=== PATIENT | male | born 1965 | race African-American/Black ===

== ENCOUNTER 2017-02-25 11:15 | Inpatient (IN) | payer MEDICAID ==
[~2017-02-25] VITALS: Ht 175.3 cm; Wt 84.0 kg
[~2017-02-25 11:15] MED LIST: HYDR10TA16 PO; TAB-TAB PO
[2017-02-25] MEDS ORDERED: IOHEXOL 350 MG/ML 10 ML VIAL (for RAD DIAG) IVCONTRAST ONE (11:16)
[2017-02-25 11:17] VITALS: BP 140/70; PULSE 75; RESP 18; TEMP 98.7; O2SAT 100
[2017-02-25] MEDS ORDERED: SODIUM CHLOR 0.9% 1000 ML INJ 1,000 ML IV SCH (11:48)
[2017-02-25] MEDS ORDERED: SODIUM CHLORIDE 0.9% FLUSH 10 ML FLUSH IV FLUSH PRN (12:00)
[2017-02-25] MEDS ORDERED: ONDANSETRON HCL 4 MG/2 ML VIAL IVP ONE (12:00)
[2017-02-25 12:03] VITALS: BP 128/68; PULSE 84; RESP 18; TEMP 98.2; O2SAT 100
[2017-02-25] MEDS ORDERED: HYDR-3583 PO (12:05)
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
[2017-02-25 12:35] LABS: AUTOMATED NEUTROPHIL # 3.3 TH/MM3 (1.8-7.7); BASOPHIL # 0.1 TH/MM3 (0-0.2); BASOPHIL % 1.3 % (0.0-2.0); EOSINOPHIL # 0.2 TH/MM3 (0-0.4); EOSINOPHIL % 3.3 % (0.0-4.0); HEMATOCRIT 35.8 % (39.0-51.0); HEMO FLAGS DIFF FINAL; LYMPHOCYTE # 1.7 TH/MM3 (1.0-4.8); MEAN CELL VOLUME 78.9 FL (80.0-100.0); MEAN CORPUSCULAR HEMOGLOBIN 24.4 PG (27.0-34.0); MONO % 13.1 % (0.0-8.0); NEUT % 54.3 % (16.0-70.0); PLATELET COUNT 466 TH/MM3 (150-450); RED BLOOD COUNT 4.54 MIL/MM3 (4.50-5.90); RED CELL DISTRIBUTION WIDTH 19.7 % (11.6-17.2); WHITE BLOOD COUNT 6.1 TH/MM3 (4.0-11.0)
[2017-02-25 12:44] LABS: APTT (PATIENT) 34.8 SEC (24.3-30.1); INTERNATIONAL NORMALIZED RATIO 1.4 RATIO; PROTHROMBIN TIME - PATIENT 16.2 SEC (9.8-11.6)
[2017-02-25 12:53] LABS: ALT (GPT) 668 U/L (12-78); ANION GAP 11 MEQ/L (5-15); AST (GOT) 608 U/L (15-37); BICARBONATE 19.5 MEQ/L (21.0-32.0); BLOOD UREA NITROGEN 10 MG/DL (7-18); CHLORIDE 103 MEQ/L (98-107); GLOMERULAR FILTRATION RATE 163 ML/MIN (>89); POTASSIUM 4.1 MEQ/L (3.5-5.1); SODIUM (NA) 133 MEQ/L (136-145)
[2017-02-25 12:56] LABS: ALKALINE PHOSPHATASE 272 U/L (45-117); TOTAL BILIRUBIN ADULT 0.4 MG/DL (0.2-1.0)
[2017-02-25 12:59] LABS: BACTERIA, URINE FEW /hpf; BLOOD, URINE MOD (NEG); COMMENT (UR) CULTURE INDICATED; CULTURE IF INDICATED CULTURE INDICATED; GLUCOSE,URINE NEG (NEG); GRANULAR CAST, URINE 4 /lpf; HYALINE CAST, URINE 21 /lpf (RARE); KETONE, URINE 10 mg/dL (NEG); MUCUS URINE MANY /lpf (OCC); NITRITE,URINE NEG (NEG); PH, URINE 5.5 (5.0-8.5); URIC ACID CRYSTALS, URINE RARE /hpf; URINE COLOR YELLOW (YELLW/STRAW)
[2017-02-25] MEDS ORDERED: cefTRIAXone INJ 1,000 MG in SODIUM CHLORIDE 0.9% INJ 100 ML IV ONE (13:30)
[2017-02-25] MEDS ORDERED: ONDANSETRON HCL 4 MG/2 ML VIAL IV PUSH ONE (14:00)
[2017-02-25] MEDS ORDERED: MORPHINE SULFATE 4 MG/ML INJ IV PUSH ONE (14:00)
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
[2017-02-25] MEDS ORDERED: NALOXONE HCL 0.4 MG/ML AMP IV PUSH PRN (15:45)
[2017-02-25] MEDS ORDERED: BISACODYL 10 MG SUPP RECTAL PRN (15:45)
[2017-02-25] MEDS ORDERED: LACTULOSE SYRUP 20 GM/30 ML CUP PO PRN (15:45)
[2017-02-25] MEDS ORDERED: METOCLOPRAMIDE HCL 10 MG/2 ML VIAL IV PUSH PRN (15:45)
[2017-02-25] MEDS ORDERED: SENNOSIDES 8.6 MG TAB PO PRN (15:45)
[2017-02-25] MEDS ORDERED: MAGNESIUM HYDROXIDE SUSP 30 ML CUP PO PRN (15:45)
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
[2017-02-25] MEDS: SODIUM CHLOR 0.9% 1000 ML INJ 1,000 ML IV SCH (17:01)
[2017-02-25] MEDS: ONDANSETRON HCL 4 MG/2 ML VIAL IVP PRN (17:13)
[2017-02-25] MEDS: oxyCODONE/ACETAMINOPHEN 7.5 MG/325 MG TAB PO PRN ×2 (17:48→23:25)
[2017-02-25 18:00] VITALS: BP 133/62; PULSE 88; RESP 18; TEMP 97.1; O2SAT 100
[2017-02-25 20:00] VITALS: BP 117/56; PULSE 103; RESP 22; TEMP 97.9; O2SAT 99
[2017-02-25] MEDS: SODIUM CHLORIDE 0.9% FLUSH 10 ML FLUSH IV FLUSH SCH (20:08)
[2017-02-25] MEDS: HYDROmorphone HCL PF 0.5 MG/0.5 ML SYRINGE IV PUSH PRN (21:29)
[2017-02-25 23:13] LABS: C. DIFF EPI 027 PRESUMPTIVE NEGATIVE (NEGATIVE)
[2017-02-26] VITALS: BP 105/58; PULSE 90; RESP 20; TEMP 97.6; O2SAT 98
[2017-02-26] MEDS: HYDROmorphone HCL PF 0.5 MG/0.5 ML SYRINGE IV PUSH PRN ×4 (02:07→21:13)
[2017-02-26] MEDS: SODIUM CHLOR 0.9% 1000 ML INJ 1,000 ML IV SCH ×3 (02:07→21:12)
[2017-02-26 02:37] LABS: HEMATOCRIT 28.4 % (39.0-51.0); MEAN CELL VOLUME 79.2 FL (80.0-100.0); MEAN CORPUSCULAR HEMOGLOBIN 24.6 PG (27.0-34.0); PLATELET COUNT 386 TH/MM3 (150-450); RED BLOOD COUNT 3.58 MIL/MM3 (4.50-5.90); RED CELL DISTRIBUTION WIDTH 19.4 % (11.6-17.2); WHITE BLOOD COUNT 4.6 TH/MM3 (4.0-11.0)
[2017-02-26 02:49] LABS: HEMO FLAGS AUTO DIFF
[2017-02-26 02:54] LABS: BICARBONATE 22.1 MEQ/L (21.0-32.0); POTASSIUM 3.5 MEQ/L (3.5-5.1)
[2017-02-26 04:13] LABS: BANDS 1 % (0-6); BASOPHILS 1 % (0-2); EOSINOPHILS 10 % (0-4); NEUTROPHIL # MANUAL DIFF 2.4 TH/MM3 (1.8-7.7); POLYS (SEG NEUTROPHILS) 51 % (16-70); WBC DIFF SAMPLE 100
[2017-02-26 04:16] LABS: PLATELET ESTIMATE SMEAR NORMAL (NORMAL); PLATELET MORPHOLOGY NORMAL (NORMAL); SCAN/DIFF FINAL DIFF MANUAL
[2017-02-26 08:00] VITALS: BP 134/66; PULSE 84; RESP 18; TEMP 98.3; O2SAT 98
[2017-02-26] MEDS: SODIUM CHLORIDE 0.9% FLUSH 10 ML FLUSH IV FLUSH SCH ×2 (09:00→21:12)
[2017-02-26] MEDS: oxyCODONE/ACETAMINOPHEN 7.5 MG/325 MG TAB PO PRN ×2 (09:32→17:07)
[2017-02-26] MEDS: ONDANSETRON HCL 4 MG/2 ML VIAL IVP PRN (09:39)
[2017-02-26 10:13] LABS: INDIRECT BILIRUBIN 0.1 MG/DL (0.0-0.8); TOTAL BILIRUBIN ADULT 0.2 MG/DL (0.2-1.0)
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
[2017-02-26 12:00] VITALS: BP 127/67; PULSE 80; RESP 18; TEMP 97.8; O2SAT 98
--- NOTE | 2017-02-26 12:31 | PD.WCN.NOT ---
Wound Consult Description: Consult placed for "Wound Management of stage IV decub" per Dr Greenberg on 02/25/17 Communicated with: Dr Jefferson Fuentes,RN Recommendation: Cleanse left lateral malleolus and left lateral knee with Normal Saline DAILY and apply Santyl as ordered with a dry cover. Cleanse left lateral calf every 3 days and PRN and apply Optifoam basic secured with rolled gauze. Cleanse in between 3rd, 4th, and 5th toes daily and separate with dry gauze or Optifoam basic. Change wound VAC to distal buttocks Sunday with settings @ 125mmHg low continuous suction. Additional Information: Patient seen on for wound management. Left lower lateral knee is noted with a wound measuring 2.7cm x 2.8cm x 0.6cm with 0.5cm of undermining from 6 o' clock to 10 o'clock. Wound bed is unstageable with ~30% pink tissue surrounding an island of ~70% yellow/brown necrotic tissue without active drainage and without odor. Periwound is unremarkable. Wound was cleansed with wound cleanser and a dressing of single layer Xeroform was applied to wound bed and covered with a dry cover until orders for Santyl can be obtained. Left lateral calf wound measures 26cm x 4cm x 0.7cm of vascular ~50% pink tissue and ~50% red non granulating tissue indicating partial thickness skinloss with a yellow friable exudate noted covering less than half of the wound bed that was cleansed with wound cleanser and gauze. Wound margins are open and epithelializing with new scar tissue noted to the periwound that was macerated from the previous dressing of Xeroform. Left lateral malleolus wound measures 3cm x 2.5cm x 1.2cm of loosely ~90% adherent slough and ~10% pink tissue indicating an unstageable wound. There is no odor and no active drainage noted. Wound was covered with single layer Xeroform and dry cover until Santyl can be obtained. Patient was assisted to his right side for assessment of the sacral/buttocks area. Wet to dry dressing was removed to reveal a wound inferior to the buttocks and superior to the scrotum measuring 4cm x 13cm x 4.5cm of moist vascular pink/red non granulating tissue without active drainage and without odor. Wound bed is partial thickness with scar tissue and epithelial tissue noted to wound margins. Periwound is noted with scar tissue and previous muscle flap. Wound was cleansed with wound cleanser and gauze. A moist to dry dressing was applied until orders for wound VAC could be obtained. Mila Limon [facility] Feb 26, 2017 12:31
[2017-02-26] MEDS: VANCOMYCIN 500 MG VIAL (FOR ORAL USE ONLY) PO SCH ×3 (13:24→21:11)
[2017-02-26] MEDS: metroNIDAZOLE 500 MG INJ 100 ML IV SCH ×2 (13:24→20:00)
--- NOTE | 2017-02-26 15:36 | PD.WCN.NOT ---
Wound Consult Description: Consult placed for "Wound Management of stage IV decub" per Dr Greenberg on 02/25/17 Recommendation: Cleanse left lateral malleolus and left lateral knee with Normal Saline DAILY and apply Santyl as ordered with a dry cover. Cleanse left lateral calf every 3 days and PRN and apply Optifoam basic secured with rolled gauze. Cleanse in between 3rd, 4th, and 5th toes daily and separate with dry gauze or Optifoam basic. Change wound VAC to distal buttocks Sunday with settings @ 125mmHg low continuous suction. Neg Pressure Wound Therapy Wound Location Wound Location: Posterior scrotum Wound Description Length: 4cm Width: 13cm Depth: 4.5cm Wound bed appearance: ~40% red non granulating tissue ~40% pink tissue ~20% white epithelial tissue Periwound appearance: Other (Scar tissue) Settings Suction: Continuous Intensity: Low Other Information: Bridged Foam type: Black Number of pieces: 2 Mila Limon [facility] Feb 26, 2017 15:35
[2017-02-26 16:00] VITALS: BP 138/69; PULSE 83; RESP 18; TEMP 98.1; O2SAT 99
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
--- NOTE | 2017-02-26 16:58 | RADRPT ---
EXAM DATE/TIME: 02/26/2017 15:39 [place] COMPARISON: CT ABDOMEN & PELVIS W CONTRAST, February 25, 2017, 13:58. INDICATIONS : Obstruction. MEDICAL HISTORY : Paraplegia. SURGICAL HISTORY : CABG Coronary artery stent. Bowel resection. ENCOUNTER: Initial ACUITY: 2 day PAIN SCORE: 3/10 LOCATION: abdomen TECHNIQUE: Multiplanar, multisequence magnetic resonance imaging of the abdomen was performed. High-resolution 3D dataset was utilized to reconstruct maximum-intensity projection (MIP) images. FINDINGS: There are no focal defects in the liver. There is no intrahepatic biliary duct dilatation. Common d uct is normal in size spleen, pancreas and adrenal glands are unremarkable. CONCLUSION: There is no acute common duct stone. Gallstone seen by CT scan is not visualized by MRCP. Erasmo Ambrocio MD FACR on February 26, 2017 at 16:53 Board Certified Radiologist. This report was verified electronically.
[2017-02-26 20:00] VITALS: BP 124/68; PULSE 115; RESP 17; TEMP 96.7; O2SAT 99
[2017-02-26 20:54] LABS: FERRITIN 635 NG/ML (26-388); TRANSFERRIN IRON PROFILE 120 MG/DL (200-360)
[2017-02-27] VITALS: BP 122/67; PULSE 109; RESP 17; TEMP 97.8; O2SAT 100
[2017-02-27] MEDS: oxyCODONE/ACETAMINOPHEN 7.5 MG/325 MG TAB PO PRN ×4 (00:32→23:53)
[2017-02-27] MEDS: metroNIDAZOLE 500 MG INJ 100 ML IV SCH ×3 (02:24→20:36)
[2017-02-27] MEDS: HYDROmorphone HCL PF 0.5 MG/0.5 ML SYRINGE IV PUSH PRN ×5 (02:25→20:47)
[2017-02-27] MEDS: SODIUM CHLOR 0.9% 1000 ML INJ 1,000 ML IV SCH ×2 (07:38→17:13)
[2017-02-27 08:31] VITALS: BP 117/62; PULSE 89; RESP 18; TEMP 97.7; O2SAT 100
[2017-02-27] MEDS: SODIUM CHLORIDE 0.9% FLUSH 10 ML FLUSH IV FLUSH SCH ×3 (09:00→20:37)
[2017-02-27] MEDS ORDERED: SODIUM CHLORIDE 0.9% FLUSH 10 ML FLUSH IV FLUSH PRN (09:00)
[2017-02-27] MEDS: MEGESTROL ACETATE SUSP 400 MG/10 ML CUP PO SCH (09:22)
[2017-02-27] MEDS: VANCOMYCIN 500 MG VIAL (FOR ORAL USE ONLY) PO SCH ×4 (09:22→20:36)
[2017-02-27] MEDS: COLLAGENASE OINT 30 GM TUBE TOPICAL SCH (09:22)
[2017-02-27] MEDS: LACTOBACILLUS ACIDOPHILUS TAB PO SCH ×2 (10:05→20:36)
[2017-02-27] MEDS ORDERED: ALTEPLASE RECOMBINANT 2 MG VIAL INTRACATH ONE (12:00)
[2017-02-27 12:07] VITALS: BP 140/68; PULSE 84; RESP 18; TEMP 98.9; O2SAT 99
--- NOTE | 2017-02-27 13:27 | HHI.GIFU ---
Subjective Remarks resting in bed, awake , responsive afebrile, RUQ pain with lt. palpation Colostomy draining red pink tinged fluid (Maile Barnes) Objective Vitals I&O Vital Signs Date Time Temp Pulse Resp B/P (MAP) Pulse Ox O2 Delivery O2 Flow Rate FiO2 02/27/17 12:07 98.9 84 18 140/68 (92) 99 02/27/17 08:31 97.7 89 18 117/62 (80) 100 02/27/17 04:46 16 02/27/17 02:24 16 02/27/17 00:00 97.8 109 17 122/67 (85) 100 02/26/17 20:00 96.7 115 17 124/68 (86) 99 02/26/17 16:00 98.1 83 18 138/69 (92) 99 I/O 02/26/17 02/26/17 02/26/17 02/27/17 02/27/17 02/27/17 07:00 15:00 23:00 07:00 15:00 23:00 Intake Total 1693 ml 960 ml 240 ml Output Total 600 ml 1100 ml 750 ml Balance 1093 ml -140 ml -510 ml Intake Oral 360 ml 960 ml 240 ml IV Total 1333 ml Output Urine Total 600 ml 750 ml 750 ml Stool Total 350 ml # Voids 1 # Bowel Movements 0 Laboratory Laboratory Tests Test 02/26/17 19:46 Iron Level 23 Total Iron Binding Capacity 168 Percent Iron Saturation 13.7 Ferritin 635 Tumor Marker Alpha Fetoprotein 2.0 Date/Time Source Procedure Growth Status 02/25/17 21:19 Stool Stool Cryptosporidium Exam - Final NEGATIVE - NO CRYPTOSPORIDIUM ANTIGEN... Complete 02/25/17 21:19 Stool Stool Stool Pus (LOIS) - Final RARE WBC Complete 02/25/17 12:27 Urine Clean Catch Urine Culture - Preliminary Acinetobacter Baumannii/Haemol Resulted Imaging Last Impressions Cholangiopancreatography MRI 02/26/17 0000 Signed Impressions: Service Date/Time: Sunday, February 26, 2017 15:39 - CONCLUSION: There is no acute common duct stone. Gallstone seen by CT scan is not visualized by MRCP. Erasmo Ambrocio MD FACR Abdomen/Pelvis CT 02/25/17 1318 Signed Impressions: Service Date/Time: Saturday, February 25, 2017 13:58 - CONCLUSION: 1. Multiple gallstones. 2. Umbilical ostomy. No dilated loops of small or large bowel. 3. Suprapubic catheter tip in the urinary bladder. 4. Bilateral Girdlestone procedures in the hips. Jairo Kurtz MD Physical Exam NELL SCOTT normocephalic; atraumatic; no jaundice. MM pink NECK: Neck is supple, no JVD, no lymphadenopathy. CHEST: Chest is clear to auscultation anterior and posterior, no rhonchi or wheezing noted CARDIAC: Regular rate and rhythm with no murmur gallop or rubs. ABDOMEN: Soft, describes mild burning burning generalized abdominal pain, bowel sounds are present in all four quadrants. Colostomy bag beginning to drain orange colored jelly consistent stool EXTREMITIES: rt. AKA, lt. leg bandage wound care CDI SKIN: Normal; no rash; no jaundice. [employer]ACHT: No focal deficits; alert and oriented times three., Anxious (Maile Barnes) Assessment and Plan Plan ASSESSMENT: - Hematemesis. Pt had n/v x 1 week with clear mucous and then had one episode of small amount of bright red blood mixed within clear mucous initially. Yesterday patient had clear pink tinged fluid via colostomy bag, today patient has generally consistent stool orange in color - N/V, Decreased appetite, abdominal pain. Pt reports 1 week hx of n/v, pain, decreased appetite, diarrhea. CT scan abdomen and pelvis with IV contrast (02/25/17) multiple gallstones, umbilical ostomy, no dilated loops of small or large bowel, suprapubic catheter tip in the urinary bladder , bilateral Girdlestone procedures in the hips. Tolerating Clear liquid diet and is starting to drink broth today with Jell- O in juice LFTs elevated, but not in an obstructive pattern and no hx of liver disease. - Acute on chronic anemia. HH stable at 9.3, due to hematocrit emesis will continue to monitor for any acute drops in hemoglobin - CDiff colitis, 2nd episode. Pt had recent episode while hospitalized at [facility] 1 month ago, treated with flagyl, oral vanco,. This is the first day the patient has began to show generally consistent stools, small amount via colostomy bag Now treated again with Oral Vanco, Flagyl. CDiff Positive. - Elevated LFTs. No hx of liver disease. Has cholelithiasis, but no biliary dilatation on CT. LFTs improving. Vital signs stable. MRCP done on 02-26. No acute common duct stone. Gallstones not visualized. - Chronic sacral decubitus ulcer, RLE skin wound per attending. Has diverting colostomy. Wound Vac on sacrum and being followed by wound care team PLAN: - Continue Clear liquids and encourage patient to drink broth on dietary tray along with his Jell-O, Gatorade, - Monitor HH, stable at 9.3. - Transfuse as necessary - Flagyl IVPB, C Diff tx - Oral Vanco, C Diff tx - Cont. Protonix - Consider EGD / Colonoscopy when more stable , C. difficile treatment continues - Supportive care - Further recommendations to follow based on results of above - Pt seen and examined by Dr. Yee and myself and this note is written on her behalf (Maile Barnes) Maile Barnes Feb 27, 2017 13:27 Avril Yee MD Feb 27, 2017 20:26
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
[2017-02-27 15:39] LABS: AUTOMATED NEUTROPHIL # 2.2 TH/MM3 (1.8-7.7); BASOPHIL % 0.4 % (0.0-2.0); EOSINOPHIL # 0.2 TH/MM3 (0-0.4); EOSINOPHIL % 4.6 % (0.0-4.0); HEMATOCRIT 29.9 % (39.0-51.0); HEMO FLAGS DIFF FINAL; LYMPH % 28.8 % (9.0-44.0); LYMPHOCYTE # 1.2 TH/MM3 (1.0-4.8); MEAN CELL VOLUME 79.4 FL (80.0-100.0); MEAN CORPUSCULAR HEMOGLOBIN 24.2 PG (27.0-34.0); MEAN CORPUSCULAR HGB CONC 30.5 % (32.0-36.0); NEUT % 54.2 % (16.0-70.0); PLATELET COUNT 431 TH/MM3 (150-450); RED BLOOD COUNT 3.77 MIL/MM3 (4.50-5.90); RED CELL DISTRIBUTION WIDTH 19.3 % (11.6-17.2); WHITE BLOOD COUNT 4.1 TH/MM3 (4.0-11.0)
[2017-02-27 16:07] LABS: ANION GAP 7 MEQ/L (5-15); AST (GOT) 64 U/L (15-37); BICARBONATE 22.9 MEQ/L (21.0-32.0); BLOOD UREA NITROGEN 3 MG/DL (7-18); CHLORIDE 108 MEQ/L (98-107); GLOMERULAR FILTRATION RATE 209 ML/MIN (>89); POTASSIUM 3.5 MEQ/L (3.5-5.1); SODIUM (NA) 138 MEQ/L (136-145)
[2017-02-27 16:08] LABS: ALT (GPT) 236 U/L (12-78)
[2017-02-27 16:10] LABS: ALKALINE PHOSPHATASE 218 U/L (45-117); TOTAL BILIRUBIN ADULT 0.2 MG/DL (0.2-1.0)
[2017-02-27 16:29] VITALS: BP 125/65; PULSE 97; RESP 18; TEMP 98.7; O2SAT 98
[2017-02-27 20:00] VITALS: BP 131/66; PULSE 86; RESP 17; TEMP 99; O2SAT 99
[2017-02-28] VITALS: BP 120/62; PULSE 62; RESP 17; TEMP 98.7; O2SAT 99
[2017-02-28] MEDS: HYDROmorphone HCL PF 0.5 MG/0.5 ML SYRINGE IV PUSH PRN ×5 (01:07→19:56)
[2017-02-28] MEDS: SODIUM CHLOR 0.9% 1000 ML INJ 1,000 ML IV SCH ×2 (01:13→13:25)
[2017-02-28] MEDS: metroNIDAZOLE 500 MG INJ 100 ML IV SCH ×3 (05:14→19:56)
[2017-02-28 06:28] LABS: AUTOMATED NEUTROPHIL # 2.3 TH/MM3 (1.8-7.7); BASOPHIL % 0.5 % (0.0-2.0); EOSINOPHIL # 0.3 TH/MM3 (0-0.4); EOSINOPHIL % 6.1 % (0.0-4.0); HEMATOCRIT 29.4 % (39.0-51.0); HEMO FLAGS DIFF FINAL; LYMPH % 33.9 % (9.0-44.0); LYMPHOCYTE # 1.6 TH/MM3 (1.0-4.8); MEAN CELL VOLUME 79.3 FL (80.0-100.0); MEAN CORPUSCULAR HEMOGLOBIN 24.9 PG (27.0-34.0); MEAN CORPUSCULAR HGB CONC 31.4 % (32.0-36.0); MONO % 10.2 % (0.0-8.0); NEUT % 49.3 % (16.0-70.0); PLATELET COUNT 439 TH/MM3 (150-450); RED BLOOD COUNT 3.71 MIL/MM3 (4.50-5.90); RED CELL DISTRIBUTION WIDTH 19.1 % (11.6-17.2); WHITE BLOOD COUNT 4.6 TH/MM3 (4.0-11.0)
[2017-02-28 06:49] LABS: ANION GAP 7 MEQ/L (5-15); AST (GOT) 52 U/L (15-37); BICARBONATE 25.9 MEQ/L (21.0-32.0); BLOOD UREA NITROGEN 4 MG/DL (7-18); CHLORIDE 109 MEQ/L (98-107); GLOMERULAR FILTRATION RATE 322 ML/MIN (>89); POTASSIUM 3.8 MEQ/L (3.5-5.1); SODIUM (NA) 142 MEQ/L (136-145)
[2017-02-28 06:52] LABS: ALKALINE PHOSPHATASE 215 U/L (45-117); ALT (GPT) 193 U/L (12-78); TOTAL BILIRUBIN ADULT 0.1 MG/DL (0.2-1.0)
[2017-02-28 08:00] VITALS: BP 147/73; PULSE 74; RESP 17; TEMP 97.8; O2SAT 99
[2017-02-28] MEDS: SODIUM CHLORIDE 0.9% FLUSH 10 ML FLUSH IV FLUSH SCH ×3 (09:00→19:56)
[2017-02-28] MEDS: MEGESTROL ACETATE SUSP 400 MG/10 ML CUP PO SCH (09:07)
[2017-02-28] MEDS: VANCOMYCIN 500 MG VIAL (FOR ORAL USE ONLY) PO SCH ×4 (09:07→19:56)
[2017-02-28] MEDS: LACTOBACILLUS ACIDOPHILUS TAB PO SCH ×2 (09:07→19:56)
[2017-02-28] MEDS: COLLAGENASE OINT 30 GM TUBE TOPICAL SCH (09:09)
[2017-02-28] MEDS: oxyCODONE/ACETAMINOPHEN 7.5 MG/325 MG TAB PO PRN ×3 (09:27→22:20)
[2017-02-28 12:00] VITALS: BP 129/66; PULSE 94; RESP 17; TEMP 96.6; O2SAT 98
--- NOTE | 2017-02-28 12:31 | HHI.GIFU ---
Subjective Remarks Resting in the bed, TV on Answers questions appropriately, anxious over current condition Afebrile Beginning to show soft jelly like stool in his colostomy bag (Maile Barnes) Objective Vitals I&O Vital Signs Date Time Temp Pulse Resp B/P (MAP) Pulse Ox O2 Delivery O2 Flow Rate FiO2 02/28/17 08:00 97.8 74 17 147/73 (97) 99 02/28/17 00:00 98.7 62 17 120/62 (81) 99 02/27/17 20:00 99.0 86 17 131/66 (87) 99 02/27/17 16:29 98.7 97 18 125/65 (85) 98 I/O 02/27/17 02/27/17 02/27/17 02/28/17 02/28/17 02/28/17 07:00 15:00 23:00 07:00 15:00 23:00 Intake Total 240 ml 1900 ml 1100 ml Output Total 750 ml 1650 ml 850 ml Balance -510 ml 250 ml 250 ml Intake Oral 240 ml 1200 ml 240 ml IV Total 700 ml 860 ml Output Urine Total 750 ml 1650 ml 850 ml Drainage Total 0 ml 0 ml # Voids 1 Laboratory Laboratory Tests Test 02/27/17 15:00 02/28/17 06:00 White Blood Count 4.1 4.6 Red Blood Count 3.77 3.71 Hemoglobin 9.1 9.3 Hematocrit 29.9 29.4 Mean Corpuscular Volume 79.4 79.3 Mean Corpuscular Hemoglobin 24.2 24.9 Mean Corpuscular Hemoglobin Concent 30.5 31.4 Red Cell Distribution Width 19.3 19.1 Platelet Count 431 439 Mean Platelet Volume 6.4 6.3 Neutrophils (%) (Auto) 54.2 49.3 Lymphocytes (%) (Auto) 28.8 33.9 Monocytes (%) (Auto) 12.0 10.2 Eosinophils (%) (Auto) 4.6 6.1 Basophils (%) (Auto) 0.4 0.5 Neutrophils # (Auto) 2.2 2.3 Lymphocytes # (Auto) 1.2 1.6 Monocytes # (Auto) 0.5 0.5 Eosinophils # (Auto) 0.2 0.3 Basophils # (Auto) 0.0 0.0 CBC Comment DIFF FINAL DIFF FINAL Differential Comment Blood Urea Nitrogen 3 4 Creatinine 0.51 0.35 Random Glucose 137 78 Total Protein 6.1 5.8 Albumin 1.8 1.7 Calcium Level 7.8 7.6 Alkaline Phosphatase 218 215 Aspartate Amino Transf (AST/SGOT) 64 52 Alanine Aminotransferase (ALT/SGPT) 236 193 Total Bilirubin 0.2 0.1 Sodium Level 138 142 Potassium Level 3.5 3.8 Chloride Level 108 109 Carbon Dioxide Level 22.9 25.9 Anion Gap 7 7 Estimat Glomerular Filtration Rate 209 322 Date/Time Source Procedure Growth Status 02/25/17 21:19 Stool Stool Cryptosporidium Exam - Final NEGATIVE - NO CRYPTOSPORIDIUM ANTIGEN... Complete 02/25/17 21:19 Stool Stool Stool Pus (LOIS) - Final RARE WBC Complete 02/25/17 12:27 Urine Clean Catch Urine Culture - Final Acinetobacter Baumannii/Haemol Complete Imaging Last Impressions Cholangiopancreatography MRI 02/26/17 0000 Signed Impressions: Service Date/Time: Sunday, February 26, 2017 15:39 - CONCLUSION: There is no acute common duct stone. Gallstone seen by CT scan is not visualized by MRCP. Erasmo Ambrocio MD FACR Abdomen/Pelvis CT 02/25/17 1318 Signed Impressions: Service Date/Time: Saturday, February 25, 2017 13:58 - CONCLUSION: 1. Multiple gallstones. 2. Umbilical ostomy. No dilated loops of small or large bowel. 3. Suprapubic catheter tip in the urinary bladder. 4. Bilateral Girdlestone procedures in the hips. Jairo Kurtz MD Physical Exam HEENT, PEARLLA normocephalic; atraumatic; no jaundice. MM pink NECK: Neck is supple, no JVD, no lymphadenopathy. CHEST: Chest is clear to auscultation anterior and posterior, no rhonchi or wheezing noted CARDIAC: Regular rate and rhythm with no murmur gallop or rubs. ABDOMEN: Soft, describes mild burning burning generalized abdominal pain, bowel sounds are present in all four quadrants. Colostomy bag beginning to drain orange colored jelly consistent stool EXTREMITIES: rt. AKA, lt. leg bandage wound care CDI SKIN: Normal; no rash; no jaundice. MANAGER STARS: No focal deficits; alert and oriented times three., Anxious (Maile Barnes) Assessment and Plan Plan ASSESSMENT: - Hematemesis. Pt had n/v x 1 week with clear mucous and then had one episode of small amount of bright red blood mixed within clear mucous initially. Yesterday patient had clear pink tinged fluid via colostomy bag, today patient has generally consistent stool orange in color - N/V, Decreased appetite, abdominal pain. Pt reports 1 week hx of n/v, pain, decreased appetite, diarrhea. CT scan abdomen and pelvis with IV contrast (02/25/17) multiple gallstones, umbilical ostomy, no dilated loops of small or large bowel, suprapubic catheter tip in the urinary bladder , bilateral Girdlestone procedures in the hips. Tolerating Clear liquid diet and is starting to drink broth today with Jell- O in juice LFTs elevated, but not in an obstructive pattern and no hx of liver disease. - Acute on chronic anemia. HH stable at 9.3, due to hematocrit emesis will continue to monitor for any acute drops in hemoglobin - CDiff colitis, 2nd episode. Pt had recent episode while hospitalized at [facility] 1 month ago, treated with flagyl, oral vanco,. This is the first day the patient has began to show generally consistent stools, small amount via colostomy bag Now treated again with Oral Vanco, Flagyl. CDiff Positive. - Elevated LFTs. No hx of liver disease. Has cholelithiasis, but no biliary dilatation on CT. LFTs improving. Vital signs stable. MRCP done on 02-26. No acute common duct stone. Gallstones not visualized. - Chronic sacral decubitus ulcer, RLE skin wound per attending. Has diverting colostomy. Wound Vac on sacrum and being followed by wound care team PLAN: - Continue Clear liquids and encourage patient to drink broth on dietary tray along with his Jell-O, Gatorade, - Monitor HH, stable at 9.3. - Monitor labs with special attention to LFTs - Transfuse as necessary - Flagyl IVPB, C Diff tx - Oral Vanco, C Diff tx - Cont. Protonix - Consider EGD / Colonoscopy when more stable , C. difficile treatment continues - Supportive care - Further recommendations to follow based on results of above - Pt seen and examined by Dr. Yee and myself and this note is written on her behalf (Maile Barnes) Physician Comments seen, examined agree with above tenderness over ruq-we will order hida scan hep c ab positive-we wll order viral load anemia-egd/colonoscopy via colostomy Sunday or early next week (Avril Yee MD) Maile Barnes Feb 28, 2017 12:31 Avril Yee MD Feb 28, 2017 18:53
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
[2017-02-28] MEDS ORDERED: AMPICILLIN-SULBACTAM INJ 3 GM in SODIUM CHLORIDE 0.9% INJ 100 ML IV SCH (13:30)
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
--- NOTE | 2017-02-28 14:51 | PD.WCN.NOT ---
Neg Pressure Wound Therapy Wound Location Wound Location: Posterior scrotum Wound Description Wound bed appearance: ~40% red non granulating tissue ~40% pink tissue ~20% white epithelial tissue Periwound appearance: Other (Maceration from 11 to 1 o'clock) Settings Suction: Continuous Intensity: Low Other Information: Bridged Foam type: Black Number of pieces: 1 Additonal Information Patient seen on 7 north around 1315 for VAC dressing change. Removed Wound VAC dressing in place to reveal wound. Wound description is noted above. Cleansed wound with wound pillowcase cleaner and pat dry. Doctor Nanette in room during dressing change and assessed wound. Skin prep was applied to Periwound and to Bridged area up to L hip. Single piece of black granufoam was applied to wound bed in a cinnamon roll fashion to reach all areas of wound bed. Stoma paste was applied to wound margins and creases between 4 and 8 o'clock to seal wound Vac. Applied VAC drape over exposed granufoam. Cut hole in VAC drape to expose small amount of granufoam. Bridged granufoam over VAC drape up to L hip area. Applied Sensi trac pad over bridged granufoam to L hip area with mushroom cap of black granufoam attached. Covered all exposed granufoam with VAC drape. Wound VAC is suctioning at 125 mm/hg without leaks. Next wound VAC dressing change is due Sunday03/02/2017. Sonam Flannery [facility] Feb 28, 2017 14:51
[2017-02-28 16:00] VITALS: BP 159/74; PULSE 75; RESP 17; TEMP 97.9; O2SAT 98
[2017-02-28] MEDS: ONDANSETRON HCL 4 MG/2 ML VIAL IVP PRN (20:06)
[2017-02-28 23:42] VITALS: BP 140/76; PULSE 86; RESP 22; TEMP 98.1; O2SAT 99
[2017-03-01] MEDS: SODIUM CHLOR 0.9% 1000 ML INJ 1,000 ML IV SCH ×3 (00:22→21:06)
[2017-03-01] MEDS: HYDROmorphone HCL PF 0.5 MG/0.5 ML SYRINGE IV PUSH PRN ×5 (00:22→21:09)
[2017-03-01] MEDS: metroNIDAZOLE 500 MG INJ 100 ML IV SCH ×3 (04:42→21:08)
[2017-03-01] MEDS: oxyCODONE/ACETAMINOPHEN 7.5 MG/325 MG TAB PO PRN ×3 (04:53→18:14)
[2017-03-01 06:14] LABS: AUTOMATED NEUTROPHIL # 1.8 TH/MM3 (1.8-7.7); BASOPHIL % 0.2 % (0.0-2.0); EOSINOPHIL # 0.3 TH/MM3 (0-0.4); EOSINOPHIL % 7.5 % (0.0-4.0); HEMATOCRIT 31.4 % (39.0-51.0); HEMO FLAGS DIFF FINAL; LYMPH % 38.7 % (9.0-44.0); LYMPHOCYTE # 1.6 TH/MM3 (1.0-4.8); MEAN CORPUSCULAR HEMOGLOBIN 24.4 PG (27.0-34.0); MEAN CORPUSCULAR HGB CONC 30.9 % (32.0-36.0); MONO % 11.6 % (0.0-8.0); PLATELET COUNT 424 TH/MM3 (150-450); RED BLOOD COUNT 3.98 MIL/MM3 (4.50-5.90); RED CELL DISTRIBUTION WIDTH 19.7 % (11.6-17.2); WHITE BLOOD COUNT 4.2 TH/MM3 (4.0-11.0)
[2017-03-01 06:38] LABS: ALT (GPT) 147 U/L (12-78); ANION GAP 7 MEQ/L (5-15); AST (GOT) 45 U/L (15-37); BICARBONATE 27.3 MEQ/L (21.0-32.0); BLOOD UREA NITROGEN 4 MG/DL (7-18); CHLORIDE 107 MEQ/L (98-107); GLOMERULAR FILTRATION RATE 333 ML/MIN (>89); POTASSIUM 3.7 MEQ/L (3.5-5.1); SODIUM (NA) 141 MEQ/L (136-145)
[2017-03-01 06:40] LABS: ALKALINE PHOSPHATASE 213 U/L (45-117); BACTERIA, URINE RARE /hpf; BLOOD, URINE NEG (NEG); COMMENT (UR) CULTURE INDICATED; CULTURE IF INDICATED CULTURE INDICATED; GLUCOSE,URINE NEG (NEG); KETONE, URINE NEG (NEG); MUCUS URINE FEW /lpf (OCC); NITRITE,URINE NEG (NEG); PH, URINE 6.5 (5.0-8.5); TOTAL BILIRUBIN ADULT 0.2 MG/DL (0.2-1.0); URINE COLOR YELLOW (YELLW/STRAW)
[2017-03-01 08:00] VITALS: BP 140/74; PULSE 72; RESP 17; TEMP 98.3; O2SAT 99
[2017-03-01] MEDS: VANCOMYCIN 500 MG VIAL (FOR ORAL USE ONLY) PO SCH ×4 (08:52→21:11)
[2017-03-01] MEDS: LACTOBACILLUS ACIDOPHILUS TAB PO SCH ×2 (08:53→21:09)
[2017-03-01] MEDS: MEGESTROL ACETATE SUSP 400 MG/10 ML CUP PO SCH (08:53)
[2017-03-01] MEDS: SODIUM CHLORIDE 0.9% FLUSH 10 ML FLUSH IV FLUSH SCH ×3 (08:53→21:08)
[2017-03-01] MEDS: COLLAGENASE OINT 30 GM TUBE TOPICAL SCH (08:54)
--- NOTE | 2017-03-01 10:37 | HHI.GIFU ---
Subjective Remarks Resting in bed. No n/v. Tolerating clear liquids. Continues to have abdominal pain, more tender in RUQ. Going for HIDA scan today. Colostomy bag with liquid yellowish stool (MahanSirisha Rachceline GARLAND) Objective Vitals I&O Vital Signs Date Time Temp Pulse Resp B/P (MAP) Pulse Ox O2 Delivery O2 Flow Rate FiO2 03/01/17 08:00 98.3 72 17 140/74 (96) 99 02/28/17 23:42 98.1 86 22 140/76 (97) 99 02/28/17 16:00 97.9 75 17 159/74 (102) 98 02/28/17 12:00 96.6 94 17 129/66 (87) 98 I/O 02/28/17 02/28/17 02/28/17 03/01/17 03/01/17 03/01/17 07:00 15:00 23:00 07:00 15:00 23:00 Intake Total 1100 ml 100 ml 3080 ml 867 ml Output Total 850 ml 850 ml 1360 ml Balance 250 ml 100 ml 2230 ml -493 ml Intake Oral 240 ml 2160 ml IV Total 860 ml 100 ml 920 ml 867 ml Output Urine Total 850 ml 850 ml 1360 ml Drainage Total 0 ml # Bowel Movements 2 Laboratory Laboratory Tests Test 03/01/17 06:00 White Blood Count 4.2 Red Blood Count 3.98 Hemoglobin 9.7 Hematocrit 31.4 Mean Corpuscular Volume 79.0 Mean Corpuscular Hemoglobin 24.4 Mean Corpuscular Hemoglobin Concent 30.9 Red Cell Distribution Width 19.7 Platelet Count 424 Mean Platelet Volume 6.5 Neutrophils (%) (Auto) 42.0 Lymphocytes (%) (Auto) 38.7 Monocytes (%) (Auto) 11.6 Eosinophils (%) (Auto) 7.5 Basophils (%) (Auto) 0.2 Neutrophils # (Auto) 1.8 Lymphocytes # (Auto) 1.6 Monocytes # (Auto) 0.5 Eosinophils # (Auto) 0.3 Basophils # (Auto) 0.0 CBC Comment DIFF FINAL Differential Comment Urine Color YELLOW Urine Turbidity CLEAR Urine pH 6.5 Urine Specific [place] 1.010 Urine Protein NEG Urine Glucose (UA) NEG Urine Ketones NEG Urine Occult Blood NEG Urine Nitrite NEG Urine Bilirubin NEG Urine Urobilinogen LESS THAN 2.0 Urine Leukocyte Esterase LARGE Urine RBC 2 Urine WBC 35 Urine Bacteria RARE Urine Mucus FEW Urine Yeast (Budding) OCC Microscopic Urinalysis Comment CULTURE INDICATED Blood Urea Nitrogen 4 Creatinine 0.34 Random Glucose 73 Total Protein 6.1 Albumin 1.8 Calcium Level 7.7 Alkaline Phosphatase 213 Aspartate Amino Transf (AST/SGOT) 45 Alanine Aminotransferase (ALT/SGPT) 147 Total Bilirubin 0.2 Sodium Level 141 Potassium Level 3.7 Chloride Level 107 Carbon Dioxide Level 27.3 Anion Gap 7 Estimat Glomerular Filtration Rate 333 Date/Time Source Procedure Growth Status 02/25/17 21:19 Stool Stool Cryptosporidium Exam - Final NEGATIVE - NO CRYPTOSPORIDIUM ANTIGEN... Complete 02/25/17 21:19 Stool Stool Stool Pus (LOIS) - Final RARE WBC Complete 03/01/17 06:00 Urine Suprapubic Urine Urine Culture Pending Received Imaging Last Impressions Cholangiopancreatography MRI 02/26/17 0000 Signed Impressions: Service Date/Time: Sunday, February 26, 2017 15:39 - CONCLUSION: There is no acute common duct stone. Gallstone seen by CT scan is not visualized by MRCP. Erasmo Ambrocio MD FACR Abdomen/Pelvis CT 02/25/17 1318 Signed Impressions: Service Date/Time: Saturday, February 25, 2017 13:58 - CONCLUSION: 1. Multiple gallstones. 2. Umbilical ostomy. No dilated loops of small or large bowel. 3. Suprapubic catheter tip in the urinary bladder. 4. Bilateral Girdlestone procedures in the hips. Jairo Kurtz MD Physical Exam HEENT, Normocephalic; atraumatic CHEST: CTA CARDIAC: RRR ABDOMEN: Soft, diffuse tenderness, more in RUQ, Colostomy bag with liquid brown stool EXTREMITIES: Right AKA, lt. leg bandage wound care CDI SKIN: Normal; no rash; no jaundice. 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 Pt had n/v x 1 week with clear mucous and then had one episode of small amount of bright red blood mixed within clear mucous. No further episodes. Possible lashay vale tear. 9.7/31.4. - N/V, Decreased appetite, abdominal pain. Pt reports 1 week hx of n/v, pain, decreased appetite, diarrhea. CT scan abdomen and pelvis with IV contrast (02/25/17) multiple gallstones, umbilical ostomy, no dilated loops of small or large bowel, suprapubic catheter tip in the urinary bladder , bilateral Girdlestone procedures in the hips. MRCP (02/26/17)---> There is no acute common duct stone. Gallstone seen by CT scan is not visualized by MRCP. Continues to have abdominal pain, more in RUQ. Going for HIDA scan today. - Acute on chronic anemia. HH stable at 9.7/31.4. - CDiff colitis, 2nd episode. Pt had recent episode while hospitalized at [facility] 1 month ago, treated with flagyl, oral vanco,. Still having liquid stool from colostomy, about the same. Flagyl, Oral Vanco. - Elevated LFTs. No hx of liver disease. Has cholelithiasis, but no biliary dilatation on CT. No obstruction on MRCP. Continues to have abdominal pain, more in RUQ. Going for HIDA scan today. HCV Ab (+), viral load pending. - HCV Ab (+). Viral load pending. - Chronic sacral decubitus ulcer, RLE skin wound per attending. Has diverting colostomy. Wound Vac on sacrum and being followed by wound care team PLAN: - Clear liquids - HIDA scan - Await HCV viral load - PPI - Oral Vanco, Flagyl - Monitor labs - Supportive care - Further recommendations to follow based on results of above - Pt seen and examined by Dr. Yee and myself and this note is written on her behalf (Sirisha Mahan) Physician Comments seen, examined agree with above we will schedule egd/colon in am HIDA to be done tomorrow too (Avril Yee MD) Sirisha Mahan Mar 01, 2017 10:37 Avril Yee MD Mar 01, 2017 17:27
--- NOTE | 2017-03-01 10:55 | HHI.FF ---
Face to Face Verification Diagnosis: (1) Decubitus ulcer Home Health Nursing Order: Wound care and dressing changes Instructions: WOUND VAC DSG Cleansed wound with wound latrine cleaner and pat dry. Skin prep was applied to Periwound and to Bridged area up to L hip. Single piece of black granufoam was applied to wound bed in a cinnamon roll fashion to reach all areas of wound bed. Stoma paste was applied to wound margins and creases between 4 and 8 o' clock to seal wound Vac. Applied VAC drape over exposed granufoam. Cut hole in VAC drape to expose small amount of granufoam. Bridged granufoam over VAC drape up to L hip area. Applied Sensi trac pad over bridged granufoam to L hip area with mushroom cap of black granufoam attached. Covered all exposed granufoam with VAC drape. Wound VAC is suctioning at 125 mm/hg. Wound Vac dressing change every other day. M-W-. I have seen patient Axel Nolan Jr on 03/01/17. My clinical findings support the need for the requested home health care services because: Ltd mobility - disease progression Limited ability to care for self High risk of falls Infection w/ risk of complications I certify that my clinical findings support that this patient is homebound because: [id number] bed/chair Unable to use public transportation Johnathan Chino Mar 01, 2017 10:55
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
[2017-03-01 12:00] VITALS: BP 144/70; PULSE 81; RESP 17; TEMP 98; O2SAT 99
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
[2017-03-01 16:00] VITALS: BP 131/68; PULSE 72; RESP 17; TEMP 98.5; O2SAT 99
[2017-03-01] MEDS ORDERED: MAGNESIUM CITRATE SOLN 300 ML BTL PO ONE ×2 (17:30→22:00)
[2017-03-01 20:00] VITALS: BP 161/77; PULSE 72; RESP 20; TEMP 98.9; O2SAT 99
[2017-03-02] VITALS: BP 139/69; PULSE 77; RESP 20; TEMP 97.4; O2SAT 96
[2017-03-02] MEDS: oxyCODONE/ACETAMINOPHEN 7.5 MG/325 MG TAB PO PRN ×3 (00:04→11:51)
[2017-03-02] MEDS: HYDROmorphone HCL PF 0.5 MG/0.5 ML SYRINGE IV PUSH PRN ×4 (01:14→21:07)
[2017-03-02] MEDS: metroNIDAZOLE 500 MG INJ 100 ML IV SCH ×3 (05:21→21:03)
[2017-03-02] MEDS: SODIUM CHLOR 0.9% 1000 ML INJ 1,000 ML IV SCH ×2 (05:38→11:58)
[2017-03-02 06:14] LABS: AUTOMATED NEUTROPHIL # 1.9 TH/MM3 (1.8-7.7); BASOPHIL # 0.1 TH/MM3 (0-0.2); BASOPHIL % 1.4 % (0.0-2.0); EOSINOPHIL # 0.3 TH/MM3 (0-0.4); EOSINOPHIL % 7.9 % (0.0-4.0); HEMATOCRIT 30.5 % (39.0-51.0); HEMO FLAGS DIFF FINAL; LYMPH % 37.3 % (9.0-44.0); LYMPHOCYTE # 1.6 TH/MM3 (1.0-4.8); MEAN CELL VOLUME 78.8 FL (80.0-100.0); MEAN CORPUSCULAR HEMOGLOBIN 24.6 PG (27.0-34.0); MEAN CORPUSCULAR HGB CONC 31.3 % (32.0-36.0); MONO % 10.6 % (0.0-8.0); NEUT % 42.8 % (16.0-70.0); PLATELET COUNT 410 TH/MM3 (150-450); RED BLOOD COUNT 3.88 MIL/MM3 (4.50-5.90); RED CELL DISTRIBUTION WIDTH 19.7 % (11.6-17.2); WHITE BLOOD COUNT 4.4 TH/MM3 (4.0-11.0)
[2017-03-02 06:20] LABS: ANION GAP 7 MEQ/L (5-15); BICARBONATE 25.4 MEQ/L (21.0-32.0); BLOOD UREA NITROGEN 3 MG/DL (7-18); CHLORIDE 108 MEQ/L (98-107); GLOMERULAR FILTRATION RATE 268 ML/MIN (>89); POTASSIUM 3.9 MEQ/L (3.5-5.1); SODIUM (NA) 140 MEQ/L (136-145)
[2017-03-02 06:22] LABS: AST (GOT) 54 U/L (15-37)
[2017-03-02 06:25] LABS: ALKALINE PHOSPHATASE 204 U/L (45-117); ALT (GPT) 114 U/L (12-78); TOTAL BILIRUBIN ADULT 0.2 MG/DL (0.2-1.0)
[2017-03-02] MEDS ORDERED: LACTATED RINGER'S 1000 ML IV PRN (06:30)
[2017-03-02 08:00] VITALS: BP 130/72; PULSE 75; RESP 17; TEMP 98.4; O2SAT 98
[2017-03-02] MEDS: VANCOMYCIN 500 MG VIAL (FOR ORAL USE ONLY) PO SCH ×4 (08:47→21:02)
[2017-03-02] MEDS: MEGESTROL ACETATE SUSP 400 MG/10 ML CUP PO SCH (09:00)
[2017-03-02] MEDS: LACTOBACILLUS ACIDOPHILUS TAB PO SCH ×2 (09:00→21:02)
[2017-03-02] MEDS: SODIUM CHLORIDE 0.9% FLUSH 10 ML FLUSH IV FLUSH SCH ×3 (09:00→21:03)
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
--- NOTE | 2017-03-02 11:43 | RADRPT ---
EXAM DATE/TIME: 03/02/2017 08:55 [facility] COMPARISON: No previous studies available for comparison. INDICATIONS : Abdomen pain DOSE: 4 mCi Tc99m Mebrofenin IV MEDICAL HISTORY : Hepatitis C. C-diff. Paraplegic. SURGICAL HISTORY : Colostomy. Rt. BKA. ENCOUNTER: Initial ACUITY: 1 day PAIN SCALE: 0/10 LOCATION: Bilateral upper quadrant TECHNIQUE: Following the intravenous administration of radiotracer, dynamic sequential images were performed wit h continuous acquisition. FINDINGS: HEPATIC KINETICS: There is prompt uptake of radiotracer in the liver. No focal defects are seen. There is normal rate of washout from the hepatic parenchyma. BILIARY CLEARANCE: Activity is first seen in the extrahepatic biliary system at 5 minutes. There is normal excretion in to the small bowel. GALLBLADDER: Activity is first seen in the gallbladder at 7 minutes. Common bile duct kinetics are normal and the re is no evidence of biliary obstruction. BILIARY ENTRIC REFLUX: None observed. CONCLUSION: Normal study Yonathan Morel MD on March 02, 2017 at 11:39 Board Certified Radiologist. This report was verified electronically.
[2017-03-02] MEDS: COLLAGENASE OINT 30 GM TUBE TOPICAL SCH (11:52)
[2017-03-02 12:00] VITALS: BP 162/77; PULSE 71; RESP 17; TEMP 98.7; O2SAT 100
[2017-03-02] MEDS ORDERED: oxyCODONE/ACETAMINOPHEN 5 MG/325 MG TAB PO PRN (12:00)
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
[2017-03-02 16:00] VITALS: BP 126/68; PULSE 91; RESP 17; TEMP 98.4; O2SAT 99
[2017-03-02] MEDS: oxyCODONE/ACETAMINOPHEN 10 MG/325 MG TAB PO PRN (17:50)
--- NOTE | 2017-03-02 19:23 | PD.WCN.NOT ---
Neg Pressure Wound Therapy Wound Location Wound Location: Posterior scrotum Wound Description Length: 2.5cm Width: 14cm Depth: 3.5cm Undermining: Undermining is noted from 9 to 11 o'clock measuring 3.6 cm Wound bed appearance: ~40% red non granulating tissue ~40% pink tissue ~20% white epithelial tissue Periwound appearance: Other (Maceration from 11 to 1 o'clock) Settings Suction: 125 mmHg, Continuous Intensity: Low Other Information: Bridged Foam type: Black Number of pieces: 1 Additonal Information Patient seen on [address] [place] [address] around 1315 for VAC dressing change. Removed Wound VAC dressing in place to reveal wound. Wound description is noted above. Cleansed wound with wound machine fur cleaner and pat dry. Skin prep was applied to Periwound and to Bridged area up to L hip. Single piece of black granufoam was applied to wound bed in a cinnamon roll fashion to reach all areas of wound bed. Stoma paste was applied to wound margins and creases between 4 and 8 o'clock to seal wound Vac. Applied VAC drape over exposed granufoam. Cut hole in VAC drape to expose small amount of granufoam. Bridged granufoam over VAC drape up to L hip area. Applied Sensi trac pad over bridged granufoam to L hip area with mushroom cap of black granufoam attached. Covered all exposed granufoam with VAC drape. Wound VAC is suctioning at 125 mm/hg without leaks. Next wound VAC dressing change is due Sunday03/05/2017 [facility] Mar 02, 2017 19:23
[2017-03-02 20:00] VITALS: BP 142/68; PULSE 70; RESP 20; TEMP 97.8; O2SAT 100
[2017-03-03] VITALS: BP 172/79; PULSE 75; RESP 20; TEMP 97.7; O2SAT 100
[2017-03-03] MEDS: HYDROmorphone HCL PF 0.5 MG/0.5 ML SYRINGE IV PUSH PRN ×5 (00:34→20:36)
[2017-03-03] MEDS: SODIUM CHLOR 0.9% 1000 ML INJ 1,000 ML IV SCH ×3 (00:40→20:39)
[2017-03-03 04:00] VITALS: BP 151/75; PULSE 77; RESP 20; TEMP 99.2; O2SAT 99
[2017-03-03] MEDS: metroNIDAZOLE 500 MG INJ 100 ML IV SCH (04:36)
[2017-03-03] MEDS: oxyCODONE/ACETAMINOPHEN 10 MG/325 MG TAB PO PRN ×3 (06:54→19:00)
[2017-03-03 06:56] LABS: AUTOMATED NEUTROPHIL # 2.3 TH/MM3 (1.8-7.7); BASOPHIL # 0.1 TH/MM3 (0-0.2); BASOPHIL % 1.2 % (0.0-2.0); EOSINOPHIL # 0.3 TH/MM3 (0-0.4); EOSINOPHIL % 6.3 % (0.0-4.0); HEMATOCRIT 30.8 % (39.0-51.0); HEMO FLAGS DIFF FINAL; LYMPH % 34.2 % (9.0-44.0); LYMPHOCYTE # 1.6 TH/MM3 (1.0-4.8); MEAN CELL VOLUME 78.2 FL (80.0-100.0); MEAN CORPUSCULAR HEMOGLOBIN 24.5 PG (27.0-34.0); MEAN CORPUSCULAR HGB CONC 31.3 % (32.0-36.0); MONO % 10.6 % (0.0-8.0); NEUT % 47.7 % (16.0-70.0); PLATELET COUNT 399 TH/MM3 (150-450); RED BLOOD COUNT 3.94 MIL/MM3 (4.50-5.90); RED CELL DISTRIBUTION WIDTH 19.5 % (11.6-17.2); WHITE BLOOD COUNT 4.8 TH/MM3 (4.0-11.0)
[2017-03-03 07:14] LABS: ANION GAP 7 MEQ/L (5-15); AST (GOT) 50 U/L (15-37); BICARBONATE 25.8 MEQ/L (21.0-32.0); BLOOD UREA NITROGEN 2 MG/DL (7-18); CHLORIDE 107 MEQ/L (98-107); GLOMERULAR FILTRATION RATE 312 ML/MIN (>89); POTASSIUM 3.9 MEQ/L (3.5-5.1); SODIUM (NA) 140 MEQ/L (136-145)
[2017-03-03 07:18] LABS: ALKALINE PHOSPHATASE 190 U/L (45-117); ALT (GPT) 97 U/L (12-78); TOTAL BILIRUBIN ADULT 0.2 MG/DL (0.2-1.0)
[2017-03-03 08:00] VITALS: BP 128/65; PULSE 72; RESP 19; TEMP 98.8; O2SAT 99
[2017-03-03] MEDS: SODIUM CHLORIDE 0.9% FLUSH 10 ML FLUSH IV FLUSH SCH ×3 (08:41→20:36)
[2017-03-03] MEDS: MEGESTROL ACETATE SUSP 400 MG/10 ML CUP PO SCH (08:43)
[2017-03-03] MEDS: LACTOBACILLUS ACIDOPHILUS TAB PO SCH ×2 (08:43→20:35)
[2017-03-03] MEDS: VANCOMYCIN 500 MG VIAL (FOR ORAL USE ONLY) PO SCH ×4 (08:43→20:35)
[2017-03-03] MEDS: COLLAGENASE OINT 30 GM TUBE TOPICAL SCH (08:45)
[2017-03-03 11:55] VITALS: BP 140/65; PULSE 84; RESP 19; TEMP 98.4; O2SAT 100
[2017-03-03] MEDS ORDERED: FLUCONAZOLE 200 MG TAB PO ONE (12:00)
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
[2017-03-03 13:51] LABS: HCV RNA PCR LOGIU/ML 3.5 (0-1.18)
[2017-03-03] MEDS: SODIUM CHLORIDE 0.9% FLUSH 10 ML FLUSH IV FLUSH PRN (15:39)
[2017-03-03 16:00] VITALS: BP 140/65; PULSE 84; RESP 19; TEMP 98.7; O2SAT 100
--- NOTE | 2017-03-03 16:24 | HHI.GIFU ---
Subjective Remarks Active bowel sounds continues with right upper quadrant pain Hemoglobin stable at 9.6 Afebrile Resting in the bed (Maile Barnes) Objective Vitals I&O Vital Signs Date Time Temp Pulse Resp B/P (MAP) Pulse Ox O2 Delivery O2 Flow Rate FiO2 03/03/17 11:55 98.4 84 19 140/65 (90) 100 03/03/17 08:00 98.8 72 19 128/65 (86) 99 03/03/17 04:00 99.2 77 20 151/75 (100) 99 03/03/17 00:00 97.7 75 20 172/79 (110) 100 03/02/17 20:00 97.8 70 20 142/68 (92) 100 I/O 03/02/17 03/02/17 03/02/17 03/03/17 03/03/17 03/03/17 07:00 15:00 23:00 07:00 15:00 23:00 Intake Total 200 ml 625 ml 1900 ml 320 ml Output Total 2125 ml 1290 ml 2000 ml Balance -1925 ml 625 ml 610 ml -1680 ml Intake Oral 0 ml 1900 ml 320 ml IV Total 200 ml 625 ml Output Urine Total 1650 ml 1250 ml 2000 ml Stool Total 475 ml Drainage Total 40 ml # Bowel Movements 1 2 Laboratory Laboratory Tests Test 03/03/17 04:40 White Blood Count 4.8 Red Blood Count 3.94 Hemoglobin 9.6 Hematocrit 30.8 Mean Corpuscular Volume 78.2 Mean Corpuscular Hemoglobin 24.5 Mean Corpuscular Hemoglobin Concent 31.3 Red Cell Distribution Width 19.5 Platelet Count 399 Mean Platelet Volume 6.6 Neutrophils (%) (Auto) 47.7 Lymphocytes (%) (Auto) 34.2 Monocytes (%) (Auto) 10.6 Eosinophils (%) (Auto) 6.3 Basophils (%) (Auto) 1.2 Neutrophils # (Auto) 2.3 Lymphocytes # (Auto) 1.6 Monocytes # (Auto) 0.5 Eosinophils # (Auto) 0.3 Basophils # (Auto) 0.1 CBC Comment DIFF FINAL Differential Comment Blood Urea Nitrogen 2 Creatinine 0.36 Random Glucose 79 Total Protein 6.0 Albumin 1.8 Calcium Level 8.1 Alkaline Phosphatase 190 Aspartate Amino Transf (AST/SGOT) 50 Alanine Aminotransferase (ALT/SGPT) 97 Total Bilirubin 0.2 Sodium Level 140 Potassium Level 3.9 Chloride Level 107 Carbon Dioxide Level 25.8 Anion Gap 7 Estimat Glomerular Filtration Rate 312 Date/Time Source Procedure Growth Status 02/25/17 21:19 Stool Stool Cryptosporidium Exam - Final NEGATIVE - NO CRYPTOSPORIDIUM ANTIGEN... Complete 02/25/17 21:19 Stool Stool Stool Pus (LOIS) - Final RARE WBC Complete 03/01/17 06:00 Urine Suprapubic Urine Urine Culture - Final Merari Albicans Complete Imaging Last Impressions Hepatobiliary Scan Nuclear Medicine 03/02/17 0000 Signed Impressions: Service Date/Time: Thursday, March 02, 2017 08:55 - CONCLUSION: Normal study Yonathan Morel MD Cholangiopancreatography MRI 02/26/17 0000 Signed Impressions: Service Date/Time: Sunday, February 26, 2017 15:39 - CONCLUSION: There is no acute common duct stone. Gallstone seen by CT scan is not visualized by MRCP. Erasmo Ambrocio MD FACR Abdomen/Pelvis CT 02/25/17 1318 Signed Impressions: Service Date/Time: Saturday, February 25, 2017 13:58 - CONCLUSION: 1. Multiple gallstones. 2. Umbilical ostomy. No dilated loops of small or large bowel. 3. Suprapubic catheter tip in the urinary bladder. 4. Bilateral Girdlestone procedures in the hips. Jairo Kurtz MD Physical Exam HEENT, Normocephalic; atraumatic CHEST: CTA CARDIAC: RRR ABDOMEN: Soft, diffuse tenderness, more in RUQ, Colostomy bag with liquid brown stool EXTREMITIES: Right AKA, lt. leg bandage wound care CDI SKIN: Normal; no rash; no jaundice. FILM EDITOR: No focal deficits; alert and oriented times three, Anxious (Maile Barnes) Assessment and Plan Plan ASSESSMENT: - Hematemesis. Pt had n/v x 1 week with clear mucous and then had one episode of small amount of bright red blood mixed within clear mucous. No further episodes. Possible lashay vale tear. 9.7/31.4. - N/V, Decreased appetite, abdominal pain. Pt reports 1 week hx of n/v, pain, decreased appetite, diarrhea. CT scan abdomen and pelvis with IV contrast (02/25/17) multiple gallstones, umbilical ostomy, no dilated loops of small or large bowel, suprapubic catheter tip in the urinary bladder , bilateral Girdlestone procedures in the hips. MRCP (02/26/17)---> There is no acute common duct stone. Gallstone seen by CT scan is not visualized by MRCP. Continues to have abdominal pain, more in RUQ. HIDA scan normal., EGD colonoscopy planned for Sunday - Acute on chronic anemia. HH stable at 9.6, no active bleeding - CDiff colitis, 2nd episode. Pt had recent episode while hospitalized at [facility] 1 month ago, treated with flagyl, oral vanco,. Still having liquid stool from colostomy, about the same. Flagyl, Oral Vanco. - Elevated LFTs. No hx of liver disease. Has cholelithiasis, but no biliary dilatation on CT. No obstruction on MRCP. Continues to have abdominal pain, more in RUQ. EGD colonoscopy planned for Sunday - HCV Ab (+). Viral load pending. - Chronic sacral decubitus ulcer, RLE skin wound per attending. Has diverting colostomy. Wound Vac on sacrum and being followed by wound care team PLAN: - Diet regular diet seems to be tolerating without nausea or vomiting - Await HCV viral load - PPI - Diflucan 200 mg by mouth daily - Megace 400 mg daily - Probiotics - Oral Vancomycin - Bowel regimen stool softeners and laxatives as needed - Monitor labs - Supportive care -Plan for EGD/colonoscopy Sunday - Further recommendations to follow based on results of above - Pt seen and examined by Dr. Yee and myself and this note is written on her behalf (Maile Barnes) Physician Comments seen, examined agree with above (Avril Yee MD) Maile Barnes Mar 03, 2017 16:24 Avril Yee MD Mar 03, 2017 17:28
[2017-03-03 20:00] VITALS: BP 149/71; PULSE 73; RESP 18; TEMP 98.6; O2SAT 99
[2017-03-04] VITALS: BP 158/77; PULSE 62; RESP 18; TEMP 98.4; O2SAT 100
[2017-03-04] MEDS: oxyCODONE/ACETAMINOPHEN 10 MG/325 MG TAB PO PRN ×6 (01:11→23:48)
[2017-03-04] MEDS: HYDROmorphone HCL PF 0.5 MG/0.5 ML SYRINGE IV PUSH PRN (02:08)
[2017-03-04 03:50] LABS: MITOCHONDRIAL ABS LESS THAN 20.0 U (<=20.0)
[2017-03-04] MEDS: SODIUM CHLOR 0.9% 1000 ML INJ 1,000 ML IV SCH ×3 (05:26→23:48)
[2017-03-04] MEDS: HYDROmorphone HCL PF 1 MG/ML VIAL IV PUSH PRN ×5 (07:41→21:38)
[2017-03-04] MEDS: SODIUM CHLORIDE 0.9% FLUSH 10 ML FLUSH IV FLUSH SCH ×3 (07:41→21:00)
[2017-03-04 08:00] VITALS: BP 166/79; PULSE 68; RESP 19; TEMP 97.4; O2SAT 99
[2017-03-04] MEDS: VANCOMYCIN 500 MG VIAL (FOR ORAL USE ONLY) PO SCH ×4 (08:59→21:37)
[2017-03-04] MEDS: LACTOBACILLUS ACIDOPHILUS TAB PO SCH ×2 (08:59→21:37)
[2017-03-04] MEDS: FLUCONAZOLE 200 MG TAB PO SCH (08:59)
[2017-03-04] MEDS: MEGESTROL ACETATE SUSP 400 MG/10 ML CUP PO SCH (08:59)
[2017-03-04] MEDS: COLLAGENASE OINT 30 GM TUBE TOPICAL SCH (09:03)
[2017-03-04] MEDS: SODIUM CHLORIDE 0.9% FLUSH 10 ML FLUSH IV FLUSH PRN (11:01)
[2017-03-04 12:00] VITALS: BP 139/67; PULSE 87; RESP 18; TEMP 98.5; O2SAT 97
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
[2017-03-04 16:00] VITALS: BP 144/68; PULSE 86; RESP 18; TEMP 98.8; O2SAT 99
[2017-03-04] MEDS ORDERED: PEG (High)/E-LYTE SOLN 4000 ML BTL PO ONE (16:00)
[2017-03-04 20:00] VITALS: BP 139/69; PULSE 74; RESP 16; TEMP 98.3; O2SAT 98
[2017-03-05 00:41] VITALS: BP 148/71; PULSE 63; RESP 16; TEMP 98.9; O2SAT 99
[2017-03-05] MEDS: HYDROmorphone HCL PF 1 MG/ML VIAL IV PUSH PRN ×4 (01:45→21:19)
[2017-03-05 08:00] VITALS: BP 152/73; PULSE 67; RESP 17; TEMP 99.1; O2SAT 98
[2017-03-05] MEDS: MEGESTROL ACETATE SUSP 400 MG/10 ML CUP PO SCH (09:00)
[2017-03-05] MEDS: SODIUM CHLORIDE 0.9% FLUSH 10 ML FLUSH IV FLUSH SCH ×3 (09:00→21:19)
[2017-03-05] MEDS: FLUCONAZOLE 200 MG TAB PO SCH (09:27)
[2017-03-05] MEDS: VANCOMYCIN 500 MG VIAL (FOR ORAL USE ONLY) PO SCH ×4 (09:27→21:15)
[2017-03-05] MEDS: LACTOBACILLUS ACIDOPHILUS TAB PO SCH ×2 (09:27→21:15)
[2017-03-05] MEDS: oxyCODONE/ACETAMINOPHEN 10 MG/325 MG TAB PO PRN ×4 (09:27→22:41)
[2017-03-05 12:00] VITALS: BP 141/68; PULSE 70; RESP 17; TEMP 98.6; O2SAT 98
[2017-03-05] MEDS ORDERED: PROPOFOL 200 MG/20 ML AMP IV ONE (12:00)
[2017-03-05] MEDS ORDERED: LIDOCAINE HCL 1% PF 5 ML SYRINGE OTHER ONE (12:00)
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
--- NOTE | 2017-03-05 16:17 | PD.WCN.NOT ---
Neg Pressure Wound Therapy Wound Location Wound Location: Posterior Scrotum Wound Description Length: 2.5cm Width: 14cm Depth: 3.5cm Undermining: Undermining is noted from 9 to 11 o'clock measuring 3.6 cm Wound bed appearance: ~50 % red granulating tissue ~10% pink tissue ~40% white epithelial tissue Periwound appearance: Unremarkable Settings Suction: 125 mmHg, Continuous Intensity: Low Other Information: Bridged Foam type: Black Number of pieces: 1 Additonal Information Patient seen on north around 1545 for VAC dressing change.Dressing change completed with the assistance of Haylee LIAO and principal technical writer. Removed Wound VAC dressing in place to reveal wound. Wound description is noted above. Cleansed wound with wound cleanser and pat dry. Skin prep was applied to periwound and to Bridged area up to L hip. Single piece of black granufoam was applied to wound bed in a cinnamon roll fashion to reach all areas of wound bed. Stoma paste was applied to wound margins and creases between 4 and 8 o'clock to seal wound VAC. Applied VAC drape over exposed granufoam. Cut hole in VAC drape to expose small amount of granufoam. Bridged granufoam over VAC drape up to L hip area. Applied Sensi trac pad over bridged granufoam to L hip area with mushroom cap of black granufoam attached. Covered all exposed granufoam with VAC drape. Wound VAC is suctioning at 125 mm/hg without leaks. Next wound VAC dressing change is due [id number]/6/2017. Sonam Flannery YODITN Mar 05, 2017 16:17
--- NOTE | 2017-03-05 16:41 | GIPROC ---
[facility] [address] [facility]. [facility], [address] EGD PROCEDURE REPORT EXAM DATE: 03/05/2017 PATIENT NAME: Axel Nolan MR #: [id number] BIRTHDATE: 1965 ATTENDING: Cary Hardin MD ORDER #: [id number] RIVER TRANSPORTATION WORKER: Amairani Izaguirre and Montserrat Panchal STATUS: inpatient INDICATIONS: The patient is a 51 yr old male here for an EGD due to iron deficiency anemia PROCEDURE PERFORMED: EGD w/ biopsy MEDICATIONS: None and Per Anesthesia. TOPICAL ANESTHETIC: CONSENT: The patient understands the risks and benefits of the procedure and understands that these risks include, but are not limited to: sedation, allergic reaction, infection, perforation and/or bleeding. Alternative means of evaluation and treatment include, among others: physical exam, x-rays, and/or surgical intervention. The patient elects to proceed with this endoscopic procedure. medical equipment was checked for proper function. Hand hygiene and appropriate measures for infection prevention was taken. After the risks, benefits and alternatives of the procedure were thoroughly explained, Informed consent was verified, confirmed and timeout was successfully executed by the treatment team. The patient was anesthetized with topical anesthesia and the EC-3490Li (Pedi C) endoscope was introduced through the mouth and advanced to the second portion of the duodenum. Retroflexed views revealed no abnormalities The gastroscope was then slowly withdrawn and removed. ESOPHAGUS: The mucosa of the esophagus appeared normal. STOMACH: There was erythematous moderate gastritis in the gastric antrum. A biopsy was performed using cold forceps. Sample sent for histology. DUODENUM: The duodenal mucosa appeared normal. ADVERSE EVENTS: There were no complications. IMPRESSIONS: 1. The esophagus appeared normal 2. There was erythematous gastritis in the gastric antrum; biopsy was performed 3. Normal duodenal mucosa 4. Retroflexed views revealed no abnormalities RECOMMENDATIONS: 1. Await biopsy results. Biopsy results will not be ready for 7-10 days. If you don't hear from us in two weeks, call our office for biopsy results. 2. Anti-reflux regimen PATIENT CONDITION: stable DISPOSITION: Inpatient REPEAT EXAM: Return 1 year EGD pending biopsy results Cary Hardin MD eSigned: Cary Hardin MD 03/05/2017 4:41 PM cc: PATIENT NAME: Axel Nolan MR#: [id number]
--- NOTE | 2017-03-05 16:43 | GIPROC ---
[facility] [address] [facility]. [facility], [address] COLONOSCOPY PROCEDURE REPORT EXAM DATE: 03/05/2017 PATIENT NAME: Axel Nolan MR #: [id number] BIRTHDATE: 1965 ENDOSCOPIST: Cary Hardin MD ORDER #: [id number] CUSTOMER COMPLAINT CLERK: Amairani Izaguirre and Montserrat Panchal STATUS: inpatient INDICATIONS: The patient is a 51 yr old male here for a colonoscopy due to iron deficiency anemia PROCEDURE PERFORMED: Diagnostic colonoscopy via stoma MEDICATIONS: None and Per Anesthesia. PREP QUALITY: poor PREP TYPE:GoLytely ESTIMATED BLOOD LOSS: None CONSENT: The patient understands the risks and benefits of the procedure and understands that these risks include, but are not limited to: sedation, allergic reaction, infection, perforation and/or bleeding. Alternative means of evaluation and treatment include, among others: physical exam, x-rays, and/or surgical intervention. The patient elects to proceed with this endoscopic procedure. medical equipment was checked for proper function. Hand hygiene and appropriate measures for infection prevention was taken. After the risks, benefits and alternatives of the procedure were thoroughly explained, Informed consent was verified, confirmed and timeout was successfully executed by the treatment team. A digital exam The Pentax EC-[id number] endoscope was introduced through the descending colostomy and advanced to the cecum, which was identified by both the appendix and ileocecal valve. The instrument was then slowly withdrawn as the colon was fully examined. COLON FINDINGS: The colonic mucosa appeared normal. The scope was then completely withdrawn from the patient and the procedure terminated. ADVERSE EVENTS: There were no complications. IMPRESSIONS: The colonic mucosa appeared normal RECOMMENDATIONS: 1. Yearly hemoccult 2. Continue surveillance RECALL: Return 1 year Colonoscopy Cary Hardin MD eSigned: Cary Hardin MD 03/05/2017 4:43 PM cc:
[2017-03-05] MEDS: SODIUM CHLOR 0.9% 1000 ML INJ 1,000 ML IV SCH ×2 (18:10→21:26)
--- NOTE | 2017-03-05 18:33 | EKG ---
Date Performed: 03/05/2017 Time Performed: 07:19:17 PTAGE: 51 years EKG: Sinus rhythm NORMAL ECG Compared to PREVIOUS TRACING , heart rate has slowed significantly. PREVIOUS TRACIN02/16/2010 18.2 3 DOCTOR: Saran Richards Interpretating Date/Time 03/05/2017 18:33:10
[2017-03-05 20:00] VITALS: BP 158/77; PULSE 95; RESP 20; TEMP 98.9; O2SAT 98
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
[2017-03-06] VITALS: BP 150/77; PULSE 87; RESP 20; TEMP 98.6; O2SAT 98
[2017-03-06] MEDS: HYDROmorphone HCL PF 1 MG/ML VIAL IV PUSH PRN ×6 (01:50→22:46)
[2017-03-06] MEDS: oxyCODONE/ACETAMINOPHEN 10 MG/325 MG TAB PO PRN ×4 (06:44→21:13)
[2017-03-06 08:00] VITALS: BP 143/74; PULSE 90; RESP 17; TEMP 96.6; O2SAT 98
[2017-03-06] MEDS: SODIUM CHLORIDE 0.9% FLUSH 10 ML FLUSH IV FLUSH SCH ×3 (09:00→21:19)
[2017-03-06] MEDS ORDERED: BACITRACIN TOP OINT 15 GM TUBE TOPICAL SCH (09:00)
[2017-03-06] MEDS: LACTOBACILLUS ACIDOPHILUS TAB PO SCH ×2 (09:41→21:12)
[2017-03-06] MEDS: MEGESTROL ACETATE SUSP 400 MG/10 ML CUP PO SCH (09:41)
[2017-03-06] MEDS: FLUCONAZOLE 200 MG TAB PO SCH (09:41)
[2017-03-06] MEDS: VANCOMYCIN 500 MG VIAL (FOR ORAL USE ONLY) PO SCH ×4 (09:41→21:13)
[2017-03-06] MEDS ORDERED: VANC125C3 PO ×7 (09:42→13:58)
[2017-03-06] MEDS ORDERED: VANC250C2 PO (09:42)
[2017-03-06] MEDS ORDERED: DIFL200T PO (09:52)
[2017-03-06] MEDS ORDERED: LACT PO (09:52)
[2017-03-06] MEDS ORDERED: Megestrol Liq PO (09:54)
[2017-03-06] MEDS ORDERED: QC B500O TOPICAL (09:54)
[2017-03-06] MEDS ORDERED: COLL30T TOPICAL ×2 (09:54→10:48)
[2017-03-06 12:00] VITALS: BP 143/69; PULSE 81; RESP 16; TEMP 99; O2SAT 98
[2017-03-06] MEDS: COLLAGENASE OINT 30 GM TUBE TOPICAL SCH ×2 (12:14→14:23)
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
--- NOTE | 2017-03-06 14:00 | HHI.GIFU ---
Subjective Remarks Pt resting in bed. Wants greasy food, feels it would help his loose stool. Ate salad and a sandwich. Still with liquid light brown stool in ostomy. (Daily Morris) Objective Vitals I&O Vital Signs Date Time Temp Pulse Resp B/P (MAP) Pulse Ox O2 Delivery O2 Flow Rate FiO2 03/06/17 12:00 99.0 81 16 143/69 (93) 98 03/06/17 08:00 96.6 90 17 143/74 (97) 98 03/06/17 00:00 98.6 87 20 150/77 (101) 98 03/05/17 20:00 98.9 95 20 158/77 (104) 98 03/05/17 16:53 76 16 138/72 (94) 100 I/O 03/05/17 03/05/17 03/05/17 03/06/17 03/06/17 03/06/17 07:00 15:00 23:00 07:00 15:00 23:00 Intake Total 600 ml 440 ml 780 ml Output Total 3450 ml 1625 ml 3300 ml Balance -2850 ml -1185 ml -2520 ml Intake Oral 240 ml 780 ml IV Total 600 ml Other 200 ml Output Urine Total 2700 ml 1375 ml 3000 ml Stool Total 750 ml 250 ml 300 ml Drainage Total 0 ml Laboratory Date/Time Source Procedure Growth Status 02/25/17 21:19 Stool Stool Cryptosporidium Exam - Final NEGATIVE - NO CRYPTOSPORIDIUM ANTIGEN... Complete 02/25/17 21:19 Stool Stool Stool Pus (LOIS) - Final RARE WBC Complete 03/01/17 06:00 Urine Suprapubic Urine Urine Culture - Final Merari Albicans Complete Physical Exam HEENT, Normocephalic; atraumatic CHEST: CTA CARDIAC: RRR ABDOMEN: Soft, mild right quadrant TTP, more in RUQ, Colostomy bag with liquid brown stool EXTREMITIES: Right AKA, lt. leg bandage wound care CDI SKIN: Normal; no rash; no jaundice. ACCESS SERVICE REPRESENTATIVE: No focal deficits; alert and oriented times three, Anxious (Daily Morris) Assessment and Plan Plan ASSESSMENT: - Hematemesis. Pt had n/v x 1 week with clear mucous and then had one episode of small amount of bright red blood mixed within clear mucous. No further episodes. Possible lashay vale tear. s/p EGD found erythematous gastritis, bx pending - N/V, Decreased appetite, abdominal pain. Pt reports 1 week hx of n/v, pain, decreased appetite, diarrhea. CT scan abdomen and pelvis with IV contrast (02/25/17) multiple gallstones, umbilical ostomy, no dilated loops of small or large bowel, suprapubic catheter tip in the urinary bladder , bilateral Girdlestone procedures in the hips. MRCP (02/26/17)---> There is no acute common duct stone. Gallstone seen by CT scan is not visualized by MRCP. Continues to have abdominal pain, more in RUQ. HIDA scan normal. Cscope poor prep, normal otherwise - Acute on chronic anemia. HH stable, EGD - CDiff colitis, 2nd episode. Pt had recent episode while hospitalized at [facility] 1 month ago, treated with flagyl, oral vanco,. Still having liquid stool from colostomy, about the same. other stool studies neg. Flagyl, Oral Vanco. - Elevated LFTs. No hx of liver disease. Has cholelithiasis, but no biliary dilatation on CT. No obstruction on MRCP. Continues to have abdominal pain, more in RUQ. reactive HCV ab, viral load 3130 genotype pending - HCV Ab (+). hcv ab reactive, quant 3130 - Chronic sacral decubitus ulcer, RLE skin wound per attending. Has diverting colostomy. Wound Vac on sacrum and being followed by wound care team PLAN: - heart healthy diet - await EGD path - f/u as outpatient for HCV tx - HCV genotype - PPI - Diflucan 200 mg by mouth daily - Megace 400 mg daily - Probiotics - Oral Vancomycin - Monitor labs - Supportive care This pt seen by myself and Dr Hardin and this note is written on his behalf (Daily Morris) Physician Comments Seen and examined with [employer]CREW[employer] OPERATOR, s/p egd/colonoscopy yesterday. Advance diet as tolerated. Hep C treatment as outpt (Cary Hardin MD) Daily Morris Mar 06, 2017 14:00 Cary Hardin MD Mar 06, 2017 14:51
--- NOTE | 2017-03-06 14:42 | EKG ---
Date Performed: 03/05/2017 Time Performed: 18:15:35 PTAGE: 51 years EKG: Sinus rhythm NONSPECIFIC ST & T-WAVE ABNORMALITY BORDERLINE ECG Compared to prior tracing no significant change PREVIOUS TRACING : 03/05/2017 07.19 DOCTOR: Marianela Hill Interpretating Date/Time 03/06/2017 14:38:36
[2017-03-06 16:00] VITALS: BP 106/62; PULSE 81; RESP 16; TEMP 99; O2SAT 94
[2017-03-06 17:53] VITALS: O2SAT 94
[2017-03-06 20:17] VITALS: BP 142/72; PULSE 82; RESP 20; TEMP 98.6; O2SAT 98
[2017-03-06] MEDS: BACITRACIN TOP OINT 15 GM TUBE TOPICAL SCH (21:15)
[2017-03-07 00:04] VITALS: BP 141/72; PULSE 79; RESP 20; TEMP 98.1; O2SAT 98
[2017-03-07] MEDS: oxyCODONE/ACETAMINOPHEN 10 MG/325 MG TAB PO PRN ×4 (01:41→22:33)
[2017-03-07] MEDS: HYDROmorphone HCL PF 1 MG/ML VIAL IV PUSH PRN ×2 (04:49→10:40)
[2017-03-07 05:46] LABS: BICARBONATE 29.2 MEQ/L (21.0-32.0); MAGNESIUM 1.3 MG/DL (1.5-2.5); POTASSIUM 4.4 MEQ/L (3.5-5.1)
[2017-03-07 08:00] VITALS: BP 166/81; PULSE 69; RESP 18; TEMP 98.3; O2SAT 99
[2017-03-07 08:30] VITALS: O2SAT 99
[2017-03-07] MEDS: BACITRACIN TOP OINT 15 GM TUBE TOPICAL SCH ×2 (09:00→22:35)
[2017-03-07] MEDS: MEGESTROL ACETATE SUSP 400 MG/10 ML CUP PO SCH (10:41)
[2017-03-07] MEDS: FLUCONAZOLE 200 MG TAB PO SCH (10:41)
[2017-03-07] MEDS: LACTOBACILLUS ACIDOPHILUS TAB PO SCH ×2 (10:41→17:52)
[2017-03-07] MEDS: VANCOMYCIN 500 MG VIAL (FOR ORAL USE ONLY) PO SCH ×4 (10:41→22:32)
[2017-03-07] MEDS: SODIUM CHLORIDE 0.9% FLUSH 10 ML FLUSH IV FLUSH SCH ×3 (10:48→22:36)
[2017-03-07] MEDS: COLLAGENASE OINT 30 GM TUBE TOPICAL SCH (10:51)
[2017-03-07 12:00] VITALS: BP 114/63; PULSE 83; RESP 16; TEMP 98.3; O2SAT 96
[2017-03-07] MEDS: MAGNESIUM SULFATE 1 GM PREMIX 100 ML IV SCH ×2 (12:34→14:34)
--- NOTE | 2017-03-07 14:12 | PD.WCN.NOT ---
Wound Consult Description: Posterior Scrotum Communicated with: Eli GIRON [address] [place] [address] Additional Information: Patient seen today @ approx 1015 for wound Vac dressing change.Gear Design Engineer present with Haylee GIRONWCC whom will be performing wound Vac change.Wound Vac dressing removed with sponge intact.Wound cleansed with normal saline pat dry.protective barrier applied to edges of wound black sponge lightly packed in wound covering whole base.sponge bridged to left anterior thigh. Wound vac applied at 125 MMHG continuous light suction no leaks noted.Patient tolerated dressing change well. next wound vac scheduled for 03/09. Neg Pressure Wound Therapy Wound Location Wound Location: Posterior Scrotum Wound Description Length: 2.5cm Width: 14cm Depth: 3.5cm Undermining: Undermining is noted from 9 to 11 o'clock measuring 3.6 cm Wound bed appearance: ~50 % red granulating tissue ~10% pink tissue ~40% white epithelial tissue Settings Suction: 125 mmHg, Continuous Intensity: Low Other Information: Bridged Foam type: Black Number of pieces: 1 [facility] Mar 07, 2017 14:12
[2017-03-07] MEDS ORDERED: PILL SPLITTER OTHER PRN (14:30)
--- NOTE | 2017-03-07 15:04 | HHI.DCPOC ---
Discharge Care Plan Diagnosis: (1) C. difficile diarrhea (2) Decubitus ulcer Your Health Problems Are: Difficulty with ADL Incision/Drains Skin Breakdown Inflammation Irregular Bowel Function Loss of Movements Goals to Promote Your Health * To prevent worsening of your condition and complications * To maintain your health at the optimal level Directions to Meet Your Goals Take your medications as prescribed Follow your dietary instruction Follow activity as directed Keep your appointments as scheduled Take your immunizations and boosters as scheduled If your symptoms worsen call your PCP, if no PCP go to Urgent Care Center or Emergency Room Smoking is Dangerous to Your Health. Avoid second hand smoke Call the 24-hour hour crisis hotline for domestic abuse at Johnathan Chino Mar 07, 2017 15:04
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
[2017-03-07 16:00] VITALS: BP 139/73; PULSE 86; RESP 17; TEMP 97.1; O2SAT 98
[2017-03-07 20:00] VITALS: BP 135/74; PULSE 77; RESP 18; TEMP 98.1; O2SAT 98
[2017-03-08] VITALS: BP 131/67; PULSE 69; RESP 17; TEMP 98; O2SAT 99
[2017-03-08] MEDS: oxyCODONE/ACETAMINOPHEN 10 MG/325 MG TAB PO PRN ×3 (06:01→14:47)
[2017-03-08 06:26] LABS: MAGNESIUM 1.6 MG/DL (1.5-2.5); POTASSIUM 4.7 MEQ/L (3.5-5.1)
[2017-03-08 08:00] VITALS: BP 124/58; PULSE 73; RESP 17; TEMP 98.6; O2SAT 98
[2017-03-08 08:35] VITALS: O2SAT 95
[2017-03-08] MEDS: COLLAGENASE OINT 30 GM TUBE TOPICAL SCH (09:00)
[2017-03-08] MEDS: SODIUM CHLORIDE 0.9% FLUSH 10 ML FLUSH IV FLUSH SCH ×2 (09:00→09:03)
[2017-03-08] MEDS: BACITRACIN TOP OINT 15 GM TUBE TOPICAL SCH (09:00)
[2017-03-08] MEDS: LACTOBACILLUS ACIDOPHILUS TAB PO SCH ×2 (09:02→11:58)
[2017-03-08] MEDS: MEGESTROL ACETATE SUSP 400 MG/10 ML CUP PO SCH (09:02)
[2017-03-08] MEDS: FLUCONAZOLE 200 MG TAB PO SCH (09:02)
[2017-03-08] MEDS: VANCOMYCIN 500 MG VIAL (FOR ORAL USE ONLY) PO SCH ×2 (09:03→11:58)
[2017-03-08 12:00] VITALS: BP 115/56; PULSE 86; RESP 17; TEMP 97.7; O2SAT 99
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
[2017-03-08] MEDS ORDERED: VANC125C3 PO (12:54)
== END 2017-03-08 16:01 | disposition home health service (06) | DRG 371 ==
LOC: NEPC 11:15 → NEDA 15:40 → N07A 16:39
PROVIDERS: ADMIT Internal Medicine; ATTEND Internal Medicine
PROC: 0DJD8ZZ Inspection of Lower Intestinal Tract, Via Natural or Artificial Opening Endoscopic (ICD-10-PCS; principal; 2017-03-05 16:24)
PROC: 0DB78ZX Excision of Stomach, Pylorus, Via Natural or Artificial Opening Endoscopic, Diagnostic (ICD-10-PCS; 2017-03-05 16:24)
DX: A04.71 Enterocolitis due to Clostridium difficile, recurrent (principal); L89.154 Pressure ulcer of sacral region, stage 4; K72.00 Acute and subacute hepatic failure without coma; K92.0 Hematemesis; G82.20 Paraplegia, unspecified; D62 Acute posthemorrhagic anemia; I95.9 Hypotension, unspecified; B37.49 Other urogenital candidiasis; K80.20 Calculus of gallbladder without cholecystitis without obstruction; G89.29 Other chronic pain; R63.0 Anorexia; B19.20 Unspecified viral hepatitis C without hepatic coma; I25.2 Old myocardial infarction; L89.899 Pressure ulcer of other site, unspecified stage; K29.70 Gastritis, unspecified, without bleeding; Z86.14 Personal history of Methicillin resistant Staphylococcus aureus infection; Z88.2 Allergy status to sulfonamides; Z88.5 Allergy status to narcotic agent; Z89.611 Acquired absence of right leg above knee; Z93.3 Colostomy status
CPT/HCPCS: 74177; 74181; 76377; 78226; 80048; 80053; 80074; 80076; 81001; 82103; 82105; 82390; 82728; 83520; 83540; 83550; 83605; 83690; 83735; 85007; 85025; 85027; 85610; 85730; 86038; 86255; 87015; 87077; 87086; 87106; 87116; 87186; 87205; 87206; 87328; 87493; 87506; 87522; 87902; 88305; 88312; 93005; 96365; 96375; J1170; A9537; J0696; J1642; J2270; J2405; J2997; J3475; J7030; Q9967

== ENCOUNTER 2017-03-09 12:22 | Observation (INO) | payer MEDICAID ==
[~2017-03-09] VITALS: Ht 175.3 cm; Wt 73.6 kg
[~2017-03-09 12:22] MED LIST changes: +COLL30T TOPICAL; +DIFL200T PO; +HYDR-3583 PO; -HYDR10TA16 PO; +LACT PO; +Megestrol Liq PO; +QC B500O TOPICAL; -TAB-TAB PO; +VANC125C3 PO
[2017-03-09 12:28] VITALS: BP 150/60; PULSE 88; RESP 18; TEMP 98.9; O2SAT 98
[2017-03-09] MEDS ORDERED: oxyCODONE/ACETAMINOPHEN 5 MG/325 MG TAB PO ONE (14:00)
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
[2017-03-09 14:55] LABS: AUTOMATED NEUTROPHIL # 11.1 TH/MM3 (1.8-7.7); BASOPHIL # 0.1 TH/MM3 (0-0.2); BASOPHIL % 0.6 % (0.0-2.0); EOSINOPHIL # 0.3 TH/MM3 (0-0.4); HEMATOCRIT 37.8 % (39.0-51.0); LYMPH % 21.5 % (9.0-44.0); LYMPHOCYTE # 3.6 TH/MM3 (1.0-4.8); MEAN CORPUSCULAR HEMOGLOBIN 25.2 PG (27.0-34.0); MEAN CORPUSCULAR HGB CONC 31.9 % (32.0-36.0); MONO % 9.4 % (0.0-8.0); NEUT % 66.5 % (16.0-70.0); PLATELET COUNT 441 TH/MM3 (150-450); RED BLOOD COUNT 4.78 MIL/MM3 (4.50-5.90); RED CELL DISTRIBUTION WIDTH 20.4 % (11.6-17.2); WHITE BLOOD COUNT 16.7 TH/MM3 (4.0-11.0)
[2017-03-09 15:03] LABS: HEMO FLAGS AUTO DIFF
[2017-03-09 15:06] LABS: ALKALINE PHOSPHATASE 204 U/L (45-117); ALT (GPT) 49 U/L (12-78); TOTAL BILIRUBIN ADULT 0.3 MG/DL (0.2-1.0)
[2017-03-09 15:08] LABS: ANION GAP 9 MEQ/L (5-15); AST (GOT) 50 U/L (15-37); BICARBONATE 22.2 MEQ/L (21.0-32.0); BLOOD UREA NITROGEN 6 MG/DL (7-18); CHLORIDE 105 MEQ/L (98-107); GLOMERULAR FILTRATION RATE 254 ML/MIN (>89); SODIUM (NA) 136 MEQ/L (136-145)
[2017-03-09 15:09] LABS: POTASSIUM 4.8 MEQ/L (3.5-5.1)
[2017-03-09 15:31] LABS: BANDS 1 % (0-6); EOSINOPHILS 2 % (0-4); NEUTROPHIL # MANUAL DIFF 12.4 TH/MM3 (1.8-7.7); PLATELET ESTIMATE SMEAR HIGH (NORMAL); PLATELET MORPHOLOGY CLUMPED (NORMAL); POLYS (SEG NEUTROPHILS) 73 % (16-70); SCAN/DIFF FINAL DIFF MANUAL; WBC DIFF SAMPLE 100
[2017-03-09] MEDS ORDERED: SODIUM CHLORIDE 0.9% FLUSH 10 ML FLUSH IV FLUSH PRN (18:00)
[2017-03-09] MEDS ORDERED: NALOXONE HCL 0.4 MG/ML AMP IV PUSH PRN (18:00)
[2017-03-09] MEDS ORDERED: LACTULOSE SYRUP 20 GM/30 ML CUP PO PRN (18:00)
[2017-03-09] MEDS ORDERED: SENNOSIDES 8.6 MG TAB PO PRN (18:00)
[2017-03-09] MEDS ORDERED: MAGNESIUM HYDROXIDE SUSP 30 ML CUP PO PRN (18:00)
[2017-03-09] MEDS ORDERED: BISACODYL 10 MG SUPP RECTAL PRN (18:00)
[2017-03-09 18:41] VITALS: BP 149/72; PULSE 83; RESP 16; O2SAT 98
[2017-03-09] MEDS ORDERED: VANCOMYCIN 500 MG VIAL (FOR ORAL USE ONLY) PO SCH (19:00)
[2017-03-09 20:00] VITALS: BP 116/64; PULSE 118; RESP 18; TEMP 97.4; O2SAT 99
[2017-03-09] MEDS: SODIUM CHLOR 0.9% 1000 ML INJ 1,000 ML IV SCH (21:00)
[2017-03-09] MEDS: SODIUM CHLORIDE 0.9% FLUSH 10 ML FLUSH IV FLUSH SCH (21:00)
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
[2017-03-09] MEDS: oxyCODONE/ACETAMINOPHEN 10 MG/325 MG TAB PO PRN (23:27)
[2017-03-10 00:21] VITALS: BP 145/69; PULSE 106; RESP 18; TEMP 98.6; O2SAT 98
[2017-03-10] MEDS: oxyCODONE/ACETAMINOPHEN 10 MG/325 MG TAB PO PRN ×5 (03:42→20:26)
[2017-03-10] MEDS: SODIUM CHLOR 0.9% 1000 ML INJ 1,000 ML IV SCH ×2 (03:59→08:28)
[2017-03-10 06:27] LABS: AUTOMATED NEUTROPHIL # 3.2 TH/MM3 (1.8-7.7); BASOPHIL # 0.1 TH/MM3 (0-0.2); EOSINOPHIL # 0.3 TH/MM3 (0-0.4); HEMO FLAGS DIFF FINAL; LYMPH % 35.1 % (9.0-44.0); LYMPHOCYTE # 2.3 TH/MM3 (1.0-4.8); MEAN CELL VOLUME 79.4 FL (80.0-100.0); MEAN CORPUSCULAR HEMOGLOBIN 25.3 PG (27.0-34.0); MEAN CORPUSCULAR HGB CONC 31.9 % (32.0-36.0); MONO % 11.3 % (0.0-8.0); NEUT % 48.6 % (16.0-70.0); PLATELET COUNT 337 TH/MM3 (150-450); RED BLOOD COUNT 4.03 MIL/MM3 (4.50-5.90); RED CELL DISTRIBUTION WIDTH 19.7 % (11.6-17.2); WHITE BLOOD COUNT 6.6 TH/MM3 (4.0-11.0)
[2017-03-10 07:05] LABS: BICARBONATE 23.7 MEQ/L (21.0-32.0); POTASSIUM 3.9 MEQ/L (3.5-5.1)
[2017-03-10 08:00] VITALS: BP 132/62; PULSE 77; RESP 17; TEMP 97.9; O2SAT 100
[2017-03-10] MEDS: VANCOMYCIN 500 MG VIAL (FOR ORAL USE ONLY) PO SCH ×3 (08:25→17:16)
[2017-03-10] MEDS: HEPARIN SODIUM - SQ 10,000 UNITS/ML VIAL SQ SCH ×2 (08:26→20:27)
[2017-03-10] MEDS: FLUCONAZOLE 200 MG TAB PO SCH (08:26)
[2017-03-10] MEDS: SODIUM CHLORIDE 0.9% FLUSH 10 ML FLUSH IV FLUSH SCH ×2 (08:27→20:30)
[2017-03-10] MEDS ORDERED: ONDANSETRON HCL 4 MG/2 ML VIAL IV PUSH PRN (09:15)
[2017-03-10] MEDS ORDERED: CALCIUM CARBONATE 500 MG CHEWABLE TAB CHEW PRN (09:15)
[2017-03-10] MEDS: LACTOBACILLUS ACIDOPHILUS TAB PO SCH ×2 (10:45→20:26)
[2017-03-10] MEDS: COLLAGENASE OINT 30 GM TUBE TOPICAL SCH (10:45)
[2017-03-10] MEDS: MEGESTROL ACETATE SUSP 400 MG/10 ML CUP PO SCH (10:45)
[2017-03-10] MEDS: BACITRACIN TOP OINT 15 GM TUBE TOPICAL SCH (10:45)
[2017-03-10 12:00] VITALS: BP 112/56; PULSE 92; RESP 17; TEMP 97.8; O2SAT 99
--- NOTE | 2017-03-10 14:09 | HHI.PR ---
Subjective Remarks Follow-up leukocytosis. Patient states he does not feel well feels weak and dehydrated. Denies diarrhea. States he had trouble getting his prescriptions. Case management called his pharmacy states there was no issue patient failed to pickle solution maker prescription for vancomycin. Since there is family situation may not return home patient willing to be discharged to rehabilitation. Objective Vitals Vital Signs Date Time Temp Pulse Resp B/P (MAP) Pulse Ox O2 Delivery O2 Flow Rate FiO2 03/10/17 12:00 97.8 92 17 112/56 (74) 99 03/10/17 08:00 97.9 77 17 132/62 (85) 100 03/10/17 00:21 98.6 106 18 145/69 (94) 98 03/09/17 20:00 97.4 118 18 116/64 (81) 99 03/09/17 18:53 03/09/17 18:41 83 16 149/72 (97) 98 Room Air I/O 03/09/17 03/09/17 03/09/17 03/10/17 03/10/17 03/10/17 07:00 15:00 23:00 07:00 15:00 23:00 Intake Total 1000 ml Output Total 400 ml 800 ml Balance -400 ml -800 ml 1000 ml Intake IV Total 1000 ml Output Urine Total 400 ml 800 ml # Voids 0 Result Diagram: 03/10/17 0458 03/10/17 0458 Objective Remarks GENERAL: [place] male lying in bed SKIN: No rashes, ecchymoses or lesions. Cool and dry. Stage IV sacral ulcer without signs of active infection. Ulcerative lesions on the left lower extremity. CARDIOVASCULAR: Regular rate and rhythm without murmurs, gallops, or rubs. RESPIRATORY: Clear to auscultation. Breath sounds equal bilaterally. No wheezes , rales, or rhonchi. GASTROINTESTINAL: Abdomen soft, non-tender, nondistended. No guarding. Ostomy in place, stoma pink. MUSCULOSKELETAL: Extremities without clubbing, cyanosis, or edema. No joint tenderness, effusion, or edema noted. NEUROLOGICAL: Awake and alert. Cranial nerves II through XII intact. Chronic paraplegia. Normal speech. Procedures None A/P Problem List: (1) Leukocytosis ICD Code: D72.829 - Elevated white blood cell count, unspecified Status: Acute (2) Generalized weakness ICD Code: R53.1 - Weakness Status: Acute Assessment and Plan 1. Stage IV sacral decubitus ulcer No active signs of infection Continue wound care 2. C. difficile. Resolving no diarrhea Continue by mouth vancomycin 3. UTI Merari in the UA at last hospitalization Continue Diflucan last dose today 4. Left leg ulcers. No signs of infection Wound care 5. FEN Regular diet Electrolytes: Monitor and replete when necessary Heparin 6. Leukocytosis. Resolved 7. Dehydration. Improving continue IV hydration Case management consult to assist with discharge planning. Patient will need his prescriptions filled prior to discharge. Per employment case manager, patient failed to pickle solution maker his prescription will request family Discharge Planning Discharge when arrangements made Mahesh Garrett MD Mar 10, 2017 14:08
--- NOTE | 2017-03-10 14:17 | HHI.DCPOC ---
Discharge Care Plan Diagnosis: (1) Leukocytosis (2) Generalized weakness Your Health Problems Are: Difficulty with ADL Exercise Tolerance Goals to Promote Your Health * To prevent worsening of your condition and complications * To maintain your health at the optimal level Directions to Meet Your Goals Take your medications as prescribed Follow your dietary instruction Follow activity as directed Keep your appointments as scheduled Take your immunizations and boosters as scheduled If your symptoms worsen call your PCP, if no PCP go to Urgent Care Center or Emergency Room Smoking is Dangerous to Your Health. Avoid second hand smoke Call the 24-hour hour crisis hotline for domestic abuse at Mahesh Garrett MD Mar 10, 2017 14:17
--- NOTE | 2017-03-10 14:18 | HHI.FF ---
Face to Face Verification Diagnosis: (1) Decubitus ulcer Home Health Nursing Order: Medical education Signs/symptoms of disease process Medication education-adverse effect Wound care and dressing changes Nursing assessment with vital signs I have seen patient Axel Jr Ovidio on 03/10/17. My clinical findings support the need for the requested home health care services because: Ltd mobility - disease progression I certify that my clinical findings support that this patient is homebound because: Unsteady gait/balance Unsafe to leave home unassisted Mahesh Garrett MD Mar 10, 2017 14:18
[2017-03-10 16:00] VITALS: BP 125/64; PULSE 78; RESP 18; TEMP 98; O2SAT 100
[2017-03-10 20:00] VITALS: BP 127/69; PULSE 76; RESP 22; TEMP 98.3; O2SAT 99
[2017-03-11] VITALS: BP 122/60; PULSE 62; RESP 20; TEMP 98.1; O2SAT 99
[2017-03-11] MEDS: oxyCODONE/ACETAMINOPHEN 10 MG/325 MG TAB PO PRN ×4 (00:26→12:39)
[2017-03-11] MEDS: SODIUM CHLOR 0.9% 1000 ML INJ 1,000 ML IV SCH (06:29)
[2017-03-11 08:00] VITALS: BP 161/74; PULSE 64; RESP 18; TEMP 97.3; O2SAT 98
[2017-03-11] MEDS: VANCOMYCIN 500 MG VIAL (FOR ORAL USE ONLY) PO SCH ×2 (08:59→12:38)
[2017-03-11] MEDS: FLUCONAZOLE 200 MG TAB PO SCH (09:00)
[2017-03-11] MEDS: SODIUM CHLORIDE 0.9% FLUSH 10 ML FLUSH IV FLUSH SCH (09:00)
[2017-03-11] MEDS: MEGESTROL ACETATE SUSP 400 MG/10 ML CUP PO SCH (09:00)
[2017-03-11] MEDS: LACTOBACILLUS ACIDOPHILUS TAB PO SCH (09:00)
[2017-03-11] MEDS: HEPARIN SODIUM - SQ 10,000 UNITS/ML VIAL SQ SCH (09:01)
[2017-03-11] MEDS: BACITRACIN TOP OINT 15 GM TUBE TOPICAL SCH (09:01)
[2017-03-11] MEDS: COLLAGENASE OINT 30 GM TUBE TOPICAL SCH (09:01)
--- NOTE | 2017-03-11 11:39 | HHI.PR ---
Subjective Remarks Follow-up leukocytosis. Patient concerned about going home when he continues to have sweating and weakness. No diarrhea, fever or chills. Discussed with RN , repeat labs today if stable he can be discharged home. Also clarified with patient's pharmacy ([facility]), vancomycin is ready. He will also get Percocet prescribed by another physician from [facility]. Discussed with case management Objective Vitals Vital Signs Date Time Temp Pulse Resp B/P (MAP) Pulse Ox O2 Delivery O2 Flow Rate FiO2 03/11/17 10:15 18 03/11/17 08:00 97.3 64 18 161/74 (103) 98 03/11/17 00:00 98.1 62 20 122/60 (80) 99 03/10/17 20:00 98.3 76 22 127/69 (88) 99 03/10/17 16:00 98.0 78 18 125/64 (84) 100 03/10/17 12:00 97.8 92 17 112/56 (74) 99 I/O 03/10/17 03/10/17 03/10/17 03/11/17 03/11/17 03/11/17 07:00 15:00 23:00 07:00 15:00 23:00 Intake Total 1000 ml 1960 ml 480 ml Output Total 800 ml 1050 ml 1250 ml Balance -800 ml 1000 ml 910 ml -770 ml Intake Oral 960 ml 480 ml IV Total 1000 ml 1000 ml Output Urine Total 800 ml 1050 ml 1250 ml Stool Total 0 ml # Bowel Movements 2 Result Diagram: 03/10/17 0458 03/10/17 0458 Objective Remarks GENERAL: [place] male lying in bed SKIN: No rashes, ecchymoses or lesions. Cool and dry. Stage IV sacral ulcer without signs of active infection. Ulcerative lesions on the left lower extremity. CARDIOVASCULAR: Regular rate and rhythm without murmurs, gallops, or rubs. RESPIRATORY: Clear to auscultation. Breath sounds equal bilaterally. No wheezes , rales, or rhonchi. GASTROINTESTINAL: Abdomen soft, non-tender, nondistended. No guarding. Ostomy in place, stoma pink. MUSCULOSKELETAL: Extremities without clubbing, cyanosis, or edema. No joint tenderness, effusion, or edema noted. NEUROLOGICAL: Awake and alert. Cranial nerves II through XII intact. Chronic paraplegia. Normal speech. Procedures None A/P Problem List: (1) Leukocytosis ICD Code: D72.829 - Elevated white blood cell count, unspecified Status: Acute (2) Generalized weakness ICD Code: R53.1 - Weakness Status: Acute Assessment and Plan 1. Stage IV sacral decubitus ulcer No active signs of infection Continue wound care 2. C. difficile. Resolving no diarrhea Continue by mouth vancomycin 3. UTI Merari in the UA at last hospitalization Status post Diflucan 4. Left leg ulcers. No signs of infection Wound care 5. FEN Regular diet Electrolytes: Monitor and replete when necessary Heparin 6. Leukocytosis. Resolved 7. Dehydration. Improved status post IV hydration Repeat labs CBC and BMP stable. He is cleared for discharge to home. Case management consult to assist with discharge planning. Patient will need his prescriptions filled prior to discharge. Per disease case manager rn, patient failed to cloth picker his prescription from [facility] Discharge Planning Discharge patient to home Condition on discharge: Improved Regular Diet as tolerated Ad Clara activity Rx written: None Follow-up with primary care physician Mahesh Garrett MD Mar 11, 2017 11:39
[2017-03-11 12:00] VITALS: BP 135/64; PULSE 76; RESP 17; TEMP 98.1; O2SAT 99
[2017-03-11 12:58] LABS: BASOPHIL # 0.1 TH/MM3 (0-0.2); EOSINOPHIL # 0.3 TH/MM3 (0-0.4); EOSINOPHIL % 4.4 % (0.0-4.0); HEMATOCRIT 32.8 % (39.0-51.0); LYMPH % 33.7 % (9.0-44.0); LYMPHOCYTE # 1.9 TH/MM3 (1.0-4.8); MEAN CELL VOLUME 79.5 FL (80.0-100.0); MEAN CORPUSCULAR HGB CONC 32.7 % (32.0-36.0); MONO % 8.4 % (0.0-8.0); NEUT % 52.5 % (16.0-70.0); PLATELET COUNT 326 TH/MM3 (150-450); RED BLOOD COUNT 4.13 MIL/MM3 (4.50-5.90); RED CELL DISTRIBUTION WIDTH 19.4 % (11.6-17.2); WHITE BLOOD COUNT 5.7 TH/MM3 (4.0-11.0)
[2017-03-11 13:00] LABS: HEMO FLAGS AUTO DIFF
[2017-03-11 13:19] LABS: BICARBONATE 25.3 MEQ/L (21.0-32.0); MAGNESIUM 1.5 MG/DL (1.5-2.5); POTASSIUM 4.5 MEQ/L (3.5-5.1)
[2017-03-11 13:28] LABS: HELMET CELLS OCC (NORMAL); PLATELET ESTIMATE SMEAR NORMAL (NORMAL); PLATELET MORPHOLOGY NORMAL (NORMAL); SCAN/DIFF AUTO DIFF CONFIRMED
[2017-03-11 13:57] VITALS: RESP 18
== END 2017-03-11 14:29 | disposition home health service (06) ==
LOC: NEPE 12:22 → INTOOBSV 18:02 → NEDA 18:02 → N07B 18:49
PROVIDERS: ADMIT Internal Medicine; ATTEND Internal Medicine
DX: L89.154 Pressure ulcer of sacral region, stage 4 (principal); B37.49 Other urogenital candidiasis; A04.72 Enterocolitis due to Clostridium difficile, not specified as recurrent; L97.929 Non-pressure chronic ulcer of unspecified part of left lower leg with unspecified severity; E86.0 Dehydration; G82.20 Paraplegia, unspecified; Z79.899 Other long term (current) drug therapy; Z89.511 Acquired absence of right leg below knee
CPT/HCPCS: 80048; 80053; 83735; 85007; 85025; 85027; 96360; 96361; 96372; 99285; G0378; J1644; J7030

== ENCOUNTER 2017-04-09 10:23 | Inpatient (IN) | payer MEDICAID ==
[2017-04-09] MEDS ORDERED: SODIUM CHLORIDE 0.9% FLUSH 10 ML FLUSH IVF (11:30)
[2017-04-09] MEDS: DICYCLOMINE HCL 20 MG/2 ML VIAL IM (11:30)
[2017-04-09 12:10] LABS: ALBUMIN 2.7 GM/DL (3.4-5.0); ANION GAP 9 MEQ/L (5-15); AST (GOT) 85 U/L (15-37); BICARBONATE 25.3 MEQ/L (21.0-32.0); BLOOD UREA NITROGEN 6 MG/DL (7-18); CALCIUM 9.2 MG/DL (8.5-10.1); CHLORIDE 100 MEQ/L (98-107); CREATININE 0.55 MG/DL (0.60-1.30); GLOMERULAR FILTRATION RATE 191 ML/MIN (>89); GLUCOSE,RANDOM 80 MG/DL (74-106); LIPASE 74 U/L (73-393); POTASSIUM 3.4 MEQ/L (3.5-5.1); SODIUM (NA) 134 MEQ/L (136-145)
[2017-04-09 12:11] LABS: ALT (GPT) 72 U/L (12-78)
[2017-04-09 12:13] LABS: LACTIC ACID SEPSIS PROTOCOL 1.6 mmol/L (0.4-2.0)
[2017-04-09 12:13] LABS: ALKALINE PHOSPHATASE 236 U/L (45-117); TOTAL BILIRUBIN ADULT 0.2 MG/DL (0.2-1.0); TOTAL PROTEIN 8.1 GM/DL (6.4-8.2)
[2017-04-09 12:14] LABS: AUTOMATED NEUTROPHIL # 3.7 TH/MM3 (1.8-7.7); BASOPHIL % 0.6 % (0.0-2.0); HEMATOCRIT 35.1 % (39.0-51.0); HEMO FLAGS DIFF FINAL; HEMOGLOBIN 11.6 GM/DL (13.0-17.0); LYMPH % 14.2 % (9.0-44.0); LYMPHOCYTE # 0.7 TH/MM3 (1.0-4.8); MEAN CELL VOLUME 79.8 FL (80.0-100.0); MEAN CORPUSCULAR HEMOGLOBIN 26.4 PG (27.0-34.0); MEAN CORPUSCULAR HGB CONC 33.1 % (32.0-36.0); MONO % 9.6 % (0.0-8.0); MONOCYTE # 0.5 TH/MM3 (0-0.9); NEUT % 74.6 % (16.0-70.0); PLATELET COUNT 309 TH/MM3 (150-450); RED CELL DISTRIBUTION WIDTH 17.3 % (11.6-17.2)
[2017-04-09 12:23] LABS: APTT (PATIENT) 35.5 SEC (24.3-30.1); INTERNATIONAL NORMALIZED RATIO 1.1 RATIO
[2017-04-09] MEDS: ONDANSETRON HCL 4 MG/2 ML VIAL IVP (12:40)
[2017-04-09] MEDS: SODIUM CHLOR 0.9% 1000 ML INJ 1,000 ML IV ×3 (12:40→21:45)
[2017-04-09] MEDS: IOHEXOL 350 MG/ML 10 ML VIAL (for RAD DIAG) IVCONTRAST (12:48)
[2017-04-09] MEDS: oxyCODONE/ACETAMINOPHEN 7.5 MG/325 MG TAB PO (12:49)
[2017-04-09] MEDS: PIPERACIL-TAZO 4.5 GM PREMIX 100 ML IV (15:12)
[2017-04-09] MEDS ORDERED: SODIUM CHLORIDE 0.9% FLUSH 10 ML FLUSH IV FLUSH (16:00)
[2017-04-09] MEDS ORDERED: TEMAZEPAM 15 MG CAP PO (16:00)
[2017-04-09] MEDS ORDERED: LACTULOSE SYRUP 20 GM/30 ML CUP PO (16:00)
[2017-04-09] MEDS ORDERED: BISACODYL 10 MG SUPP RECTAL (16:00)
[2017-04-09] MEDS ORDERED: MAGNESIUM HYDROXIDE SUSP 30 ML CUP PO (16:00)
[2017-04-09] MEDS ORDERED: SENNOSIDES 8.6 MG TAB PO (16:00)
[2017-04-09] MEDS ORDERED: NALOXONE HCL 0.4 MG/ML AMP IV PUSH (16:00)
[2017-04-09] MEDS: VANCOMYCIN INJ 1,750 MG in SODIUM CHLORID 0.9% 500 ML INJ 500 ML IV (16:38)
[2017-04-09] MEDS ORDERED: ONDANSETRON HCL 4 MG/2 ML VIAL IV PUSH (17:30)
[2017-04-09] MEDS: oxyCODONE/ACETAMINOPHEN 10 MG/325 MG TAB PO (17:33)
[2017-04-09] MEDS: SODIUM CHLORIDE 0.9% FLUSH 10 ML FLUSH IV FLUSH (21:43)
[2017-04-09] MEDS: ACETAMINOPHEN 325 MG TAB PO (21:44)
[2017-04-10] MEDS: PIPERACIL-TAZO 4.5 GM PREMIX 100 ML IV ×3 (00:09→20:33)
[2017-04-10] MEDS: oxyCODONE/ACETAMINOPHEN 10 MG/325 MG TAB PO ×4 (00:18→18:05)
[2017-04-10] MEDS: SODIUM CHLOR 0.9% 1000 ML INJ 1,000 ML IV ×2 (02:00→20:33)
[2017-04-10] MEDS: VANCOMYCIN INJ 1,900 MG in SODIUM CHLORID 0.9% 500 ML INJ 500 ML IV (04:01)
[2017-04-10] MEDS: ACETAMINOPHEN 325 MG TAB PO (04:02)
[2017-04-10] MEDS ORDERED: VANCOMYCIN INJ 1,800 MG in SODIUM CHLORID 0.9% 500 ML INJ 500 ML IV (05:00)
[2017-04-10] MEDS: SODIUM CHLORIDE 0.9% FLUSH 10 ML FLUSH IV FLUSH ×2 (12:15→20:33)
[2017-04-10] MEDS ORDERED: Vancomycin Consult Pharmacy 1 EA OTHER ×2 (12:45)
[2017-04-10] MEDS ORDERED: VANCOMYCIN INJ 1,500 MG in SODIUM CHLORID 0.9% 500 ML INJ 500 ML IV (16:00)
[2017-04-10] MEDS: VANCOMYCIN 500 MG VIAL (FOR ORAL USE ONLY) PO ×2 (17:11→20:33)
[2017-04-10 18:00] LABS: BACTERIA, URINE OCC /hpf; BILIRUBIN, URINE NEG (NEG); BLOOD, URINE TRACE (NEG); COMMENT (UR) CULT NOT INDICATED; CULTURE IF INDICATED CULT NOT INDICATED; GLUCOSE,URINE NEG (NEG); KETONE, URINE NEG (NEG); MUCUS URINE FEW /lpf (OCC); NITRITE,URINE NEG (NEG); SQUAMOUS EPITHELIAL CELL URINE 1 /hpf (0-5); URINE COLOR YELLOW (YELLW/STRAW); URINE LEUKOCYTE ESTERASE SMALL (NEG)
[2017-04-10] MEDS: VANCOMYCIN INJ 1,500 MG in SODIUM CHLORID 0.9% 500 ML INJ 500 ML IV (18:03)
[2017-04-10 20:31] LABS: AUTOMATED NEUTROPHIL # 2.1 TH/MM3 (1.8-7.7); BASOPHIL % 0.3 % (0.0-2.0); EOSINOPHIL % 0.5 % (0.0-4.0); HEMATOCRIT 28.9 % (39.0-51.0); HEMO FLAGS DIFF FINAL; HEMOGLOBIN 9.4 GM/DL (13.0-17.0); LYMPH % 24.8 % (9.0-44.0); LYMPHOCYTE # 0.7 TH/MM3 (1.0-4.8); MEAN CELL VOLUME 79.4 FL (80.0-100.0); MEAN CORPUSCULAR HEMOGLOBIN 25.7 PG (27.0-34.0); MEAN CORPUSCULAR HGB CONC 32.4 % (32.0-36.0); MEAN PLATELET VOLUME 6.9 FL (7.0-11.0); MONO % 5.4 % (0.0-8.0); MONOCYTE # 0.2 TH/MM3 (0-0.9); PLATELET COUNT 229 TH/MM3 (150-450); RED BLOOD COUNT 3.64 MIL/MM3 (4.50-5.90); RED CELL DISTRIBUTION WIDTH 16.7 % (11.6-17.2)
[2017-04-10 20:51] LABS: ANION GAP 10 MEQ/L (5-15); BICARBONATE 23.4 MEQ/L (21.0-32.0); BLOOD UREA NITROGEN 5 MG/DL (7-18); CALCIUM 7.5 MG/DL (8.5-10.1); CHLORIDE 102 MEQ/L (98-107); CREATININE 0.71 MG/DL (0.60-1.30); GLOMERULAR FILTRATION RATE 142 ML/MIN (>89); GLUCOSE,RANDOM 145 MG/DL (74-106); POTASSIUM 3.4 MEQ/L (3.5-5.1); SODIUM (NA) 135 MEQ/L (136-145)
[2017-04-11] MEDS: oxyCODONE/ACETAMINOPHEN 10 MG/325 MG TAB PO ×4 (00:41→20:45)
[2017-04-11] MEDS: PIPERACIL-TAZO 4.5 GM PREMIX 100 ML IV ×4 (00:41→20:45)
[2017-04-11] MEDS: VANCOMYCIN 500 MG VIAL (FOR ORAL USE ONLY) PO ×4 (00:41→20:45)
[2017-04-11] MEDS: PHARMACY ORDERED LAB (03:45)
[2017-04-11 03:56] LABS: VANCOMYCIN TROUGH 12.9 MCG/ML (5.0-10.0)
[2017-04-11] MEDS: VANCOMYCIN INJ 1,500 MG in SODIUM CHLORID 0.9% 500 ML INJ 500 ML IV ×2 (04:00→16:10)
[2017-04-11] MEDS: SODIUM CHLORIDE 0.9% FLUSH 10 ML FLUSH IV FLUSH ×2 (08:30→20:34)
[2017-04-11] MEDS: SODIUM CHLOR 0.9% 1000 ML INJ 1,000 ML IV ×2 (08:31→20:45)
[2017-04-12] MEDS: PIPERACIL-TAZO 4.5 GM PREMIX 100 ML IV ×4 (01:00→19:55)
[2017-04-12] MEDS: VANCOMYCIN 500 MG VIAL (FOR ORAL USE ONLY) PO ×3 (01:54→14:00)
[2017-04-12] MEDS: oxyCODONE/ACETAMINOPHEN 10 MG/325 MG TAB PO ×4 (02:49→20:46)
[2017-04-12] MEDS: SODIUM CHLOR 0.9% 1000 ML INJ 1,000 ML IV ×3 (04:00→19:56)
[2017-04-12] MEDS: VANCOMYCIN INJ 1,500 MG in SODIUM CHLORID 0.9% 500 ML INJ 500 ML IV (04:59)
[2017-04-12] MEDS: SODIUM CHLORIDE 0.9% FLUSH 10 ML FLUSH IV FLUSH ×2 (08:44→19:56)
[2017-04-12 13:00] LABS: C. DIFF EPI 027 PRESUMPTIVE NEGATIVE (NEGATIVE); C. DIFF TOXIN PCR NEGATIVE (NEGATIVE)
[2017-04-13] MEDS: PIPERACIL-TAZO 4.5 GM PREMIX 100 ML IV ×4 (00:44→20:24)
[2017-04-13] MEDS: oxyCODONE/ACETAMINOPHEN 10 MG/325 MG TAB PO ×4 (03:02→21:34)
[2017-04-13] MEDS: SODIUM CHLOR 0.9% 1000 ML INJ 1,000 ML IV ×2 (06:38→20:24)
[2017-04-13] MEDS: SODIUM CHLORIDE 0.9% FLUSH 10 ML FLUSH IV FLUSH ×2 (07:48→21:35)
[2017-04-13 08:40] LABS: AUTOMATED NEUTROPHIL # 1.4 TH/MM3 (1.8-7.7); BASOPHIL % 0.3 % (0.0-2.0); EOSINOPHIL # 0.1 TH/MM3 (0-0.4); EOSINOPHIL % 3.5 % (0.0-4.0); HEMATOCRIT 33.5 % (39.0-51.0); HEMO FLAGS DIFF FINAL; HEMOGLOBIN 10.5 GM/DL (13.0-17.0); LYMPH % 46.9 % (9.0-44.0); LYMPHOCYTE # 1.6 TH/MM3 (1.0-4.8); MEAN CELL VOLUME 80.3 FL (80.0-100.0); MEAN CORPUSCULAR HEMOGLOBIN 25.1 PG (27.0-34.0); MEAN CORPUSCULAR HGB CONC 31.3 % (32.0-36.0); MEAN PLATELET VOLUME 6.2 FL (7.0-11.0); MONO % 6.4 % (0.0-8.0); MONOCYTE # 0.2 TH/MM3 (0-0.9); NEUT % 42.9 % (16.0-70.0); PLATELET COUNT 229 TH/MM3 (150-450); RED BLOOD COUNT 4.17 MIL/MM3 (4.50-5.90); RED CELL DISTRIBUTION WIDTH 16.9 % (11.6-17.2); WHITE BLOOD COUNT 3.4 TH/MM3 (4.0-11.0)
[2017-04-13 09:03] LABS: ANION GAP 7 MEQ/L (5-15); BICARBONATE 24.6 MEQ/L (21.0-32.0); BLOOD UREA NITROGEN 3 MG/DL (7-18); CALCIUM 7.6 MG/DL (8.5-10.1); CHLORIDE 107 MEQ/L (98-107); CREATININE 0.49 MG/DL (0.60-1.30); GLOMERULAR FILTRATION RATE 218 ML/MIN (>89); GLUCOSE,RANDOM 76 MG/DL (74-106); POTASSIUM 3.6 MEQ/L (3.5-5.1); SODIUM (NA) 139 MEQ/L (136-145)
[2017-04-13] MEDS: HEPARIN SODIUM - SQ 10,000 UNITS/ML VIAL SQ (12:33)
[2017-04-13] MEDS ORDERED: RESP: ALBUTEROL 0.63 MG/3 ML NEB (PRN) NEB (13:30)
[2017-04-13] MEDS: AZITHROMYCIN INJ 500 MG in SODIUM CHLOR 0.9% 250 ML INJ 250 ML IV (17:13)
[2017-04-14] MEDS: HEPARIN SODIUM - SQ 10,000 UNITS/ML VIAL SQ ×2 (00:42→13:33)
[2017-04-14] MEDS: PIPERACIL-TAZO 4.5 GM PREMIX 100 ML IV ×4 (00:43→18:28)
[2017-04-14] MEDS: oxyCODONE/ACETAMINOPHEN 10 MG/325 MG TAB PO ×4 (03:41→21:41)
[2017-04-14] MEDS ORDERED: PHARMACY ORDERED LAB (03:45)
[2017-04-14] MEDS: SODIUM CHLOR 0.9% 1000 ML INJ 1,000 ML IV ×2 (06:17→18:00)
[2017-04-14] MEDS: SODIUM CHLORIDE 0.9% FLUSH 10 ML FLUSH IV FLUSH ×2 (08:14→21:00)
[2017-04-14 08:37] LABS: CREATININE 0.39 MG/DL (0.60-1.30); GLOMERULAR FILTRATION RATE 284 ML/MIN (>89)
[2017-04-14] MEDS: LACTOBACILLUS ACIDOPHILUS TAB PO ×2 (13:32→18:28)
[2017-04-14] MEDS: AZITHROMYCIN INJ 500 MG in SODIUM CHLOR 0.9% 250 ML INJ 250 ML IV (16:05)
[2017-04-14] MEDS: COLLAGENASE OINT 30 GM TUBE TOPICAL ×2 (17:00→22:00)
[2017-04-15] MEDS: PIPERACIL-TAZO 4.5 GM PREMIX 100 ML IV ×4 (00:30→19:28)
[2017-04-15] MEDS: HEPARIN SODIUM - SQ 10,000 UNITS/ML VIAL SQ ×2 (00:30→13:34)
[2017-04-15] MEDS: oxyCODONE/ACETAMINOPHEN 10 MG/325 MG TAB PO ×5 (04:00→22:30)
[2017-04-15] MEDS: SODIUM CHLOR 0.9% 1000 ML INJ 1,000 ML IV ×2 (04:02→13:34)
[2017-04-15] MEDS: COLLAGENASE OINT 30 GM TUBE TOPICAL ×2 (09:00→21:00)
[2017-04-15 09:10] LABS: AUTOMATED NEUTROPHIL # 1.7 TH/MM3 (1.8-7.7); BASOPHIL % 0.2 % (0.0-2.0); EOSINOPHIL # 0.1 TH/MM3 (0-0.4); EOSINOPHIL % 2.8 % (0.0-4.0); HEMATOCRIT 31.1 % (39.0-51.0); HEMO FLAGS DIFF FINAL; LYMPH % 40.2 % (9.0-44.0); LYMPHOCYTE # 1.5 TH/MM3 (1.0-4.8); MEAN CELL VOLUME 78.9 FL (80.0-100.0); MEAN CORPUSCULAR HEMOGLOBIN 25.4 PG (27.0-34.0); MEAN CORPUSCULAR HGB CONC 32.2 % (32.0-36.0); MEAN PLATELET VOLUME 6.9 FL (7.0-11.0); MONO % 9.6 % (0.0-8.0); MONOCYTE # 0.4 TH/MM3 (0-0.9); NEUT % 47.2 % (16.0-70.0); PLATELET COUNT 254 TH/MM3 (150-450); RED BLOOD COUNT 3.94 MIL/MM3 (4.50-5.90); RED CELL DISTRIBUTION WIDTH 16.3 % (11.6-17.2); WHITE BLOOD COUNT 3.7 TH/MM3 (4.0-11.0)
[2017-04-15 09:21] LABS: ANION GAP 6 MEQ/L (5-15); BICARBONATE 27.1 MEQ/L (21.0-32.0); BLOOD UREA NITROGEN 2 MG/DL (7-18); CHLORIDE 107 MEQ/L (98-107); CREATININE 0.45 MG/DL (0.60-1.30); GLOMERULAR FILTRATION RATE 241 ML/MIN (>89); GLUCOSE,RANDOM 76 MG/DL (74-106); MAGNESIUM 1.5 MG/DL (1.5-2.5); POTASSIUM 3.5 MEQ/L (3.5-5.1); SODIUM (NA) 140 MEQ/L (136-145)
[2017-04-15] MEDS: LACTOBACILLUS ACIDOPHILUS TAB PO ×3 (09:58→18:00)
[2017-04-15] MEDS: SODIUM CHLORIDE 0.9% FLUSH 10 ML FLUSH IV FLUSH ×2 (09:59→21:00)
[2017-04-15] MEDS ORDERED: ACETAMINOPHEN 325 MG TAB PO (11:30)
[2017-04-15] MEDS: AZITHROMYCIN INJ 500 MG in SODIUM CHLOR 0.9% 250 ML INJ 250 ML IV (16:08)
[2017-04-16] MEDS: PIPERACIL-TAZO 4.5 GM PREMIX 100 ML IV ×3 (00:48→13:29)
[2017-04-16] MEDS: HEPARIN SODIUM - SQ 10,000 UNITS/ML VIAL SQ ×2 (00:50→13:28)
[2017-04-16] MEDS: oxyCODONE/ACETAMINOPHEN 10 MG/325 MG TAB PO ×4 (05:30→22:08)
[2017-04-16] MEDS: SODIUM CHLOR 0.9% 1000 ML INJ 1,000 ML IV ×3 (05:44→15:55)
[2017-04-16 08:31] LABS: CREATININE 0.43 MG/DL (0.60-1.30); GLOMERULAR FILTRATION RATE 254 ML/MIN (>89)
[2017-04-16] MEDS: COLLAGENASE OINT 30 GM TUBE TOPICAL ×2 (09:00→21:00)
[2017-04-16] MEDS: LACTOBACILLUS ACIDOPHILUS TAB PO ×3 (09:56→18:20)
[2017-04-16] MEDS: SODIUM CHLORIDE 0.9% FLUSH 10 ML FLUSH IV FLUSH ×2 (09:57→21:00)
[2017-04-16] MEDS: AZITHROMYCIN 250 MG TAB PO (15:58)
[2017-04-17] MEDS: HEPARIN SODIUM - SQ 10,000 UNITS/ML VIAL SQ ×2 (01:40→12:53)
[2017-04-17] MEDS: SODIUM CHLOR 0.9% 1000 ML INJ 1,000 ML IV ×2 (02:25→12:56)
[2017-04-17] MEDS: oxyCODONE/ACETAMINOPHEN 10 MG/325 MG TAB PO ×4 (04:22→22:27)
[2017-04-17] MEDS: COLLAGENASE OINT 30 GM TUBE TOPICAL ×2 (04:45→21:00)
[2017-04-17] MEDS: AZITHROMYCIN 250 MG TAB PO (07:58)
[2017-04-17] MEDS: LACTOBACILLUS ACIDOPHILUS TAB PO ×3 (07:58→16:19)
[2017-04-17] MEDS: SODIUM CHLORIDE 0.9% FLUSH 10 ML FLUSH IV FLUSH ×2 (07:58→21:00)
[2017-04-17 17:10] LABS: AUTOMATED NEUTROPHIL # 2.5 TH/MM3 (1.8-7.7); BASOPHIL % 0.5 % (0.0-2.0); EOSINOPHIL # 0.1 TH/MM3 (0-0.4); EOSINOPHIL % 3.2 % (0.0-4.0); HEMATOCRIT 31.4 % (39.0-51.0); HEMO FLAGS DIFF FINAL; HEMOGLOBIN 10.7 GM/DL (13.0-17.0); LYMPH % 32.6 % (9.0-44.0); LYMPHOCYTE # 1.5 TH/MM3 (1.0-4.8); MEAN CELL VOLUME 78.1 FL (80.0-100.0); MEAN CORPUSCULAR HEMOGLOBIN 26.7 PG (27.0-34.0); MEAN CORPUSCULAR HGB CONC 34.2 % (32.0-36.0); MEAN PLATELET VOLUME 7.4 FL (7.0-11.0); MONOCYTE # 0.4 TH/MM3 (0-0.9); NEUT % 54.7 % (16.0-70.0); PLATELET COUNT 319 TH/MM3 (150-450); RED BLOOD COUNT 4.02 MIL/MM3 (4.50-5.90); RED CELL DISTRIBUTION WIDTH 16.6 % (11.6-17.2); WHITE BLOOD COUNT 4.6 TH/MM3 (4.0-11.0)
[2017-04-18] MEDS: oxyCODONE/ACETAMINOPHEN 10 MG/325 MG TAB PO ×2 (04:35→10:31)
[2017-04-18] MEDS: HEPARIN SODIUM - SQ 10,000 UNITS/ML VIAL SQ ×2 (04:40→12:09)
[2017-04-18] MEDS: SODIUM CHLORIDE 0.9% FLUSH 10 ML FLUSH IV FLUSH (07:40)
[2017-04-18] MEDS: LACTOBACILLUS ACIDOPHILUS TAB PO ×2 (07:40→12:09)
[2017-04-18] MEDS: COLLAGENASE OINT 30 GM TUBE TOPICAL (07:41)
[2017-04-18] MEDS: MAGNESIUM SULFATE 1 GM PREMIX 100 ML IV (09:21)
== END 2017-04-18 15:25 | disposition home health service (06) | DRG 871 ==
LOC: N05A 04-12 18:17 → NEPC 10:23 → NEDA 15:35 → NEPGCP 19:06
DX: A41.9 Sepsis, unspecified organism (principal); L89.154 Pressure ulcer of sacral region, stage 4; J18.9 Pneumonia, unspecified organism; G82.20 Paraplegia, unspecified; L89.890 Pressure ulcer of other site, unstageable; R19.7 Diarrhea, unspecified; B19.20 Unspecified viral hepatitis C without hepatic coma; R10.84 Generalized abdominal pain; D50.9 Iron deficiency anemia, unspecified; G89.29 Other chronic pain; Y95 Nosocomial condition; Z93.3 Colostomy status; Z86.19 Personal history of other infectious and parasitic diseases; Z88.1 Allergy status to other antibiotic agents; Z88.5 Allergy status to narcotic agent; Z88.2 Allergy status to sulfonamides
CPT/HCPCS: 71045; 71250; 74177; 76937; 80048; 80053; 80202; 81001; 82565; 83605; 83690; 83735; 85025; 85610; 85730; 86403; 86850; 86900; 86901; 87040; 87070; 87077; 87186; 87205; 87493; 87804; 87804-59; 94150; 94667; 94668; 96361; 96365; 96375; 97110-GO; 97163-GP; 97166-GO; 97542-GO; 99285-25

== ENCOUNTER 2017-06-11 09:58 | Inpatient (IN) | payer MEDICAID ==
[~2017-06-11] VITALS: Ht 175.3 cm; Wt 90.0 kg
[~2017-06-11 09:58] MED LIST changes: +ALBU0.63 NEB; -DIFL200T PO; -HYDR-3583 PO; +Heparin Inj SQ; +MULT-65 PO; -Megestrol Liq PO; +ONDA4TAB7 SL; +PERC10TA27 PO; -QC B500O TOPICAL; -VANC125C3 PO; +WHEEMIS3
[2017-06-11 10:02] VITALS: BP 129/57; PULSE 99; RESP 18; TEMP 98.8; O2SAT 97
[2017-06-11 11:04] LABS: AUTOMATED NEUTROPHIL # 3.8 TH/MM3 (1.8-7.7); BASOPHIL % 0.7 % (0.0-2.0); EOSINOPHIL # 0.3 TH/MM3 (0-0.4); EOSINOPHIL % 5.5 % (0.0-4.0); HEMATOCRIT 32.1 % (39.0-51.0); HEMOGLOBIN 10.4 GM/DL (13.0-17.0); LYMPHOCYTE # 1.3 TH/MM3 (1.0-4.8); MEAN CELL VOLUME 77.3 FL (80.0-100.0); MEAN CORPUSCULAR HGB CONC 32.3 % (32.0-36.0); MONO % 9.6 % (0.0-8.0); MONOCYTE # 0.6 TH/MM3 (0-0.9); NEUT % 62.2 % (16.0-70.0); PLATELET COUNT 495 TH/MM3 (150-450); RED BLOOD COUNT 4.16 MIL/MM3 (4.50-5.90); RED CELL DISTRIBUTION WIDTH 16.1 % (11.6-17.2); WHITE BLOOD COUNT 6.1 TH/MM3 (4.0-11.0)
[2017-06-11 11:32] LABS: ALBUMIN 2.5 GM/DL (3.4-5.0); AST (GOT) 80 U/L (15-37); BICARBONATE 23.8 MEQ/L (21.0-32.0); BLOOD UREA NITROGEN 8 MG/DL (7-18); CALCIUM 9.3 MG/DL (8.5-10.1); CHLORIDE 103 MEQ/L (98-107); GLOMERULAR FILTRATION RATE 212 ML/MIN (>89); GLUCOSE,RANDOM 109 MG/DL (74-106); SODIUM (NA) 137 MEQ/L (136-145)
[2017-06-11 11:36] LABS: ALKALINE PHOSPHATASE 184 U/L (45-117); ALT (GPT) 81 U/L (12-78); TOTAL BILIRUBIN ADULT 0.2 MG/DL (0.2-1.0)
[2017-06-11 12:53] VITALS: BP 130/74; PULSE 85; RESP 18; TEMP 98.3; O2SAT 100
[2017-06-11] MEDS ORDERED: SODIUM CHLOR 0.9% 1000 ML INJ 1,000 ML IV ONE (13:00)
--- NOTE | 2017-06-11 13:31 | PD ---
Data Data Last Documented VS Vital Signs Date Time Temp Pulse Resp B/P (MAP) Pulse Ox O2 Delivery O2 Flow Rate FiO2 06/11/17 12:53 100 Room Air 06/11/17 12:53 98.3 85 18 130/74 (92) Orders Orders Sepsis Workup Initiated (06/11/17 ) Complete Blood Count With Diff (06/11/17 10:04) Comprehensive Metabolic Panel (06/11/17 10:04) Urinalysis - C+S If Indicated (06/11/17 10:04) Lactic Acid Sepsis Protocol (06/11/17 10:04) Blood Culture (06/11/17 10:04) Iv Access Insert/Monitor (06/11/17 10:04) Oxygen Administration (06/11/17 10:04) Oximetry (06/11/17 10:04) Blood Glucose (06/11/17 10:04) Wound Culture And Gram Stain (06/11/17 12:51) Sodium Chlor 0.9% 1000 Ml Inj (Ns 1000 M (06/11/17 13:00) Tibia/Fibula (Ap/Lat) (06/11/17 13:34) Urine Culture (06/11/17 13:20) Vancomycin Inj (Vancomycin Inj) (06/11/17 14:45) Piperacil-Tazo 4.5 Gm Premix (Zosyn 4.5 (06/11/17 14:45) Hydromorphone Pf Inj (Dilaudid Pf Inj) (06/11/17 15:00) Ct Abd/Pel W Iv Contrast(Rout) (06/11/17 15:17) Admit Order (Ed Use Only) (06/11/17 15:18) Labs Laboratory Tests Test 06/11/17 10:30 06/11/17 13:20 White Blood Count 6.1 TH/MM3 Red Blood Count 4.16 MIL/MM3 Hemoglobin 10.4 GM/DL Hematocrit 32.1 % Mean Corpuscular Volume 77.3 FL Mean Corpuscular Hemoglobin 25.0 PG Mean Corpuscular Hemoglobin Concent 32.3 % Red Cell Distribution Width 16.1 % Platelet Count 495 TH/MM3 Mean Platelet Volume 6.0 FL Neutrophils (%) (Auto) 62.2 % Lymphocytes (%) (Auto) 22.0 % Monocytes (%) (Auto) 9.6 % Eosinophils (%) (Auto) 5.5 % Basophils (%) (Auto) 0.7 % Neutrophils # (Auto) 3.8 TH/MM3 Lymphocytes # (Auto) 1.3 TH/MM3 Monocytes # (Auto) 0.6 TH/MM3 Eosinophils # (Auto) 0.3 TH/MM3 Basophils # (Auto) 0.0 TH/MM3 CBC Comment DIFF FINAL Differential Comment Blood Urea Nitrogen 8 MG/DL Creatinine 0.50 MG/DL Random Glucose 109 MG/DL Total Protein 8.0 GM/DL Albumin 2.5 GM/DL Calcium Level 9.3 MG/DL Alkaline Phosphatase 184 U/L Aspartate Amino Transf (AST/SGOT) 80 U/L Alanine Aminotransferase (ALT/SGPT) 81 U/L Total Bilirubin 0.2 MG/DL Sodium Level 137 MEQ/L Potassium Level 3.8 MEQ/L Chloride Level 103 MEQ/L Carbon Dioxide Level 23.8 MEQ/L Anion Gap 10 MEQ/L Estimat Glomerular Filtration Rate 212 ML/MIN Lactic Acid Level 0.9 mmol/L Urine Color YELLOW Urine Turbidity CLOUDY Urine pH 8.5 Urine Specific [place] 1.018 Urine Protein 30 mg/dL Urine Glucose (UA) NEG mg/dL Urine Ketones NEG mg/dL Urine Occult Blood NEG Urine Nitrite POS Urine Bilirubin NEG Urine Urobilinogen LESS THAN 2.0 MG/DL Urine Leukocyte Esterase LARGE Urine RBC 5 /hpf Urine WBC 3 /hpf Urine Triple Phosphate Crystals MANY /hpf Urine Amorphous Sediment RARE Urine Bacteria RARE /hpf Microscopic Urinalysis Comment CULTURE INDICATED MDM Supervised Visit with JUDAH: Yes Narrative Course This report is in ERROR Please disregard this report and all prior copies ! This report is in ERROR Please disregard this report and all prior copies ! This report is in ERROR Please disregard this report and all prior copies ! Scripts Wheelchair Cushion (Wheelchair Cushion) 1 Mis Mis EA .XX DIRECTED, #1 Prov: Johnathan Chino 06/12/17 Wheelchair (Wheelchair) 1 Mis Mis EA .XX DIRECTED, #1 0 Refills Prov: Johnathan Chino 06/12/17 Cheikh Orozco MD Jun 11, 2017 13:31
--- NOTE | 2017-06-11 13:40 | PD ---
HPI Chief Complaint: Skin Problem Time Seen by Provider: 12:40 Travel History International Travel<30 days: No Contact w/Intl Traveler<30days: No Traveled to known affect area: No History of Present Illness HPI 52-year-old male with PMH of paraplegia, right AKA presents to the ED for evaluation of worsening odor of chronic wound of the left lower extremity. Patient endorses chills, nausea. He denies fevers, chest pain, shortness of breath, abdominal pain. He also complains of cloudy urine times "a while." He endorses regular brown stools. He complains of chronic back pain, worsening on the right over the last few days. He states that he has home health care daily for dressing changes. He states that it's been "months" since he was on antibiotics. He states that he followed by Dr. Melendrez but has not seen her" a long time." PFSH Past Medical History Blood Disorders: No Cancer: No Cardiovascular Problems: No Chest Pain: No Diabetes: No Diminished Hearing: No Endocrine: No Gastrointestinal Disorders: Yes GERD: Yes Glaucoma: No Genitourinary: No Headaches: Yes Hepatitis: No Hiatal Hernia: No Hypertension: No Immune Disorder: No Implanted Vascular Access Dvce: Yes Musculoskeletal: Yes Neurologic: Yes (PARAPLEGIA) Psychiatric: No Reproductive: No Respiratory: No Integumentary: Yes (PRESSURE ULCER TO BUTTOCK MIDLINE) Immunizations Current: Yes Myocardial Infarction: Yes Thyroid Disease: No Tetanus Vaccination: < 5 Years Past Surgical History Abdominal Surgery: No AICD: No Body Medical Devices: LAITH CATH. RIGHT LEG Cardiac Surgery: No Ear Surgery: No Endocrine Surgery: No Gynecologic Surgery: No Insulin Pump: No Joint Replacement: No Oral Surgery: No Pacemaker: No Thoracic Surgery: No Other Surgery: Yes (L BKA ) Social History Alcohol Use: No Tobacco Use: No Substance Use: No Allergies-Medications (Allergen,Severity, Reaction): Coded Allergies: clindamycin (Unverified Allergy, Severe, HIVES, 06/11/17) morphine (Unverified Allergy, Severe, Tachycardia, 06/11/17) sulfamethoxazole (Unverified Allergy, Severe, RASH, 06/11/17) trimethoprim (Unverified Allergy, Severe, RASH, 06/11/17) Reported Meds & Prescriptions Reported Meds & Active Scripts Active Percocet (Oxycodone-Acetaminophen) 10-325 mg Tab 1 Tab PO Q6H PRN Wheelchair (Device) 1 Mis Mis Ea .ROUTE DIRECTED Ondansetron Odt 4 Mg Tab 4 Mg SL Q6HR PRN 7 Days [Heparin Inj] 73508 UNITS/ML Inj 5,000 Units SQ Q12H Santyl (Collagenase) 250 Unit/Gram Oin 0 Applic TOPICAL BID Acidophilus/l-Sporogenes (Lactobacillus Acidophilus) 35 Million Cell-25 Million Cell Tab 1 Tab PO TID Albuterol Neb (Albuterol Sulfate) 0.63 Mg/3 Ml Neb 0.63 Mg NEB Q4HR NEB PRN Reported Multi-Vitamin Daily (Multiple Vitamin) 1 Tab Tab 1 Tab PO DAILY Review of Systems Except as stated in HPI: all other systems reviewed are Neg Physical Exam Narrative GENERAL: Well-nourished, well-developed -[place] male in no acute distress. SKIN: Focused skin assessment warm/dry. Sacral decubitus: 5 cm x 2 cm, well granulated, light pink, no signs of infection. HEAD: Normocephalic. EYES: No scleral icterus. No injection or drainage. NECK: Supple, trachea midline. No JVD or lymphadenopathy. CARDIOVASCULAR: Regular rate and rhythm without murmurs, gallops, or rubs. RESPIRATORY: Breath sounds clear and equal bilaterally. No accessory muscle use. GASTROINTESTINAL: Abdomen soft, non-tender, nondistended. Colostomy present with a 8-10 centimeter segment of herniated bowel and brown stool in the bag. MUSCULOSKELETAL: No cyanosis, or edema. Insensate bilaterally. Right AKA well- healed, no signs of infection. FOCUSED LEFT LOWER EXTREMITY EXAM: Palpable DP pulse. There is a wound measuring 23 x 4 cm by approximately 1 cm deep on the posterior aspect of the calf. Proximal to this is a 6 cm round defect. Foul-smelling, purulent discharge. BACK: Positive midline tenderness. No obvious deformity. Positive right-sided CVA tenderness. Data Data Last Documented VS Vital Signs Date Time Temp Pulse Resp B/P (MAP) Pulse Ox O2 Delivery O2 Flow Rate FiO2 06/11/17 12:53 100 Room Air 06/11/17 12:53 98.3 85 18 130/74 (92) Orders Orders Sepsis Workup Initiated (06/11/17 ) Complete Blood Count With Diff (06/11/17 10:04) Comprehensive Metabolic Panel (06/11/17 10:04) Urinalysis - C+S If Indicated (06/11/17 10:04) Lactic Acid Sepsis Protocol (06/11/17 10:04) Blood Culture (06/11/17 10:04) Iv Access Insert/Monitor (06/11/17 10:04) Oxygen Administration (06/11/17 10:04) Oximetry (06/11/17 10:04) Blood Glucose (06/11/17 10:04) Wound Culture And Gram Stain (06/11/17 12:51) Sodium Chlor 0.9% 1000 Ml Inj (Ns 1000 M (06/11/17 13:00) Tibia/Fibula (Ap/Lat) (06/11/17 13:34) Urine Culture (06/11/17 13:20) Vancomycin Inj (Vancomycin Inj) (06/11/17 14:45) Piperacil-Tazo 4.5 Gm Premix (Zosyn 4.5 (06/11/17 14:45) Hydromorphone Pf Inj (Dilaudid Pf Inj) (06/11/17 15:00) Ct Abd/Pel W Iv Contrast(Rout) (06/11/17 15:17) Admit Order (Ed Use Only) (06/11/17 15:18) Labs Laboratory Tests Test 06/11/17 10:30 06/11/17 13:20 White Blood Count 6.1 TH/MM3 Red Blood Count 4.16 MIL/MM3 Hemoglobin 10.4 GM/DL Hematocrit 32.1 % Mean Corpuscular Volume 77.3 FL Mean Corpuscular Hemoglobin 25.0 PG Mean Corpuscular Hemoglobin Concent 32.3 % Red Cell Distribution Width 16.1 % Platelet Count 495 TH/MM3 Mean Platelet Volume 6.0 FL Neutrophils (%) (Auto) 62.2 % Lymphocytes (%) (Auto) 22.0 % Monocytes (%) (Auto) 9.6 % Eosinophils (%) (Auto) 5.5 % Basophils (%) (Auto) 0.7 % Neutrophils # (Auto) 3.8 TH/MM3 Lymphocytes # (Auto) 1.3 TH/MM3 Monocytes # (Auto) 0.6 TH/MM3 Eosinophils # (Auto) 0.3 TH/MM3 Basophils # (Auto) 0.0 TH/MM3 CBC Comment DIFF FINAL Differential Comment Blood Urea Nitrogen 8 MG/DL Creatinine 0.50 MG/DL Random Glucose 109 MG/DL Total Protein 8.0 GM/DL Albumin 2.5 GM/DL Calcium Level 9.3 MG/DL Alkaline Phosphatase 184 U/L Aspartate Amino Transf (AST/SGOT) 80 U/L Alanine Aminotransferase (ALT/SGPT) 81 U/L Total Bilirubin 0.2 MG/DL Sodium Level 137 MEQ/L Potassium Level 3.8 MEQ/L Chloride Level 103 MEQ/L Carbon Dioxide Level 23.8 MEQ/L Anion Gap 10 MEQ/L Estimat Glomerular Filtration Rate 212 ML/MIN Lactic Acid Level 0.9 mmol/L Urine Color YELLOW Urine Turbidity CLOUDY Urine pH 8.5 Urine Specific [place] 1.018 Urine Protein 30 mg/dL Urine Glucose (UA) NEG mg/dL Urine Ketones NEG mg/dL Urine Occult Blood NEG Urine Nitrite POS Urine Bilirubin NEG Urine Urobilinogen LESS THAN 2.0 MG/DL Urine Leukocyte Esterase LARGE Urine RBC 5 /hpf Urine WBC 3 /hpf Urine Triple Phosphate Crystals MANY /hpf Urine Amorphous Sediment RARE Urine Bacteria RARE /hpf Microscopic Urinalysis Comment CULTURE INDICATED MDM Medical Decision Making Medical Screen Exam Complete: Yes Emergency Medical Condition: Yes Differential Diagnosis chronic wound versus osteomyelitis versus UTI versus pyelonephritis versus other Narrative Course 52-year-old male with PMH of paraplegia, right AKA presents to the ED for evaluation of worsening odor of chronic wound of the left lower extremity. Patient endorses chills, nausea. He also complains of cloudy urine times "a while." He endorses regular brown stools, chronic herniation of his ostomy.. He complains of chronic back pain, worsening on the right over the last few days. He states that it's been "months" since he was on antibiotics. He states that he followed by Dr. Melendrez but has not seen her " for a long time." Afebrile, pulse 99, BP 129/57 on presentation. On exam the patient has a herniated ostomy with brown stool in the bag. There is right-sided CVA tenderness. There is a well-healing sacral decubitus without signs of infection. There is a right AKA, well-healed without signs of infection. There are 2 large, foul-smelling wounds of the posterior left lower extremity, largest measures 23 cm x 4 cm x 1 cm. There is a small amount of purulent drainage. The more proximal wound is approximate 6 cm in diameter. IV was established. Patient was administered 1 L normal saline, 0.5 mg Dilaudid. Blood cultures were obtained. Wound cultures were obtained. CBC: WBC 6.1, hemoglobin 10.4. CMP: BUN 8. Creatinine 0.50. UA: Cloudy, nitrite positive, large leukocyte esterase, rare bacteria. Culture pending. Tib-fib x-ray: Acute on chronic osteomyelitis suspected with large overlying soft tissue defect. I reviewed the patient's previous wound cultures. They grew MRSA and Pseudomonas, susceptible to vancomycin and Zosyn. IV vancomycin and Zosyn were initiated. I discussed the results of the workup with the patient. He is agreeable to admission. Due to high volumes Dr. Yanez requested the patient be admitted to [facility]. I spoke with Dr.D. Paulino who agrees to accept the patient to the medicine service. Please see medicine notes for disposition. Melanie Cotton Jun 11, 2017 13:40
[2017-06-11 13:55] LABS: AMORPHOUS SEDIMENT, URINE RARE; BACTERIA, URINE RARE /hpf; BILIRUBIN, URINE NEG (NEG); BLOOD, URINE NEG (NEG); GLUCOSE,URINE NEG (NEG); KETONE, URINE NEG (NEG); NITRITE,URINE POS (NEG); PH, URINE 8.5 (5.0-8.5); TRIPLE PHOSPHATE CRYSTAL,URINE MANY /hpf; URINE COLOR YELLOW (YELLW/STRAW); URINE LEUKOCYTE ESTERASE LARGE (NEG)
--- NOTE | 2017-06-11 14:16 | RADRPT ---
EXAM DATE/TIME: 06/11/2017 14:01 [facility] COMPARISON: No previous studies available for comparison. INDICATIONS : Left tib/fib open lateral wound. MEDICAL HISTORY : Cardiovascular disease. Hepatitis C. SURGICAL HISTORY : Orthopedic surgery. ENCOUNTER: Initial ACUITY: 1 week PAIN SCORE: 0/10 LOCATION: Left tib/fib FINDINGS: There is a large ulcer defect adjacent to the fibular head with subcutaneous air present. In addition ulceration of the left lateral leg is seen from the proximal fibular metaphysis through the distal f ibular metaphyseal region. There is diffuse periosteal thickening of the fibular shaft. This would be characteristic of osteomyelitis, acute on chronic. No fractures. CONCLUSION: Acute on chronic osteomyelitis suspected with large overlying soft tissue defect. Nick Chiu MD on June 11, 2017 at 14:13 Board Certified Radiologist. This report was verified electronically.
[2017-06-11] MEDS ORDERED: VANCOMYCIN INJ 1,000 MG in SODIUM CHLOR 0.9% 250 ML INJ 250 ML IV ONE (14:45)
[2017-06-11] MEDS ORDERED: PIPERACIL-TAZO 4.5 GM PREMIX 100 ML IV ONE (14:45)
[2017-06-11] MEDS ORDERED: HYDROmorphone HCL PF 1 MG/ML VIAL IV PUSH ONE (15:00)
[2017-06-11] MEDS ORDERED: SODIUM CHLORIDE 0.9% FLUSH 10 ML FLUSH IV FLUSH PRN (15:45)
[2017-06-11] MEDS ORDERED: NALOXONE HCL 0.4 MG/ML AMP IV PUSH PRN (15:45)
[2017-06-11] MEDS ORDERED: MAGNESIUM HYDROXIDE SUSP 30 ML CUP PO PRN (15:45)
[2017-06-11] MEDS ORDERED: ONDANSETRON HCL 4 MG/2 ML VIAL IVP PRN (15:45)
[2017-06-11] MEDS ORDERED: ACETAMINOPHEN/HYDROcodone 325 MG/5 MG TAB PO PRN (15:45)
[2017-06-11] MEDS ORDERED: HYDROmorphone HCL PF 2 MG/ML VIAL IV PUSH ONE (16:00)
[2017-06-11] MEDS ORDERED: IOHEXOL 350 MG/ML 10 ML VIAL (for RAD DIAG) IVCONTRAST ONE (16:54)
--- NOTE | 2017-06-11 17:10 | RADRPT ---
EXAM DATE/TIME: 06/11/2017 16:38 [facility] COMPARISON: CT ABDOMEN & PELVIS W CONTRAST, April 09, 2017, 12:37. INDICATIONS : Patient complains of abdominal pain. IV CONTRAST: 85 cc Omnipaque 350 (iohexol) IV ORAL CONTRAST: No oral contrast ingested. RADIATION DOSE: 9.03 CTDIvol (mGy) MEDICAL HISTORY : Cardiovascular disease. SURGICAL HISTORY : None. ENCOUNTER: Initial ACUITY: 1 day PAIN SCALE: NA LOCATION: abdomen TECHNIQUE: Volumetric scanning of the abdomen and pelvis was performed. Using automated exposure control and ad justment of the mA and/or kV according to patient size, radiation dose was kept as low as reasonably achievable to obtain optimal diagnostic quality images. DICOM format image data is available electro nically for review and comparison. FINDINGS: There are atelectatic changes at the lung bases. No pleural or pericardial effusions are seen. Small hiatal hernia is present. Cholelithiasis is noted. The pancreas, adrenals, kidneys are unremarkable. Atherosclerotic calcifications of the aorta and iliac vessels are noted. IVC filter is present. A cat heter is present within the urinary bladder is decompressed and thickwalled. There are bilateral decu bitus ulcers in the shoulder region identified extending to the ischial tuberosities. Extensive heter otopic bone is seen adjacent to the iliac crests and proximal femurs. Deformities of both proximal fe murs are identified as well as patchy sclerosis of the pubic rami and left and right iliac bone. Ther e is adenopathy along the left and right common iliac and external iliac regions. The patient has a m idline colostomy with stomal hernia, and a fat containing umbilical hernia. No evidence of bowel obst ruction, free fluid or free air. CONCLUSION: Chronic deformities of the pelvic bones and proximal for more with heterotopic ossification, decubitu s ulcers suspected. Postsurgical changes are identified. Fat-containing umbilical hernia. Nick Chiu MD on June 11, 2017 at 17:00 Board Certified Radiologist. This report was verified electronically.
[2017-06-11 17:53] VITALS: BP 129/66; PULSE 95; RESP 20; TEMP 96.8; O2SAT 99
[2017-06-11] MEDS: ENOXAPARIN SODIUM 40 MG/0.4 ML SYRINGE SQ SCH (17:58)
[2017-06-11] MEDS ORDERED: Vancomycin Consult Pharmacy 1 EA OTHER SCH (20:15)
[2017-06-11] MEDS: SODIUM CHLORIDE 0.9% FLUSH 10 ML FLUSH IV FLUSH SCH (21:00)
[2017-06-11] MEDS ORDERED: GADODIAMIDE PF 287 MG/ML 5 ML VIAL (for RAD MRI) IVCONTRAST ONE (21:36)
[2017-06-11 21:49] VITALS: BP 137/67; PULSE 82; RESP 16; TEMP 98.2; O2SAT 99
[2017-06-11] MEDS ORDERED: VANCOMYCIN INJ 750 MG in SODIUM CHLOR 0.9% 250 ML INJ 250 ML IV ONE (22:00)
[2017-06-11] MEDS: ACETAMINOPHEN/HYDROcodone 325 MG/10 MG TAB PO PRN (22:48)
--- NOTE | 2017-06-11 23:08 | RADRPT ---
EXAM DATE/TIME: 06/11/2017 20:55 [facility] COMPARISON: TIBIA/FIBULA LEFT (AP/LAT), June 11, 2017, 14:01. INDICATIONS : Osteomyelitis. Skin ulcers on the lateral distal knee and proximal ankle region of the left leg. CONTRAST: 18 cc Omniscan (gadodiamide) IV MEDICAL HISTORY : Ulcers. SURGICAL HISTORY : Fusion, thoracic. IVC Filter placement. Colon resection. Shoulder sx, ENCOUNTER: Initial ACUITY: > 1 year PAIN SCORE: 110 LOCATION: Left lateral leg TECHNIQUE: Multiplanar multisequence MRI examination of the lower leg was performed with and without contrast. FINDINGS: Large, elongated ulcer seen laterally and with granulation tissue at the base partially surrounding t he fibula along most of its length. There is circumferential cortical thickening of the entire shaft of the fibula typical of chronic osteomyelitis. There is marrow edema within the medullary space and patchy T1 signal abnormality compatible with superimposed acute osteomyelitis of most of the bone, be ginning at the head, patchy in the proximalmost portion of the shaft but more diffuse in the slightly more distal proximal shaft the mid shaft and most of the distal shaft. The osteomyelitis signal nuñez ges continue to within 8 cm of the tip of the lateral malleolus. Edema seen in the soft tissues of the left leg, almost diffusely but especially laterally and with as sociated reactive appearing enhancement. No rim enhancing or organized abscess. No osteomyelitis of the tibia. CONCLUSION: Large, deep and elongated soft tissue ulceration laterally of the left leg. Acute on chronic osteomye litis of nearly the entire fibula, somewhat patchy in most areas but really only sparing the distal m ost portion of the bone. No drainable abscess. Yonathan Hess MD on June 11, 2017 at 23:00 Board Certified Radiologist. This report was verified electronically.
[2017-06-11] MEDS: PIPERACIL-TAZO 4.5 GM PREMIX 100 ML IV SCH (23:39)
[2017-06-12] MEDS: ACETAMINOPHEN/HYDROcodone 325 MG/10 MG TAB PO PRN ×5 (03:07→21:55)
[2017-06-12 04:27] VITALS: BP 135/65; PULSE 70; RESP 15; TEMP 98.2; O2SAT 99
[2017-06-12] MEDS: PIPERACIL-TAZO 4.5 GM PREMIX 100 ML IV SCH ×4 (04:52→21:11)
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
[2017-06-12 07:36] LABS: AUTOMATED NEUTROPHIL # 2.4 TH/MM3 (1.8-7.7); BASOPHIL % 0.9 % (0.0-2.0); EOSINOPHIL # 0.5 TH/MM3 (0-0.4); EOSINOPHIL % 9.4 % (0.0-4.0); HEMATOCRIT 29.7 % (39.0-51.0); HEMOGLOBIN 9.7 GM/DL (13.0-17.0); LYMPH % 31.4 % (9.0-44.0); LYMPHOCYTE # 1.6 TH/MM3 (1.0-4.8); MEAN CELL VOLUME 77.3 FL (80.0-100.0); MEAN CORPUSCULAR HEMOGLOBIN 25.3 PG (27.0-34.0); MEAN CORPUSCULAR HGB CONC 32.8 % (32.0-36.0); MEAN PLATELET VOLUME 6.3 FL (7.0-11.0); MONO % 10.8 % (0.0-8.0); MONOCYTE # 0.6 TH/MM3 (0-0.9); NEUT % 47.5 % (16.0-70.0); PLATELET COUNT 506 TH/MM3 (150-450); RED BLOOD COUNT 3.84 MIL/MM3 (4.50-5.90); WHITE BLOOD COUNT 5.1 TH/MM3 (4.0-11.0)
[2017-06-12 08:03] LABS: ALBUMIN 2.3 GM/DL (3.4-5.0); ALT (GPT) 76 U/L (12-78); AST (GOT) 70 U/L (15-37); BICARBONATE 25.2 MEQ/L (21.0-32.0); BLOOD UREA NITROGEN 8 MG/DL (7-18); CALCIUM 8.7 MG/DL (8.5-10.1); CHLORIDE 106 MEQ/L (98-107); CREATININE 0.56 MG/DL (0.60-1.30); GLOMERULAR FILTRATION RATE 186 ML/MIN (>89); GLUCOSE,RANDOM 92 MG/DL (74-106); SODIUM (NA) 140 MEQ/L (136-145)
[2017-06-12 08:05] LABS: ALKALINE PHOSPHATASE 161 U/L (45-117); TOTAL BILIRUBIN ADULT 0.2 MG/DL (0.2-1.0); TOTAL PROTEIN 7.4 GM/DL (6.4-8.2)
[2017-06-12] MEDS: VANCOMYCIN INJ 1,750 MG in SODIUM CHLORID 0.9% 500 ML INJ 500 ML IV SCH ×2 (08:15→21:55)
[2017-06-12] MEDS: SODIUM CHLORIDE 0.9% FLUSH 10 ML FLUSH IV FLUSH SCH ×2 (08:15→21:11)
[2017-06-12 08:34] VITALS: BP 117/73; PULSE 77; RESP 18; TEMP 97.7; O2SAT 98
--- NOTE | 2017-06-12 09:59 | PD.WCN.NOT ---
Wound Consult Description: Received wound management consult for sacral wound from [facility] Communicated with: MACK Monge and Doctor Melendrez Recommendation: 1.Please cleanse bilateral ischial wound with normal saline or wound cleanser and pat dry. 2.Apply Maxorb II (Calcium alginate) dressing to bilateral ischial wound packed loosely to wound bed. 3. Cover with ABD pad, secured with paper tape. 4. Apply skin prep before applying tape to intact skin. 5.Change dressing daily until patient has a room on medical/ surgical floor then d/c dressing and start wound VAC. 6. Then change wound VAC dressing Sunday-Sunday and Sunday. Additional Information: Patient seen on H pod CDU for evaluation of Sacral wound. Patient is known to inpatient wound care and Doctor Melendrez and was seen on previous admission for wounds to LLE and bilateral ischial area. Patient seen with Doctor Melendrez today. Patient able to turn self with minimal assistance to R side for wound assessment. Removed gauze packing in place to reveal wound to bilateral ischial area. Wound bed presents with 100% red granulation tissue and measures ~4cm x ~ 10cm x ~1.8cm. Undermining is noted between 10 and 11 o'clock deepest at 11 o' clock measuring 3.2cm. Wound was mechanically debrided by Doctor Melendrez with normal saline and gauze pad. Cleansed wound with normal saline and gauze pad and pat dry. Wound margins are uneven and noted with some epibole, and maceration. Applied Maxorb II packed loosely to wound bed and covered with ABD pad. Applied skin prep to periwound skin before securing ABD pad with paper tape.Recommendations are noted above. Patient is able to offload pressure from buttock area and turns self frequently. Sonam Flannery [facility] Jun 12, 2017 09:59
[2017-06-12 13:01] VITALS: BP 121/58; PULSE 73; RESP 18; TEMP 97.5; O2SAT 100
[2017-06-12] MEDS ORDERED: WHEEMIS3 (15:04)
[2017-06-12] MEDS ORDERED: WHEELCHAIR CUSH1 MI1 (15:04)
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
[2017-06-12] MEDS: ENOXAPARIN SODIUM 40 MG/0.4 ML SYRINGE SQ SCH (16:17)
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
[2017-06-12 17:19] VITALS: BP 136/74; PULSE 74; RESP 18; TEMP 97.3; O2SAT 99
[2017-06-12 21:48] VITALS: BP 128/66; PULSE 74; RESP 16; TEMP 98.2; O2SAT 99
[2017-06-13] VITALS (7 sets, daily range): BP systolic 127–155; BP diastolic 47–74; PULSE 72–86; RESP 16–20; TEMP 97.7–98.9; O2SAT 98–100
[2017-06-13] MEDS: ACETAMINOPHEN/HYDROcodone 325 MG/10 MG TAB PO PRN ×5 (04:32→21:36)
[2017-06-13] MEDS: PIPERACIL-TAZO 4.5 GM PREMIX 100 ML IV SCH ×3 (04:32→15:54)
--- NOTE | 2017-06-13 08:31 | HHI.PR ---
Subjective Remarks The patient is in bed. Since he does not have any pain at this time. No nausea or vomiting no diarrhea or constipation. Patient denies any fever or chills. He is requesting a PICC line as is difficult to obtain blood and he has very difficult IV site. Will discuss with the infectious disease for PICC line placement. Objective Vitals Vital Signs Date Time Temp Pulse Resp B/P (MAP) Pulse Ox O2 Delivery O2 Flow Rate FiO2 06/13/17 04:43 98.0 86 16 128/59 (82) 99 06/13/17 00:58 98.1 75 17 127/62 (83) 98 06/12/17 21:48 98.2 74 16 128/66 (86) 99 06/12/17 17:19 97.3 74 18 136/74 (94) 99 06/12/17 13:01 97.5 73 18 121/58 (79) 100 06/12/17 08:34 97.7 77 18 117/73 (88) 98 I/O 06/12/17 06/12/17 06/12/17 06/13/17 06/13/17 06/13/17 07:00 15:00 23:00 07:00 15:00 23:00 Intake Total 350 ml Output Total 1000 ml Balance 350 ml -1000 ml Intake IV Total 350 ml Output Urine Total 1000 ml Result Diagram: 06/12/17 0605 06/12/17 0605 Imaging Last Impressions Abdomen/Pelvis CT 06/11/17 1517 Signed Impressions: Service Date/Time: Sunday, June 11, 2017 16:38 - CONCLUSION: Chronic deformities of the pelvic bones and proximal for more with heterotopic ossification, decubitus ulcers suspected. Postsurgical changes are identified. Fat-containing umbilical hernia. Nick Chiu MD Tibia/Fibula X-Ray 06/11/17 1334 Signed Impressions: Service Date/Time: Sunday, June 11, 2017 14:01 - CONCLUSION: Acute on chronic osteomyelitis suspected with large overlying soft tissue defect. Nick Chiu MD Lower Extremity MRI 06/11/17 0000 Signed Impressions: Service Date/Time: Sunday, June 11, 2017 20:55 - CONCLUSION: Large, deep and elongated soft tissue ulceration laterally of the left leg. Acute on chronic osteomyelitis of nearly the entire fibula, somewhat patchy in most areas but really only sparing the distal most portion of the bone. No drainable abscess. Yonathan Hess MD Objective Remarks GENERAL: This is a well-nourished, well-developed patient, in no apparent distress. SKIN: Cool and dry. LLE skin graft scar. LLE wound with dsg in place, soiled serosanguineous drain. Sacral area 10 cm X4cmX 1.5 cm depth with undermining CARDIOVASCULAR: Regular rate and rhythm without murmurs, gallops, or rubs. RESPIRATORY: Clear to auscultation. Breath sounds equal bilaterally. No wheezes , rales, or rhonchi. GASTROINTESTINAL: Abdomen soft, non-tender, nondistended. Colostomy in place, stoma pink, active green pasty stool. : Suprapubic cath draining clear yellow urine. MUSCULOSKELETAL: Extremities without clubbing, cyanosis, or edema. Right AKA. NEUROLOGICAL: Awake and alert. Oriented to person, place, time. Decreased sensation left lower extremity. Paraplegia. normal speech. A/P Problem List: (1) Pressure ulcer of left leg ICD Code: L89.899 - Pressure ulcer of other site, unspecified stage (2) Sacral pressure ulcer ICD Code: L89.159 - Pressure ulcer of sacral region, unspecified stage (3) Paraplegia ICD Code: G82.20 - Paraplegia, unspecified (4) History of right above knee amputation ICD Code: Z89.611 - Acquired absence of right leg above knee Assessment and Plan Patient is a 52-year-old -[place] male with primary medical history of paraplegia, right AKA, chronic sacral pressure ulcer stage IV who came into the hospital for worsening left lower extremity wound. Left lower extremity osteomyelitis Acute on chronic Tibia-fibula x-ray acute on chronic osteomyelitis suspected with large overlying soft tissue defect Lower extremity MRI shows large, deep and elongated soft tissue ulceration laterally of the left leg. Acute on chronic osteomyelitis of nearly the entire fibula, somewhat patchy in most areas but really on only sparing the distalmost portion of the bone. No drainable abscesses. IV antibiotics started vancomycin, Zosyn Follow-up blood cultures -no growth to date, wound cultures growing Proteus species Infectious disease consulted for further recommendation Wound care consult Physical therapy eval and treat Needs a PICC line when cleared by infectious disease DrMalinda Stage IV sacral ulcer, left foot ulcer Chronic sacral ulcer Abdomen pelvis CT showed chronic deformities of the pelvic bones and proximal for more with heterotopic ossification, decubitus ulcers suspected. Postsurgical changes are identified. Fat-containing umbilical hernia Wound care consult. VAC dressing will be applied Pain control with PRN Percocet UTI Chronic suprapubic cath Clear yellow urine UA positive Proteus species >100,000 On IV Zosyn Paraplegia -Case management consulted for arrangement of placement, wheelchair and cushion DVT prophylaxis Lovenox Discharge pending improvement and clearance by consultants Problem Qualifiers (1) Sacral pressure ulcer: Qualified Codes: L89.154 - Pressure ulcer of sacral region, stage 4 Katlin Dunn MD Jun 13, 2017 08:31
[2017-06-13] MEDS ORDERED: PHARMACY ORDERED LAB ONE ×2 (08:45→20:45)
[2017-06-13] MEDS: SODIUM CHLORIDE 0.9% FLUSH 10 ML FLUSH IV FLUSH SCH ×2 (09:16→22:34)
[2017-06-13] MEDS: VANCOMYCIN INJ 1,750 MG in SODIUM CHLORID 0.9% 500 ML INJ 500 ML IV SCH ×2 (09:56→22:34)
[2017-06-13] MEDS: ENOXAPARIN SODIUM 40 MG/0.4 ML SYRINGE SQ SCH (15:49)
--- NOTE | 2017-06-13 16:34 | HHI.IDPN ---
Note Infectious Disease Note Patient notes spasms of the whole body. Afebrile. No chills. Wound culture from left leg has proteus and group D enterococcus. 52-year-old black male who has a known chronic wound infection of his left lower extremity. The patient also has a sacral decubitus ulcerations. He had a wound vac on the sacral wound He states that he came to the emergency department because 3 days ago the wound started draining foul-smelling fluid from the left leg. He said that he has been trying to get an appointment with wound care here at [place] for weeks, but could not get in touch with the appropriate personnel to arrange for the appointment. He denies fever, chills, nausea, vomiting or shortness of breath. There is a large ulceration along the lateral aspect of the leg extending from the tibia and all the way down to the ankle. PAST MEDICAL HISTORY: 1. Paraplegia following an accident in 2001. 2. History of instrumentation in the spine. 3. Right [id number] amputation. 4. No history of diabetes. 5. Sacral decubitus ulceration from pressure ulcer. ALLERGIES: CLINDAMYCIN, SULFAMETHOXAZOLE, TRIMETHOPRIM, MORPHINE. MEDICATIONS: Current Medications Medications (Trade) Dose Ordered Sig/Jocelynn Route PRN Reason Start Time Stop Time Status Last Admin Dose Admin Sodium Chloride (NS Flush) 2 ml UNSCH PRN IV FLUSH FLUSH AFTER USING IV ACCESS 06/11/17 15:45 06/11/17 17:58 Sodium Chloride (NS Flush) 2 ml BID IV FLUSH 06/11/17 21:00 06/13/17 09:16 Ondansetron HCl (Zofran Inj) 4 mg Q6H PRN IVP NAUSEA OR VOMITING 06/11/17 15:45 Enoxaparin Sodium (Lovenox Inj) 40 mg Q24H SQ 06/11/17 16:00 06/13/17 15:49 Acetaminophen/ Hydrocodone Bitart ([place] 5-325 Mg) 1 tab Q4H PRN PO PAIN SCALE 3 TO 5 06/11/17 15:45 Acetaminophen/ Hydrocodone Bitart ([place] 10-325 Mg) 1 tab Q4H PRN PO PAIN SCALE 6 TO 10 06/11/17 15:45 06/13/17 13:26 Naloxone HCl (Narcan Inj) 0.4 mg UNSCH PRN IV PUSH SEE LABEL COMMENTS 06/11/17 15:45 Magnesium Hydroxide (Milk Of [place]) 30 ml Q12H PRN PO Mild constipation 06/11/17 15:45 Pharmacy Profile Note 0 ml @ 0 mls/hr UNSCH OTHER 06/11/17 20:15 Piperacillin Sod/ Tazobactam Sod 100 ml @ 200 mls/hr Q6H IV 06/11/17 22:00 06/13/17 15:54 Vancomycin HCl 1750 mg/Sodium Chloride 517.5 ml @ 250 mls/hr Q12H IV 06/12/17 09:00 06/13/17 09:56 Miscellaneous Information SPECIFIC LAB TO BE DRAWN:VANCOMYCIN TROUGH DATE TO... ONCE ONCE .XX 06/13/17 20:45 06/13/17 20:46 OBJECTIVE: Vital Signs Date Time Temp Pulse Resp B/P (MAP) Pulse Ox O2 Delivery O2 Flow Rate FiO2 06/13/17 15:43 98.0 75 18 155/74 (101) 99 06/13/17 12:37 97.7 72 18 136/65 (88) 98 06/13/17 08:34 97.9 76 18 130/69 (89) 100 06/13/17 04:43 98.0 86 16 128/59 (82) 99 06/13/17 00:58 98.1 75 17 127/62 (83) 98 06/12/17 21:48 98.2 74 16 128/66 (86) 99 06/12/17 17:19 97.3 74 18 136/74 (94) 99 Laboratory Tests Test 06/12/17 06:05 06/13/17 06:05 White Blood Count 5.1 TH/MM3 Red Blood Count 3.84 MIL/MM3 Hemoglobin 9.7 GM/DL Hematocrit 29.7 % Mean Corpuscular Volume 77.3 FL Mean Corpuscular Hemoglobin 25.3 PG Mean Corpuscular Hemoglobin Concent 32.8 % Red Cell Distribution Width 16.0 % Platelet Count 506 TH/MM3 Mean Platelet Volume 6.3 FL Neutrophils (%) (Auto) 47.5 % Lymphocytes (%) (Auto) 31.4 % Monocytes (%) (Auto) 10.8 % Eosinophils (%) (Auto) 9.4 % Basophils (%) (Auto) 0.9 % Neutrophils # (Auto) 2.4 TH/MM3 Lymphocytes # (Auto) 1.6 TH/MM3 Monocytes # (Auto) 0.6 TH/MM3 Eosinophils # (Auto) 0.5 TH/MM3 Basophils # (Auto) 0.0 TH/MM3 CBC Comment DIFF FINAL Differential Comment Erythrocyte Sedimentation Rate 1 mm/hr Laboratory Tests Test 06/12/17 06:05 Blood Urea Nitrogen 8 MG/DL Creatinine 0.56 MG/DL Random Glucose 92 MG/DL Total Protein 7.4 GM/DL Albumin 2.3 GM/DL Calcium Level 8.7 MG/DL Alkaline Phosphatase 161 U/L Aspartate Amino Transf (AST/SGOT) 70 U/L Alanine Aminotransferase (ALT/SGPT) 76 U/L Total Bilirubin 0.2 MG/DL Sodium Level 140 MEQ/L Potassium Level 3.6 MEQ/L Chloride Level 106 MEQ/L Carbon Dioxide Level 25.2 MEQ/L Anion Gap 9 MEQ/L Estimat Glomerular Filtration Rate 186 ML/MIN Microbiology Date/Time Source Procedure Growth Status 06/11/17 10:40 Blood Peripheral Aerobic Blood Culture - Preliminary NO GROWTH IN 2 DAYS Resulted 06/11/17 10:40 Blood Peripheral Anaerobic Blood Culture - Preliminary NO GROWTH IN 2 DAYS Resulted 06/11/17 10:40 Blood Peripheral Aerobic Blood Culture - Preliminary NO GROWTH IN 2 DAYS Resulted 06/11/17 10:40 Blood Peripheral Anaerobic Blood Culture - Preliminary NO GROWTH IN 2 DAYS Resulted 06/11/17 13:20 Urine Clean Catch Urine Culture - Final Proteus Mirabilis Complete 06/11/17 13:20 Wound Leg Gram Stain - Final Resulted 06/11/17 13:20 Wound Culture - Preliminary Proteus Mirabilis Group D Enterococcus Resulted PHYSICAL EXAM: GENERAL: No acute distress. Awake and alert. HEENT: No icterus. Oropharynx, moist mucosa. No lesions. NECK: Supple. No adenopathy. LUNGS: Clear to auscultation. HEART: Regular S1 and S2 without murmurs. ABDOMEN: Bowel sounds present, soft, nontender. Colostomy bag in place at the abdomen. Suprapubic catheter. Clear urine. EXTREMITIES: The left leg has swelling. There is a large ulceration extending from the lateral aspect of the tibia from the knee down to the ankle. Dressing in place. The distal left leg is swollen. The right AKA stump is intact. SKIN: No rash. NEURO: The patient is paraplegic. PSYCHIATRIC: Calm and cooperative and pleasant. IMPRESSION: Acute and chronic osteomyelitis at the fibula of left lower extremity. chronic wound LLE. Culture has proteus. and group D enterococcus. UTI - proteus. Also has sacral decubitus ulcer. RECOMMENDATIONS: Stop Pip/Tazobactam. Continue Vancomycin pending final culture. Add Ceftriaxone IV. Follow culture. PIC line ordered. Anticipate IV antibiotics x 4 week and wound care. Kody Abraham MD Jun 13, 2017 16:34
[2017-06-13] MEDS: cefTRIAXone INJ 2,000 MG in SODIUM CHLORIDE 0.9% INJ 100 ML IV SCH (17:56)
[2017-06-14] MEDS: ACETAMINOPHEN/HYDROcodone 325 MG/10 MG TAB PO PRN ×6 (01:58→23:37)
[2017-06-14 03:56] VITALS: BP 129/59; PULSE 82; RESP 16; TEMP 98.9; O2SAT 98
--- NOTE | 2017-06-14 08:38 | HHI.PR ---
Subjective Remarks Patient in nad. No n/v/d/c. Patient denies chest pain or sob. No much pain. No n/v/d/c. Denies sob Objective Vitals Vital Signs Date Time Temp Pulse Resp B/P (MAP) Pulse Ox O2 Delivery O2 Flow Rate FiO2 06/14/17 06:43 16 06/14/17 03:56 98.9 82 16 129/59 (82) 98 06/13/17 23:44 98.9 77 16 143/66 (91) 98 06/13/17 19:44 98.5 79 20 147/47 (80) 99 06/13/17 15:43 98.0 75 18 155/74 (101) 99 06/13/17 12:37 97.7 72 18 136/65 (88) 98 I/O 06/13/17 06/13/17 06/13/17 06/14/17 06/14/17 06/14/17 07:00 15:00 23:00 07:00 15:00 23:00 Output Total 1000 ml Balance -1000 ml Output Urine Total 1000 ml Result Diagram: 06/12/17 0605 06/12/17 0605 Imaging Last Impressions Abdomen/Pelvis CT 06/11/17 1517 Signed Impressions: Service Date/Time: Sunday, June 11, 2017 16:38 - CONCLUSION: Chronic deformities of the pelvic bones and proximal for more with heterotopic ossification, decubitus ulcers suspected. Postsurgical changes are identified. Fat-containing umbilical hernia. Nick Chiu MD Tibia/Fibula X-Ray 06/11/17 1334 Signed Impressions: Service Date/Time: Sunday, June 11, 2017 14:01 - CONCLUSION: Acute on chronic osteomyelitis suspected with large overlying soft tissue defect. Nick Chiu MD Lower Extremity MRI 06/11/17 0000 Signed Impressions: Service Date/Time: Sunday, June 11, 2017 20:55 - CONCLUSION: Large, deep and elongated soft tissue ulceration laterally of the left leg. Acute on chronic osteomyelitis of nearly the entire fibula, somewhat patchy in most areas but really only sparing the distal most portion of the bone. No drainable abscess. Yonathan Hess MD Objective Remarks GENERAL: This is a well-nourished, well-developed patient, in no apparent distress. SKIN: Cool and dry. LLE skin graft scar. LLE wound with dsg in place, soiled serosanguineous drain. Sacral area 10 cm X4cmX 1.5 cm depth with undermining CARDIOVASCULAR: Regular rate and rhythm without murmurs, gallops, or rubs. RESPIRATORY: Clear to auscultation. Breath sounds equal bilaterally. No wheezes , rales, or rhonchi. GASTROINTESTINAL: Abdomen soft, non-tender, nondistended. Colostomy in place, stoma pink, active green pasty stool. : Suprapubic cath draining clear yellow urine. MUSCULOSKELETAL: Extremities without clubbing, cyanosis, or edema. Right AKA. NEUROLOGICAL: Awake and alert. Oriented to person, place, time. Decreased sensation left lower extremity. Paraplegia. normal speech. A/P Problem List: (1) Pressure ulcer of left leg ICD Code: L89.899 - Pressure ulcer of other site, unspecified stage (2) Sacral pressure ulcer ICD Code: L89.159 - Pressure ulcer of sacral region, unspecified stage (3) Paraplegia ICD Code: G82.20 - Paraplegia, unspecified (4) History of right above knee amputation ICD Code: Z89.611 - Acquired absence of right leg above knee Assessment and Plan Patient is a 52-year-old -[place] male with primary medical history of paraplegia, right AKA, chronic sacral pressure ulcer stage IV who came into the hospital for worsening left lower extremity wound. Left lower extremity osteomyelitis Acute on chronic Tibia-fibula x-ray acute on chronic osteomyelitis suspected with large overlying soft tissue defect Lower extremity MRI shows large, deep and elongated soft tissue ulceration laterally of the left leg. Acute on chronic osteomyelitis of nearly the entire fibula, somewhat patchy in most areas but really on only sparing the distalmost portion of the bone. No drainable abscesses. IV antibiotics started vancomycin, Zosyn Follow-up blood cultures -no growth to date, wound cultures growing Proteus species Infectious disease consulted for further recommendation Wound care consult Physical therapy eval and treat PICC line Antibiotic at Discharge: Vancomycin q 12 hours 1750mg Stop Treatment: Jul 16, 2017 Ceftriaxone 2 grams IV q 24 hours Stop Treatment: Jul 16, 2017 Stage IV sacral ulcer, left foot ulcer Chronic sacral ulcer Abdomen pelvis CT showed chronic deformities of the pelvic bones and proximal for more with heterotopic ossification, decubitus ulcers suspected. Postsurgical changes are identified. Fat-containing umbilical hernia Wound care consult. VAC dressing will be applied Pain control with PRN Percocet UTI Chronic suprapubic cath Clear yellow urine UA positive Proteus species >100,000 On IV Zosyn Paraplegia -Case management consulted for arrangement of placement, wheelchair and cushion DVT prophylaxis Lovenox Discharge pending improvement and clearance by consultants Problem Qualifiers (1) Sacral pressure ulcer: Qualified Codes: L89.154 - Pressure ulcer of sacral region, stage 4 Katlin Dunn MD Jun 14, 2017 08:38
[2017-06-14 08:59] VITALS: BP 128/61; PULSE 67; RESP 18; TEMP 97.8; O2SAT 98
[2017-06-14] MEDS: SODIUM CHLORIDE 0.9% FLUSH 10 ML FLUSH IV FLUSH SCH ×2 (10:40→22:12)
[2017-06-14] MEDS: VANCOMYCIN INJ 1,750 MG in SODIUM CHLORID 0.9% 500 ML INJ 500 ML IV SCH ×2 (11:32→22:12)
[2017-06-14 12:08] VITALS: BP 158/74; PULSE 67; RESP 18; TEMP 97.8; O2SAT 100
--- NOTE | 2017-06-14 13:05 | HHI.FF ---
Infusion Therapy Location of Infusion Therapy: Home [facility] IV Infusion Order Patient Information Patient Weight 90 kg Diagnosis: (1) Decubitus ulcer (2) Pressure ulcer of left leg Diagnosis osteomyelitis left leg. Coded Allergies: clindamycin (Unverified Allergy, Severe, HIVES, 06/11/17) morphine (Unverified Allergy, Severe, Tachycardia, 06/11/17) sulfamethoxazole (Unverified Allergy, Severe, RASH, 06/11/17) trimethoprim (Unverified Allergy, Severe, RASH, 06/11/17) Administer Medication Vancomycin q 12 hours 1750mg Stop Treatment: Jul 16, 2017 Administer Medication Ceftriaxone 2 grams IV q 24 hours Stop Treatment: Jul 16, 2017 Additional Information Venous access: PICC Line Additional Instructions [x] Peripheral flush and dressing changes per protocol [x] Implanted port and central pipe line gauger: * Implanted port: 10 ml Normal Saline followed by 5 ml Heparin 100 units/ml Heparin flush after each use and monthly to maintain. [] May leave port accessed during therapy. [] May leave peripheral site accessed for duration of therapy. [x] If patient has SOB or respiratory distress, check oxygen saturation. If less than 90% or clinical signs of respiratory distress, administer oxygen at 2 L/min. via nasal cannula and notify physician. [x] Anaphylaxis/Reaction orders: * Stop infusion. * Keep IV line open with saline flush. * Notify physician. * Monitor vital signs every 15 minutes until symptoms resolve. * Check Oxygen saturation; Oxygen at 2 L/min. via nasal cannula if less than 90% or clinical signs of respiratory distress. * Administer diphenhydramine (Benadryl) 25 mg IV STAT, (unless patient has received as pre-med). May repeat once, if necessary. * Solu-Cortef 250 mg IVP over 30-60 seconds, use 100 mg vials for each dissolution. * Epinephrine (1mg/1 ml) 0.3 mg subcutaneously or IVP now with any signs of respiratory distress. * Check with physician for new additional pre-med orders if patient is re- challenged or re-treated. [x] May remove PICC line when treatment complete, after confirming with Physician. [x] If the patient is admitted to the hospital, the ED, or transferred via [facility] , complete transfer form including medication reconciliation order sheet. Laboratory Tests Additional Information Vancomycin trough and BMP every 3 days while on vancomycin x 1 week then Vancomycin level weekly and BMP every 3 days. Call with vancomycin level greater than 20 or creatinine greater than 1.6. Hold vancomycin if creatinine greater than 1.6. Phone number Dr. Abraham [phone]. Fax number [phone]. Kody Abraham MD Jun 14, 2017 13:05
--- NOTE | 2017-06-14 13:11 | HHI.IDPN ---
Note Infectious Disease Note Patient feels okay. distribution driver is just placed vacuum device on sacrum also. RN reports that the ulcer looks good. Granulation tissue visible. Afebrile. No chills. Wound culture from left leg has proteus and group D enterococcus and MRSA. 52-year-old black male who has a known chronic wound infection of his left lower extremity. The patient also has a sacral decubitus ulcerations. He had a wound vac on the sacral wound He states that he came to the emergency department because 3 days ago the wound started draining foul-smelling fluid from the left leg. He said that he has been trying to get an appointment with wound care here at [place] for weeks, but could not get in touch with the appropriate personnel to arrange for the appointment. He denies fever, chills, nausea, vomiting or shortness of breath. There is a large ulceration along the lateral aspect of the leg extending from the tibia and all the way down to the ankle. PAST MEDICAL HISTORY: 1. Paraplegia following an accident in 2001. 2. History of instrumentation in the spine. 3. Right [id number] amputation. 4. No history of diabetes. 5. Sacral decubitus ulceration from pressure ulcer. ALLERGIES: CLINDAMYCIN, SULFAMETHOXAZOLE, TRIMETHOPRIM, MORPHINE. MEDICATIONS: Current Medications Medications (Trade) Dose Ordered Sig/Jocelynn Route PRN Reason Start Time Stop Time Status Last Admin Dose Admin Sodium Chloride (NS Flush) 2 ml UNSCH PRN IV FLUSH FLUSH AFTER USING IV ACCESS 06/11/17 15:45 06/11/17 17:58 Sodium Chloride (NS Flush) 2 ml BID IV FLUSH 06/11/17 21:00 06/14/17 10:40 Ondansetron HCl (Zofran Inj) 4 mg Q6H PRN IVP NAUSEA OR VOMITING 06/11/17 15:45 Enoxaparin Sodium (Lovenox Inj) 40 mg Q24H SQ 06/11/17 16:00 06/13/17 15:49 Acetaminophen/ Hydrocodone Bitart ([place] 5-325 Mg) 1 tab Q4H PRN PO PAIN SCALE 3 TO 5 06/11/17 15:45 Acetaminophen/ Hydrocodone Bitart ([place] 10-325 Mg) 1 tab Q4H PRN PO PAIN SCALE 6 TO 10 06/11/17 15:45 06/14/17 10:40 Naloxone HCl (Narcan Inj) 0.4 mg UNSCH PRN IV PUSH SEE LABEL COMMENTS 06/11/17 15:45 Magnesium Hydroxide (Milk Of [place]) 30 ml Q12H PRN PO Mild constipation 06/11/17 15:45 Pharmacy Profile Note 0 ml @ 0 mls/hr UNSCH OTHER 06/11/17 20:15 Vancomycin HCl 1750 mg/Sodium Chloride 517.5 ml @ 250 mls/hr Q12H IV 06/12/17 09:00 06/14/17 11:32 Ceftriaxone Sodium 2000 mg/ Sodium Chloride 100 ml @ 200 mls/hr Q24H IV 06/13/17 18:00 06/13/17 17:56 Miscellaneous Information SPECIFIC LAB TO BE DRAWN:VANCOMYCIN TROUGH DATE TO... ONCE ONCE .XX 06/16/17 08:45 06/16/17 08:46 OBJECTIVE: Vital Signs Date Time Temp Pulse Resp B/P (MAP) Pulse Ox O2 Delivery O2 Flow Rate FiO2 06/14/17 12:08 97.8 67 18 158/74 (102) 100 06/14/17 08:59 97.8 67 18 128/61 (83) 98 06/14/17 06:43 16 06/14/17 03:56 98.9 82 16 129/59 (82) 98 06/13/17 23:44 98.9 77 16 143/66 (91) 98 06/13/17 19:44 98.5 79 20 147/47 (80) 99 06/13/17 15:43 98.0 75 18 155/74 (101) 99 Laboratory Tests Test 06/13/17 06:05 Erythrocyte Sedimentation Rate 1 mm/hr Microbiology Date/Time Source Procedure Growth Status 06/11/17 13:20 Urine Clean Catch Urine Culture - Final Proteus Mirabilis Complete 06/11/17 13:20 Wound Leg Gram Stain - Final Resulted 06/11/17 13:20 Wound Culture - Preliminary Proteus Mirabilis Group D Enterococcus S. Aureus Mrsa Resulted PHYSICAL EXAM: GENERAL: No acute distress. Awake and alert. HEENT: No icterus. Oropharynx, moist mucosa. No lesions. NECK: Supple. No adenopathy. LUNGS: Clear to auscultation. HEART: Regular S1 and S2 without murmurs. ABDOMEN: Bowel sounds present, soft, nontender. Colostomy bag in place at the abdomen. Suprapubic catheter. Clear urine. EXTREMITIES: The left leg has swelling. There is a large ulceration extending from the lateral aspect of the tibia from the knee down to the ankle. Beefy granulation tissue visible. Left foot has 1+ edema. The right AKA stump is intact. SKIN: No rash. NEURO: The patient is paraplegic. PSYCHIATRIC: Calm and cooperative and pleasant. IMPRESSION: Acute and chronic osteomyelitis at the fibula of left lower extremity. Chronic wound LLE. Culture has proteus, group D enterococcus and MRSA.. UTI - proteus. Sacral decubitus ulcer. RECOMMENDATIONS: Continue Vancomycin intravenous until July 16. See infusion orders. Continue ceftriaxone IV until July 16. See infusion orders. Antibiotics and laboratory follow-up written on infusion form. Patient is established with [facility] from previous treatments. Case management requested to set up antibiotics. Patient can be discharged to do outpatient treatment from my standpoint. He will be following up with wound care at [place] also. Kody Abraham MD Jun 14, 2017 13:11
--- NOTE | 2017-06-14 14:14 | PD.WCN.NOT ---
Wound Consult Description: Received wound management consult for sacral wound from [facility] Communicated with: Sherrill [facility] , Recommendation: 1. Please cleanse left lower lateral wound with normal saline or wound cleanser and pat dry. 2. Apply Santyl 2mm thick to wound base 3. Apply Maxorb II (Calcium alginate) dressing to wound packed loosely to wound bed. 4. Cover with ABD pad, secured with paper tape. 5. Apply skin prep before applying tape to intact skin. 6. Change dressing daily or as needed for exudate management/dislodgement 7. Change wound Vac dressing every M-W- Neg Pressure Wound Therapy Wound Location Wound Location: Bilateral Ischium Wound Description Length: 8.2cm Width: 14.5cm Depth: 4.3cm Wound bed appearance: ~80% Beefy red non glandular tissue ~10% pink tissue ~10% white tissue Periwound appearance: Unremarkable Settings Suction: 125 mmHg, Continuous Intensity: Low Other Information: Bridged, Windowpaned, Mushroomed Foam type: Black Number of pieces: 2 Additonal Information Patient was seen today in [facility] for vac placement to bilateral Ischium.Dressing removed from Ischium wound cleanse with normal saline pat dry.Stoma paste applied to periwound for protection and seal.Single piece of black sponge applied to wound base and covered with drape ,black sponge bridged to left anterior thigh.track pad applied and suction started at 125mmHg low continuous with no leaks noted.Patient tolerated wound care well.Wound VAC to be changed every Sunday,Sunday,Sunday [facility]st [facility] Jun 14, 2017 14:14
[2017-06-14] MEDS: ENOXAPARIN SODIUM 40 MG/0.4 ML SYRINGE SQ SCH (15:21)
[2017-06-14 15:48] VITALS: BP 147/71; PULSE 80; RESP 18; TEMP 98.7; O2SAT 99
--- NOTE | 2017-06-14 16:33 | HHI.DS ---
Discharge Summary Admission Date Jun 11, 2017 at 15:47 Discharge Date: Jun 19, 2017 Admitting Diagnosis acute on chronic osteomyelitis LLE, UTI (1) Pressure ulcer of left leg ICD Code: L89.899 - Pressure ulcer of other site, unspecified stage (2) Sacral pressure ulcer ICD Code: L89.159 - Pressure ulcer of sacral region, unspecified stage (3) Paraplegia ICD Code: G82.20 - Paraplegia, unspecified (4) History of right above knee amputation ICD Code: Z89.611 - Acquired absence of right leg above knee Procedures wound vac Brief History - From Admission Written by Johnathan Hernandez, acting as scribe for Dr. Dunn on 06/12/17 at 15:07. Patient is a 52-year-old -[place]ian male with primary medical history of paraplegia, right AKA, chronic sacral pressure ulcer stage IV who came into the hospital for worsening left lower extremity wound. Patient states he has been having chills, fevers prior to coming to the hospital. States that his wound has worsened compared to before. States that he is being followed by [facility] and recommends he needs to see a wound care doctor. He was trying to get in with Dr. Melendrez but unable to get an appointment. States he has been in a shelter for a while and being followed by Dr. Barbour but his wound became worse because they are unable to change his dressing and reposition him. States with [facility], he gets his dressing changes done daily but has noticed that it appears to have gotten worse. States that his colostomy is now with soft stools compared to formed stools. He also reports he has a sacral decubitus, that also has dressing changes. He has been asking for new wheelchair because he is not fitting his wheelchair of 15 years. Otherwise, denies pain and discomfort. Denies SOB/ dyspnea. Denies chest pain, palpitations, headaches, dizziness. Denies n/v/d. Denies hematuria, suprapubic cath chronic. CBC/BMP: 06/12/17 0605 06/12/17 0605 Significant Findings Laboratory Tests Test 06/12/17 06:05 06/13/17 06:05 06/13/17 20:45 Red Blood Count 3.84 MIL/MM3 (4.50-5.90) Hemoglobin 9.7 GM/DL (13.0-17.0) Hematocrit 29.7 % (39.0-51.0) Mean Corpuscular Volume 77.3 FL (80.0-100.0) Mean Corpuscular Hemoglobin 25.3 PG (27.0-34.0) Platelet Count 506 TH/MM3 (150-450) Mean Platelet Volume 6.3 FL (7.0-11.0) Monocytes (%) (Auto) 10.8 % (0.0-8.0) Eosinophils (%) (Auto) 9.4 % (0.0-4.0) Eosinophils # (Auto) 0.5 TH/MM3 (0-0.4) Creatinine 0.56 MG/DL (0.60-1.30) Albumin 2.3 GM/DL (3.4-5.0) Alkaline Phosphatase 161 U/L (45-117) Aspartate Amino Transf (AST/SGOT) 70 U/L (15-37) Vancomycin Level Trough 18.5 MCG/ML (5.0-10.0) Imaging Last Impressions Abdomen/Pelvis CT 06/11/17 1517 Signed Impressions: Service Date/Time: Sunday, June 11, 2017 16:38 - CONCLUSION: Chronic deformities of the pelvic bones and proximal for more with heterotopic ossification, decubitus ulcers suspected. Postsurgical changes are identified. Fat-containing umbilical hernia. Nick Chiu MD Tibia/Fibula X-Ray 06/11/17 1334 Signed Impressions: Service Date/Time: Sunday, June 11, 2017 14:01 - CONCLUSION: Acute on chronic osteomyelitis suspected with large overlying soft tissue defect. Nick Chiu MD Lower Extremity MRI 06/11/17 0000 Signed Impressions: Service Date/Time: Sunday, June 11, 2017 20:55 - CONCLUSION: Large, deep and elongated soft tissue ulceration laterally of the left leg. Acute on chronic osteomyelitis of nearly the entire fibula, somewhat patchy in most areas but really only sparing the distal most portion of the bone. No drainable abscess. Yonathan Hess MD PE at Discharge GENERAL: This is a well-nourished, well-developed patient, in no apparent distress. SKIN: Cool and dry. LLE skin graft scar. LLE wound with dsg in place, soiled serosanguineous drain. Sacral area 10 cm X4cmX 1.5 cm depth with undermining CARDIOVASCULAR: Regular rate and rhythm without murmurs, gallops, or rubs. RESPIRATORY: Clear to auscultation. Breath sounds equal bilaterally. No wheezes , rales, or rhonchi. GASTROINTESTINAL: Abdomen soft, non-tender, nondistended. Colostomy in place, stoma pink, active green pasty stool. : Suprapubic cath draining clear yellow urine. MUSCULOSKELETAL: Extremities without clubbing, cyanosis, or edema. Right AKA. NEUROLOGICAL: Awake and alert. Oriented to person, place, time. Decreased sensation left lower extremity. Paraplegia. normal speech. Hospital Course Patient is a 52-year-old -[place]vian male with primary medical history of paraplegia, right AKA, chronic sacral pressure ulcer stage IV who came into the hospital for worsening left lower extremity wound. Left lower extremity osteomyelitis Acute on chronic Tibia-fibula x-ray acute on chronic osteomyelitis suspected with large overlying soft tissue defect Lower extremity MRI shows large, deep and elongated soft tissue ulceration laterally of the left leg. Acute on chronic osteomyelitis of nearly the entire fibula, somewhat patchy in most areas but really on only sparing the distalmost portion of the bone. No drainable abscesses. IV antibiotics started vancomycin, Zosyn Follow-up blood cultures -no growth to date, wound cultures growing Proteus species Infectious disease consulted for further recommendation Wound care consult Physical therapy eval and treat PICC line Antibiotic at Discharge: Vancomycin q 12 hours 1750mg Stop Treatment: Jul 16, 2017 Ceftriaxone 2 grams IV q 24 hours Stop Treatment: Jul 16, 2017 Stage IV sacral ulcer, left foot ulcer Chronic sacral ulcer Abdomen pelvis CT showed chronic deformities of the pelvic bones and proximal for more with heterotopic ossification, decubitus ulcers suspected. Postsurgical changes are identified. Fat-containing umbilical hernia Wound care consult. VAC dressing will be applied Pain control with PRN Percocet UTI Chronic suprapubic cath Clear yellow urine UA positive Proteus species >100,000 On IV Zosyn Paraplegia -Case management consulted for arrangement of placement, wheelchair and cushion DVT prophylaxis Lovenox Discharge Wound care : 1. Please cleanse left lower lateral wound with normal saline or wound cleanser and pat dry. 2. Apply Santyl 2mm thick to wound base 3. Apply Maxorb II (Calcium alginate) dressing to wound packed loosely to wound bed. 4. Cover with ABD pad, secured with paper tape. 5. Apply skin prep before applying tape to intact skin. 6. Change dressing daily or as needed for exudate management/dislodgement 7. Change wound Vac dressing every -- Antibiotic at DC Vancomycin q 12 hours 1750mg Stop Treatment: Jul 16, 2017 Ceftriaxone 2 grams IV q 24 hours Stop Treatment: Jul 16, 2017 Venous access: PICC Line Vancomycin trough and BMP every 3 days while on vancomycin x 1 week then Vancomycin level weekly and BMP every 3 days. Call with vancomycin level greater than 20 or creatinine greater than 1.6. Hold vancomycin if creatinine greater than 1.6. Phone number Dr. Abraham . Fax number [phone]. Pt Condition on Discharge: Stable Discharge Disposition: Disch w/ Home Health Serv Discharge Time: > 30 minutes Discharge Instructions DIET: Follow Instructions for: Heart Healthy Diet Activities you can perform: Regular-No Restrictions Follow up Referrals: Infectious Disease - 1 Week PCP Follow-up - 2-3 Days Wound Care Clinic - 1 Week New Medications: Ferrous Sulfate Liq (Ferrous Sulfate Liq) 300 Mg/5 Ml Soln 300 MG PO DAILY for Nutritional Supplement, #150 ML 0 Refills Wheelchair Cushion (Wheelchair Cushion) 1 Mis Mis EA .XX DIRECTED, #1 Wheelchair (Wheelchair) 1 Mis Mis EA .XX DIRECTED, #1 0 Refills Continued Medications: Albuterol Neb (Albuterol Neb) 0.63 Mg/3 Ml Neb 0.63 MG NEB Q4HR NEB PRN for Breathing Treatment, #60 NEBULE Collagenase (Santyl) 250 Unit/Gram Oin 0 APPLIC TOPICAL BID for wound care, #30 TUBE Lactobacillus Acidophilus (Acidophilus/l-Sporogenes) 35 Million Cell-25 Million Cell Tab 1 TAB PO TID for Bowel Management, #90 TAB Multiple Vitamin (Multi-Vitamin Daily) 1 Tab Tab 1 TAB PO DAILY for Nutritional Supplement, TAB 0 Refills Ondansetron Odt (Ondansetron Odt) 4 Mg Tab 4 MG SL Q6HR PRN for Nausea/Vomiting for 7 Days, TAB 0 Refills Oxycodone-Acetaminophen (Percocet) 10-325 mg Tab 1 TAB PO Q6H PRN for PAIN, #20 TAB 0 Refills Wheelchair (Wheelchair) 1 Mis Mis EA .ROUTE DIRECTED, #1 0 Refills [Heparin Inj] () 05129 UNITS/ML INJ 5000 UNITS SQ Q12H for Prevent Blood Clot, #60 Katlin Dunn MD Jun 14, 2017 16:33
--- NOTE | 2017-06-14 18:21 | HHI.FF ---
Face to Face Verification Diagnosis: (1) C. difficile diarrhea (2) Abnormal urinalysis (3) Decubitus ulcer (4) Paraplegia (5) Sacral pressure ulcer (6) Pressure ulcer of left leg (7) History of right above knee amputation (8) S/P amputation Occupational Therapy Order: Evaluate and Treat Home Health Nursing Order: Signs/symptoms of disease process Medication education-adverse effect Wound care and dressing changes Nursing assessment with vital signs IV medication administration Instructions: Wound care : 1. Please cleanse left lower lateral wound with normal saline or wound cleanser and pat dry. 2. Apply Santyl 2mm thick to wound base 3. Apply Maxorb II (Calcium alginate) dressing to wound packed loosely to wound bed. 4. Cover with ABD pad, secured with paper tape. 5. Apply skin prep before applying tape to intact skin. 6. Change dressing daily or as needed for exudate management/dislodgement 7. Change wound Vac dressing every M-W-F I have seen patient Axel Jr Ovidio on 06/14/17. My clinical findings support the need for the requested home health care services because: Ltd mobility - disease progression I certify that my clinical findings support that this patient is homebound because: Post-op weakness Katlin Dunn MD Jun 14, 2017 18:21
[2017-06-14] MEDS ORDERED: FERR300S PO (18:23)
--- NOTE | 2017-06-14 18:24 | RADRPT ---
EXAM DATE/TIME: 06/14/2017 18:07 [place] COMPARISON: No previous studies available for comparison. INDICATIONS : Post PICC placement. MEDICAL HISTORY : Ulcers. SURGICAL HISTORY : Fusion, thoracic. IVC Filter placement. Colon resection. Shoulder sx, ENCOUNTER: Initial ACUITY: 1 day PAIN SCORE: 0/10 LOCATION: Bilateral chest FINDINGS: No infiltrate, effusion or pneumothorax demonstrated. Thoracic spine fusion changes are again noted. There is a right arm PICC with tip at the atriocaval junction. CONCLUSION: Right arm PICC line has tip at the atriocaval junction. No evidence of acute cardiopulmonary disease. Yonathan Hess MD on June 14, 2017 at 18:22 Board Certified Radiologist. This report was verified electronically.
[2017-06-14] MEDS: cefTRIAXone INJ 2,000 MG in SODIUM CHLORIDE 0.9% INJ 100 ML IV SCH (18:33)
[2017-06-14 19:38] VITALS: BP 142/63; PULSE 84; RESP 16; TEMP 98.4; O2SAT 98
[2017-06-15] MEDS: ACETAMINOPHEN/HYDROcodone 325 MG/10 MG TAB PO PRN ×5 (05:38→22:20)
[2017-06-15 08:41] VITALS: BP 132/60; PULSE 70; RESP 20; TEMP 98.2; O2SAT 98
[2017-06-15 09:56] LABS: CREATININE 0.51 MG/DL (0.60-1.30)
[2017-06-15] MEDS: VANCOMYCIN INJ 1,750 MG in SODIUM CHLORID 0.9% 500 ML INJ 500 ML IV SCH ×2 (10:12→22:14)
[2017-06-15] MEDS: SODIUM CHLORIDE 0.9% FLUSH 10 ML FLUSH IV FLUSH SCH ×2 (10:12→22:14)
[2017-06-15 12:28] VITALS: BP 130/62; PULSE 78; RESP 18; TEMP 98.2; O2SAT 96
--- NOTE | 2017-06-15 15:26 | HHI.PR ---
Subjective Remarks The patient is in bed. He appears in not acute distress at this time. Denies any nausea vomiting. No pain in his back. He has the wound VAC in place. Had PICC line placed yesterday receiving antibiotics by IV. No fever or chills. Objective Vitals Vital Signs Date Time Temp Pulse Resp B/P (MAP) Pulse Ox O2 Delivery O2 Flow Rate FiO2 06/15/17 12:28 98.2 78 18 130/62 (84) 96 06/15/17 08:41 98.2 70 20 132/60 (84) 98 06/14/17 19:38 98.4 84 16 142/63 (89) 98 06/14/17 15:48 98.7 80 18 147/71 (96) 99 I/O 06/14/17 06/14/17 06/14/17 06/15/17 06/15/17 06/15/17 07:00 15:00 23:00 07:00 15:00 23:00 Intake Total 617.5 ml Output Total 2000 ml 2600 ml Balance -2000 ml -1982.5 ml Intake IV Total 617.5 ml Output Urine Total 2000 ml 2100 ml Stool Total 500 ml Result Diagram: 06/12/17 0605 06/15/17 0859 Imaging Last Impressions Chest X-Ray 06/14/17 0000 Signed Impressions: Service Date/Time: May 18:07 - CONCLUSION: Right arm PICC line has tip at the atriocaval junction. No evidence of acute cardiopulmonary disease. Yonathan Hess MD Abdomen/Pelvis CT 06/11/17 1517 Signed Impressions: Service Date/Time: Sunday, June 11, 2017 16:38 - CONCLUSION: Chronic deformities of the pelvic bones and proximal for more with heterotopic ossification, decubitus ulcers suspected. Postsurgical changes are identified. Fat-containing umbilical hernia. Nick Chiu MD Tibia/Fibula X-Ray 06/11/17 1334 Signed Impressions: Service Date/Time: Sunday, June 11, 2017 14:01 - CONCLUSION: Acute on chronic osteomyelitis suspected with large overlying soft tissue defect. Nick Chiu MD Lower Extremity MRI 06/11/17 0000 Signed Impressions: Service Date/Time: Sunday, June 11, 2017 20:55 - CONCLUSION: Large, deep and elongated soft tissue ulceration laterally of the left leg. Acute on chronic osteomyelitis of nearly the entire fibula, somewhat patchy in most areas but really only sparing the distal most portion of the bone. No drainable abscess. Yonathan Hess MD Objective Remarks GENERAL: This is a well-nourished, well-developed patient, in no apparent distress. SKIN: Cool and dry. LLE skin graft scar. LLE wound with dsg in place, soiled serosanguineous drain. Sacral area 10 cm X4cmX 1.5 cm depth with undermining CARDIOVASCULAR: Regular rate and rhythm without murmurs, gallops, or rubs. RESPIRATORY: Clear to auscultation. Breath sounds equal bilaterally. No wheezes , rales, or rhonchi. GASTROINTESTINAL: Abdomen soft, non-tender, nondistended. Colostomy in place, stoma pink, active green pasty stool. : Suprapubic cath draining clear yellow urine. MUSCULOSKELETAL: Extremities without clubbing, cyanosis, or edema. Right AKA. NEUROLOGICAL: Awake and alert. Oriented to person, place, time. Decreased sensation left lower extremity. Paraplegia. normal speech. Procedures none A/P Problem List: (1) Pressure ulcer of left leg ICD Code: L89.899 - Pressure ulcer of other site, unspecified stage (2) Sacral pressure ulcer ICD Code: L89.159 - Pressure ulcer of sacral region, unspecified stage (3) Paraplegia ICD Code: G82.20 - Paraplegia, unspecified (4) History of right above knee amputation ICD Code: Z89.611 - Acquired absence of right leg above knee Assessment and Plan Patient is a 52-year-old -Welsh male with primary medical history of paraplegia, right AKA, chronic sacral pressure ulcer stage IV who came into the hospital for worsening left lower extremity wound. Left lower extremity osteomyelitis Acute on chronic Tibia-fibula x-ray acute on chronic osteomyelitis suspected with large overlying soft tissue defect Lower extremity MRI shows large, deep and elongated soft tissue ulceration laterally of the left leg. Acute on chronic osteomyelitis of nearly the entire fibula, somewhat patchy in most areas but really on only sparing the distalmost portion of the bone. No drainable abscesses. IV antibiotics started vancomycin, Zosyn Follow-up blood cultures -no growth to date, wound cultures growing Proteus species Infectious disease consulted for further recommendation Wound care consult Physical therapy eval and treat PICC line Antibiotic at Discharge: Vancomycin q 12 hours 1750mg Stop Treatment: Jul 16, 2017 Ceftriaxone 2 grams IV q 24 hours Stop Treatment: Jul 16, 2017 Stage IV sacral ulcer, left foot ulcer Chronic sacral ulcer Abdomen pelvis CT showed chronic deformities of the pelvic bones and proximal for more with heterotopic ossification, decubitus ulcers suspected. Postsurgical changes are identified. Fat-containing umbilical hernia Wound care consult. VAC dressing will be applied Pain control with PRN Percocet UTI Chronic suprapubic cath Clear yellow urine UA positive Proteus species >100,000 On IV Zosyn Paraplegia -Case management consulted for arrangement of placement, wheelchair and cushion DVT prophylaxis Lovenox Discharge Wound care : 1. Please cleanse left lower lateral wound with normal saline or wound cleanser and pat dry. 2. Apply Santyl 2mm thick to wound base 3. Apply Maxorb II (Calcium alginate) dressing to wound packed loosely to wound bed. 4. Cover with ABD pad, secured with paper tape. 5. Apply skin prep before applying tape to intact skin. 6. Change dressing daily or as needed for exudate management/dislodgement 7. Change wound Vac dressing every M-W- Antibiotic at DC Vancomycin q 12 hours 1750mg Stop Treatment: Jul 16, 2017 Ceftriaxone 2 grams IV q 24 hours Stop Treatment: Jul 16, 2017 Venous access: PICC Line Vancomycin trough and BMP every 3 days while on vancomycin x 1 week then Vancomycin level weekly and BMP every [address] Abraham ID with vancomycin level greater than 20 or creatinine greater than 1.6. Plan to discharge home with home health. Patient is having some arrangements done however he is waiting for wheelchair at this time for discharge Problem Qualifiers (1) Sacral pressure ulcer: Qualified Codes: L89.154 - Pressure ulcer of sacral region, stage 4 Katlin Dunn MD Jun 15, 2017 15:26
[2017-06-15 16:33] VITALS: BP 128/62; PULSE 90; RESP 20; TEMP 98.2; O2SAT 98
[2017-06-15] MEDS: cefTRIAXone INJ 2,000 MG in SODIUM CHLORIDE 0.9% INJ 100 ML IV SCH (18:26)
[2017-06-15] MEDS: ENOXAPARIN SODIUM 40 MG/0.4 ML SYRINGE SQ SCH (18:26)
[2017-06-15 20:06] VITALS: BP 140/71; PULSE 88; RESP 16; TEMP 98.2; O2SAT 100
[2017-06-16] MEDS: ACETAMINOPHEN/HYDROcodone 325 MG/10 MG TAB PO PRN ×5 (04:52→23:35)
[2017-06-16] MEDS ORDERED: PHARMACY ORDERED LAB ONE (08:45)
[2017-06-16] MEDS: VANCOMYCIN INJ 1,750 MG in SODIUM CHLORID 0.9% 500 ML INJ 500 ML IV SCH ×2 (09:03→19:50)
[2017-06-16] MEDS: SODIUM CHLORIDE 0.9% FLUSH 10 ML FLUSH IV FLUSH SCH ×2 (09:04→19:54)
[2017-06-16 09:24] VITALS: BP 156/78; PULSE 75; RESP 20; TEMP 97.3; O2SAT 99
[2017-06-16 09:48] LABS: BICARBONATE 31.5 MEQ/L (21.0-32.0); CALCIUM 8.8 MG/DL (8.5-10.1); CREATININE 0.53 MG/DL (0.60-1.30)
[2017-06-16 11:44] VITALS: BP 128/62; PULSE 73; RESP 18; TEMP 98.5; O2SAT 100
[2017-06-16 13:10] LABS: HEMATOCRIT 28.8 % (39.0-51.0); MEAN CELL VOLUME 77.4 FL (80.0-100.0); MEAN CORPUSCULAR HEMOGLOBIN 24.3 PG (27.0-34.0); MEAN CORPUSCULAR HGB CONC 31.4 % (32.0-36.0); MEAN PLATELET VOLUME 5.9 FL (7.0-11.0); PLATELET COUNT 445 TH/MM3 (150-450); RED BLOOD COUNT 3.72 MIL/MM3 (4.50-5.90); RED CELL DISTRIBUTION WIDTH 16.1 % (11.6-17.2); WHITE BLOOD COUNT 4.9 TH/MM3 (4.0-11.0)
--- NOTE | 2017-06-16 15:07 | HHI.PR ---
Subjective Remarks In bed, not acute distress. No acute events overnight. Case management is working on discharge planning. Objective Vitals Vital Signs Date Time Temp Pulse Resp B/P (MAP) Pulse Ox O2 Delivery O2 Flow Rate FiO2 06/16/17 11:44 98.5 73 18 128/62 (84) 100 06/16/17 09:24 97.3 75 20 156/78 (104) 99 06/15/17 20:06 98.2 88 16 140/71 (94) 100 06/15/17 16:33 98.2 90 20 128/62 (84) 98 I/O 06/15/17 06/15/17 06/15/17 06/16/17 06/16/17 06/16/17 07:00 15:00 23:00 07:00 15:00 23:00 Intake Total 617.5 ml 800 ml Output Total 2600 ml 700 ml 1800 ml Balance -1982.5 ml -700 ml -1000 ml Intake Oral 800 ml IV Total 617.5 ml Output Urine Total 2100 ml 700 ml 1500 ml Stool Total 500 ml 300 ml # Voids 2 Result Diagram: 06/16/17 1250 06/16/17 0900 Imaging Last Impressions Chest X-Ray 06/14/17 0000 Signed Impressions: Service Date/Time: May 18:07 - CONCLUSION: Right arm PICC line has tip at the atriocaval junction. No evidence of acute cardiopulmonary disease. Yonathan Hess MD Abdomen/Pelvis CT 06/11/17 1517 Signed Impressions: Service Date/Time: Sunday, June 11, 2017 16:38 - CONCLUSION: Chronic deformities of the pelvic bones and proximal for more with heterotopic ossification, decubitus ulcers suspected. Postsurgical changes are identified. Fat-containing umbilical hernia. Nick Chiu MD Tibia/Fibula X-Ray 06/11/17 1334 Signed Impressions: Service Date/Time: Sunday, June 11, 2017 14:01 - CONCLUSION: Acute on chronic osteomyelitis suspected with large overlying soft tissue defect. Nick Chiu MD Lower Extremity MRI 06/11/17 0000 Signed Impressions: Service Date/Time: Sunday, June 11, 2017 20:55 - CONCLUSION: Large, deep and elongated soft tissue ulceration laterally of the left leg. Acute on chronic osteomyelitis of nearly the entire fibula, somewhat patchy in most areas but really only sparing the distal most portion of the bone. No drainable abscess. Yonathan Hess MD Objective Remarks GENERAL: This is a well-nourished, well-developed patient, in no apparent distress. SKIN: Cool and dry. LLE skin graft scar. LLE wound with dsg in place, soiled serosanguineous drain. Sacral area 10 cm X4cmX 1.5 cm depth with undermining CARDIOVASCULAR: Regular rate and rhythm without murmurs, gallops, or rubs. RESPIRATORY: Clear to auscultation. Breath sounds equal bilaterally. No wheezes , rales, or rhonchi. GASTROINTESTINAL: Abdomen soft, non-tender, nondistended. Colostomy in place, stoma pink, active green pasty stool. : Suprapubic cath draining clear yellow urine. MUSCULOSKELETAL: Extremities without clubbing, cyanosis, or edema. Right AKA. NEUROLOGICAL: Awake and alert. Oriented to person, place, time. Decreased sensation left lower extremity. Paraplegia. normal speech. Procedures none A/P Problem List: (1) Pressure ulcer of left leg ICD Code: L89.899 - Pressure ulcer of other site, unspecified stage (2) Sacral pressure ulcer ICD Code: L89.159 - Pressure ulcer of sacral region, unspecified stage (3) Paraplegia ICD Code: G82.20 - Paraplegia, unspecified (4) History of right above knee amputation ICD Code: Z89.611 - Acquired absence of right leg above knee Assessment and Plan Patient is a 52-year-old -[place] male with primary medical history of paraplegia, right AKA, chronic sacral pressure ulcer stage IV who came into the hospital for worsening left lower extremity wound. Left lower extremity osteomyelitis Acute on chronic Tibia-fibula x-ray acute on chronic osteomyelitis suspected with large overlying soft tissue defect Lower extremity MRI shows large, deep and elongated soft tissue ulceration laterally of the left leg. Acute on chronic osteomyelitis of nearly the entire fibula, somewhat patchy in most areas but really on only sparing the distalmost portion of the bone. No drainable abscesses. IV antibiotics started vancomycin, Zosyn Follow-up blood cultures -no growth to date, wound cultures growing Proteus species Infectious disease consulted for further recommendation Wound care consult Physical therapy eval and treat PICC line Antibiotic at Discharge: Vancomycin q 12 hours 1750mg Stop Treatment: Jul 16, 2017 Ceftriaxone 2 grams IV q 24 hours Stop Treatment: Jul 16, 2017 Stage IV sacral ulcer, left foot ulcer Chronic sacral ulcer Abdomen pelvis CT showed chronic deformities of the pelvic bones and proximal for more with heterotopic ossification, decubitus ulcers suspected. Postsurgical changes are identified. Fat-containing umbilical hernia Wound care consult. VAC dressing will be applied Pain control with PRN Percocet UTI Chronic suprapubic cath Clear yellow urine UA positive Proteus species >100,000 On IV Zosyn Paraplegia -Case management consulted for arrangement of placement, wheelchair and cushion DVT prophylaxis Lovenox Discharge Wound care : 1. Please cleanse left lower lateral wound with normal saline or wound cleanser and pat dry. 2. Apply Santyl 2mm thick to wound base 3. Apply Maxorb II (Calcium alginate) dressing to wound packed loosely to wound bed. 4. Cover with ABD pad, secured with paper tape. 5. Apply skin prep before applying tape to intact skin. 6. Change dressing daily or as needed for exudate management/dislodgement 7. Change wound Vac dressing every -W- Antibiotic at DC Vancomycin q 12 hours 1750mg Stop Treatment: Jul 16, 2017 Ceftriaxone 2 grams IV q 24 hours Stop Treatment: Jul 16, 2017 Venous access: PICC Line Vancomycin trough and BMP every 3 days while on vancomycin x 1 week then Vancomycin level weekly and BMP every [address] Abraham ID with vancomycin level greater than 20 or creatinine greater than 1.6. Plan to discharge home with home health. Patient is waiting for arrangements, wheelchair, abx approval Problem Qualifiers (1) Sacral pressure ulcer: Qualified Codes: L89.154 - Pressure ulcer of sacral region, stage 4 Katlin Dunn MD Jun 16, 2017 15:07
[2017-06-16 15:57] VITALS: BP 126/76; PULSE 68; RESP 18; TEMP 98.5; O2SAT 99
[2017-06-16] MEDS: ENOXAPARIN SODIUM 40 MG/0.4 ML SYRINGE SQ SCH (16:50)
[2017-06-16] MEDS: cefTRIAXone INJ 2,000 MG in SODIUM CHLORIDE 0.9% INJ 100 ML IV SCH (18:32)
[2017-06-16 20:18] VITALS: BP 149/67; PULSE 76; RESP 16; TEMP 98.8; O2SAT 99
[2017-06-17 00:10] VITALS: BP 159/74; PULSE 65; RESP 16; TEMP 98.6; O2SAT 98
[2017-06-17 04:17] VITALS: BP 141/70; PULSE 67; RESP 16; TEMP 98.8; O2SAT 99
[2017-06-17] MEDS: ACETAMINOPHEN/HYDROcodone 325 MG/10 MG TAB PO PRN ×5 (04:47→22:04)
[2017-06-17 07:51] VITALS: BP 161/85; PULSE 65; RESP 17; TEMP 97.8; O2SAT 96
[2017-06-17 08:14] LABS: CREATININE 0.55 MG/DL (0.60-1.30)
[2017-06-17] MEDS: VANCOMYCIN INJ 1,750 MG in SODIUM CHLORID 0.9% 500 ML INJ 500 ML IV SCH ×2 (09:03→22:03)
[2017-06-17 09:04] VITALS: BP 125/67; PULSE 63; RESP 18; TEMP 97.8; O2SAT 97
[2017-06-17] MEDS: SODIUM CHLORIDE 0.9% FLUSH 10 ML FLUSH IV FLUSH SCH ×2 (09:04→22:03)
--- NOTE | 2017-06-17 11:32 | HHI.PR ---
Subjective Remarks Follow-up visit LLE osteomyelitis, Stage IV, UTI, paraplegia. Patient seen and examined today laying in bed. Reports is doing okay. Denies pain and discomfort. Denies SOB/ dyspnea. Denies chest pain, palpitations, headaches, dizziness. Denies fevers, chills, n/v/d. Objective Vitals Vital Signs Date Time Temp Pulse Resp B/P (MAP) Pulse Ox O2 Delivery O2 Flow Rate FiO2 06/17/17 09:04 97.8 63 18 125/67 (86) 97 06/17/17 07:51 97.8 65 17 161/85 (110) 96 06/17/17 05:47 18 06/17/17 04:17 98.8 67 16 141/70 (93) 99 06/17/17 00:10 98.6 65 16 159/74 (102) 98 06/16/17 20:18 98.8 76 16 149/67 (94) 99 06/16/17 15:57 98.5 68 18 126/76 (93) 99 06/16/17 11:44 98.5 73 18 128/62 (84) 100 I/O 06/16/17 06/16/17 06/16/17 06/17/17 06/17/17 06/17/17 07:00 15:00 23:00 07:00 15:00 23:00 Intake Total 800 ml 240 ml Output Total 1800 ml 700 ml 1700 ml 440 ml Balance -1000 ml -700 ml -1700 ml -200 ml Intake Oral 800 ml 240 ml Output Urine Total 1500 ml 700 ml 1700 ml 440 ml Stool Total 300 ml Result Diagram: 06/16/17 1250 06/17/17 0650 Imaging Last Impressions Chest X-Ray 06/14/17 0000 Signed Impressions: Service Date/Time: May 18:07 - CONCLUSION: Right arm PICC line has tip at the atriocaval junction. No evidence of acute cardiopulmonary disease. Yonathan Hess MD Abdomen/Pelvis CT 06/11/17 1517 Signed Impressions: Service Date/Time: Sunday, June 11, 2017 16:38 - CONCLUSION: Chronic deformities of the pelvic bones and proximal for more with heterotopic ossification, decubitus ulcers suspected. Postsurgical changes are identified. Fat-containing umbilical hernia. Nick Chiu MD Tibia/Fibula X-Ray 06/11/17 1334 Signed Impressions: Service Date/Time: Sunday, June 11, 2017 14:01 - CONCLUSION: Acute on chronic osteomyelitis suspected with large overlying soft tissue defect. Nick Chiu MD Lower Extremity MRI 06/11/17 0000 Signed Impressions: Service Date/Time: Sunday, June 11, 2017 20:55 - CONCLUSION: Large, deep and elongated soft tissue ulceration laterally of the left leg. Acute on chronic osteomyelitis of nearly the entire fibula, somewhat patchy in most areas but really only sparing the distal most portion of the bone. No drainable abscess. Yonathan Hess MD Objective Remarks GENERAL: This is a well-nourished, well-developed patient, in no apparent distress. SKIN: Cool and dry. LLE skin graft scar. LLE wound with dsg in place. Sacral wound with wound VAC HEAD: Normocephalic. EYES: Pupils equal round and reactive. Extraocular motions intact. No scleral icterus. No injection or drainage. ENT: Nose without bleeding. Throat without erythema. Uvula midline. Airway patent. NECK: Trachea midline. CARDIOVASCULAR: Regular rate and rhythm without murmurs, gallops, or rubs. RESPIRATORY: Clear to auscultation. Breath sounds equal bilaterally. No wheezes , rales, or rhonchi. GASTROINTESTINAL: Abdomen soft, non-tender, nondistended. Colostomy in place, stoma pink, active, stools not liquid. : Suprapubic cath draining clear yellow urine. MUSCULOSKELETAL: Extremities without clubbing, cyanosis, or edema. Right AKA. NEUROLOGICAL: Awake and alert. Oriented to person, place, time. Decreased sensation left lower extremity. Paraplegia. normal speech. Procedures none A/P Problem List: (1) Pressure ulcer of left leg ICD Code: L89.899 - Pressure ulcer of other site, unspecified stage (2) Sacral pressure ulcer ICD Code: L89.159 - Pressure ulcer of sacral region, unspecified stage (3) Paraplegia ICD Code: G82.20 - Paraplegia, unspecified (4) History of right above knee amputation ICD Code: Z89.611 - Acquired absence of right leg above knee Assessment and Plan Patient is a 52-year-old -[place] male with primary medical history of paraplegia, right AKA, chronic sacral pressure ulcer stage IV who came into the hospital for worsening left lower extremity wound. Left lower extremity osteomyelitis -Acute on chronic -Tibia-fibula x-ray acute on chronic osteomyelitis suspected with large overlying soft tissue defect -Lower extremity MRI shows large, deep and elongated soft tissue ulceration laterally of the left leg. Acute on chronic osteomyelitis of nearly the entire fibula, somewhat patchy in most areas but really on only sparing the distalmost portion of the bone. No drainable abscesses. -IV antibiotics started vancomycin, ceftriaxone, stop date July 16, 2017 -Follow-up blood cultures -no growth to date, wound cultures growing Proteus species, Enterococcus faecalis, MRSA -Infectious disease consulted appreciate recommendation. PICC line in place. Continue with IV antibiotics until stop date July 16, 2017. Follow-up Vanco trough, follow-up creatinine, follow-up BMP at home. -Wound care consult Stage IV sacral ulcer, left foot ulcer -Chronic sacral ulcer -Abdomen pelvis CT showed chronic deformities of the pelvic bones and proximal for more with heterotopic ossification, decubitus ulcers suspected. Postsurgical changes are identified. Fat-containing umbilical hernia -Wound care consult. VAC dressing in place, draining serosanguineous scant amount. -Pain control with PRN [place] UTI -Chronic suprapubic cath -Clear yellow urine -UA positive Proteus species >100,000 -On IV ceftriaxone and IV vancomycin Paraplegia -Case management consulted for arrangement of placement, wheelchair and cushion -Home health care, IV antibiotics at home and labs. DVT prophylaxis Lovenox Discharge Planning Plan to discharge home when all arrangements have been made with wheelchair, wound care, home health nursing for IV antibiotics and blood draws. Problem Qualifiers (1) Sacral pressure ulcer: Qualified Codes: L89.154 - Pressure ulcer of sacral region, stage 4 Johnathan Chino Jun 17, 2017 11:32
[2017-06-17] MEDS: ENOXAPARIN SODIUM 40 MG/0.4 ML SYRINGE SQ SCH (16:59)
[2017-06-17] MEDS: cefTRIAXone INJ 2,000 MG in SODIUM CHLORIDE 0.9% INJ 100 ML IV SCH (18:00)
[2017-06-17 18:19] VITALS: BP 129/63; PULSE 67; RESP 16; TEMP 98.4; O2SAT 98
[2017-06-17 22:26] VITALS: BP 139/70; PULSE 63; RESP 18; TEMP 98.8; O2SAT 99
[2017-06-18] MEDS: ACETAMINOPHEN/HYDROcodone 325 MG/10 MG TAB PO PRN ×6 (02:11→22:25)
[2017-06-18 09:03] VITALS: BP 157/69; PULSE 61; RESP 16; TEMP 99.3; O2SAT 100
[2017-06-18 09:07] LABS: HEMATOCRIT 29.5 % (39.0-51.0); HEMOGLOBIN 9.1 GM/DL (13.0-17.0); MEAN CELL VOLUME 77.7 FL (80.0-100.0); MEAN CORPUSCULAR HGB CONC 30.9 % (32.0-36.0); MEAN PLATELET VOLUME 6.6 FL (7.0-11.0); PLATELET COUNT 375 TH/MM3 (150-450); RED BLOOD COUNT 3.79 MIL/MM3 (4.50-5.90); RED CELL DISTRIBUTION WIDTH 16.6 % (11.6-17.2); WHITE BLOOD COUNT 4.5 TH/MM3 (4.0-11.0)
[2017-06-18 09:25] LABS: BICARBONATE 28.3 MEQ/L (21.0-32.0); CALCIUM 8.7 MG/DL (8.5-10.1); CREATININE 0.5 MG/DL (0.60-1.30)
[2017-06-18] MEDS: SODIUM CHLORIDE 0.9% FLUSH 10 ML FLUSH IV FLUSH SCH ×2 (09:57→22:25)
[2017-06-18] MEDS: VANCOMYCIN INJ 1,750 MG in SODIUM CHLORID 0.9% 500 ML INJ 500 ML IV SCH ×2 (09:57→22:25)
--- NOTE | 2017-06-18 11:44 | HHI.PR ---
Subjective Remarks Follow-up visit LLE osteomyelitis, Stage IV, UTI, paraplegia. Patient seen and examined today laying in bed. Reports is doing okay. No acute Issues overnight. Denies pain and discomfort. Denies SOB/ dyspnea. Denies chest pain , palpitations, headaches, dizziness. Denies fevers, chills, n/v/d. Objective Vitals Vital Signs Date Time Temp Pulse Resp B/P (MAP) Pulse Ox O2 Delivery O2 Flow Rate FiO2 06/18/17 09:03 99.3 61 16 157/69 (98) 100 06/17/17 22:26 98.8 63 18 139/70 (93) 99 06/17/17 18:19 98.4 67 16 129/63 (85) 98 I/O 06/17/17 06/17/17 06/17/17 06/18/17 06/18/17 06/18/17 06:59 14:59 22:59 06:59 14:59 22:59 Intake Total 240 ml 500 ml 517.5 ml Output Total 440 ml 1200 ml 2200 ml Balance -200 ml -700 ml -1682.5 ml Intake Oral 240 ml IV Total 500 ml 517.5 ml Output Urine Total 440 ml 1200 ml 1400 ml Stool Total 800 ml Result Diagram: 06/18/17 0805 06/18/17 0805 Imaging Last Impressions Chest X-Ray 06/14/17 0000 Signed Impressions: Service Date/Time: May 18:07 - CONCLUSION: Right arm PICC line has tip at the atriocaval junction. No evidence of acute cardiopulmonary disease. Yonathan Hess MD Abdomen/Pelvis CT 06/11/17 1517 Signed Impressions: Service Date/Time: Sunday, June 11, 2017 16:38 - CONCLUSION: Chronic deformities of the pelvic bones and proximal for more with heterotopic ossification, decubitus ulcers suspected. Postsurgical changes are identified. Fat-containing umbilical hernia. Nick Chiu MD Tibia/Fibula X-Ray 06/11/17 1334 Signed Impressions: Service Date/Time: Sunday, June 11, 2017 14:01 - CONCLUSION: Acute on chronic osteomyelitis suspected with large overlying soft tissue defect. Nick Chiu MD Lower Extremity MRI 06/11/17 0000 Signed Impressions: Service Date/Time: Sunday, June 11, 2017 20:55 - CONCLUSION: Large, deep and elongated soft tissue ulceration laterally of the left leg. Acute on chronic osteomyelitis of nearly the entire fibula, somewhat patchy in most areas but really only sparing the distal most portion of the bone. No drainable abscess. Yonathan Hess MD Objective Remarks GENERAL: This is a well-nourished, well-developed patient, in no apparent distress. SKIN: Cool and dry. LLE skin graft scar. LLE wound with dsg in place. Sacral wound with wound VAC HEAD: Normocephalic. EYES: Pupils equal round and reactive. Extraocular motions intact. No scleral icterus. No injection or drainage. ENT: Nose without bleeding. Throat without erythema. Uvula midline. Airway patent. NECK: Trachea midline. CARDIOVASCULAR: Regular rate and rhythm without murmurs, gallops, or rubs. RESPIRATORY: Clear to auscultation. Breath sounds equal bilaterally. No wheezes , rales, or rhonchi. GASTROINTESTINAL: Abdomen soft, non-tender, nondistended. Colostomy in place, stoma pink, active, stools not liquid. : Suprapubic cath draining clear yellow urine. MUSCULOSKELETAL: Extremities without clubbing, cyanosis, or edema. Right AKA. NEUROLOGICAL: Awake and alert. Oriented to person, place, time. Decreased sensation left lower extremity. Paraplegia. normal speech. Procedures none A/P Problem List: (1) Pressure ulcer of left leg ICD Code: L89.899 - Pressure ulcer of other site, unspecified stage (2) Sacral pressure ulcer ICD Code: L89.159 - Pressure ulcer of sacral region, unspecified stage (3) Paraplegia ICD Code: G82.20 - Paraplegia, unspecified (4) History of right above knee amputation ICD Code: Z89.611 - Acquired absence of right leg above knee Assessment and Plan Patient is a 52-year-old -Turk[place] male with primary medical history of paraplegia, right AKA, chronic sacral pressure ulcer stage IV who came into the hospital for worsening left lower extremity wound. Left lower extremity osteomyelitis -Acute on chronic -Tibia-fibula x-ray acute on chronic osteomyelitis suspected with large overlying soft tissue defect -Lower extremity MRI shows large, deep and elongated soft tissue ulceration laterally of the left leg. Acute on chronic osteomyelitis of nearly the entire fibula, somewhat patchy in most areas but really on only sparing the distalmost portion of the bone. No drainable abscesses. -IV antibiotics started vancomycin, ceftriaxone, stop date July 16, 2017 -Follow-up blood cultures -no growth to date, wound cultures growing Proteus species, Enterococcus faecalis, MRSA -Infectious disease consulted appreciate recommendation. PICC line in place. Continue with IV antibiotics until stop date July 16, 2017. Follow-up Vanco trough, follow-up creatinine, follow-up BMP at home. -Wound care consult Stage IV sacral ulcer, left foot ulcer -Chronic sacral ulcer -Abdomen pelvis CT showed chronic deformities of the pelvic bones and proximal for more with heterotopic ossification, decubitus ulcers suspected. Postsurgical changes are identified. Fat-containing umbilical hernia -Wound care consult. VAC dressing in place, draining serosanguineous scant amount. -Pain control with PRN [place] UTI -Chronic suprapubic cath -Clear yellow urine, some sedements -UA positive Proteus species >100,000 -On IV ceftriaxone and IV vancomycin Paraplegia -Case management consulted for arrangement of placement, wheelchair and cushion -Home health care, IV antibiotics at home and labs. DVT prophylaxis Lovenox Discharge Planning Plan to discharge home when all arrangements have been made with wheelchair, wound care, home health nursing for IV antibiotics and blood draws. Problem Qualifiers (1) Sacral pressure ulcer: Qualified Codes: L89.154 - Pressure ulcer of sacral region, stage 4 Johnathan Chino Jun 18, 2017 11:44
[2017-06-18 12:04] VITALS: BP 119/56; PULSE 71; RESP 16; TEMP 98.6; O2SAT 97
[2017-06-18] MEDS: ENOXAPARIN SODIUM 40 MG/0.4 ML SYRINGE SQ SCH (14:25)
[2017-06-18 16:49] VITALS: BP 129/60; PULSE 74; RESP 18; TEMP 98.6; O2SAT 99
[2017-06-18] MEDS: cefTRIAXone INJ 2,000 MG in SODIUM CHLORIDE 0.9% INJ 100 ML IV SCH (18:00)
[2017-06-19 00:31] VITALS: BP 157/72; PULSE 66; RESP 18; TEMP 98.5; O2SAT 98
[2017-06-19] MEDS: ACETAMINOPHEN/HYDROcodone 325 MG/10 MG TAB PO PRN ×4 (03:04→15:25)
[2017-06-19 08:41] LABS: CREATININE 0.54 MG/DL (0.60-1.30)
[2017-06-19 08:43] VITALS: BP 146/69; PULSE 67; RESP 16; TEMP 97.9; O2SAT 95
--- NOTE | 2017-06-19 08:54 | HHI.PR ---
Subjective Remarks Follow up for LLE osteomyelitis, stage IV ulcer, UTI, paraplegia. The patient reports some chronic back pain this morning, received pain medication, no acute worsening. Denies fevers but does report chills. He states he always has the chills. He has no other medical complaints at this time including no headache, chest pain, shortness of breath, or abdominal complaints. His stools are loose in his colostomy, but he reports this is baseline for him. Objective Vitals Vital Signs Date Time Temp Pulse Resp B/P (MAP) Pulse Ox O2 Delivery O2 Flow Rate FiO2 06/19/17 08:43 97.9 67 16 146/69 (94) 95 06/19/17 00:31 98.5 66 18 157/72 (100) 98 06/18/17 16:49 98.6 74 18 129/60 (83) 99 06/18/17 12:04 98.6 71 16 119/56 (77) 97 06/18/17 09:03 99.3 61 16 157/69 (98) 100 I/O 06/18/17 06/18/17 06/18/17 06/19/17 06/19/17 06/19/17 07:00 15:00 23:00 07:00 15:00 23:00 Intake Total 517.5 ml 500 ml Output Total 2200 ml 1150 ml 2100 ml Balance -1682.5 ml 500 ml -1150 ml -2100 ml IV Total 517.5 ml 500 ml Output Urine Total 1400 ml 1150 ml 2100 ml Stool Total 800 ml Result Diagram: 06/18/17 0805 06/19/17 0730 Imaging Last Impressions Chest X-Ray 06/14/17 0000 Signed Impressions: Service Date/Time: May 18:07 - CONCLUSION: Right arm PICC line has tip at the atriocaval junction. No evidence of acute cardiopulmonary disease. Yonathan Hess MD Abdomen/Pelvis CT 06/11/17 1517 Signed Impressions: Service Date/Time: Sunday, June 11, 2017 16:38 - CONCLUSION: Chronic deformities of the pelvic bones and proximal for more with heterotopic ossification, decubitus ulcers suspected. Postsurgical changes are identified. Fat-containing umbilical hernia. Nick Chiu MD Tibia/Fibula X-Ray 06/11/17 1334 Signed Impressions: Service Date/Time: Sunday, June 11, 2017 14:01 - CONCLUSION: Acute on chronic osteomyelitis suspected with large overlying soft tissue defect. Nick Chiu MD Lower Extremity MRI 06/11/17 0000 Signed Impressions: Service Date/Time: Sunday, June 11, 2017 20:55 - CONCLUSION: Large, deep and elongated soft tissue ulceration laterally of the left leg. Acute on chronic osteomyelitis of nearly the entire fibula, somewhat patchy in most areas but really only sparing the distal most portion of the bone. No drainable abscess. Yonathan Hess MD Objective Remarks GENERAL: Well-nourished, well-developed pleasant middle aged male patient in [facility]. SKIN: Warm and dry. No rash. See lower extremities below. Sacral ulcer with wound vac in place. HEENT: Normocephalic. Atraumatic. Pupils equal and round. Mucous membranes pink and moist. CARDIOVASCULAR: Regular rate and rhythm. No murmur appreciated. RESPIRATORY: No accessory muscle use. Clear to auscultation. Breath sounds equal bilaterally. GASTROINTESTINAL: Abdomen soft, non-tender, nondistended. Normoactive bowel sounds x4. Colostomy in place, bag empty. GENITOURINARY: Suprapubic cath in place with pale yellow urine output. MUSCULOSKELETAL: Chronic Right AKA. LLE wrapped with dressing, CDI. NEUROLOGICAL: Awake and alert. Paraplegia. Normal speech. PSYCHIATRIC: Appropriate mood and affect; insight and judgment normal. Procedures none Medications and IVs Current Medications Medications (Trade) Dose Ordered Sig/Jocelynn Route Start Time Stop Time Status Last Admin (NS Flush) 2 ml UNSCH PRN IV FLUSH 06/11/17 15:45 06/11/17 17:58 (NS Flush) 2 ml BID IV FLUSH 06/11/17 21:00 06/19/17 10:26 (Zofran Inj) 4 mg Q6H PRN IVP 06/11/17 15:45 (Lovenox Inj) 40 mg Q24H SQ 06/11/17 16:00 06/18/17 14:25 ([place] 5-325 Mg) 1 tab Q4H PRN PO 06/11/17 15:45 ([place] 10-325 Mg) 1 tab Q4H PRN PO 06/11/17 15:45 06/19/17 07:31 (Narcan Inj) 0.4 mg UNSCH PRN IV PUSH 06/11/17 15:45 (Milk Of Bhanu Liq) 30 ml Q12H PRN PO 06/11/17 15:45 Pharmacy Profile Note 0 ml @ 0 mls/hr UNSCH OTHER 06/11/17 20:15 Vancomycin HCl 1750 mg/Sodium Chloride 517.5 ml @ 250 mls/hr Q12H IV 06/12/17 09:00 06/19/17 10:30 Ceftriaxone Sodium 2000 mg/ Sodium Chloride 100 ml @ 200 mls/hr Q24H IV 06/13/17 18:00 06/18/17 18:00 Vascular Central Line Catheter: Yes Assessment to: Continue Date of Insertion: Jun 13, 2017 A/P Problem List: (1) Pressure ulcer of left leg ICD Code: L89.899 - Pressure ulcer of other site, unspecified stage (2) Sacral pressure ulcer ICD Code: L89.159 - Pressure ulcer of sacral region, unspecified stage (3) Paraplegia ICD Code: G82.20 - Paraplegia, unspecified (4) History of right above knee amputation ICD Code: Z89.611 - Acquired absence of right leg above knee Assessment and Plan 52-year-old -French male with past medical history of paraplegia, right AKA, chronic sacral pressure ulcer stage IV who came into the hospital for worsening left lower extremity wound. Left lower extremity osteomyelitis: Acute on chronic. -Tibia-fibula x-ray reviewed, shows acute on chronic osteomyelitis suspected with large overlying soft tissue defect -Lower extremity MRI reviewed, shows large, deep and elongated soft tissue ulceration laterally of the left leg; acute on chronic osteomyelitis of nearly the entire fibula, no drainable abscesses. -Continue IV antibiotics- vancomycin, ceftriaxone, stop date July 16, 2017 per ID -Blood cultures with no growth to date -Wound cultures growing Proteus species, Enterococcus faecalis, MRSA -Infectious disease consulted appreciated, continue PICC placed 06/13, Continue IV antibiotics Rocephin/Vanco until stop date July 16, 2017. Follow- up Vanco trough/creatinine/BMP at home. -Wound care consult appreciated -Case management consulted to assist with discharge planning with [facility] Stage IV sacral ulcer, left foot ulcer: chronic, present on admission -Abdomen/pelvis CT showed chronic deformities of the pelvic bones and proximal for more with heterotopic ossification, decubitus ulcers suspected. Postsurgical changes are identified. Fat-containing umbilical hernia -Wound care consult. VAC dressing in place, draining serosanguineous scant amount. -Pain control with PRN [place] Complicated UTI: with chronic suprapubic cath -Clear yellow urine, some sediments -UA positive Proteus species >100,000 -On IV ceftriaxone and IV vancomycin Paraplegia -Case management consulted for arrangement of placement, wheelchair and cushion -Home health care, IV antibiotics at home and labs. DVT prophylaxis Lovenox Discharge Planning Patient is discharged pending arrangements of HHC, antibiotics, DME. Case management assisting. Problem Qualifiers (1) Sacral pressure ulcer: Qualified Codes: L89.154 - Pressure ulcer of sacral region, stage 4 Bonita Read PA-C Jun 19, 2017 8:54 am
[2017-06-19] MEDS: SODIUM CHLORIDE 0.9% FLUSH 10 ML FLUSH IV FLUSH SCH (10:26)
[2017-06-19] MEDS: VANCOMYCIN INJ 1,750 MG in SODIUM CHLORID 0.9% 500 ML INJ 500 ML IV SCH (10:30)
[2017-06-19 10:56] VITALS: BP 151/66; PULSE 78; RESP 20; TEMP 98.2; O2SAT 99
--- NOTE | 2017-06-19 12:39 | HHI.FF ---
Face to Face Verification Diagnosis: (1) Paraplegia (2) Sacral pressure ulcer (3) Pressure ulcer of left leg (4) Osteomyelitis (5) Abnormal urinalysis (6) Decubitus ulcer (7) History of right above knee amputation Home Health Nursing Order: Medical education Signs/symptoms of disease process Wound care and dressing changes Nursing assessment with vital signs IV medication administration Instructions: Wound care : 1. Please cleanse left lower lateral wound with normal saline or wound cleanser and pat dry. 2. Apply Santyl 2mm thick to wound base 3. Apply Maxorb II (Calcium alginate) dressing to wound packed loosely to wound bed. 4. Cover with ABD pad, secured with paper tape. 5. Apply skin prep before applying tape to intact skin. 6. Change dressing daily or as needed for exudate management/dislodgement 7. Change wound Vac dressing every -W- I have seen patient Axel NolanJr on 06/19/17. My clinical findings support the need for the requested home health care services because: Ltd mobility - disease progression Deconditioned w/ increased weakness Limited ability to care for self High risk of falls Infection w/ risk of complications I certify that my clinical findings support that this patient is homebound because: Unsteady gait/balance Unsafe to leave home unassisted Unable to use public transportation Bonita Read PA-C Jun 19, 2017 12:39 Katlin Dunn MD Jun 19, 2017 20:49
--- NOTE | 2017-06-19 16:39 | PD.WCN.NOT ---
Wound Consult Description: Bilateral Ischium Wound VAC dressing change. Communicated with: MACK Clarke H pod Neg Pressure Wound Therapy Wound Location Wound Location: Bilateral Ischium Wound Description Wound bed appearance: ~90% Beefy red non glandular tissue ~~10% epithelial tissue Settings Suction: 125 mmHg, Continuous Intensity: Low Other Information: Bridged, Windowpaned, Mushroomed Foam type: Black Number of pieces: 1 Additonal Information Patient seen on [facility] H pod for wound VAC dressing moya to bilateral ischial area. Dressing with Two pieces of granufoam were removed from bilateral Ischium. Surround skin was cleanses with soap and water and patted dry. Wound cleanse with normal saline pat dry.Skin prep with antifungal powder was applied to groin creases. Skin prep was applied to periwound.Then Stoma paste was applied to periwound for protection and seal.Single piece of black granufoam was applied to wound base and covered with drape , granufoam was then bridged to left anterior thigh over VAC drape.Sensi trac pad applied and suction started at 125mmHg low continuous with no leaks noted.Patient tolerated wound care well. patient going home will follow up with out patient wound care Sonam Flannery Jun 19, 2017 16:39
== END 2017-06-19 17:21 | disposition home health service (06) | DRG 539 ==
LOC: NEPE 09:58 → NEDA 15:20 → OBSVTOIN 15:47 → NEDA 16:52 → NEPHCDU 19:49
PROVIDERS: ADMIT Hospitalist; ATTEND Hospitalist
PROC: 0HD6XZZ Extraction of Back Skin, External Approach (ICD-10-PCS; 2017-06-12)
PROC: 02HV33Z Insertion of Infusion Device into Superior Vena Cava, Percutaneous Approach (ICD-10-PCS; principal; 2017-06-14)
PROC: B548ZZA Ultrasonography of Superior Vena Cava, Guidance (ICD-10-PCS; 2017-06-14)
PROC: 2W15X6Z Compression of Back using Pressure Dressing (ICD-10-PCS; 2017-06-14)
DX: M86.18 Other acute osteomyelitis, other site (principal); M86.68 Other chronic osteomyelitis, other site; L89.154 Pressure ulcer of sacral region, stage 4; G82.20 Paraplegia, unspecified; Z93.59 Other cystostomy status; L89.899 Pressure ulcer of other site, unspecified stage; N39.0 Urinary tract infection, site not specified; B96.4 Proteus (mirabilis) (morganii) as the cause of diseases classified elsewhere; B95.2 Enterococcus as the cause of diseases classified elsewhere; B19.20 Unspecified viral hepatitis C without hepatic coma; Z93.3 Colostomy status; Z89.611 Acquired absence of right leg above knee
CPT/HCPCS: 36569; 71045; 73590; 73720; 74177; 76937; 80048; 80053; 80202; 81001; 82565; 83605; 85025; 85027; 85652; 86403; 87040; 87070; 87077; 87086; 87186; 87205; 99285; A9579; J0696; J1170; J1650; J2543; J3370; J7040; J7050; Q9967

== ENCOUNTER 2017-06-26 10:13 | Observation (INO) | payer MEDICAID, MEDICARE ==
[~2017-06-26 10:13] MED LIST changes: +FERR300S PO; +WHEELCHAIR CUSH1 MI1
[2017-06-26 10:20] VITALS: BP 166/69; PULSE 97; RESP 16; TEMP 98.7; O2SAT 99
--- NOTE | 2017-06-26 10:26 | PD ---
HPI Chief Complaint: Skin Problem Time Seen by Provider: 10:26 Travel History International Travel<30 days: No Contact w/Intl Traveler<30days: No Traveled to known affect area: No History of Present Illness HPI 52-year-old male came to the emergency room with history of rash developing after he received IV vancomycin through his PICC line. Patient has history of osteomyelitis and was discharged home on antibiotics via PICC line. Patient says he has received vancomycin while he was in the hospital and has not had any reaction up until today. She took Benadryl and call Dr. Abraham whose his ID specialist. He was asked to come to the emergency room. Patient does not have any respiratory distress. Vital signs otherwise stable. [facility] Past Medical History Narrative Medical List of his past medical, surgical, social and family history is reviewed from the nursing note. Arthritis: Yes Blood Disorders: No Cancer: No Cardiovascular Problems: No Chest Pain: No Diabetes: No Diminished Hearing: No Endocrine: No Gastrointestinal Disorders: Yes GERD: Yes Glaucoma: No Genitourinary: Yes (AVALOS CATHETER 7 YEARS) Headaches: Yes Hepatitis: No Hiatal Hernia: No Hypertension: No Immune Disorder: No Implanted Vascular Access Dvce: Yes Musculoskeletal: Yes Neurologic: No Psychiatric: No Reproductive: No Respiratory: No Integumentary: Yes (PRESSURE ULCER TO BUTTOCK MIDLINE) Immunizations Current: Yes Migraines: Yes Myocardial Infarction: Yes Sleep Apnea: Yes (CPAP AT HOME, USES OCASSIONALLY) Thyroid Disease: No Past Surgical History Abdominal Surgery: No AICD: No Body Medical Devices: LAITH CATH. RIGHT LEG Cardiac Surgery: No Ear Surgery: No Endocrine Surgery: No Gynecologic Surgery: No Insulin Pump: No Joint Replacement: No Oral Surgery: No Pacemaker: No Thoracic Surgery: No Other Surgery: Yes (L BKA ) Social History Alcohol Use: No Tobacco Use: No Substance Use: No Allergies-Medications (Allergen,Severity, Reaction): Coded Allergies: clindamycin (Verified Allergy, Severe, HIVES, 06/26/17) sulfamethoxazole (Verified Allergy, Severe, RASH, 06/26/17) trimethoprim (Verified Allergy, Severe, RASH, 06/26/17) vancomycin (Verified Allergy, Severe, hives, 06/26/17) morphine (Verified Adverse Reaction, Severe, Tachycardia, 06/26/17) Comments List of his allergies reviewed from the nursing note. Reported Meds & Prescriptions Reported Meds & Active Scripts Active Albuterol Neb (Albuterol Sulfate) 0.63 Mg/3 Ml Neb 0.63 Mg NEB Q4HR NEB PRN Reported Hydrocodone-Acetamin 10-325 mg (Hydrocodone/Acetaminophen) 10 Mg-325 Mg Tablet 10 Mg PO Q4HR Multi-Vitamin Daily (Multiple Vitamin) 1 Tab Tab 1 Tab PO DAILY Narrative Medication List of his home medications reviewed from the nursing note. Review of Systems Except as stated in HPI: all other systems reviewed are Neg Physical Exam Narrative GENERAL: Awake, alert, mild distress SKIN: Focused skin assessment warm/dry. Urticarial rash generalized HEAD: Atraumatic. Normocephalic. EYES: Pupils equal and round. No scleral icterus. No injection or drainage. ENT: No nasal bleeding or discharge. Mucous membranes pink and moist. NECK: Trachea midline. No JVD. CARDIOVASCULAR: Regular rate and rhythm. No murmur appreciated. RESPIRATORY: No accessory muscle use. Clear to auscultation. Breath sounds equal bilaterally. GASTROINTESTINAL: Abdomen soft, non-tender, nondistended. Hepatic and splenic margins not palpable. MUSCULOSKELETAL: No obvious deformities. No clubbing. No cyanosis. No edema. NEUROLOGICAL: Awake and alert. No obvious cranial nerve deficits. Paraplegic. Normal speech. PSYCHIATRIC: Appropriate mood and affect; insight and judgment normal. Data Data Last Documented VS Orders Orders Complete Blood Count With Diff (06/26/17 10:40) Basic Metabolic Panel (Bmp) (06/26/17 10:40) Admit Order (Ed Use Only) (06/26/17 11:09) Labs Laboratory Tests Test 06/26/17 10:43 White Blood Count 10.0 TH/MM3 Red Blood Count 4.04 MIL/MM3 Hemoglobin 9.9 GM/DL Hematocrit 31.4 % Mean Corpuscular Volume 77.6 FL Mean Corpuscular Hemoglobin 24.6 PG Mean Corpuscular Hemoglobin Concent 31.7 % Red Cell Distribution Width 17.6 % Platelet Count 408 TH/MM3 Mean Platelet Volume 6.6 FL Neutrophils (%) (Auto) 64.9 % Lymphocytes (%) (Auto) 20.3 % Monocytes (%) (Auto) 9.9 % Eosinophils (%) (Auto) 4.3 % Basophils (%) (Auto) 0.6 % Neutrophils # (Auto) 6.5 TH/MM3 Lymphocytes # (Auto) 2.0 TH/MM3 Monocytes # (Auto) 1.0 TH/MM3 Eosinophils # (Auto) 0.4 TH/MM3 Basophils # (Auto) 0.1 TH/MM3 CBC Comment DIFF FINAL Differential Comment Blood Urea Nitrogen 8 MG/DL Creatinine 0.64 MG/DL Random Glucose 93 MG/DL Calcium Level 8.8 MG/DL Sodium Level 140 MEQ/L Potassium Level 3.8 MEQ/L Chloride Level 106 MEQ/L Carbon Dioxide Level 25.8 MEQ/L Anion Gap 8 MEQ/L Estimat Glomerular Filtration Rate 160 ML/MIN MDM Medical Decision Making Medical Screen Exam Complete: Yes Emergency Medical Condition: Yes Medical Record Reviewed: Yes Differential Diagnosis Sacral decubitus, osteomyelitis Narrative Course 11:04 AM I have tried to page Dr. Abraham but he is on vacation. I discussed with Dr. Peters from ID and she recommended to admit the patient and she'll consult to decide the alternative antibiotic to discharge him home with. Awaiting for the hospitalist to call back. Procedures EKG Prior to Arrival: No Diagnosis Primary Impression: Osteomyelitis Qualified Codes: M86.28 - Subacute osteomyelitis, other site Additional Impression: Allergic reaction Qualified Codes: T78.40XA - Allergy, unspecified, initial encounter Admitting Information Admitting Physician Requests: Observation Scripts Epinephrine Inj (Epinephrine Inj) 1 Mg/Ml (1 Ml) Inj 0.3 MG SQ ONCE Y for ALLERGIC REACTION, #1 VIAL Give with any signs of respiratory distress. Prov: Ana Peters MD 06/29/17 Epinephrine Inj (Epinephrine Inj) 1 Mg/Ml (1 Ml) Inj 0.3 MG IV PUSH ONCE Y for ALLERGIC REACTION, #1 VIAL Prov: Ana Peters MD 06/29/17 Hydrocortisone Inj (Solu-Cortef Inj) 250 Mg/2 Ml Inj 250 MG IV PUSH ONCE Y for ALLERGIC REACTION, #1 VIAL 0 Refills Give over 30-60 seconds. Prov: Ana Peters MD 06/29/17 Daptomycin Inj (Cubicin Inj) 500 Mg Bag 750 MG IV Q24H for Infection for 17 Days, BAG 0 Refills Must dilute in appropriate IV Fluid prior to administration Prov: Ana Peters MD 06/29/17 Levofloxacin (Levaquin) 750 Mg Tablet 750 MG PO DAILY for Infection, #15 TAB Prov: Rick Ayala MD 06/29/17 Orquidea Fay MD Jun 26, 2017 10:26
[2017-06-26 10:55] LABS: AUTOMATED NEUTROPHIL # 6.5 TH/MM3 (1.8-7.7); BASOPHIL # 0.1 TH/MM3 (0-0.2); BASOPHIL % 0.6 % (0.0-2.0); EOSINOPHIL # 0.4 TH/MM3 (0-0.4); EOSINOPHIL % 4.3 % (0.0-4.0); HEMATOCRIT 31.4 % (39.0-51.0); HEMOGLOBIN 9.9 GM/DL (13.0-17.0); LYMPH % 20.3 % (9.0-44.0); MEAN CELL VOLUME 77.6 FL (80.0-100.0); MEAN CORPUSCULAR HEMOGLOBIN 24.6 PG (27.0-34.0); MEAN CORPUSCULAR HGB CONC 31.7 % (32.0-36.0); MEAN PLATELET VOLUME 6.6 FL (7.0-11.0); MONO % 9.9 % (0.0-8.0); NEUT % 64.9 % (16.0-70.0); PLATELET COUNT 408 TH/MM3 (150-450); RED BLOOD COUNT 4.04 MIL/MM3 (4.50-5.90); RED CELL DISTRIBUTION WIDTH 17.6 % (11.6-17.2)
[2017-06-26 11:10] LABS: BICARBONATE 25.8 MEQ/L (21.0-32.0); CALCIUM 8.8 MG/DL (8.5-10.1); CREATININE 0.64 MG/DL (0.60-1.30)
[2017-06-26] MEDS ORDERED: HYDR-3583 PO (11:26)
[2017-06-26] MEDS ORDERED: diphenhydrAMINE HCL 50 MG/ML VIAL IV PUSH ONE (13:45)
[2017-06-26] MEDS ORDERED: RESP: ALBUTEROL 0.63 MG/3 ML NEB (PRN) NEB (13:45)
[2017-06-26] MEDS ORDERED: RANITIDINE HCL SYRUP 150 MG/10 ML UDC PO SCH (13:45)
--- NOTE | 2017-06-26 13:54 | HHI.HP ---
[facility] Service [facility] Primary Care Physician Abran De Oliveira, DO Admission Diagnosis ostial myelitis, allergic reaction Diagnoses: (1) Osteomyelitis Diagnosis: Principal (2) Allergic reaction Diagnosis: Principal Chief Complaint: rash Travel History International Travel<30 Days: No Contact w/Intl Traveler <30 Da: No Traveled to Known Affected Are: No History of Present Illness Patient is a 52-year-old -Polish male with primary medical history of paraplegia, right AKA, chronic sacral pressure ulcer stage IV who was recently admitted to the hospital for worsening left lower extremity wound; acute on chronic osteomyelitis. the cultures from the wound positive for MRSA, proteus and Enterococcus. he was evaluated by ID and was discharged on IV Vancomycin and IV Rocephin which he's supposed to continue till . he says that he started to have some generalized rash and itching two days which gradually got worse. this is more noticeable on the right upper extremity and the chest although he had some rash on the right lower extremity as well. he denies any sob or wheezing. Review of Systems Constitutional: DENIES: Fever, Weight loss, Chills, Night Sweats Eyes: DENIES: Blurred vision, Diplopia, Vision loss, Double Vision Ears, nose, mouth, throat: DENIES: Tinnitus, Vertigo, Throat pain, Epistaxis Respiratory: DENIES: Apneas, Cough, Snoring, Wheezing, Hemoptysis, Sputum production, Shortness of breath Cardiovascular: DENIES: Chest pain, Palpitations, Syncope, Dyspnea on Exertion , PND, Lower Extremity Edema, Orthopnea, Claudication Gastrointestinal: DENIES: Abdominal pain, Black stools, Bloody stools, Constipation, Diarrhea, Nausea, Vomiting, Difficulty Swallowing, Anorexia Genitourinary: DENIES: Urinary frequency, Urgency, Hematuria, Dysuria Musculoskeletal: DENIES: Joint pain, Muscle aches, Stiffness, Joint Swelling Integumentary: COMPLAINS OF: Pruritus, Rash Neurologic: DENIES: Abnormal gait, Headache, Localized weakness, Paresthesias, Seizures, Speech Problems, Tremor, Poor Balance Psychiatric: DENIES: Anxiety, Confusion, Mood changes, Depression, Hallucinations, Agitation, Suicidal Ideation, Homicidal Ideation, Delusions Past Family Social History Past Medical History paraplegia/ osteomyelitis Past Surgical History back surgery/ AKA Reported Medications norco/albuterol. Allergies: Coded Allergies: clindamycin (Verified Allergy, Severe, HIVES, 06/26/17) sulfamethoxazole (Verified Allergy, Severe, RASH, 06/26/17) trimethoprim (Verified Allergy, Severe, RASH, 06/26/17) vancomycin (Verified Allergy, Severe, hives, 06/26/17) morphine (Verified Adverse Reaction, Severe, Tachycardia, 06/26/17) Social History no smoking or drinking. Physical Exam Vital Signs Vital Signs Date Time Temp Pulse Resp B/P (MAP) Pulse Ox O2 Delivery O2 Flow Rate FiO2 06/26/17 10:35 78 16 06/26/17 10:20 98.7 97 16 166/69 (101) 99 Physical Exam GENERAL: This is a well-nourished, well-developed patient, in no apparent distress. SKIN: rash noted on the upper extremities and on the chest. HEAD: Atraumatic. Normocephalic. No temporal or scalp tenderness. EYES: Pupils equal round and reactive. Extraocular motions intact. No scleral icterus. No injection or drainage. ENT: Nose without bleeding, purulent drainage or septal hematoma. Throat without erythema, tonsillar hypertrophy or exudate. Uvula midline. Airway patent. NECK: Trachea midline. No JVD or lymphadenopathy. Supple, nontender, no meningeal signs. CARDIOVASCULAR: Regular rate and rhythm without murmurs, gallops, or rubs. RESPIRATORY: Clear to auscultation. Breath sounds equal bilaterally. No wheezes , rales, or rhonchi. GASTROINTESTINAL: Abdomen soft, non-tender, nondistended. No hepato-splenomegaly , or palpable masses. No guarding. MUSCULOSKELETAL: s/p right AKA. NEUROLOGICAL: Awake and alert.paraplegic. Laboratory Laboratory Tests Test 06/26/17 10:43 White Blood Count 10.0 Red Blood Count 4.04 Hemoglobin 9.9 Hematocrit 31.4 Mean Corpuscular Volume 77.6 Mean Corpuscular Hemoglobin 24.6 Mean Corpuscular Hemoglobin Concent 31.7 Red Cell Distribution Width 17.6 Platelet Count 408 Mean Platelet Volume 6.6 Neutrophils (%) (Auto) 64.9 Lymphocytes (%) (Auto) 20.3 Monocytes (%) (Auto) 9.9 Eosinophils (%) (Auto) 4.3 Basophils (%) (Auto) 0.6 Neutrophils # (Auto) 6.5 Lymphocytes # (Auto) 2.0 Monocytes # (Auto) 1.0 Eosinophils # (Auto) 0.4 Basophils # (Auto) 0.1 CBC Comment DIFF FINAL Differential Comment Blood Urea Nitrogen 8 Creatinine 0.64 Random Glucose 93 Calcium Level 8.8 Sodium Level 140 Potassium Level 3.8 Chloride Level 106 Carbon Dioxide Level 25.8 Anion Gap 8 Estimat Glomerular Filtration Rate 160 Result Diagram: 06/26/17 1043 06/26/17 1043 Caprini VTE Risk Assessment Caprini VTE Risk Assessment: Mod/High Risk (score >= 2) Caprini Risk Assessment Model Point Value = 1 Point Value = 2 Point Value = 3 Point Value = 5 Age 41-60 Minor surgery BMI > 25 kg/m2 Swollen legs Varicose veins or History of unexplained or recurrent spontaneous Oral contraceptives or hormone replacement Sepsis (< 1 month) Serious lung disease, including pneumonia (< 1 month) Abnormal pulmonary function Acute myocardial infarction Congestive heart failure (< 1 month) History of inflammatory bowel disease Medical patient at bed rest Age 61-74 Arthroscopic surgery Major open surgery (> 45 min) Laparoscopic surgery (> 45 min) Malignancy Confined to bed (> 72 hours) Immobilizing plaster cast Central venous access Age >= 75 History of VTE Family history of VTE Factor V Leiden Prothrombin [id number] Lupus anticoagulant Anticardiolipin antibodies Elevated serum homocysteine Heparin-induced thrombocytopenia Other congenital or acquired thrombophilia Stroke (< 1 month) Elective arthroplasty Hip, pelvis, or leg fracture Acute spinal cord injury (< 1 month) Prophylaxis Regimen Total Risk Factor Score Risk Level Prophylaxis Regimen 0-1 Low Early ambulation 2 Moderate Order ONE of the following: *Sequential Compression Device (SCD) *Heparin 5000 units SQ BID 3-4 Higher Order ONE of the following medications: *Heparin 5000 units SQ TID *Enoxaparin/Lovenox 40 mg SQ daily (WT < 150 kg, CrCl > 30 mL/min) *Enoxaparin/Lovenox 30 mg SQ daily (WT < 150 kg, CrCl > 10-29 mL/min) *Enoxaparin/Lovenox 30 mg SQ BID (WT < 150 kg, CrCl > 30 mL/min) AND/OR *Sequential Compression Device (SCD) 5 or more Highest Order ONE of the following medications: *Heparin 5000 units SQ TID (Preferred with Epidurals) *Enoxaparin/Lovenox 40 mg SQ daily (WT < 150 kg, CrCl > 30 mL/min) *Enoxaparin/Lovenox 30 mg SQ daily (WT < 150 kg, CrCl > 10-29 mL/min) *Enoxaparin/Lovenox 30 mg SQ BID (WT < 150 kg, CrCl > 30 mL/min) AND *Sequential Compression Device (SCD) Assessment and Plan Assessment and Plan A/P - allergic reaction ( patient is on Vanco and Rocephin) continue with benadryl .- will monitor. -acute on chronic osteomyelitis of the left lower extremity- recently admitted and discharged on IV Vanco and Rocephin ( to finish the course on 07/16/17 per ID). ID consulted- hold antibiotics till seen by ID- -anemia of chronic disease- will monitor -paraplegia; consult case management for dc planning. -sacral ulcer; consult wound care. -DVT prophylaxis with subq lovenox. Discussed Condition With ER physician and the patient. Problem Qualifiers (1) Osteomyelitis: Qualified Codes: M86.28 - Subacute osteomyelitis, other site (2) Allergic reaction: Qualified Codes: T78.40XA - Allergy, unspecified, initial encounter Domenico Smith MD Jun 26, 2017 13:54
[2017-06-26] MEDS: diphenhydrAMINE HCL 25 MG CAP PO PRN ×2 (14:01→23:20)
[2017-06-26] MEDS: ACETAMINOPHEN/HYDROcodone 325 MG/10 MG TAB PO PRN ×3 (14:02→23:17)
[2017-06-26 14:35] VITALS: BP 150/83; TEMP 97.8
[2017-06-26 14:49] VITALS: BP 132/58; PULSE 120; RESP 24; TEMP 99.3; O2SAT 98
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
[2017-06-26 23:15] VITALS: BP 134/78; PULSE 85; RESP 20; TEMP 99.3; O2SAT 98
[2017-06-27] MEDS: ACETAMINOPHEN/HYDROcodone 325 MG/10 MG TAB PO PRN ×5 (04:13→22:56)
[2017-06-27 05:55] VITALS: BP 121/60; PULSE 79; RESP 16; TEMP 98.8; O2SAT 98
[2017-06-27] MEDS: LEVOFLOXACIN 750 MG TAB PO SCH ×2 (05:59→09:35)
[2017-06-27] MEDS: DAPTOmycin INJ 750 MG in SODIUM CHLORIDE 0.9% INJ 100 ML IV SCH (05:59)
[2017-06-27 08:00] VITALS: BP 135/69; PULSE 79; RESP 18; TEMP 97.8; O2SAT 99
[2017-06-27] MEDS: MULTIVITAMIN TAB PO SCH (09:34)
[2017-06-27] MEDS: diphenhydrAMINE HCL 25 MG CAP PO PRN ×3 (09:35→22:56)
[2017-06-27] MEDS: ENOXAPARIN SODIUM 40 MG/0.4 ML SYRINGE SQ SCH (09:36)
[2017-06-27 12:16] VITALS: BP 137/69; PULSE 72; RESP 18; TEMP 99.1; O2SAT 98
[2017-06-27 16:30] VITALS: BP 143/66; PULSE 74; RESP 18; TEMP 98.9; O2SAT 100
--- NOTE | 2017-06-27 19:19 | HHI.PR ---
Objective Vital Signs Date Time Temp Pulse Resp B/P (MAP) Pulse Ox O2 Delivery O2 Flow Rate FiO2 06/27/17 16:30 98.9 74 18 143/66 (91) 100 06/27/17 12:16 99.1 72 18 137/69 (91) 98 06/27/17 08:00 97.8 79 18 135/69 (91) 99 06/27/17 06:34 18 06/27/17 05:55 98.8 79 16 121/60 (80) 98 06/26/17 23:15 99.3 85 20 134/78 (96) 98 I/O 06/26/17 06/26/17 06/26/17 06/27/17 06/27/17 06/27/17 07:00 15:00 23:00 07:00 15:00 23:00 Intake Total 1000 ml Balance 1000 ml Intake Oral 1000 ml Result Diagram: 06/26/17 1043 06/26/17 1043 Rick Ayala MD Jun 27, 2017 19:19
--- NOTE | 2017-06-27 20:01 | HHI.PR ---
Subjective Remarks Patient says he is feeling well. Denies any chest pain shortness of breath. Objective Vital Signs Date Time Temp Pulse Resp B/P (MAP) Pulse Ox O2 Delivery O2 Flow Rate FiO2 06/27/17 16:30 98.9 74 18 143/66 (91) 100 06/27/17 12:16 99.1 72 18 137/69 (91) 98 06/27/17 08:00 97.8 79 18 135/69 (91) 99 06/27/17 06:34 18 06/27/17 05:55 98.8 79 16 121/60 (80) 98 06/26/17 23:15 99.3 85 20 134/78 (96) 98 I/O 06/26/17 06/26/17 06/26/17 06/27/17 06/27/17 06/27/17 07:00 15:00 23:00 07:00 15:00 23:00 Intake Total 1000 ml Balance 1000 ml Intake Oral 1000 ml Result Diagram: 06/26/17 1043 06/26/17 1043 Objective Remarks GENERAL: Patient lying in bed. Appears comfortable. Alert and oriented 3. SKIN: Warm and dry. HEAD: Normocephalic. EYES: No scleral icterus. No injection or drainage. NECK: Supple, trachea midline. No JVD. CARDIOVASCULAR: Regular rate and rhythm without murmurs, gallops, or rubs. RESPIRATORY: Breath sounds equal bilaterally. No accessory muscle use. GASTROINTESTINAL: Abdomen soft, non-tender, nondistended. Colostomy without any leakage or surrounding erythema. MUSCULOSKELETAL: No cyanosis, or edema. BACK: Nontender without obvious deformity. No CVA tenderness. A/P Assessment and Plan //allergic reaction ( patient is on Vanco and Rocephin) continue with benadryl .- will monitor. //acute on chronic osteomyelitis of the left lower extremity- recently admitted and discharged on IV Vanco and Rocephin ( to finish the course on 07/16/17 per ID). ID consulted-daptomycin as per ID. Appreciate assistance. //anemia of chronic disease- will monitor //paraplegia; consult case management for dc planning. //sacral ulcer; consult wound care. //DVT prophylaxis with subq lovenox. Discussed Condition With ER physician and the patient. Discharge Planning Continue antibiotics as per infectious disease. We will need infectious disease clearance Rick Ayala MD Jun 27, 2017 20:01
[2017-06-27 20:08] VITALS: BP 123/63; PULSE 91; RESP 16; TEMP 98.1; O2SAT 98
[2017-06-28 05:21] VITALS: BP 126/53; PULSE 76; RESP 16; TEMP 98.2; O2SAT 100
[2017-06-28] MEDS: diphenhydrAMINE HCL 25 MG CAP PO PRN ×3 (05:44→22:24)
[2017-06-28] MEDS: DAPTOmycin INJ 750 MG in SODIUM CHLORIDE 0.9% INJ 100 ML IV SCH (05:44)
[2017-06-28] MEDS: ACETAMINOPHEN/HYDROcodone 325 MG/10 MG TAB PO PRN ×4 (05:44→22:25)
[2017-06-28 08:22] VITALS: BP 116/58; PULSE 81; RESP 18; TEMP 98.1; O2SAT 100
[2017-06-28] MEDS: MULTIVITAMIN TAB PO SCH (09:03)
[2017-06-28] MEDS: ENOXAPARIN SODIUM 40 MG/0.4 ML SYRINGE SQ SCH (09:03)
[2017-06-28] MEDS: LEVOFLOXACIN 750 MG TAB PO SCH (09:03)
[2017-06-28 12:15] VITALS: BP 141/72; PULSE 79; RESP 18; TEMP 99; O2SAT 99
[2017-06-28 16:00] VITALS: BP 127/68; PULSE 80; RESP 18; TEMP 99.3; O2SAT 98
--- NOTE | 2017-06-28 18:22 | HHI.PR ---
Subjective Remarks Patient says he is feeling all right. Denies any chest pain shortness of breath. Denies any nausea or vomiting. Reports pain is controlled. Objective Vital Signs Date Time Temp Pulse Resp B/P (MAP) Pulse Ox O2 Delivery O2 Flow Rate FiO2 06/28/17 16:00 99.3 80 18 127/68 (87) 98 06/28/17 12:15 99.0 79 18 141/72 (95) 99 06/28/17 08:22 98.1 81 18 116/58 (77) 100 06/28/17 06:54 18 06/28/17 05:21 98.2 76 16 126/53 (77) 100 06/27/17 20:08 98.1 91 16 123/63 (83) 98 I/O 06/27/17 06/27/17 06/27/17 06/28/17 06/28/17 06/28/17 07:00 15:00 23:00 07:00 15:00 23:00 Output Total 1500 ml Balance -1500 ml Output Urine Total 1500 ml Result Diagram: 06/26/17 1043 06/26/17 1043 Objective Remarks GENERAL: Patient lying in bed. Appears comfortable. Alert and oriented 3. No change on exam. SKIN: Warm and dry. HEAD: Normocephalic. EYES: No scleral icterus. No injection or drainage. NECK: Supple, trachea midline. No JVD. CARDIOVASCULAR: Regular rate and rhythm without murmurs, gallops, or rubs. RESPIRATORY: Breath sounds equal bilaterally. No accessory muscle use. GASTROINTESTINAL: Abdomen soft, non-tender, nondistended. Colostomy without any leakage or surrounding erythema. MUSCULOSKELETAL: No cyanosis, or edema. BACK: Nontender without obvious deformity. No CVA tenderness. A/P Assessment and Plan //allergic reaction ( patient is on Vanco and Rocephin) continue with benadryl .- will monitor. //acute on chronic osteomyelitis of the left lower extremity- recently admitted and discharged on IV Vanco and Rocephin ( to finish the course on 07/16/17 per ID). ID consulted-daptomycin as per ID. Appreciate assistance. = Continue on daptomycin and Levaquin. Pending infectious disease clearance. //anemia of chronic disease- will monitor. No signs of bleeding. //paraplegia; consult case management for dc planning. 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 Discussed Condition With ER physician and the patient. Discharge Planning Continue antibiotics as per infectious disease. We will need infectious disease clearance Rick Ayala MD Jun 28, 2017 18:22
[2017-06-28 20:53] VITALS: BP 116/69; PULSE 101; RESP 20; TEMP 99.7; O2SAT 100
[2017-06-29 00:16] VITALS: BP 104/63; PULSE 83; RESP 16; TEMP 98.7; O2SAT 100
[2017-06-29] MEDS: ACETAMINOPHEN/HYDROcodone 325 MG/10 MG TAB PO PRN ×4 (03:07→15:21)
[2017-06-29 03:13] VITALS: BP 160/76; PULSE 83; RESP 20; TEMP 99; O2SAT 100
[2017-06-29] MEDS: DAPTOmycin INJ 750 MG in SODIUM CHLORIDE 0.9% INJ 100 ML IV SCH (06:13)
[2017-06-29] MEDS: diphenhydrAMINE HCL 25 MG CAP PO PRN ×2 (06:56→15:21)
[2017-06-29 09:00] VITALS: BP 112/64; PULSE 106; RESP 20; TEMP 99.1; O2SAT 100
[2017-06-29] MEDS: ENOXAPARIN SODIUM 40 MG/0.4 ML SYRINGE SQ SCH (09:00)
[2017-06-29] MEDS: MULTIVITAMIN TAB PO SCH (09:00)
[2017-06-29] MEDS: LEVOFLOXACIN 750 MG TAB PO SCH (09:00)
[2017-06-29 09:17] LABS: AUTOMATED NEUTROPHIL # 3.1 TH/MM3 (1.8-7.7); BASOPHIL # 0.1 TH/MM3 (0-0.2); EOSINOPHIL # 0.6 TH/MM3 (0-0.4); EOSINOPHIL % 8.2 % (0.0-4.0); HEMATOCRIT 31.4 % (39.0-51.0); HEMOGLOBIN 10.6 GM/DL (13.0-17.0); LYMPH % 35.7 % (9.0-44.0); LYMPHOCYTE # 2.5 TH/MM3 (1.0-4.8); MEAN CELL VOLUME 77.3 FL (80.0-100.0); MEAN CORPUSCULAR HEMOGLOBIN 26.1 PG (27.0-34.0); MEAN CORPUSCULAR HGB CONC 33.7 % (32.0-36.0); MEAN PLATELET VOLUME 6.6 FL (7.0-11.0); MONO % 10.2 % (0.0-8.0); MONOCYTE # 0.7 TH/MM3 (0-0.9); NEUT % 44.9 % (16.0-70.0); PLATELET COUNT 453 TH/MM3 (150-450); RED BLOOD COUNT 4.06 MIL/MM3 (4.50-5.90); RED CELL DISTRIBUTION WIDTH 16.7 % (11.6-17.2)
[2017-06-29 09:44] LABS: ALBUMIN 2.8 GM/DL (3.4-5.0); BICARBONATE 25.2 MEQ/L (21.0-32.0); CALCIUM 9.1 MG/DL (8.5-10.1); CREATININE 0.69 MG/DL (0.60-1.30); MAGNESIUM 1.7 MG/DL (1.5-2.5); PHOSPHORUS 3.7 MG/DL (2.5-4.9)
[2017-06-29] MEDS ORDERED: LEVA750T9 PO (12:00)
--- NOTE | 2017-06-29 12:01 | HHI.FF ---
Face to Face Verification Diagnosis: (1) Paraplegia (2) Sacral pressure ulcer (3) Osteomyelitis Physical Therapy Order: Evaluate and Treat Home Health Nursing Order: Wound care and dressing changes Nursing assessment with vital signs IV medication administration Instructions: Patient will need IV daptomycin administration for treatment of osteomyelitis as per infectious disease recommendations. I have seen patient Axel NolanJr on 06/29/17. My clinical findings support the need for the requested home health care services because: Deconditioned w/ increased weakness Limited ability to care for self I certify that my clinical findings support that this patient is homebound because: Unsafe to leave home unassisted Rick Ayala MD Jun 29, 2017 12:01
--- NOTE | 2017-06-29 12:15 | HHI.PR ---
Subjective Remarks Says he is feeling well. Denies any chest pain shortness of breath. Denies any nausea or vomiting. Feels a going home. Have discussed with infectious disease, who will write for IV home antibiotics, cleared patient for discharge. Objective Vital Signs Date Time Temp Pulse Resp B/P (MAP) Pulse Ox O2 Delivery O2 Flow Rate FiO2 06/29/17 09:00 99.1 106 20 112/64 (80) 100 06/29/17 08:01 20 06/29/17 03:13 99.0 83 20 160/76 (104) 100 06/29/17 00:16 98.7 83 16 104/63 (77) 100 06/28/17 20:53 99.7 101 20 116/69 (85) 100 06/28/17 16:00 99.3 80 18 127/68 (87) 98 06/28/17 12:15 99.0 79 18 141/72 (95) 99 I/O 06/28/17 06/28/17 06/28/17 06/29/17 06/29/17 06/29/17 07:00 15:00 23:00 07:00 15:00 23:00 Output Total 1500 ml 2200 ml Balance -1500 ml -2200 ml Output Urine Total 1500 ml 2200 ml Result Diagram: 06/29/17 0834 06/29/17 0834 Objective Remarks GENERAL: Patient sitting up in bed. Appears comfortable. Alert and oriented 4. SKIN: Warm and dry. 06/28. Visualized sacral and ischial ulcers without any surrounding erythema. HEAD: Normocephalic. EYES: No scleral icterus. No injection or drainage. NECK: Supple, trachea midline. No JVD. CARDIOVASCULAR: Regular rate and rhythm without murmurs, gallops, or rubs. RESPIRATORY: Breath sounds equal bilaterally. No accessory muscle use. GASTROINTESTINAL: Abdomen soft, non-tender, nondistended. Colostomy without leakage or surrounding erythema. MUSCULOSKELETAL: No cyanosis, or edema. BACK: Nontender without obvious deformity. No CVA tenderness. A/P Assessment and Plan 06/29. Discussed with infectious disease. Patient is cleared for discharge. ID to enter home IV antibiotic infusion protocol. Continue Levaquin to complete treatment course. //allergic reaction ( patient is on Vanco and Rocephin) continue with benadryl .- will monitor. //acute on chronic osteomyelitis of the left lower extremity- recently admitted and discharged on IV Vanco and Rocephin ( to finish the course on 07/16/17 per ID). ID consulted-daptomycin as per ID. Appreciate assistance. = Continue on daptomycin and Levaquin. Pending infectious disease clearance. //anemia of chronic disease- will monitor. No signs of bleeding. //paraplegia; consult case management for dc planning. //sacral ulcer appreciate wound care giver //DVT prophylaxis with subq lovenox. Discharge Planning Home IV daptomycin to complete treatment course as per ID. Rick Ayala MD Jun 29, 2017 12:15
[2017-06-29 12:17] VITALS: BP 123/68; PULSE 97; RESP 18; TEMP 98.8; O2SAT 99
--- NOTE | 2017-06-29 12:21 | HHI.DS ---
Discharge Summary Admission Date Jun 26, 2017 at 11:10 Discharge Date: Jun 29, 2017 Admitting Diagnosis ostial myelitis, allergic reaction (1) Osteomyelitis ICD Code: M86.9 - Osteomyelitis, unspecified Diagnosis: Principal (2) Allergic reaction ICD Code: T78.40XA - Allergy, unspecified, initial encounter Diagnosis: Principal Status: Acute Procedures none Brief History - From Admission Patient is a 52-year-old -[place] Citizen male with primary medical history of paraplegia, right AKA, chronic sacral pressure ulcer stage IV who was recently admitted to the hospital for worsening left lower extremity wound; acute on chronic osteomyelitis. the cultures from the wound positive for MRSA, proteus and Enterococcus. he was evaluated by ID and was discharged on IV Vancomycin and IV Rocephin which he's supposed to continue till . he says that he started to have some generalized rash and itching two days which gradually got worse. this is more noticeable on the right upper extremity and the chest although he had some rash on the right lower extremity as well. he denies any sob or wheezing. CBC/BMP: 06/29/17 0834 06/29/17 0834 Significant Findings Laboratory Tests Test 06/27/17 17:05 06/29/17 08:34 Erythrocyte Sedimentation Rate 68 mm/hr (0-20) Red Blood Count 4.06 MIL/MM3 (4.50-5.90) Hemoglobin 10.6 GM/DL (13.0-17.0) Hematocrit 31.4 % (39.0-51.0) Mean Corpuscular Volume 77.3 FL (80.0-100.0) Mean Corpuscular Hemoglobin 26.1 PG (27.0-34.0) Platelet Count 453 TH/MM3 (150-450) Mean Platelet Volume 6.6 FL (7.0-11.0) Monocytes (%) (Auto) 10.2 % (0.0-8.0) Eosinophils (%) (Auto) 8.2 % (0.0-4.0) Eosinophils # (Auto) 0.6 TH/MM3 (0-0.4) Albumin 2.8 GM/DL (3.4-5.0) Total Creatine Kinase 485 U/L (39-308) Creatine Kinase MB 9.5 NG/ML (0.5-3.6) Hospital Course 06/29. Discussed with infectious disease. Patient is cleared for discharge. ID to enter home IV antibiotic infusion protocol. Continue Levaquin to complete treatment course. //allergic reaction ( patient is on Vanco and Rocephin) continue with benadryl .- will monitor. //acute on chronic osteomyelitis of the left lower extremity- recently admitted and discharged on IV Vanco and Rocephin ( to finish the course on 07/16/17 per ID). ID consulted-daptomycin as per ID. Appreciate assistance. = Continue on daptomycin and Levaquin. Pending infectious disease clearance. //anemia of chronic disease- will monitor. No signs of bleeding. //paraplegia; consult case management for dc planning. //sacral ulcer appreciate wound healthcare administrator //DVT prophylaxis with subq lovenox. Discharge Planning Home IV daptomycin to complete treatment course as per ID. Pt Condition on Discharge: Good Discharge Disposition: Disch w/ Home Health Serv Discharge Instructions DIET: Follow Instructions for: Heart Healthy Diet Activities you can perform: Regular-No Restrictions Rick Ayala MD Jun 29, 2017 12:20
--- NOTE | 2017-06-29 12:44 | HHI.IDPN ---
Subjective Subjective Remarks doing OK no fever wounds better no new rash, skin peeling Antibiotics dapto levaquine Allergies: Coded Allergies: clindamycin (Verified Allergy, Severe, HIVES, 06/26/17) sulfamethoxazole (Verified Allergy, Severe, RASH, 06/26/17) trimethoprim (Verified Allergy, Severe, RASH, 06/26/17) vancomycin (Verified Allergy, Severe, hives, 06/26/17) morphine (Verified Adverse Reaction, Severe, Tachycardia, 06/26/17) Objective . Vital Signs Date Time Temp Pulse Resp B/P (MAP) Pulse Ox O2 Delivery O2 Flow Rate FiO2 06/29/17 12:17 98.8 97 18 123/68 (86) 99 06/29/17 09:00 99.1 106 20 112/64 (80) 100 06/29/17 08:01 20 06/29/17 03:13 99.0 83 20 160/76 (104) 100 06/29/17 00:16 98.7 83 16 104/63 (77) 100 06/28/17 20:53 99.7 101 20 116/69 (85) 100 06/28/17 16:00 99.3 80 18 127/68 (87) 98 . Laboratory Tests Test 06/27/17 17:05 06/29/17 08:34 Erythrocyte Sedimentation Rate 68 mm/hr White Blood Count 7.0 TH/MM3 Red Blood Count 4.06 MIL/MM3 Hemoglobin 10.6 GM/DL Hematocrit 31.4 % Mean Corpuscular Volume 77.3 FL Mean Corpuscular Hemoglobin 26.1 PG Mean Corpuscular Hemoglobin Concent 33.7 % Red Cell Distribution Width 16.7 % Platelet Count 453 TH/MM3 Mean Platelet Volume 6.6 FL Neutrophils (%) (Auto) 44.9 % Lymphocytes (%) (Auto) 35.7 % Monocytes (%) (Auto) 10.2 % Eosinophils (%) (Auto) 8.2 % Basophils (%) (Auto) 1.0 % Neutrophils # (Auto) 3.1 TH/MM3 Lymphocytes # (Auto) 2.5 TH/MM3 Monocytes # (Auto) 0.7 TH/MM3 Eosinophils # (Auto) 0.6 TH/MM3 Basophils # (Auto) 0.1 TH/MM3 CBC Comment DIFF FINAL Differential Comment Laboratory Tests Test 06/29/17 08:34 Blood Urea Nitrogen 9 MG/DL Creatinine 0.69 MG/DL Random Glucose 92 MG/DL Albumin 2.8 GM/DL Calcium Level 9.1 MG/DL Phosphorus Level 3.7 MG/DL Magnesium Level 1.7 MG/DL Sodium Level 137 MEQ/L Potassium Level 4.5 MEQ/L Chloride Level 104 MEQ/L Carbon Dioxide Level 25.2 MEQ/L Anion Gap 8 MEQ/L Estimat Glomerular Filtration Rate 147 ML/MIN Total Creatine Kinase 485 U/L Creatine Kinase MB 9.5 NG/ML Creatine Kinase MB % 2.0 % Physical Exam CONSTITUTIONAL/GENERAL: This is an adequately nourished patient, in no apparent distress. TUBES/LINES/DRAINS: SKIN: No jaundice, rash resolved RUE peeling GENITOURINARY: Without palpable bladder distension. Sp catheter in place with yellow urine MUSCULOSKELETAL: Extremities without clubbing, cyanosis, or edema. No joint tenderness or effusion noted. No calf tenderness. No mottling or clubbing. sp R AKA - healing,clean appearing granulating NEUROLOGICAL: Awake and alert. Paraplegia Follows commands with BUE. Clear speech PSYCHIATRIC: calm and cooperative Assessment & Plan Remarks Paraplegia Acute and chronic osteomyelitis at the fibula of left lower extremity. Chronic wound LLE. Culture has proteus, group D enterococcus and MRSA.. UTI - proteus. Sacral decubitus ulcer. : stage IV, but clean Allergic reaction: vanco vs CFTX: both meds were changed cont on levaquine, Daptomycin will use the original stop dates monitor CKs will on dapto monitor for C.diff recurrence OK to jaida Peters,Ana Mcqueen MD Jun 29, 2017 12:44
--- NOTE | 2017-06-29 12:46 | HHI.FF ---
Infusion Therapy Location of Infusion Therapy: Home Health Care IV Infusion Order Patient Information Patient Weight Diagnosis: Coded Allergies: clindamycin (Verified Allergy, Severe, HIVES, 06/26/17) sulfamethoxazole (Verified Allergy, Severe, RASH, 06/26/17) trimethoprim (Verified Allergy, Severe, RASH, 06/26/17) vancomycin (Verified Allergy, Severe, hives, 06/26/17) morphine (Verified Adverse Reaction, Severe, Tachycardia, 06/26/17) Administer Medication Daptomycin q 24 hours 750 mg IV Start Treatment: Jun 30, 2017 Stop Treatment: Jul 16, 2017 Additional Information Venous access: PICC Line Additional Instructions [x] Peripheral flush and dressing changes per protocol [x] Implanted port and central powder line repairer: * Implanted port: 10 ml Normal Saline followed by 5 ml Heparin 100 units/ml Heparin flush after each use and monthly to maintain. [] May leave port accessed during therapy. [] May leave peripheral site accessed for duration of therapy. [x] If patient has SOB or respiratory distress, check oxygen saturation. If less than 90% or clinical signs of respiratory distress, administer oxygen at 2 L/min. via nasal cannula and notify physician. [x] Anaphylaxis/Reaction orders: * Stop infusion. * Keep IV line open with saline flush. * Notify physician. * Monitor vital signs every 15 minutes until symptoms resolve. * Check Oxygen saturation; Oxygen at 2 L/min. via nasal cannula if less than 90% or clinical signs of respiratory distress. * Administer diphenhydramine (Benadryl) 25 mg IV STAT, (unless patient has received as pre-med). May repeat once, if necessary. * Solu-Cortef 250 mg IVP over 30-60 seconds, use 100 mg vials for each dissolution. * Epinephrine (1mg/1 ml) 0.3 mg subcutaneously or IVP now with any signs of respiratory distress. * Check with physician for new additional pre-med orders if patient is re- challenged or re-treated. [x] May remove PICC line when treatment complete, after confirming with Physician. [x] If the patient is admitted to the hospital, the ED, or transferred via [facility] , complete transfer form including medication reconciliation order sheet. Laboratory Tests Weekly Labs: CBC w/diff, Creatinine, LFT's (Hepatic function test), SED Rate, Serum CK Levels Ana Peters MD Jun 29, 2017 12:46
[2017-06-29] MEDS ORDERED: EPIN1INJ21 SQ (12:48)
[2017-06-29] MEDS ORDERED: EPIN1INJ21 IV PUSH (12:48)
[2017-06-29] MEDS ORDERED: DAPT500P IV (12:48)
[2017-06-29] MEDS ORDERED: SOLU250I IV PUSH (12:48)
--- NOTE | 2017-06-29 15:03 | PD.WCN.NOT ---
Wound Consult Additional Information: Patient not seen by creative services writer. Spoke with Asif charge nurse regarding patient.Patient is known to inpatient wound care. Have seen patient on previous admissions for wound to bilateral ischial area, was last seen on 06/19/2017 by creative services writer. Applied wound VAC for home use on 06/19/2017. Patient is admitted under observation right now. Moist to dry dressing can to be done until patient can return home and [facility] can apply home wound VAC. Sonam Flannery [facility] Jun 29, 2017 15:03
[2017-06-29 16:39] VITALS: BP 101/63; PULSE 111; RESP 18; TEMP 97.8; O2SAT 100
--- NOTE | 2017-07-02 15:50 | PD.WCN.NOT ---
Wound Consult Description: Wound consult ordered by for sacrum Communicated with: Candice GIRON , Recommendation: Please refer to current wound care orders. Additional Information: Late entry from 06/27/2017 Patient not seen by typewriter ribbon winder. Spoke with Candice GIRON G- pod regarding patient.Patient is known to inpatient wound care. Have seen patient on previous admissions for wound to bilateral ischial area, was last seen on 06/19/2017 by typewriter ribbon winder. Applied wound VAC for home use on 06/19/2017. Patient is admitted under observation right now. Moist to dry dressing can to be done until patient can return home and [facility] can apply home wound VAC. Haylee Hurst [facility] Jul 02, 2017 15:50
== END 2017-06-29 17:28 | disposition home or self-care (01) ==
LOC: NEPE 10:13 → NEDA 11:10 → NEPGCP 14:55
PROVIDERS: ADMIT Internal Medicine; ATTEND Internal Medicine
DX: M86.18 Other acute osteomyelitis, other site (principal); T78.40XA Allergy, unspecified, initial encounter; M86.662 Other chronic osteomyelitis, left tibia and fibula; D63.8 Anemia in other chronic diseases classified elsewhere; N39.0 Urinary tract infection, site not specified; L89.154 Pressure ulcer of sacral region, stage 4; I25.2 Old myocardial infarction; G47.30 Sleep apnea, unspecified; K21.9 Gastro-esophageal reflux disease without esophagitis; G89.29 Other chronic pain; G82.20 Paraplegia, unspecified; M19.90 Unspecified osteoarthritis, unspecified site; Z93.3 Colostomy status; Z89.611 Acquired absence of right leg above knee
CPT/HCPCS: 80048; 80069; 82550; 82552; 83735; 85025; 85652; 96365; 96366; 96372; 96375; 99285; G0378; J0878; J1200; J1650

== ENCOUNTER 2017-07-11 10:32 | Emergency (ER) | payer MEDICAID ==
[~2017-07-11] VITALS: Ht 175.3 cm; Wt 90.0 kg
[~2017-07-11 10:32] MED LIST changes: -COLL30T TOPICAL; +DAPT500P IV; +EPIN1INJ21 IV PUSH; +EPIN1INJ21 SQ; -FERR300S PO; +HYDR-3583 PO; -Heparin Inj SQ; -LACT PO; +LEVA750T9 PO; -ONDA4TAB7 SL; -PERC10TA27 PO; +SOLU250I IV PUSH; -WHEELCHAIR CUSH1 MI1; -WHEEMIS3
[2017-07-11 10:39] VITALS: BP 157/70; PULSE 76; RESP 17; TEMP 98; O2SAT 100
[2017-07-11] MEDS ORDERED: KETOROLAC TROMETHAMINE 30 MG/ML (IVP) VIAL IV PUSH ONE (11:00)
[2017-07-11] MEDS ORDERED: ONDANSETRON HCL 4 MG/2 ML VIAL IV PUSH ONE (11:00)
[2017-07-11] MEDS ORDERED: SODIUM CHLORID 0.9% 500 ML INJ 500 ML IV ONE (11:00)
[2017-07-11] MEDS ORDERED: HYDROmorphone HCL PF 2 MG/ML VIAL IV PUSH ONE (11:00)
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
[2017-07-11 11:31] LABS: AUTOMATED NEUTROPHIL # 3.6 TH/MM3 (1.8-7.7); BASOPHIL # 0.1 TH/MM3 (0-0.2); BASOPHIL % 0.8 % (0.0-2.0); EOSINOPHIL # 0.4 TH/MM3 (0-0.4); EOSINOPHIL % 6.3 % (0.0-4.0); HEMATOCRIT 30.4 % (39.0-51.0); HEMOGLOBIN 9.7 GM/DL (13.0-17.0); LYMPH % 28.7 % (9.0-44.0); LYMPHOCYTE # 1.9 TH/MM3 (1.0-4.8); MEAN CELL VOLUME 76.1 FL (80.0-100.0); MEAN CORPUSCULAR HEMOGLOBIN 24.2 PG (27.0-34.0); MEAN CORPUSCULAR HGB CONC 31.8 % (32.0-36.0); MEAN PLATELET VOLUME 6.8 FL (7.0-11.0); MONO % 9.6 % (0.0-8.0); MONOCYTE # 0.6 TH/MM3 (0-0.9); NEUT % 54.6 % (16.0-70.0); PLATELET COUNT 485 TH/MM3 (150-450); RED CELL DISTRIBUTION WIDTH 17.4 % (11.6-17.2); WHITE BLOOD COUNT 6.6 TH/MM3 (4.0-11.0)
[2017-07-11] MEDS ORDERED: BACI500O9 TOPICAL (11:33)
[2017-07-11] MEDS ORDERED: COLL30T TOPICAL (11:33)
[2017-07-11] MEDS ORDERED: DIFL200T PO (11:33)
[2017-07-11] MEDS ORDERED: MEGASUS2 PO (11:33)
[2017-07-11] MEDS ORDERED: LACTTAB8 PO (11:33)
[2017-07-11 11:38] LABS: BICARBONATE 26.6 MEQ/L (21.0-32.0); CALCIUM 9.3 MG/DL (8.5-10.1); CREATININE 0.52 MG/DL (0.60-1.30)
[2017-07-11 11:42] LABS: TROPONIN I LESS THAN 0.02 NG/ML (0.02-0.05)
[2017-07-11] MEDS ORDERED: ACETAMINOPHEN/HYDROcodone 325 MG/10 MG TAB PO ONE (12:15)
[2017-07-11] MEDS ORDERED: NORC5TAB PO (15:20)
--- NOTE | 2017-07-11 20:39 | EKG ---
Date Performed: 07/11/2017 Time Performed: 11:00:08 PTAGE: 52 years EKG: Sinus rhythm ST ELEVATION, PROBABLY EARLY REPOLARIZATION BORDERLINE ECG PREVIOUS TRACING : 03/05/2017 18.15 Since the previous tracing, no significant change noted DOCTOR: Maldonado Yee Interpretating Date/Time 07/11/2017 20:38:31
== END 2017-07-11 15:47 | disposition home or self-care (01) ==
LOC: NEPE 10:32
DX: L89.159 Pressure ulcer of sacral region, unspecified stage (principal); R07.89 Other chest pain; L89.899 Pressure ulcer of other site, unspecified stage; R11.2 Nausea with vomiting, unspecified; G82.20 Paraplegia, unspecified; M19.90 Unspecified osteoarthritis, unspecified site; K21.9 Gastro-esophageal reflux disease without esophagitis; I21.9 Acute myocardial infarction, unspecified; G47.30 Sleep apnea, unspecified
CPT/HCPCS: 80048; 82550; 82552; 83605; 84484; 85025; 93005; 96361; 96374; 96375; 99284; J1170; J1885; J2405; J7040

== ENCOUNTER 2017-07-22 12:31 | Inpatient (IN) | payer MEDICAID ==
[~2017-07-22] VITALS: Ht 175.3 cm; Wt 89.2 kg
[~2017-07-22 12:31] MED LIST changes: -ALBU0.63 NEB; +BACI500O9 TOPICAL; +COLL30T TOPICAL; -DAPT500P IV; +DIFL200T PO; -EPIN1INJ21 IV PUSH; -EPIN1INJ21 SQ; +LACTTAB8 PO; -LEVA750T9 PO; +MEGASUS2 PO; -MULT-65 PO; +NORC5TAB PO; -SOLU250I IV PUSH
[2017-07-22 12:39] VITALS: BP 143/81; PULSE 88; RESP 22; TEMP 98.1; O2SAT 100
--- NOTE | 2017-07-22 13:19 | RADRPT ---
EXAM DATE/TIME: 07/22/2017 13:06 [place] COMPARISON: CHEST SINGLE AP, June 14, 2017, 18:07. INDICATIONS : Shortness of breath, chest pain, and lightheaded. MEDICAL HISTORY : None. SURGICAL HISTORY : Fusion, thoracic. IVC Filter placement. Colon resection. Shoulder sx, ENCOUNTER: Initial ACUITY: 1 day PAIN SCORE: 5/10 LOCATION: Bilateral chest FINDINGS: A single view of the chest demonstrates the lungs to be symmetrically aerated without evidence of mas s, infiltrate or effusion. The cardiomediastinal contours are unremarkable. Osseous structures are intact. Spinal fixation rods are again noted in the thoracic spine. CONCLUSION: No acute disease. Cuba Bone MD on July 22, 2017 at 13:16 Board Certified Radiologist. This report was verified electronically.
[2017-07-22 13:28] LABS: AUTOMATED NEUTROPHIL # 5.2 TH/MM3 (1.8-7.7); BASOPHIL # 0.1 TH/MM3 (0-0.2); BASOPHIL % 0.8 % (0.0-2.0); EOSINOPHIL # 0.3 TH/MM3 (0-0.4); EOSINOPHIL % 3.7 % (0.0-4.0); HEMATOCRIT 34.4 % (39.0-51.0); HEMOGLOBIN 10.8 GM/DL (13.0-17.0); LYMPH % 24.9 % (9.0-44.0); LYMPHOCYTE # 2.1 TH/MM3 (1.0-4.8); MEAN CELL VOLUME 76.2 FL (80.0-100.0); MEAN CORPUSCULAR HEMOGLOBIN 23.8 PG (27.0-34.0); MEAN CORPUSCULAR HGB CONC 31.3 % (32.0-36.0); MEAN PLATELET VOLUME 6.3 FL (7.0-11.0); MONO % 9.1 % (0.0-8.0); MONOCYTE # 0.8 TH/MM3 (0-0.9); NEUT % 61.5 % (16.0-70.0); PLATELET COUNT 546 TH/MM3 (150-450); RED BLOOD COUNT 4.51 MIL/MM3 (4.50-5.90); RED CELL DISTRIBUTION WIDTH 16.9 % (11.6-17.2); WHITE BLOOD COUNT 8.5 TH/MM3 (4.0-11.0)
[2017-07-22 13:33] LABS: INTERNATIONAL NORMALIZED RATIO 1.1 RATIO
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
[2017-07-22 13:41] LABS: ALBUMIN 2.4 GM/DL (3.4-5.0); ALT (GPT) 90 U/L (12-78); AST (GOT) 59 U/L (15-37); BICARBONATE 23.5 MEQ/L (21.0-32.0); BLOOD UREA NITROGEN 7 MG/DL (7-18); CALCIUM 9.2 MG/DL (8.5-10.1); CHLORIDE 108 MEQ/L (98-107); CREATININE 0.59 MG/DL (0.60-1.30); GLOMERULAR FILTRATION RATE 176 ML/MIN (>89); GLUCOSE,RANDOM 104 MG/DL (74-106); MAGNESIUM 1.6 MG/DL (1.5-2.5); SODIUM (NA) 140 MEQ/L (136-145)
[2017-07-22 13:45] LABS: ALKALINE PHOSPHATASE 211 U/L (45-117); TOTAL BILIRUBIN ADULT 0.2 MG/DL (0.2-1.0); TOTAL PROTEIN 8.3 GM/DL (6.4-8.2); TROPONIN I LESS THAN 0.02 NG/ML (0.02-0.05)
[2017-07-22 14:00] VITALS: BP 123/72; PULSE 85; RESP 18; O2SAT 100
[2017-07-22] MEDS ORDERED: KETOROLAC TROMETHAMINE 30 MG/ML (IVP) VIAL IV PUSH ONE (14:15)
[2017-07-22 14:32] LABS: BACTERIA, URINE MANY /hpf; BILIRUBIN, URINE NEG (NEG); BLOOD, URINE LARGE (NEG); GLUCOSE,URINE NEG (NEG); HYALINE CAST, URINE 4 /lpf (RARE); KETONE, URINE TRACE mg/dL (NEG); MUCUS URINE MANY /lpf (OCC); NITRITE,URINE POS (NEG); SQUAMOUS EPITHELIAL CELL URINE 1 /hpf (0-5); URINE COLOR YELLOW (YELLW/STRAW); URINE LEUKOCYTE ESTERASE LARGE (NEG)
[2017-07-22 14:33] LABS: AMORPHOUS SEDIMENT, URINE FEW
[2017-07-22] MEDS ORDERED: IOHEXOL 350 MG/ML 10 ML VIAL (for RAD DIAG) IVCONTRAST ONE (14:56)
--- NOTE | 2017-07-22 15:19 | RADRPT ---
EXAM DATE/TIME: 07/22/2017 14:36 [facility] COMPARISON: CT ABDOMEN & PELVIS W CONTRAST, June 11, 2017, 16:38. INDICATIONS : Diffuse abdomen pain with nausea, vomiting and diarrhea. IV CONTRAST: 88 cc Omnipaque 350 (iohexol) IV ORAL CONTRAST: No oral contrast ingested. RADIATION DOSE: 7.79 CTDIvol (mGy) MEDICAL HISTORY : Hypertension. Gastroesophageal reflux disease. Cardiovascular disease SURGICAL HISTORY : Colostomy. Cholecystectomy. ENCOUNTER: Initial ACUITY: 1 day PAIN SCALE: 7/10 LOCATION: Bilateral abdomen TECHNIQUE: Volumetric scanning of the abdomen and pelvis was performed. Using automated exposure control and ad justment of the mA and/or kV according to patient size, radiation dose was kept as low as reasonably achievable to obtain optimal diagnostic quality images. DICOM format image data is available electro nically for review and comparison. FINDINGS: LOWER LUNGS: Mild bibasilar atelectatic changes. Lung bases are otherwise clear LIVER: Homogeneous density without lesion. There is no dilation of the biliary tree. Reported history of ch olecystectomy but the gallbladder is still present and does contain dependent stones. SPLEEN: Normal size without lesion. PANCREAS: Within normal limits. KIDNEYS: Normal in size and shape. There is no mass, stone or hydronephrosis. ADRENAL GLANDS: Within normal limits. VASCULAR: There is no aortic aneurysm. BOWEL/MESENTERY: Colostomy midline in the upper abdomen. Nonobstructive bowel gas pattern. ABDOMINAL WALL: Midline colostomy in the upper abdomen. Small umbilical hernia which only contains fat. RETROPERITONEUM: There is no lymphadenopathy. BLADDER: Decompressed with a Ortiz catheter. REPRODUCTIVE: Within normal limits. INGUINAL: There is no lymphadenopathy or hernia. MUSCULOSKELETAL: Extensive bony changes about the pelvis and proximal femurs with osseous destruction of both proximal femurs and heterotopic bone about the pelvis. There may be associated decubitus ulcers with the righ t ischium/inferior pubic ramus partially exposed suggesting regional osteomyelitis.. CONCLUSION: 1. Chronic bony changes about the pelvic girdle and proximal femurs or bony destruction and extensive heterotopic bone formation. 2. Probable associated decubitus type ulcers bilaterally with the right ischium/inferior pubic ramus partially exposed suggesting osteomyelitis in this region. 3. Cholelithiasis. 4. Ostomy in the upper midabdomen. Ry Uribe MD on July 22, 2017 at 15:10 Board Certified Radiologist. This report was verified electronically.
[2017-07-22] MEDS ORDERED: cefTRIAXone INJ 1,000 MG in SODIUM CHLORIDE 0.9% INJ 100 ML IV ONE (15:45)
[2017-07-22 16:00] VITALS: BP 120/66; PULSE 80; RESP 14; O2SAT 98
[2017-07-22] MEDS ORDERED: ACETAMINOPHEN/HYDROcodone 325 MG/5 MG TAB PO ONE (16:00)
[2017-07-22] MEDS ORDERED: NALOXONE HCL 0.4 MG/ML AMP IV PUSH PRN (16:30)
[2017-07-22] MEDS ORDERED: DAPTOmycin INJ 0 MG in SODIUM CHLORIDE 0.9% INJ 100 ML IV SCH (16:30)
[2017-07-22] MEDS ORDERED: BISACODYL 10 MG SUPP RECTAL PRN (16:30)
[2017-07-22] MEDS ORDERED: SODIUM CHLORIDE 0.9% FLUSH 10 ML FLUSH IV FLUSH PRN (16:30)
[2017-07-22] MEDS ORDERED: LACTULOSE SYRUP 20 GM/30 ML CUP PO PRN (16:30)
[2017-07-22] MEDS ORDERED: ONDANSETRON HCL 4 MG/2 ML VIAL IVP PRN (16:30)
[2017-07-22] MEDS ORDERED: ACETAMINOPHEN 325 MG TAB PO PRN (16:30)
[2017-07-22] MEDS ORDERED: MAGNESIUM HYDROXIDE SUSP 30 ML CUP PO PRN (16:30)
[2017-07-22] MEDS ORDERED: SENNOSIDES 8.6 MG TAB PO PRN (16:30)
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
[2017-07-22 17:28] VITALS: BP 128/56; PULSE 100; RESP 18; TEMP 98; O2SAT 96
[2017-07-22] MEDS: ENOXAPARIN SODIUM 40 MG/0.4 ML SYRINGE SQ SCH (19:24)
[2017-07-22 20:00] VITALS: BP 113/59; PULSE 97; RESP 18; TEMP 98.6; O2SAT 98
[2017-07-22] MEDS: SODIUM CHLORIDE 0.9% FLUSH 10 ML FLUSH IV FLUSH SCH (21:00)
[2017-07-22] MEDS: DOCUSATE SODIUM 50 MG/SENNA 8.6 MG TAB PO SCH (21:07)
[2017-07-22] MEDS: ACETAMINOPHEN/HYDROcodone 325 MG/10 MG TAB PO PRN (21:07)
[2017-07-22] MEDS: LACTOBACILLUS ACIDOPHILUS TAB PO SCH (21:07)
[2017-07-23] VITALS: BP 107/57; PULSE 94; RESP 16; TEMP 98.9; O2SAT 100
--- NOTE | 2017-07-23 00:01 | EKG ---
Date Performed: 07/22/2017 Time Performed: 13:14:09 PTAGE: 52 years EKG: Sinus rhythm NONSPECIFIC ST & T-WAVE ABNORMALITY BORDERLINE ECG PREVIOUS TRACING : 07/11/2017 11.00 Since the previous tracing, no significant change noted DOCTOR: Castillo Orozco Interpretating Date/Time 07/23/2017 00:00:13
[2017-07-23] MEDS: ACETAMINOPHEN/HYDROcodone 325 MG/10 MG TAB PO PRN ×6 (01:27→23:14)
[2017-07-23 05:06] VITALS: BP 113/61; PULSE 80; RESP 17; TEMP 98.9; O2SAT 100
[2017-07-23 07:36] VITALS: BP 126/61; PULSE 83; RESP 16; TEMP 98.2; O2SAT 96
--- NOTE | 2017-07-23 08:31 | HHI.PR ---
Subjective Remarks in no acute distress. afebrile. nausea/vomiting has resolved. concerned about going home. Objective Vitals Vital Signs Date Time Temp Pulse Resp B/P (MAP) Pulse Ox O2 Delivery O2 Flow Rate FiO2 07/23/17 07:36 98.2 83 16 126/61 (82) 96 07/23/17 05:06 98.9 80 17 113/61 (78) 100 07/23/17 00:00 98.9 94 16 107/57 (74) 100 07/22/17 20:00 98.6 97 18 113/59 (77) 98 07/22/17 17:28 98.0 100 18 128/56 (80) 96 07/22/17 17:17 07/22/17 16:00 80 14 120/66 (84) 98 Room Air 07/22/17 14:00 85 18 123/72 (89) 100 Room Air 07/22/17 12:39 98.1 88 22 143/81 (101) 100 Result Diagram: 07/22/17 1311 07/22/17 1311 Imaging Last Impressions Chest X-Ray 07/22/17 0000 Signed Impressions: Service Date/Time: Saturday, July 22, 2017 13:06 - CONCLUSION: No acute disease. Cuba Bone MD Abdomen/Pelvis CT 07/22/17 0000 Signed Impressions: Service Date/Time: Saturday, July 22, 2017 14:36 - CONCLUSION: 1. Chronic bony changes about the pelvic girdle and proximal femurs or bony destruction and extensive heterotopic bone formation. 2. Probable associated decubitus type ulcers bilaterally with the right ischium/inferior pubic ramus partially exposed suggesting osteomyelitis in this region. 3. Cholelithiasis. 4. Ostomy in the upper midabdomen. Ry Uribe MD Objective Remarks GENERAL: This is a well-nourished, well-developed patient, in no apparent distress. CARDIOVASCULAR: Regular rate and regular rhythm without murmurs, gallops, or rubs. RESPIRATORY: Clear to auscultation. Breath sounds equal bilaterally. No wheezes , rales, or rhonchi. GASTROINTESTINAL: Abdomen soft, non-tender, nondistended. Normal, active bowel sounds- ostomy in place. MUSCULOSKELETAL: Extremities without clubbing, cyanosis, or edema. NEURO: Alert & Oriented x4 to person, place, time, situation. Medications and IVs Inpatient Medications Acetaminophen (Tylenol) 650 mg Q4H PRN PO TEMP > 100.4; Start 07/22/17 at 16:30 Acetaminophen/ Hydrocodone Bitart ([place] 5-325 Mg) 1 tab ONCE ONCE PO Last administered on 07/22/17at 16:29; Start 07/22/17 at 16:00; Stop 07/22/17 at 16:01 ; Status DC Acetaminophen/ Hydrocodone Bitart ([place] 10-325 Mg) 1 tab Q4H PRN PO PAIN SCALE 4 TO 10 Last administered on 07/23/17at 05:15; Start 07/22/17 at 17:00 Bisacodyl (Dulcolax Supp) 10 mg DAILY PRN RECTAL SEVERE CONSITIPATION; Start at 16:30 Ceftriaxone Sodium 1000 mg/ Sodium Chloride 100 ml @ 200 mls/hr ONCE ONCE IV Last administered on 07/22/17at 15:56; Start 07/22/17 at 15:45; Stop 07/22/17 at 16:14; Status DC Collagenase (Santyl Oint) 1 applic DAILY TOPICAL ; Start 07/23/17 at 09:00 Daptomycin / Sodium Chloride 100 ml @ 200 mls/hr Q24H IV ; Start 07/22/17 at 16 :30; Stop 07/22/17 at 18:17; Status DC Enoxaparin Sodium (Lovenox Inj) 40 mg Q24H SQ Last administered on 07/22/17at 19 :24; Start 07/22/17 at 18:00 Ketorolac Tromethamine (Toradol Inj) 30 mg ONCE ONCE IV PUSH Last administered on 07/22/17at 14:24; Start 07/22/17 at 14:15; Stop 07/22/17 at 14:16 ; Status DC Lactobacillus Acidophilus (Lactinex) 1 tab BID PO Last administered on at 21:07; Start 07/22/17 at 21:00 Lactulose (Lactulose Liq) 30 ml DAILY PRN PO SEVERE CONSITIPATION; Start at 16:30 Magnesium Hydroxide (Milk Of Magnesia Liq) 30 ml Q12H PRN PO Mild constipation ; Start 07/22/17 at 16:30 Megestrol Acetate (Megace Liq) 625 mg DAILY PO ; Start 07/23/17 at 09:00 Naloxone HCl (Narcan Inj) 0.4 mg UNSCH PRN IV PUSH SEE LABEL COMMENTS; Start at 16:30 Ondansetron HCl (Zofran Inj) 4 mg Q6H PRN IVP NAUSEA OR VOMITING; Start at 16:30 Senna/Docusate Sodium (Mecca-Colace) 1 tab BID PO Last administered on at 21:07; Start 07/22/17 at 21:00 Sennosides (Senokot) 17.2 mg Q12H PRN PO Moderate constipation; Start 07/22/17 at 16:30 Sodium Chloride (NS Flush) 2 ml BID IV FLUSH Last administered on 07/22/17at 21: 00; Start 07/22/17 at 21:00 A/P Problem List: (1) UTI (urinary tract infection) ICD Code: N39.0 - Urinary tract infection, site not specified Status: Acute (2) Osteomyelitis ICD Code: M86.9 - Osteomyelitis, unspecified Assessment and Plan 1. Nausea/vomiting/diarrhea: Possibly gastroenteritis. improved- Monitor symptoms. 2. Sacral decubitus ulcer, osteomyelitis: Consulted infectious disease, wound care. Patient reportedly completed his course of IV antibiotics on Sunday and his PICC line was removed at that time. 3. UTI: Patient has suprapubic catheter, which he states was changed a few days ago. Urine culture is pending. Given a dose of Rocephin in the ER. Appreciate infectious disease recommendations. 4. DVT prophylaxis: Lovenox. 5.case management for dc planning to SNF. Discharge Planning awaiting ID recommendations. Problem Qualifiers (1) Osteomyelitis: Domenico Smith MD Jul 23, 2017 08:31
[2017-07-23] MEDS: LACTOBACILLUS ACIDOPHILUS TAB PO SCH ×2 (09:30→22:48)
[2017-07-23] MEDS: MEGESTROL ACETATE SUSP 400 MG/10 ML CUP PO SCH (09:31)
[2017-07-23] MEDS: SODIUM CHLORIDE 0.9% FLUSH 10 ML FLUSH IV FLUSH SCH ×2 (09:31→22:48)
[2017-07-23] MEDS: DOCUSATE SODIUM 50 MG/SENNA 8.6 MG TAB PO SCH ×2 (09:32→21:00)
[2017-07-23 11:04] VITALS: BP 109/58; PULSE 80; RESP 16; TEMP 98.7; O2SAT 100
[2017-07-23] MEDS: COLLAGENASE OINT 30 GM TUBE TOPICAL SCH (13:00)
[2017-07-23 15:06] VITALS: BP 111/56; PULSE 80; RESP 16; TEMP 98.7; O2SAT 99
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
--- NOTE | 2017-07-23 17:29 | PD.WCN.NOT ---
Wound Consult Description: Received consult from Doctor Allen for evaluation of wound management of sacral area. Patient had recent wound VAC. Communicated with: Nash GIRON F pod and Doctor Allen Recommendation: 1.Please cleanse wound to bilateral ischial, behind the scrotum with normal saline and pat dry. 2. Apply wound VAC dressing with settings at 125 mm/hg continuous low suction 3. Change dressing Sunday-Sunday and Sunday Additional Information: See NPWT Neg Pressure Wound Therapy Wound Location Wound Location: Bilateral ischial area Wound Description Length: 10cm Width: 14.4cm Depth: 1.7cm Undermining: from 7 to 4 o'clock deepest at 4 o'clock measuring ~2cm Wound bed appearance: 70% pale red non granulation tissue and ~30% red granulation tissue. Minimal yellow/ sero-sanguinous exudate is noted Periwound appearance: Other (Maceration and epibole) Settings Suction: 125 mmHg Intensity: Low Other Information: Bridged, Mushroomed Foam type: Black Number of pieces: 2 Additonal Information Patient seen on F pod for wound management of sacral area. Patient is known to inpatient wound care and has been seen for bilateral ischial area with wound VAC placement multiple times. Patient has a home wound VAc that was malfunctioning prior to admission. Patient is A&O x 3 in no distress when copy writer entered room. Patient lifted L leg and R stump up to reveal wound behind scrotum to bilateral ischial area. Wound is open to air. Cleansed wound with normal saline and patted dry. Applied skin barrier film to periwound and to intact skin extending to L thigh for bridging.Applied stoma paste to wound margins to seal wound VAC dressing. Applied 1 long strip of granufoam to undermined areas in wound bed . Then applied second larger piece of black granufoam to fill in entire wound bed. Secured foam in place with VAC drape. Small hole was cut in VAC drape to expose foam. VAC drape was bridged from wound to L anterior thigh. Then applied 1 Long strip of black granufoam from wound bed extending to L anterior thigh over drape bridge. Trac pad was applied with mushroom cap to bridged granufoam to L thigh. Covered all exposed granufoam with VAC drape to seal.Patient tolerated VAC dressing application well. Sonam Flannery [facility] Jul 23, 2017 17:29
[2017-07-23] MEDS: ENOXAPARIN SODIUM 40 MG/0.4 ML SYRINGE SQ SCH (18:20)
[2017-07-23] MEDS: PIPERACIL-TAZO 3.375 GM PREMIX 50 ML IV SCH (18:20)
[2017-07-23 21:31] VITALS: BP 123/62; PULSE 77; RESP 16; TEMP 98.5; O2SAT 100
[2017-07-23] MEDS ORDERED: GADODIAMIDE PF 287 MG/ML 5 ML VIAL (for RAD MRI) IVCONTRAST ONE (21:32)
--- NOTE | 2017-07-23 23:17 | RADRPT ---
EXAM DATE/TIME: 07/23/2017 20:15 [facility] COMPARISON: MRI LOWER LEG LEFT W & W/O CONTRAST, June 11, 2017, 20:55. INDICATIONS : Osteomyelitis. Left lower lateral leg wound from distal knee to proximal ankle for a number of months . CONTRAST: 18 cc Omniscan (gadodiamide) IV MEDICAL HISTORY : Hypertension. Myocardial infarction. Emphysema. SURGICAL HISTORY : Fusion, thoracic. Colon resection. Venous umbrella, Rt BKA ENCOUNTER: Subsequent ACUITY: 3 months PAIN SCORE: 2/10 LOCATION: Left lower leg. TECHNIQUE: Multiplanar multisequence MRI examination of the lower leg was performed with and without contrast. FINDINGS: Again seen is an elongated area of soft tissue ulceration laterally of the left leg. This appears to have undergone some healing and granulation in the interim. There is no abscess. Chronic cortical thickening seen of the entire shaft of the left fibula, most pronounced in the dista l shaft region and worse in the interim. There is edema and patchy T1 signal abnormality. Ill-defined fluid is seen in the medullary space almost along the entire length of the bone. The signal abnormal ity/fluid spares the distal 4.3 cm or so of the bone but otherwise is fairly diffuse. There is re active appearing enhancement of the bone. The bone appears largely viable. There is a suspected small caliber draining sinus of the bone approximately 6.1 cm proximal to the lateral malleolus. CONCLUSION: 1. The soft tissue ulceration laterally of the left leg appears slightly improved. No drainable soft tissue abscess. 2. However, there is increased conspicuity and extent of cortical thickening and signal changes of th e fibula compatible with acute on chronic osteomyelitis. There is elongated and nearly diffuse intram edullary fluid typical of abscess as well as an apparent developing sinus tract approximately 6.1 cm proximal to the lateral malleolus. Yonathan Hess MD on July 23, 2017 at 22:59 Board Certified Radiologist. This report was verified electronically.
[2017-07-24] MEDS: PIPERACIL-TAZO 3.375 GM PREMIX 50 ML IV SCH ×2 (01:01→06:32)
[2017-07-24 04:16] VITALS: BP 116/69; PULSE 88; RESP 17; TEMP 98.4; O2SAT 95
[2017-07-24] MEDS: ACETAMINOPHEN/HYDROcodone 325 MG/10 MG TAB PO PRN ×5 (06:31→21:05)
[2017-07-24 07:53] VITALS: BP 102/64; PULSE 78; RESP 16; TEMP 98.7; O2SAT 100
[2017-07-24] MEDS: DOCUSATE SODIUM 50 MG/SENNA 8.6 MG TAB PO SCH (09:00)
[2017-07-24] MEDS: LACTOBACILLUS ACIDOPHILUS TAB PO SCH ×2 (09:57→21:06)
[2017-07-24] MEDS: MEGESTROL ACETATE SUSP 400 MG/10 ML CUP PO SCH (09:58)
[2017-07-24] MEDS: SODIUM CHLORIDE 0.9% FLUSH 10 ML FLUSH IV FLUSH SCH ×2 (09:59→21:04)
[2017-07-24] MEDS: COLLAGENASE OINT 30 GM TUBE TOPICAL SCH (09:59)
--- NOTE | 2017-07-24 10:13 | HHI.PR ---
Subjective Remarks The patient stated that he still had diarrhea. He said that he feels like he has a UTI. He says his suprapubic catheter was recently changed. He says he has noticed some areas of swelling on his left leg. Discussed with nursing. Objective Vitals Vital Signs Date Time Temp Pulse Resp B/P (MAP) Pulse Ox O2 Delivery O2 Flow Rate FiO2 07/24/17 07:53 98.7 78 16 102/64 (77) 100 07/24/17 07:40 20 07/24/17 04:16 98.4 88 17 116/69 (85) 95 07/23/17 21:31 98.5 77 16 123/62 (82) 100 07/23/17 15:06 98.7 80 16 111/56 (74) 99 07/23/17 11:04 98.7 80 16 109/58 (75) 100 I/O 07/23/17 07/23/17 07/23/17 07/24/17 07/24/17 07/24/17 07:00 15:00 23:00 07:00 15:00 23:00 Intake Total 1070 ml Output Total 900 ml 2050 ml Balance 170 ml -2050 ml Intake Oral 1070 ml Output Urine Total 900 ml 2050 ml Result Diagram: 07/22/17 1311 07/22/17 1311 Imaging Last Impressions Lower Extremity MRI 07/23/17 0000 Signed Impressions: Service Date/Time: Sunday, July 23, 2017 20:15 - CONCLUSION: 1. The soft tissue ulceration laterally of the left leg appears slightly improved. No drainable soft tissue abscess. 2. However, there is increased conspicuity and extent of cortical thickening and signal changes of the fibula compatible with acute on chronic osteomyelitis. There is elongated and nearly diffuse intramedullary fluid typical of abscess as well as an apparent developing sinus tract approximately 6.1 cm proximal to the lateral malleolus. Yonathan Hess MD Chest X-Ray 07/22/17 0000 Signed Impressions: Service Date/Time: Saturday, July 22, 2017 13:06 - CONCLUSION: No acute disease. Cuba Bone MD Abdomen/Pelvis CT 07/22/17 0000 Signed Impressions: Service Date/Time: Saturday, July 22, 2017 14:36 - CONCLUSION: 1. Chronic bony changes about the pelvic girdle and proximal femurs or bony destruction and extensive heterotopic bone formation. 2. Probable associated decubitus type ulcers bilaterally with the right ischium/inferior pubic ramus partially exposed suggesting osteomyelitis in this region. 3. Cholelithiasis. 4. Ostomy in the upper midabdomen. Ry Uribe MD Objective Remarks GENERAL: This is a well-nourished, well-developed patient, in no apparent distress. HEENT: NC, AT. CARDIOVASCULAR: Regular rate and regular rhythm without murmurs, gallops, or rubs. RESPIRATORY: Clear to auscultation. Breath sounds equal bilaterally. No wheezes , rales, or rhonchi. GASTROINTESTINAL: Abdomen soft, non-tender, nondistended. Normoactive bowel sounds; ostomy in place. MUSCULOSKELETAL: Right AKA. LLE is wrapped. NEURO: Alert & Oriented x4 to person, place, time, situation. PSYCH: Mood and affect appropriate. Medications and IVs Current Medications Medications (Trade) Dose Ordered Sig/Jocelynn Route Start Time Stop Time Status Last Admin (NS Flush) 2 ml UNSCH PRN IV FLUSH 07/22/17 16:30 (NS Flush) 2 ml BID IV FLUSH 07/22/17 21:00 07/24/17 09:59 (Tylenol) 650 mg Q4H PRN PO 07/22/17 16:30 (Zofran Inj) 4 mg Q6H PRN IVP 07/22/17 16:30 (Lovenox Inj) 40 mg Q24H SQ 07/22/17 18:00 07/23/17 18:20 (Narcan Inj) 0.4 mg UNSCH PRN IV PUSH 07/22/17 16:30 (Mecca-Colace) 1 tab BID PO 07/22/17 21:00 07/22/17 21:07 (Milk Of Magnesia Liq) 30 ml Q12H PRN PO 07/22/17 16:30 (Senokot) 17.2 mg Q12H PRN PO 07/22/17 16:30 (Dulcolax Supp) 10 mg DAILY PRN RECTAL 07/22/17 16:30 (Lactulose Liq) 30 ml DAILY PRN PO 07/22/17 16:30 (Santyl Oint) 1 applic DAILY TOPICAL 07/23/17 09:00 07/24/17 09:59 (Lactinex) 1 tab BID PO 07/22/17 21:00 07/24/17 09:57 (Megace Liq) 625 mg DAILY PO 07/23/17 09:00 07/24/17 09:58 ([place] 10-325 Mg) 1 tab Q4H PRN PO 07/22/17 17:00 07/24/17 09:59 Piperacillin Sod/ Tazobactam Sod 50 ml @ 100 mls/hr Q6H IV 07/23/17 18:00 07/24/17 06:32 A/P Problem List: (1) UTI (urinary tract infection) ICD Code: N39.0 - Urinary tract infection, site not specified Status: Acute (2) Osteomyelitis ICD Code: M86.9 - Osteomyelitis, unspecified Assessment and Plan Sacral decubitus ulcer, osteomyelitis Consulted infectious disease, wound care. Recommendations appreciated. Patient reportedly completed his course of IV antibiotics on Sunday and his PICC line was removed at that time. MRI showed: The soft tissue ulceration laterally of the left leg appears slightly improved; No drainable soft tissue abscess; However, there is increased conspicuity and extent of cortical thickening and signal changes of the fibula compatible with acute on chronic osteomyelitis; There is elongated and nearly diffuse intramedullary fluid typical of abscess as well as an apparent developing sinus tract approximately 6.1 cm proximal to the lateral malleolus. - continue antibiotics per ID. - consult podiatry. - pain control as needed. - wound vac per wound care nurse. ESBL UTI Patient has suprapubic catheter, which he states was changed recently. Urine culture growing ESBL klebsiella and GNR. - antibiotics per infectious disease. Nausea/vomiting/diarrhea Possibly gastroenteritis. Improved. - check C diff. - antiemetics as needed. - ADAT. - hold bowel regimen. Anemia Appears chronic. - follow CBC and transfuse as needed. Elevated LFTs CT abdomen without obvious abnormality. LFTs appear chronically elevated. - trend LFTs. DVT prophylaxis: Lovenox Problem Qualifiers (1) Osteomyelitis: Cuba Baldwin DO Jul 24, 2017 10:13
[2017-07-24] MEDS ORDERED: ASP: Documented ESBL, MDR A baumannii or P. aeruginosa PRN (11:15)
[2017-07-24] MEDS ORDERED: PHARMACY INFORMATION XX PRN (11:15)
[2017-07-24 13:20] VITALS: BP 116/63; PULSE 73; RESP 16; TEMP 98; O2SAT 100
[2017-07-24] MEDS: ERTAPENEM INJ 1,000 MG in SODIUM CHLORIDE 0.9% INJ 100 ML IV SCH (13:23)
[2017-07-24 15:55] VITALS: BP 103/54; PULSE 72; RESP 18; TEMP 99; O2SAT 99
--- NOTE | 2017-07-24 16:24 | HHI.IDPN ---
Subjective Subjective Remarks afebrile cont to have diarrhea grew ESBL + e.coli in urine MRI showed osteo Antibiotics zosyn - stopped Ertapenem Allergies: Coded Allergies: clindamycin (Verified Allergy, Severe, HIVES, 07/22/17) sulfamethoxazole (Verified Allergy, Severe, RASH, 07/22/17) trimethoprim (Verified Allergy, Severe, RASH, 07/22/17) vancomycin (Verified Allergy, Severe, hives, 07/22/17) morphine (Verified Adverse Reaction, Severe, Tachycardia, 07/22/17) Objective . Vital Signs Date Time Temp Pulse Resp B/P (MAP) Pulse Ox O2 Delivery O2 Flow Rate FiO2 07/24/17 15:55 99.0 72 18 103/54 (70) 99 07/24/17 15:18 20 07/24/17 13:20 98.0 73 16 116/63 (80) 100 07/24/17 07:53 98.7 78 16 102/64 (77) 100 07/24/17 04:16 98.4 88 17 116/69 (85) 95 07/23/17 21:31 98.5 77 16 123/62 (82) 100 07/24/17 07/24/17 07/25/17 15:00 23:00 07:00 Intake Total 100 ml Balance 100 ml IV Total 100 ml . Laboratory Tests Test 07/23/17 23:22 Erythrocyte Sedimentation Rate 79 mm/hr Microbiology Date/Time Source Procedure Growth Status 07/22/17 13:11 Blood Peripheral Aerobic Blood Culture - Preliminary NO GROWTH IN 2 DAYS Resulted 07/22/17 13:11 Blood Peripheral Anaerobic Blood Culture - Preliminary NO GROWTH IN 2 DAYS Resulted 07/22/17 13:00 Blood Peripheral Aerobic Blood Culture - Preliminary NO GROWTH IN 2 DAYS Resulted 07/22/17 13:00 Blood Peripheral Anaerobic Blood Culture - Preliminary NO GROWTH IN 2 DAYS Resulted 07/22/17 14:00 Urine Clean Catch Urine Culture - Final Klebsiella Pneumoniae Esbl Pos Multi-Drug Resistant Gram Negative Terrence Complete Imaging Last Impressions Lower Extremity MRI 07/23/17 0000 Signed Impressions: Service Date/Time: Sunday, July 23, 2017 20:15 - CONCLUSION: 1. The soft tissue ulceration laterally of the left leg appears slightly improved. No drainable soft tissue abscess. 2. However, there is increased conspicuity and extent of cortical thickening and signal changes of the fibula compatible with acute on chronic osteomyelitis. There is elongated and nearly diffuse intramedullary fluid typical of abscess as well as an apparent developing sinus tract approximately 6.1 cm proximal to the lateral malleolus. Yonathan Hess MD Chest X-Ray 07/22/17 0000 Signed Impressions: Service Date/Time: Saturday, July 22, 2017 13:06 - CONCLUSION: No acute disease. Cuba Bone MD Abdomen/Pelvis CT 07/22/17 0000 Signed Impressions: Service Date/Time: Saturday, July 22, 2017 14:36 - CONCLUSION: 1. Chronic bony changes about the pelvic girdle and proximal femurs or bony destruction and extensive heterotopic bone formation. 2. Probable associated decubitus type ulcers bilaterally with the right ischium/inferior pubic ramus partially exposed suggesting osteomyelitis in this region. 3. Cholelithiasis. 4. Ostomy in the upper midabdomen. Ry Uribe MD Physical Exam CONSTITUTIONAL/GENERAL: This is an adequately nourished patient, in no apparent distress. TUBES/LINES/DRAINS: SKIN: No jaundice, rashes, or lesions. . Skin temperature appropriate. Not diaphoretic. VAC in place over L buttock ulcer CARDIOVASCULAR: Regular rate and rhythm without murmurs, gallops, or rubs. No JVD. Peripheral pulses symmetric. RESPIRATORY/CHEST: Symmetric, unlabored respirations. Clear to auscultation. Breath sounds equal bilaterally. No wheezes, rales, or rhonchi. GASTROINTESTINAL: Abdomen soft, + tender to palpation in RLQ, mildly to moderately distended. No hepato-splenomegaly, or palpable masses. No guarding. Bowel sounds present. Stoma oi place with small amount of liquid brown stool GENITOURINARY: Without palpable bladder distension. Sp catheter in place with quite cloudy urine MUSCULOSKELETAL: Extremities without clubbing, cyanosis, or edema. dressing in place over LLE with some foul smelling drainage sp R AKA - healed LYMPHATICS: No palpable cervical or supraclavicular adenopathy. NEUROLOGICAL: Awake and alert. Paraplegia Follows commands with BUE. Clear speech PSYCHIATRIC: calm and coooperative Assessment & Plan Remarks Paraplegia Acute and chronic osteomyelitis at the fibula of left lower extremity. Chronic wound LLE. Culture has proteus, group D enterococcus and MRSA.. UTI - growing ESBL+ e.coli Sacral decubitus ulcer. : stage IV, but clean L fibula osteo and abscess/ sinus tract increased conspicuity and extent of cortical thickening and signal changes of the fibula compatible with acute on chronic osteomyelitis. There is elongated and nearly diffuse intramedullary fluid typical of abscess as well as an apparent developing sinus tract approximately 6.1 cm proximal to the lateral malleolus dc zosyn start Ertapenem r/o C.diff Ana Peters MD Jul 24, 2017 16:24
[2017-07-24] MEDS: ENOXAPARIN SODIUM 40 MG/0.4 ML SYRINGE SQ SCH (17:38)
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
[2017-07-24 20:57] VITALS: BP 130/71; PULSE 84; RESP 16; TEMP 99.1; O2SAT 99
[2017-07-25 00:42] VITALS: BP 114/55; PULSE 78; RESP 16; TEMP 98; O2SAT 99
[2017-07-25] MEDS: ACETAMINOPHEN/HYDROcodone 325 MG/10 MG TAB PO PRN ×5 (02:21→22:11)
[2017-07-25 03:49] VITALS: BP 110/55; PULSE 76; RESP 16; TEMP 99.3; O2SAT 99
[2017-07-25 08:31] VITALS: BP 107/56; PULSE 80; RESP 20; TEMP 99.1; O2SAT 99
--- NOTE | 2017-07-25 09:01 | PD.ORT.PN ---
Subjective Subjective Remarks s/p left leg wound. states has been a complicated issue for year. history of right leg amputation. states he things wheelchair has caused wound with way his leg rests on it Objective Vitals Vital Signs Date Time Temp Pulse Resp B/P (MAP) Pulse Ox O2 Delivery O2 Flow Rate FiO2 07/25/17 08:31 99.1 80 20 107/56 (73) 99 07/25/17 03:49 99.3 76 16 110/55 (73) 99 07/25/17 00:42 98.0 78 16 114/55 (74) 99 07/24/17 20:57 99.1 84 16 130/71 (90) 99 07/24/17 18:46 20 07/24/17 15:55 99.0 72 18 103/54 (70) 99 07/24/17 13:20 98.0 73 16 116/63 (80) 100 I/O 07/24/17 07/24/17 07/24/17 07/25/17 07/25/17 07/25/17 07:00 15:00 23:00 07:00 15:00 23:00 Intake Total 100 ml Output Total 2050 ml 850 ml Balance -2050 ml 100 ml -850 ml IV Total 100 ml Output Urine Total 2050 ml 850 ml # Voids 3 Result Diagram: 07/22/17 1311 07/22/17 1311 Objective Remarks LLE: wound on lateral lower leg spanning from lateral malleolus to proximal fibula. approx 3cm in width. granulation tissue present throughout entire wound. proximal area of wound has purulent drainage wtih slough present. Assessment & Plan Assessment and Plan 1) Left Leg wound with infection -recommend switch dressings to wet to dry dressings BID -will confer with Amy today regarding surgical vs nonsurgical options -there is a chance he could require I&D with vac placement but will wait to speak with Amy later today after he inspects wound Manuel Solis/First Jose HOLLY Jul 25, 2017 09:01
[2017-07-25] MEDS: MEGESTROL ACETATE SUSP 400 MG/10 ML CUP PO SCH (09:31)
[2017-07-25] MEDS: LACTOBACILLUS ACIDOPHILUS TAB PO SCH ×2 (09:31→22:12)
[2017-07-25] MEDS: SODIUM CHLORIDE 0.9% FLUSH 10 ML FLUSH IV FLUSH SCH ×2 (09:33→22:11)
[2017-07-25] MEDS: COLLAGENASE OINT 30 GM TUBE TOPICAL SCH (09:34)
--- NOTE | 2017-07-25 12:00 | PD.WCN.NOT ---
Neg Pressure Wound Therapy Wound Location Wound Location: Bilateral ischial area Wound Description Wound bed appearance: 70% pale red non granulation tissue and ~30% red granulation tissue.Minimal sanguinous drainage is noted Settings Suction: 125 mmHg Intensity: Low Other Information: Bridged, Mushroomed Foam type: Black Number of pieces: 2 Additonal Information Patient seen on F pod for wound management of sacral area. Patient is known to inpatient wound care and has been seen for bilateral ischial area with wound VAC placement multiple times. Patient has a home wound VAc that was malfunctioning prior to admission. Patient is A&O x 3 in no distress when promotion writer entered room. Patient turned self with minimal assistance to R side for wound VAC dressing change. Entire [facility] wound VAc dressing was removed including 2 pieces of granufoam. Cleansed wound with normal saline and patted dry. Periwound was cleasned with soap and water and dried thoroughly. Applied skin barrier film to periwound and to intact skin extending to L thigh for bridging.Applied stoma paste to wound margins to seal wound VAC dressing. Applied 1 long strip of granufoam was packed loosely to wound bed in cinnamon roll fashion . Then applied second small piece of black granufoam to fill in entire wound bed. Secured foam in place with VAC drape. Small hole was cut in VAC drape to expose foam. VAC drape was bridged from wound to L anterior thigh. Then applied 1 Long strip of black granufoam from wound bed extending to L anterior thigh over drape bridge. Trac pad was applied with mushroom cap to bridged granufoam to L thigh. Covered all exposed granufoam with VAC drape to seal.Patient tolerated VAC dressing application well. Sonam Flannery [facility] Jul 25, 2017 12:00
[2017-07-25 12:22] VITALS: BP 96/54; PULSE 83; RESP 18; TEMP 99.1; O2SAT 100
[2017-07-25] MEDS: ERTAPENEM INJ 1,000 MG in SODIUM CHLORIDE 0.9% INJ 100 ML IV SCH (13:25)
--- NOTE | 2017-07-25 13:49 | HHI.PR ---
Subjective Remarks The patient was resting comfortably in bed. He requested a regular diet. He had no acute complaints. Objective Vitals Vital Signs Date Time Temp Pulse Resp B/P (MAP) Pulse Ox O2 Delivery O2 Flow Rate FiO2 07/25/17 12:22 99.1 83 18 96/54 (68) 100 07/25/17 08:31 99.1 80 20 107/56 (73) 99 07/25/17 03:49 99.3 76 16 110/55 (73) 99 07/25/17 00:42 98.0 78 16 114/55 (74) 99 07/24/17 20:57 99.1 84 16 130/71 (90) 99 07/24/17 18:46 20 07/24/17 15:55 99.0 72 18 103/54 (70) 99 I/O 07/24/17 07/24/17 07/24/17 07/25/17 07/25/17 07/25/17 07:00 15:00 23:00 07:00 15:00 23:00 Intake Total 100 ml Output Total 2050 ml 850 ml Balance -2050 ml 100 ml -850 ml IV Total 100 ml Output Urine Total 2050 ml 850 ml # Voids 3 Result Diagram: 07/22/17 1311 07/22/17 1311 Imaging Last Impressions Lower Extremity MRI 07/23/17 0000 Signed Impressions: Service Date/Time: Sunday, July 23, 2017 20:15 - CONCLUSION: 1. The soft tissue ulceration laterally of the left leg appears slightly improved. No drainable soft tissue abscess. 2. However, there is increased conspicuity and extent of cortical thickening and signal changes of the fibula compatible with acute on chronic osteomyelitis. There is elongated and nearly diffuse intramedullary fluid typical of abscess as well as an apparent developing sinus tract approximately 6.1 cm proximal to the lateral malleolus. Yonathan Hess MD Chest X-Ray 07/22/17 0000 Signed Impressions: Service Date/Time: Saturday, July 22, 2017 13:06 - CONCLUSION: No acute disease. Cuba Bone MD Abdomen/Pelvis CT 07/22/17 0000 Signed Impressions: Service Date/Time: Saturday, July 22, 2017 14:36 - CONCLUSION: 1. Chronic bony changes about the pelvic girdle and proximal femurs or bony destruction and extensive heterotopic bone formation. 2. Probable associated decubitus type ulcers bilaterally with the right ischium/inferior pubic ramus partially exposed suggesting osteomyelitis in this region. 3. Cholelithiasis. 4. Ostomy in the upper midabdomen. Ry Uribe MD Objective Remarks GENERAL: This is a well-nourished, well-developed patient, in no apparent distress. HEENT: NC, AT. CARDIOVASCULAR: Regular rate and regular rhythm without murmurs, gallops, or rubs. RESPIRATORY: Clear to auscultation. Breath sounds equal bilaterally. No wheezes , rales, or rhonchi. GASTROINTESTINAL: Abdomen soft, non-tender, nondistended. Normoactive bowel sounds; ostomy in place. MUSCULOSKELETAL: Right AKA. LLE is wrapped. NEURO: Alert & Oriented x4 to person, place, time, situation. PSYCH: Mood and affect appropriate. Medications and IVs Current Medications Medications (Trade) Dose Ordered Sig/Jocelynn Route Start Time Stop Time Status Last Admin (NS Flush) 2 ml UNSCH PRN IV FLUSH 07/22/17 16:30 (NS Flush) 2 ml BID IV FLUSH 07/22/17 21:00 07/25/17 09:33 (Tylenol) 650 mg Q4H PRN PO 07/22/17 16:30 (Zofran Inj) 4 mg Q6H PRN IVP 07/22/17 16:30 (Lovenox Inj) 40 mg Q24H SQ 07/22/17 18:00 07/24/17 17:38 (Narcan Inj) 0.4 mg UNSCH PRN IV PUSH 07/22/17 16:30 (Mecca-Colace) 1 tab BID PO 07/22/17 21:00 Future Hold 07/22/17 21:07 (Milk Of Magnesia Liq) 30 ml Q12H PRN PO 07/22/17 16:30 (Senokot) 17.2 mg Q12H PRN PO 07/22/17 16:30 (Dulcolax Supp) 10 mg DAILY PRN RECTAL 07/22/17 16:30 (Lactulose Liq) 30 ml DAILY PRN PO 07/22/17 16:30 (Santyl Oint) 1 applic DAILY TOPICAL 07/23/17 09:00 07/25/17 09:34 (Lactinex) 1 tab BID PO 07/22/17 21:00 07/25/17 09:31 (Megace Liq) 625 mg DAILY PO 07/23/17 09:00 07/25/17 09:31 ([place] 10-325 Mg) 1 tab Q4H PRN PO 07/22/17 17:00 07/25/17 13:25 Ertapenem 1000 mg/ Sodium Chloride 100 ml @ 200 mls/hr Q24H IV 07/24/17 13:00 07/25/17 13:25 A/P Problem List: (1) UTI (urinary tract infection) ICD Code: N39.0 - Urinary tract infection, site not specified Status: Acute (2) Osteomyelitis ICD Code: M86.9 - Osteomyelitis, unspecified Assessment and Plan Sacral decubitus ulcer, osteomyelitis Consulted infectious disease, wound care. Recommendations appreciated. Patient reportedly completed his course of IV antibiotics on Sunday and his PICC line was removed at that time. MRI showed: The soft tissue ulceration laterally of the left leg appears slightly improved; No drainable soft tissue abscess; However, there is increased conspicuity and extent of cortical thickening and signal changes of the fibula compatible with acute on chronic osteomyelitis; There is elongated and nearly diffuse intramedullary fluid typical of abscess as well as an apparent developing sinus tract approximately 6.1 cm proximal to the lateral malleolus. - continue antibiotics per ID. Currently on IV ertapenem. - podiatry consult appreciated. Orthopedic surgery also consulted. - pain control as needed. - wound vac per wound care nurse. ESBL UTI Patient has suprapubic catheter, which he states was changed recently. Urine culture growing ESBL klebsiella and GNR. - antibiotics per infectious disease. IV ertapenem. Nausea/vomiting/diarrhea Possibly gastroenteritis. Improved. C diff negative. - antiemetics as needed. - ADAT. - hold bowel regimen. Anemia Appears chronic. - follow CBC and transfuse as needed. Elevated LFTs CT abdomen without obvious abnormality. LFTs appear chronically elevated. - trend LFTs. DVT prophylaxis: Lovenox Problem Qualifiers (1) Osteomyelitis: Cuba Baldwin DO Jul 25, 2017 13:49
[2017-07-25 16:53] VITALS: BP 102/57; PULSE 79; RESP 18; TEMP 98.8; O2SAT 100
[2017-07-25] MEDS: ENOXAPARIN SODIUM 40 MG/0.4 ML SYRINGE SQ SCH (17:47)
--- NOTE | 2017-07-25 19:58 | PD.CAR.PN ---
CVT Progress Note Subjective/Hospital Course: 52-year-old gentleman with multiple decubiti consequent to paraplegia Right above-knee amputation and a large defect of the left leg below the level of the knee and lateral This is mainly due to pressure when patient is laying down and fracture generated by the wheelchair support when he is sitting in it Considering the patient's paraplegic he is insensate so this has been now fairly large for a while In addition patient has chronic osteomyelitis of the fibula Vascular exam of the left leg shows good inflow and outflow with palpable femoral popliteal dorsalis pedis and posterior tibial pulse Foot is warm Based on all of this, patient does not need any further vascular workup for his inflow and outflow are clinically adequate As far as the healing of this ulcer is concerned, this is predicated on resolving the fibular osteomyelitis which is almost impossible This patient will end up with above-knee amputation on the left side in foreseeable future Right now patient is not willing to consider this but once he changes his mind I be available to go ahead with surgery No other options are available long-term Full consult dictated Thanks J Objective: Vital Signs Date Time Temp Pulse Resp B/P (MAP) Pulse Ox O2 Delivery O2 Flow Rate FiO2 07/25/17 16:53 98.8 79 18 102/57 (72) 100 07/25/17 12:22 99.1 83 18 96/54 (68) 100 07/25/17 08:31 99.1 80 20 107/56 (73) 99 07/25/17 03:49 99.3 76 16 110/55 (73) 99 07/25/17 00:42 98.0 78 16 114/55 (74) 99 07/24/17 20:57 99.1 84 16 130/71 (90) 99 Result Diagram: 07/22/17 1311 07/22/17 1311 Phylicia Pitt MD Jul 25, 2017 19:58
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
[2017-07-25 21:52] VITALS: BP 105/58; PULSE 77; RESP 16; TEMP 98.8; O2SAT 99
[2017-07-26] VITALS (7 sets, daily range): BP systolic 117–139; BP diastolic 55–67; PULSE 65–85; RESP 16–20; TEMP 98.4–99; O2SAT 99–100
[2017-07-26] MEDS: ACETAMINOPHEN/HYDROcodone 325 MG/10 MG TAB PO PRN ×5 (05:02→22:01)
[2017-07-26 05:22] LABS: HEMATOCRIT 32.2 % (39.0-51.0); HEMOGLOBIN 10.1 GM/DL (13.0-17.0); MEAN CELL VOLUME 75.5 FL (80.0-100.0); MEAN CORPUSCULAR HEMOGLOBIN 23.7 PG (27.0-34.0); MEAN CORPUSCULAR HGB CONC 31.5 % (32.0-36.0); MEAN PLATELET VOLUME 6.3 FL (7.0-11.0); PLATELET COUNT 502 TH/MM3 (150-450); RED BLOOD COUNT 4.27 MIL/MM3 (4.50-5.90); WHITE BLOOD COUNT 7.7 TH/MM3 (4.0-11.0)
[2017-07-26 05:48] LABS: ALBUMIN 2.4 GM/DL (3.4-5.0); ALT (GPT) 60 U/L (12-78); AST (GOT) 36 U/L (15-37); BICARBONATE 24.3 MEQ/L (21.0-32.0); BLOOD UREA NITROGEN 9 MG/DL (7-18); CALCIUM 9.1 MG/DL (8.5-10.1); CHLORIDE 106 MEQ/L (98-107); CREATININE 0.58 MG/DL (0.60-1.30); DIRECT BILIRUBIN ADULT 0.1 MG/DL (0.0-0.2); GLOMERULAR FILTRATION RATE 179 ML/MIN (>89); GLUCOSE,RANDOM 93 MG/DL (74-106); MAGNESIUM 1.8 MG/DL (1.5-2.5); SODIUM (NA) 140 MEQ/L (136-145)
[2017-07-26 05:50] LABS: ALKALINE PHOSPHATASE 174 U/L (45-117); TOTAL BILIRUBIN ADULT LESS THAN 0.1 MG/DL (0.2-1.0); TOTAL PROTEIN 7.9 GM/DL (6.4-8.2)
--- NOTE | 2017-07-26 07:12 | PD.ORT.PN ---
Subjective Subjective Remarks s/p left leg wound. states has been a complicated issue for year. history of right leg amputation. states he things wheelchair has caused wound with way his leg rests on it was transitioned to wet to dry dressings yesterday Objective Vitals Vital Signs Date Time Temp Pulse Resp B/P (MAP) Pulse Ox O2 Delivery O2 Flow Rate FiO2 07/26/17 04:19 98.4 71 16 139/67 (91) 100 07/26/17 01:43 98.9 69 16 117/55 (75) 100 07/25/17 21:52 98.8 77 16 105/58 (74) 99 07/25/17 16:53 98.8 79 18 102/57 (72) 100 07/25/17 12:22 99.1 83 18 96/54 (68) 100 07/25/17 08:31 99.1 80 20 107/56 (73) 99 I/O 07/25/17 07/25/17 07/25/17 07/26/17 07/26/17 07/26/17 07:00 15:00 23:00 07:00 15:00 23:00 Intake Total 675 ml 1000 ml Output Total 850 ml 1500 ml 900 ml 500 ml Balance -850 ml -825 ml -900 ml 500 ml Intake Oral 675 ml 1000 ml Output Urine Total 850 ml 1500 ml 900 ml 500 ml # Voids 3 Result Diagram: 07/26/17 0441 07/26/17 0441 Objective Remarks LLE: wound on lateral lower leg spanning from lateral malleolus to proximal fibula. approx 3cm in width. granulation tissue present throughout entire wound. proximal area of wound has purulent drainage wtih slough present. Assessment & Plan Assessment and Plan 1) Left Leg wound with infection -recommend wet to dry dressings BID -would not recommend any surgical intervention at this time. overall, wound is healthy and no bone exposed. -replace wet to dry dressing this AM and defer further wound care to wound care team -vac placement is reasonable -restart diet -ortho will be signing off Manuel Solis/Outreach Associate PA Jul 26, 2017 07:11
[2017-07-26] MEDS: SODIUM CHLORIDE 0.9% FLUSH 10 ML FLUSH IV FLUSH SCH ×2 (09:13→22:01)
[2017-07-26] MEDS: LACTOBACILLUS ACIDOPHILUS TAB PO SCH ×2 (09:13→22:00)
[2017-07-26] MEDS: MEGESTROL ACETATE SUSP 400 MG/10 ML CUP PO SCH (09:14)
[2017-07-26] MEDS: COLLAGENASE OINT 30 GM TUBE TOPICAL SCH (09:22)
--- NOTE | 2017-07-26 10:05 | PD.CAR.PN ---
CVT Progress Note Subjective/Hospital Course: 52-year-old gentleman with multiple decubiti consequent to paraplegia Right above-knee amputation and a large defect of the left leg below the level of the knee and lateral This is mainly due to pressure when patient is laying down and fracture generated by the wheelchair support when he is sitting in it Considering the patient's paraplegic he is insensate so this has been now fairly large for a while In addition patient has chronic osteomyelitis of the fibula Vascular exam of the left leg shows good inflow and outflow with palpable femoral popliteal dorsalis pedis and posterior tibial pulse Foot is warm Based on all of this, patient does not need any further vascular workup for his inflow and outflow are clinically adequate As far as the healing of this ulcer is concerned, this is predicated on resolving the fibular osteomyelitis which is almost impossible This patient will end up with above-knee amputation on the left side in foreseeable future Right now patient is not willing to consider this but once he changes his mind I be available to go ahead with surgery No other options are available long-term Full consult dictated Thanks J He has a well-healed right above-knee amputation which is quite short. In addition, the patient has a left lower leg large ulcer, which is going through subcutaneous tissue. In addition, the patient has fibula chronic osteomyelitis. He has palpable proximal and distal pulses in the leg and no acute chronic vascular defici At this point, I do not believe this is going to heal in face of chronic infection and I believe the patient will eventually need above-knee amputation here, but he would like to try everything else before that. Nothing to add from my point. Patient does not need further vascular workup because his blood supply to the left leg is adequate. Objective: Vital Signs Date Time Temp Pulse Resp B/P (MAP) Pulse Ox O2 Delivery O2 Flow Rate FiO2 07/26/17 07:57 98.9 65 20 124/66 (85) 100 07/26/17 04:19 98.4 71 16 139/67 (91) 100 07/26/17 01:43 98.9 69 16 117/55 (75) 100 07/25/17 21:52 98.8 77 16 105/58 (74) 99 07/25/17 16:53 98.8 79 18 102/57 (72) 100 07/25/17 12:22 99.1 83 18 96/54 (68) 100 Labs: Laboratory Tests Test 07/26/17 04:41 White Blood Count 7.7 TH/MM3 (4.0-11.0) Red Blood Count 4.27 MIL/MM3 (4.50-5.90) Hemoglobin 10.1 GM/DL (13.0-17.0) Hematocrit 32.2 % (39.0-51.0) Mean Corpuscular Volume 75.5 FL (80.0-100.0) Mean Corpuscular Hemoglobin 23.7 PG (27.0-34.0) Mean Corpuscular Hemoglobin Concent 31.5 % (32.0-36.0) Red Cell Distribution Width 17.0 % (11.6-17.2) Platelet Count 502 TH/MM3 (150-450) Mean Platelet Volume 6.3 FL (7.0-11.0) Blood Urea Nitrogen 9 MG/DL (7-18) Creatinine 0.58 MG/DL (0.60-1.30) Random Glucose 93 MG/DL (74-106) Total Protein 7.9 GM/DL (6.4-8.2) Albumin 2.4 GM/DL (3.4-5.0) Calcium Level 9.1 MG/DL (8.5-10.1) Magnesium Level 1.8 MG/DL (1.5-2.5) Alkaline Phosphatase 174 U/L (45-117) Aspartate Amino Transf (AST/SGOT) 36 U/L (15-37) Alanine Aminotransferase (ALT/SGPT) 60 U/L (12-78) Total Bilirubin LESS THAN 0.1 MG/DL Direct Bilirubin 0.1 MG/DL (0.0-0.2) Sodium Level 140 MEQ/L (136-145) Potassium Level 4.6 MEQ/L (3.5-5.1) Chloride Level 106 MEQ/L (98-107) Carbon Dioxide Level 24.3 MEQ/L (21.0-32.0) Anion Gap 10 MEQ/L (5-15) Estimat Glomerular Filtration Rate 179 ML/MIN (>89) Indirect Bilirubin 0.0 MG/DL (0.0-0.8) Result Diagram: 07/26/17 0441 07/26/17 0441 Phylicia Pitt MD Jul 26, 2017 10:05
--- NOTE | 2017-07-26 10:36 | PD.WCN.NOT ---
Wound Consult Description: Wound VAC dislodged patient seen this morning for wound VAC reapplication. Communicated with: MACK Jacinto F pod Additional Information: See NPWT Neg Pressure Wound Therapy Wound Location Wound Location: Bilateral Ischium Wound Description Wound bed appearance: 70% pale red non granulation tissue and ~30% red granulation tissue.Minimal sanguinous drainage is noted Periwound appearance: Other (Some maceration noted otherwise unremarkable) Settings Suction: 125 mmHg Intensity: Low Other Information: Bridged Foam type: Black Number of pieces: 3 Additonal Information Patient seen on F pod for wound VAC reapplication after dislodgement last night.Received call from Ophelia GIRON CDU yesterday evening about leaking wound VAC. Instructed RN on how to seal wound VAC with stoma paste and drape. IF unable to obtain seal and wound VAC becomes dislodged, instructed to RN to remove granufoam and apply wet to dry dressing per policy,if she is unable to apply another wound VAC dressing properly with help from pharmacist in charge owner and Wound care nurse wound reapply in the morning. Harmonic Analyst called down to CDU to follow up this morning, Wound VAC did become dislodged last night, and wet to dry was applied. Patient lifted L leg and R stump up to reveal wound behind scrotum to bilateral ischial area. Removed ABd pad with paper tape and moist gauze from wound to bilateral ischial area. Cleansed wound with normal saline and patted dry.Periwound skin was cleansed with soap and water and patted dry. Applied skin barrier film to periwound and to intact skin extending to L thigh for bridging.Applied stoma paste to wound margins to seal wound VAC dressing. Applied One large piece of granufoam to wound bed . Then applied a second and third smaller pieces of black granufoam to fill in entire wound bed. Secured foam in place with VAC drape. Small hole was cut in VAC drape to expose foam. VAC drape was bridged from wound to L anterior thigh. Then applied 1 Long strip of black granufoam from wound bed extending to L anterior thigh over drape bridge. Trac pad was applied to Anterior thigh bridge. Covered all exposed granufoam with VAC drape to seal.Patient tolerated VAC dressing application well.Will change Wound VAC dressing again on Sunday07/30/2017. Sonam Flannery [facility] Jul 26, 2017 10:35
--- NOTE | 2017-07-26 14:01 | HHI.PR ---
Subjective Remarks The patient said his pain was controlled. He said they just put the wound VAC back on. He said that he still has diarrhea. He would like to avoid an amputation of his left lower extremity. Discussed with nursing. Objective Vitals Vital Signs Date Time Temp Pulse Resp B/P (MAP) Pulse Ox O2 Delivery O2 Flow Rate FiO2 07/26/17 11:36 98.9 74 20 125/57 (79) 99 07/26/17 07:57 98.9 65 20 124/66 (85) 100 07/26/17 04:19 98.4 71 16 139/67 (91) 100 07/26/17 01:43 98.9 69 16 117/55 (75) 100 07/25/17 21:52 98.8 77 16 105/58 (74) 99 07/25/17 16:53 98.8 79 18 102/57 (72) 100 I/O 07/25/17 07/25/17 07/25/17 07/26/17 07/26/17 07/26/17 07:00 15:00 23:00 07:00 15:00 23:00 Intake Total 675 ml 1000 ml Output Total 850 ml 1500 ml 900 ml 500 ml Balance -850 ml -825 ml -900 ml 500 ml Intake Oral 675 ml 1000 ml Output Urine Total 850 ml 1500 ml 900 ml 500 ml # Voids 3 Result Diagram: 07/26/17 0441 07/26/17 0441 Imaging Last Impressions Lower Extremity MRI 07/23/17 0000 Signed Impressions: Service Date/Time: Sunday, July 23, 2017 20:15 - CONCLUSION: 1. The soft tissue ulceration laterally of the left leg appears slightly improved. No drainable soft tissue abscess. 2. However, there is increased conspicuity and extent of cortical thickening and signal changes of the fibula compatible with acute on chronic osteomyelitis. There is elongated and nearly diffuse intramedullary fluid typical of abscess as well as an apparent developing sinus tract approximately 6.1 cm proximal to the lateral malleolus. Yonathan Hess MD Chest X-Ray 07/22/17 0000 Signed Impressions: Service Date/Time: Saturday, July 22, 2017 13:06 - CONCLUSION: No acute disease. Cuba Bone MD Abdomen/Pelvis CT 07/22/17 0000 Signed Impressions: Service Date/Time: Saturday, July 22, 2017 14:36 - CONCLUSION: 1. Chronic bony changes about the pelvic girdle and proximal femurs or bony destruction and extensive heterotopic bone formation. 2. Probable associated decubitus type ulcers bilaterally with the right ischium/inferior pubic ramus partially exposed suggesting osteomyelitis in this region. 3. Cholelithiasis. 4. Ostomy in the upper midabdomen. Ry Uribe MD Objective Remarks GENERAL: This is a well-nourished, well-developed patient, in no apparent distress. HEENT: NC, AT. CARDIOVASCULAR: Regular rate and regular rhythm without murmurs, gallops, or rubs. RESPIRATORY: Clear to auscultation. Breath sounds equal bilaterally. No wheezes , rales, or rhonchi. GASTROINTESTINAL: Abdomen soft, non-tender, nondistended. Normoactive bowel sounds; ostomy in place. MUSCULOSKELETAL: Right AKA. LLE is wrapped. Wound VAC in place. NEURO: Alert & Oriented x4 to person, place, time, situation. PSYCH: Mood and affect appropriate. Medications and IVs Current Medications Medications (Trade) Dose Ordered Sig/Jocelynn Route Start Time Stop Time Status Last Admin (NS Flush) 2 ml UNSCH PRN IV FLUSH 07/22/17 16:30 (NS Flush) 2 ml BID IV FLUSH 07/22/17 21:00 07/26/17 09:13 (Tylenol) 650 mg Q4H PRN PO 07/22/17 16:30 (Zofran Inj) 4 mg Q6H PRN IVP 07/22/17 16:30 (Lovenox Inj) 40 mg Q24H SQ 07/22/17 18:00 07/25/17 17:47 (Narcan Inj) 0.4 mg UNSCH PRN IV PUSH 07/22/17 16:30 ([place]-Colace) 1 tab BID PO 07/22/17 21:00 Future Hold 07/22/17 21:07 (Milk Of Magnesia Liq) 30 ml Q12H PRN PO 07/22/17 16:30 (Senokot) 17.2 mg Q12H PRN PO 07/22/17 16:30 (Dulcolax Supp) 10 mg DAILY PRN RECTAL 07/22/17 16:30 (Lactulose Liq) 30 ml DAILY PRN PO 07/22/17 16:30 (Santyl Oint) 1 applic DAILY TOPICAL 07/23/17 09:00 07/25/17 09:34 (Lactinex) 1 tab BID PO 07/22/17 21:00 07/26/17 09:13 (Megace Liq) 625 mg DAILY PO 07/23/17 09:00 07/26/17 09:14 ([place] 10-325 Mg) 1 tab Q4H PRN PO 07/22/17 17:00 07/26/17 09:13 Ertapenem 1000 mg/ Sodium Chloride 100 ml @ 200 mls/hr Q24H IV 07/24/17 13:00 07/25/17 13:25 A/P Problem List: (1) UTI (urinary tract infection) ICD Code: N39.0 - Urinary tract infection, site not specified Status: Acute (2) Osteomyelitis ICD Code: M86.9 - Osteomyelitis, unspecified Assessment and Plan Sacral decubitus ulcer, osteomyelitis Consulted infectious disease, wound care. Recommendations appreciated. Patient reportedly completed his course of IV antibiotics on Sunday and his PICC line was removed at that time. MRI showed: The soft tissue ulceration laterally of the left leg appears slightly improved; No drainable soft tissue abscess; However, there is increased conspicuity and extent of cortical thickening and signal changes of the fibula compatible with acute on chronic osteomyelitis; There is elongated and nearly diffuse intramedullary fluid typical of abscess as well as an apparent developing sinus tract approximately 6.1 cm proximal to the lateral malleolus. Podiatry, orthopedic surgery and vascular surgery consults appreciated. The patient is recommended to have an amputation per vascular surgery, however, the pt would like to focus on medical management first. - continue antibiotics per ID. Currently on IV ertapenem. - pain control as needed. - wound vac per wound care nurse. ESBL UTI Patient has suprapubic catheter, which he states was changed recently. Urine culture growing ESBL klebsiella and GNR. - antibiotics per infectious disease. IV ertapenem. Nausea/vomiting/diarrhea Possibly gastroenteritis. Improved. C diff negative. - antiemetics as needed. - ADAT. - hold bowel regimen. Anemia Appears chronic. - follow CBC and transfuse as needed. Elevated LFTs CT abdomen without obvious abnormality. LFTs appear chronically elevated. - trend LFTs. Resolved. DVT prophylaxis: Lovenox Discharge Planning Awaiting final ID recommendations and PT eval Problem Qualifiers (1) Osteomyelitis: Cuba Baldwin DO Jul 26, 2017 14:01
[2017-07-26] MEDS: ERTAPENEM INJ 1,000 MG in SODIUM CHLORIDE 0.9% INJ 100 ML IV SCH (14:24)
--- NOTE | 2017-07-26 17:47 | HHI.IDPN ---
Subjective Subjective Remarks afebrile seen by Dr Pitt: AKA is the only surgical option for this patient also dw template fitter Antibiotics Ertapenem Allergies: Coded Allergies: clindamycin (Verified Allergy, Severe, HIVES, 07/22/17) sulfamethoxazole (Verified Allergy, Severe, RASH, 07/22/17) trimethoprim (Verified Allergy, Severe, RASH, 07/22/17) vancomycin (Verified Allergy, Severe, hives, 07/22/17) morphine (Verified Adverse Reaction, Severe, Tachycardia, 07/22/17) Objective . Vital Signs Date Time Temp Pulse Resp B/P (MAP) Pulse Ox O2 Delivery O2 Flow Rate FiO2 07/26/17 17:07 99.0 79 20 118/55 (76) 100 07/26/17 11:36 98.9 74 20 125/57 (79) 99 07/26/17 07:57 98.9 65 20 124/66 (85) 100 07/26/17 04:19 98.4 71 16 139/67 (91) 100 07/26/17 01:43 98.9 69 16 117/55 (75) 100 07/25/17 21:52 98.8 77 16 105/58 (74) 99 . Laboratory Tests Test 07/26/17 04:41 White Blood Count 7.7 TH/MM3 Red Blood Count 4.27 MIL/MM3 Hemoglobin 10.1 GM/DL Hematocrit 32.2 % Mean Corpuscular Volume 75.5 FL Mean Corpuscular Hemoglobin 23.7 PG Mean Corpuscular Hemoglobin Concent 31.5 % Red Cell Distribution Width 17.0 % Platelet Count 502 TH/MM3 Mean Platelet Volume 6.3 FL Laboratory Tests Test 07/26/17 04:41 Blood Urea Nitrogen 9 MG/DL Creatinine 0.58 MG/DL Random Glucose 93 MG/DL Total Protein 7.9 GM/DL Albumin 2.4 GM/DL Calcium Level 9.1 MG/DL Magnesium Level 1.8 MG/DL Alkaline Phosphatase 174 U/L Aspartate Amino Transf (AST/SGOT) 36 U/L Alanine Aminotransferase (ALT/SGPT) 60 U/L Total Bilirubin LESS THAN 0.1 MG/DL Direct Bilirubin 0.1 MG/DL Sodium Level 140 MEQ/L Potassium Level 4.6 MEQ/L Chloride Level 106 MEQ/L Carbon Dioxide Level 24.3 MEQ/L Anion Gap 10 MEQ/L Estimat Glomerular Filtration Rate 179 ML/MIN Indirect Bilirubin 0.0 MG/DL Imaging Last Impressions Lower Extremity MRI 07/23/17 0000 Signed Impressions: Service Date/Time: Sunday, July 23, 2017 20:15 - CONCLUSION: 1. The soft tissue ulceration laterally of the left leg appears slightly improved. No drainable soft tissue abscess. 2. However, there is increased conspicuity and extent of cortical thickening and signal changes of the fibula compatible with acute on chronic osteomyelitis. There is elongated and nearly diffuse intramedullary fluid typical of abscess as well as an apparent developing sinus tract approximately 6.1 cm proximal to the lateral malleolus. Yonathan Hess MD Chest X-Ray 07/22/17 0000 Signed Impressions: Service Date/Time: Saturday, July 22, 2017 13:06 - CONCLUSION: No acute disease. Cuba Bone MD Abdomen/Pelvis CT 07/22/17 0000 Signed Impressions: Service Date/Time: Saturday, July 22, 2017 14:36 - CONCLUSION: 1. Chronic bony changes about the pelvic girdle and proximal femurs or bony destruction and extensive heterotopic bone formation. 2. Probable associated decubitus type ulcers bilaterally with the right ischium/inferior pubic ramus partially exposed suggesting osteomyelitis in this region. 3. Cholelithiasis. 4. Ostomy in the upper midabdomen. Ry Uribe MD Physical Exam CONSTITUTIONAL/GENERAL: This is an adequately nourished patient, in no apparent distress. TUBES/LINES/DRAINS: SKIN: No jaundice, rashes, or lesions. . Skin temperature appropriate. Not diaphoretic. VAC in place over L buttock ulcer CARDIOVASCULAR: Regular rate and rhythm without murmurs, gallops, or rubs. No JVD. Peripheral pulses symmetric. RESPIRATORY/CHEST: Symmetric, unlabored respirations. Clear to auscultation. Breath sounds equal bilaterally. No wheezes, rales, or rhonchi. GASTROINTESTINAL: Abdomen soft, + tender to palpation in RLQ, mildly to moderately distended. No hepato-splenomegaly, or palpable masses. No guarding. Bowel sounds present. Stoma oi place with small amount of liquid brown stool GENITOURINARY: Without palpable bladder distension. Sp catheter in place with quite cloudy urine MUSCULOSKELETAL: Extremities without clubbing, cyanosis, or edema. dressing in place over LLE with serous staining sp R AKA - healed L DP and TP pulses not palpable NEUROLOGICAL: Awake and alert. Paraplegia Follows commands with BUE. Clear speech PSYCHIATRIC: calm and coooperative Assessment & Plan Remarks Paraplegia Acute and chronic osteomyelitis at the fibula of left lower extremity. Chronic wound LLE. Culture has proteus, group D enterococcus and MRSA.. UTI - growing ESBL+ e.coli Sacral decubitus ulcer. : stage IV, but clean L fibula osteo and abscess/ sinus tract - with probably underlying PVD - only surgical option is AKA and the pt is refusing diarrhea, C.diff negative cont Ertapenem Agree that extremety is unlikely salvagible if pt insists on conservative treatmetn (which will likely fail) I will need deep tissu/ bone culture to Ana Oliveira MD Jul 26, 2017 17:47
[2017-07-26] MEDS: ENOXAPARIN SODIUM 40 MG/0.4 ML SYRINGE SQ SCH (18:05)
[2017-07-27 03:35] VITALS: BP 119/55; PULSE 77; RESP 16; TEMP 98.6; O2SAT 99
[2017-07-27] MEDS: ACETAMINOPHEN/HYDROcodone 325 MG/10 MG TAB PO PRN ×5 (05:55→23:11)
[2017-07-27 08:03] VITALS: BP 114/67; PULSE 80; RESP 18; TEMP 98; O2SAT 99
[2017-07-27] MEDS: LACTOBACILLUS ACIDOPHILUS TAB PO SCH ×2 (09:32→23:11)
[2017-07-27] MEDS: COLLAGENASE OINT 30 GM TUBE TOPICAL SCH (09:33)
[2017-07-27] MEDS: MEGESTROL ACETATE SUSP 400 MG/10 ML CUP PO SCH (09:33)
[2017-07-27] MEDS: SODIUM CHLORIDE 0.9% FLUSH 10 ML FLUSH IV FLUSH SCH ×2 (09:33→23:11)
--- NOTE | 2017-07-27 11:20 | HHI.PR ---
Subjective Remarks F/U left tib OM. Opting for med mgt agrees with bone bx dw RN Objective Vitals Vital Signs Date Time Temp Pulse Resp B/P (MAP) Pulse Ox O2 Delivery O2 Flow Rate FiO2 07/27/17 08:03 98.0 80 18 114/67 (83) 99 07/27/17 03:35 98.6 77 16 119/55 (76) 99 07/26/17 23:15 98.7 85 16 117/62 (80) 100 07/26/17 20:02 98.7 71 16 117/59 (78) 100 07/26/17 17:07 99.0 79 20 118/55 (76) 100 07/26/17 11:36 98.9 74 20 125/57 (79) 99 I/O 07/26/17 07/26/17 07/26/17 07/27/17 07/27/17 07/27/17 07:00 15:00 23:00 07:00 15:00 23:00 Intake Total 1000 ml 720 ml Output Total 500 ml 900 ml Balance 500 ml -180 ml Intake Oral 1000 ml 720 ml Output Urine Total 500 ml 900 ml # Bowel Movements 0 Result Diagram: 07/26/17 0441 07/26/17 0441 Imaging Last Impressions Lower Extremity MRI 07/23/17 0000 Signed Impressions: Service Date/Time: Sunday, July 23, 2017 20:15 - CONCLUSION: 1. The soft tissue ulceration laterally of the left leg appears slightly improved. No drainable soft tissue abscess. 2. However, there is increased conspicuity and extent of cortical thickening and signal changes of the fibula compatible with acute on chronic osteomyelitis. There is elongated and nearly diffuse intramedullary fluid typical of abscess as well as an apparent developing sinus tract approximately 6.1 cm proximal to the lateral malleolus. Yonathan Hess MD Chest X-Ray 07/22/17 0000 Signed Impressions: Service Date/Time: Saturday, July 22, 2017 13:06 - CONCLUSION: No acute disease. Cuba Bone MD Abdomen/Pelvis CT 07/22/17 0000 Signed Impressions: Service Date/Time: Saturday, July 22, 2017 14:36 - CONCLUSION: 1. Chronic bony changes about the pelvic girdle and proximal femurs or bony destruction and extensive heterotopic bone formation. 2. Probable associated decubitus type ulcers bilaterally with the right ischium/inferior pubic ramus partially exposed suggesting osteomyelitis in this region. 3. Cholelithiasis. 4. Ostomy in the upper midabdomen. Ry Uribe MD Objective Remarks GENERAL: This is a well-nourished, well-developed patient, in no apparent distress. HEENT: NC, AT. CARDIOVASCULAR: Regular rate and regular rhythm without murmurs, gallops, or rubs. RESPIRATORY: Clear to auscultation. Breath sounds equal bilaterally. No wheezes , rales, or rhonchi. GASTROINTESTINAL: Abdomen soft, non-tender, nondistended. Normoactive bowel sounds; ostomy in place. MUSCULOSKELETAL: Right AKA. LLE is wrapped. Wound VAC in place. NEURO: Alert & Oriented x4 to person, place, time, situation. Paraplegic PSYCH: Mood and affect appropriate. A/P Problem List: (1) UTI (urinary tract infection) ICD Code: N39.0 - Urinary tract infection, site not specified Status: Acute (2) Osteomyelitis ICD Code: M86.9 - Osteomyelitis, unspecified Assessment and Plan 52 yo BM with Paraplegia Acute and chronic osteomyelitis and abscess/sinus tract at the fibula of left lower extremity. Chronic wound LLE. Culture has proteus, group D enterococcus and MRSA.. Recommended AKA but refusing. He is opting for medical management continue IV Invanz ID recommending bone biopsy discussed with podiatry. Will need PICC ESBL UTI with chronic indwelling catheter which will be replaced. Culture growing ESBL, Klebsiella and GNR continue IV Invanz. Nausea/vomiting/diarrhea Possibly gastroenteritis. Improved. C diff negative. - antiemetics as needed. - ADAT. - hold bowel regimen. Continue Lactinex Anemia Appears chronic. - follow CBC and transfuse as needed. Elevated LFTs CT abdomen without obvious abnormality. LFTs appear chronically elevated. - trend LFTs. Resolved. Sacral decubitus. Continue wound care/wound VAC DVT prophylaxis: Lovenox Problem Qualifiers (1) Osteomyelitis: Mahesh Garrett MD Jul 27, 2017 11:20
[2017-07-27 12:03] VITALS: BP 120/56; PULSE 90; RESP 18; TEMP 97.9; O2SAT 100
[2017-07-27] MEDS: ERTAPENEM INJ 1,000 MG in SODIUM CHLORIDE 0.9% INJ 100 ML IV SCH (13:37)
--- NOTE | 2017-07-27 15:54 | PD.POD ---
Subjective Pain score: 0 Remarks Understands severity of infection and is wishing for all limb salvage efforts despite being well educated that long-term IV antibiotics will likely fail Past Med/Surg/Social History Social History Smoking Status: Former Smoker Objective Vital Signs Vital Signs Date Time Temp Pulse Resp B/P (MAP) Pulse Ox O2 Delivery O2 Flow Rate FiO2 07/27/17 12:15 18 07/27/17 12:03 97.9 90 18 120/56 (77) 100 07/27/17 08:03 98.0 80 18 114/67 (83) 99 07/27/17 03:35 98.6 77 16 119/55 (76) 99 07/26/17 23:15 98.7 85 16 117/62 (80) 100 07/26/17 20:02 98.7 71 16 117/59 (78) 100 07/26/17 17:07 99.0 79 20 118/55 (76) 100 Coded Allergies: clindamycin (Verified Allergy, Severe, HIVES, 07/22/17) sulfamethoxazole (Verified Allergy, Severe, RASH, 07/22/17) trimethoprim (Verified Allergy, Severe, RASH, 07/22/17) vancomycin (Verified Allergy, Severe, hives, 07/22/17) morphine (Verified Adverse Reaction, Severe, Tachycardia, 07/22/17) Medications and IVs Administered Medications Medications (Trade) Dose Ordered Sig/Jocelynn Route PRN Reason Start Time Stop Time Status Last Admin Dose Admin Sodium Chloride (NS Flush) 2 ml BID IV FLUSH 07/22/17 21:00 07/27/17 09:33 Enoxaparin Sodium (Lovenox Inj) 40 mg Q24H SQ 07/22/17 18:00 07/26/17 18:05 Senna/Docusate Sodium ([place]-Colace) 1 tab BID PO 07/22/17 21:00 Future Hold 07/22/17 21:07 Collagenase (Santyl Oint) 1 applic DAILY TOPICAL 07/23/17 09:00 07/27/17 09:33 Lactobacillus Acidophilus (Lactinex) 1 tab BID PO 07/22/17 21:00 07/27/17 09:32 Megestrol Acetate (Megace Liq) 625 mg DAILY PO 07/23/17 09:00 07/27/17 09:33 Acetaminophen/ Hydrocodone Bitart ([place] 10-325 Mg) 1 tab Q4H PRN PO PAIN SCALE 4 TO 10 07/22/17 17:00 07/27/17 15:45 Ertapenem 1000 mg/ Sodium Chloride 100 ml @ 200 mls/hr Q24H IV 07/24/17 13:00 07/27/17 13:37 Other Results Laboratory Tests Test 07/26/17 04:41 White Blood Count 7.7 TH/MM3 Red Blood Count 4.27 MIL/MM3 Hemoglobin 10.1 GM/DL Hematocrit 32.2 % Mean Corpuscular Volume 75.5 FL Mean Corpuscular Hemoglobin 23.7 PG Mean Corpuscular Hemoglobin Concent 31.5 % Red Cell Distribution Width 17.0 % Platelet Count 502 TH/MM3 Mean Platelet Volume 6.3 FL Laboratory Tests Test 07/26/17 04:41 Blood Urea Nitrogen 9 MG/DL Creatinine 0.58 MG/DL Random Glucose 93 MG/DL Total Protein 7.9 GM/DL Albumin 2.4 GM/DL Calcium Level 9.1 MG/DL Magnesium Level 1.8 MG/DL Alkaline Phosphatase 174 U/L Aspartate Amino Transf (AST/SGOT) 36 U/L Alanine Aminotransferase (ALT/SGPT) 60 U/L Total Bilirubin LESS THAN 0.1 MG/DL Direct Bilirubin 0.1 MG/DL Sodium Level 140 MEQ/L Potassium Level 4.6 MEQ/L Chloride Level 106 MEQ/L Carbon Dioxide Level 24.3 MEQ/L Anion Gap 10 MEQ/L Estimat Glomerular Filtration Rate 179 ML/MIN Indirect Bilirubin 0.0 MG/DL MRI findings: FINDINGS: Again seen is an elongated area of soft tissue ulceration laterally of the left leg. This appears to have undergone some healing and granulation in the interim. There is no abscess. Chronic cortical thickening seen of the entire shaft of the left fibula, most pronounced in the distal shaft region and worse in the interim. There is edema and patchy T1 signal abnormality. Ill-defined fluid is seen in the medullary space almost along the entire length of the bone. The signal abnormality/fluid spares the distal 4.3 cm or so of the bone but otherwise is fairly diffuse. There is reactive appearing enhancement of the bone. The bone appears largely viable. There is a suspected small caliber draining sinus of the bone approximately 6.1 cm proximal to the lateral malleolus. CONCLUSION: 1. The soft tissue ulceration laterally of the left leg appears slightly improved. No drainable soft tissue abscess. 2. However, there is increased conspicuity and extent of cortical thickening and signal changes of the fibula compatible with acute on chronic osteomyelitis. There is elongated and nearly diffuse intramedullary fluid typical of abscess as well as an apparent developing sinus tract approximately 6.1 cm proximal to the lateral malleolus. Physical Exam Remarks EXTREMITIES: Left lower extremity : the patient has diminished pulses and no protective sensation on the lateral aspect of the leg. Atrophic leg flaccid ,there is a long, approximately 18 cm x 2 cm full-thickness ulceration primarily granular with some spots of fibrotic tissue. No deep probing. No exposed bone. No erythema. Mild serosanguineous drainage, slight malodor. Assessment & Plan A/P Left ankle leg ulcer, fibular osteomyelitis. Plan is for incision and drainage debridement of the left ankle and leg with bone biopsy tomorrow to help direct antimicrobial management of osteomyelitis. The patient was educated on risks and benefits of procedure including but not limited to need for more surgery, likely need for amputation at a later date. The patient will be ordered n.p.o. surgery planned for tomorrow Won Puentes DPM Jul 27, 2017 15:54
[2017-07-27 16:03] VITALS: BP 132/62; PULSE 85; RESP 18; TEMP 98.8; O2SAT 100
[2017-07-27] MEDS: ENOXAPARIN SODIUM 40 MG/0.4 ML SYRINGE SQ SCH (16:49)
--- NOTE | 2017-07-27 18:14 | PD.CAR.PN ---
CVT Progress Note Subjective/Hospital Course: 52-year-old gentleman with multiple decubiti consequent to paraplegia Right above-knee amputation and a large defect of the left leg below the level of the knee and lateral This is mainly due to pressure when patient is laying down and fracture generated by the wheelchair support when he is sitting in it Considering the patient's paraplegic he is insensate so this has been now fairly large for a while In addition patient has chronic osteomyelitis of the fibula Vascular exam of the left leg shows good inflow and outflow with palpable femoral popliteal dorsalis pedis and posterior tibial pulse Foot is warm Based on all of this, patient does not need any further vascular workup for his inflow and outflow are clinically adequate As far as the healing of this ulcer is concerned, this is predicated on resolving the fibular osteomyelitis which is almost impossible This patient will end up with above-knee amputation on the left side in foreseeable future Right now patient is not willing to consider this but once he changes his mind I be available to go ahead with surgery No other options are available long-term Full consult dictated Thanks J He has a well-healed right above-knee amputation which is quite short. In addition, the patient has a left lower leg large ulcer, which is going through subcutaneous tissue. In addition, the patient has fibula chronic osteomyelitis. He has palpable proximal and distal pulses in the leg and no acute chronic vascular defici At this point, I do not believe this is going to heal in face of chronic infection and I believe the patient will eventually need above-knee amputation here, but he would like to try everything else before that. Nothing to add from my point. Patient does not need further vascular workup because his blood supply to the left leg is adequate. 07/27/2017 Patient with paraplegia right AKA and osteomyelitis of the left leg There are no other options than above-knee amputation at this time Patient vehemently refuses the surgery. When and if patient comes around please let me know for this time of nothing to add to patient's care Objective: Vital Signs Date Time Temp Pulse Resp B/P (MAP) Pulse Ox O2 Delivery O2 Flow Rate FiO2 07/27/17 16:45 20 07/27/17 12:03 97.9 90 18 120/56 (77) 100 07/27/17 08:03 98.0 80 18 114/67 (83) 99 07/27/17 03:35 98.6 77 16 119/55 (76) 99 07/26/17 23:15 98.7 85 16 117/62 (80) 100 07/26/17 20:02 98.7 71 16 117/59 (78) 100 Result Diagram: 07/26/17 0441 07/26/17 0441 Phylicia Pitt MD Jul 27, 2017 18:14
[2017-07-27 20:00] VITALS: BP 133/62; PULSE 83; RESP 18; TEMP 98.3; O2SAT 100
[2017-07-27 23:49] VITALS: BP 136/68; PULSE 76; RESP 20; TEMP 98.4; O2SAT 100
[2017-07-28] MEDS ORDERED: CHLORHEXIDINE GLUCONATE 2 % 1 PACK (2 CLOTHS) TOPICAL PRN (05:00)
[2017-07-28] MEDS ORDERED: SODIUM CHLORID 0.9% 500 ML IV PRN (05:00)
[2017-07-28] MEDS ORDERED: LACTATED RINGER'S 1000 ML IV PRN (05:00)
[2017-07-28] MEDS ORDERED: POVIDONE IODINE 5% (ANTISEPSIS KIT) 4 APPLICATIONS EACH NARE PRN (05:00)
[2017-07-28] MEDS ORDERED: METOPROLOL TARTRATE 25 MG TAB PO PRN (05:00)
[2017-07-28] MEDS: ACETAMINOPHEN/HYDROcodone 325 MG/10 MG TAB PO PRN ×5 (05:19→21:56)
[2017-07-28 05:38] VITALS: BP 123/60; PULSE 73; RESP 20; TEMP 98.4; O2SAT 99
[2017-07-28] MEDS ORDERED: BUPIVACAINE HCL PF 0.25% 30 ML VIAL ONE (07:43)
[2017-07-28] MEDS ORDERED: ACETAMINOPHEN 1000 MG/100 ML 0 ML IV ONE (07:50)
[2017-07-28] MEDS ORDERED: NEOMYCIN/POLYMYXIN 1 ML G.U. IRRIGANT ONE (07:51)
[2017-07-28 08:03] VITALS: BP 128/62; PULSE 78; RESP 18; TEMP 98.1; O2SAT 96
[2017-07-28] MEDS: COLLAGENASE OINT 30 GM TUBE TOPICAL SCH (09:00)
[2017-07-28] MEDS: SODIUM CHLORIDE 0.9% FLUSH 10 ML FLUSH IV FLUSH SCH ×2 (09:00→21:56)
[2017-07-28] MEDS ORDERED: *HYDROmorphone PF 0.5 MG/0.5 ML PERIprocedure ONLY ONE (09:07)
--- NOTE | 2017-07-28 09:26 | HHI.PR ---
Immediate Post Op Note Procedure Date: Jul 28, 2017 Pre Op Diagnosis: Left ankle distal leg ulcer osteomyelitis Post Op Diagnosis: Same Surgeon: Won Hernandez Stock Sheets Cleaner Inspector(s): Scrub Procedure: Sharp excisional expansile debridement of distal leg ulcer, incision bone cortex distal fibula, bone biopsy Findings: Hard cortical bone noted from the 2 specimens Complications: None Specimen(s) removed: 2 pieces of bone fibula, one-piece 6.1 cm from the tip of the lateral malleolus , one piece of bone just proximal to this area, bone swab for microbial analysis 2 Anesthesia: General Drains: None PRBC Patient to: PACU Patient Condition: Good Implant/Devices: SEE IMPLANT LOG (if applicable) Date/Time of Procedure: SEE SURGICAL CARE RECORD Won HernandezM Jul 28, 2017 09:26
--- NOTE | 2017-07-28 09:53 | MP ---
cc: Won Brambila DPM DATE OF OPERATION: 07/28/2017 PREOPERATIVE DIAGNOSIS: Left ankle, leg osteomyelitis fibula. POSTOPERATIVE DIAGNOSIS: Left ankle, leg osteomyelitis fibula. PROCEDURE PERFORMED: Left sharp excisional debridement lateral leg ulcer and ankle with incision bone cortex, bone biopsy of fibula. ESTIMATED BLOOD LOSS: Less than 3 mL. COMPLICATIONS: None. TOURNIQUET: None. INJECTABLES: None. SPECIMEN: Times 2. Bone specimen, 1 at 6.1 cm from the distal lateral malleolus and 1 specimen just proximal to this area by 2-3 mm. Bone swab taken of the specimens for microbial analysis. DISPOSITION: Return to floor. Possible reconsultation to Ortho for possible evaluation for fibula removal pending biopsy, possible return to the use of wound VAC. PROCEDURE IN DETAIL: Under mild sedation, the patient was brought into the operating room, and placed on the operating table in supine position. Following the induction of general anesthesia, the left lower extremity was scrubbed, prepped and draped in the usual aseptic fashion. The foot was elevated and examined. Expansile ulceration noted at the level of the patient's fibular head. This ulceration measured approximately 6 x 3 cm that probed and had in its most inferior aspect necrotic tissue. This was sharply excised to viable bleeding tissue. Next, just at the most dorsal aspect proximal of the expansile lateral fibular ulcer, there was a same necrotic type tissue that was sharply excised to viable bleeding tissue. The lateral calf and ankle ulcer extended well beyond 30 cm with its greatest width of approximately 6 cm. However, at least 95% of this was granular. A sharp excisional debridement took place of the wound periphery to viable bleeding tissue. At this time, a ruler was then used to measure 6.1 cm from the distal aspect of the fibula. An incision was made at the anterior aspect of the fibula. Jamshidi bone trocar was then introduced. Subperiosteal dissection confirmed. Jamshidi trocar deployed and there was noted to be a hard bony cortical texture. Specimen removed. There was no chemo purulence coming from the intramedullary canal. A swab was taken of the bone forceps. Just proximal to this by about 2-3 mm, a second incision was made in a new Jamshidi bone trocar was introduced subperiosteal, it was deployed. Specimen was received of the fibula. A swab was taken. Both specimens were sent for pathological analysis. The wound was flushed and closed. A nonadherent bandage applied to the distal lateral ankle as well as proximal fibular head ulcer. Good bleeding noted after debridement. The patient recovered in PACU. We will continue to follow the pathological analysis as well as the microbial analysis. No further surgery planned from my end. However, possible discussion with Dr. Reyes may lead to partial resection of fibula to eradicate bone infection. We will continue to follow along and advise. LACEY Hickey/JOHN , 09:30 AM , 09:53 AM
[2017-07-28] MEDS: LACTOBACILLUS ACIDOPHILUS TAB PO SCH ×2 (09:55→21:56)
[2017-07-28] MEDS: MEGESTROL ACETATE SUSP 400 MG/10 ML CUP PO SCH (09:56)
--- NOTE | 2017-07-28 11:14 | HHI.PR ---
Subjective Remarks F/u OM left tibia. Doing ok tolerated biopsy dw RN Objective Vitals Vital Signs Date Time Temp Pulse Resp B/P (MAP) Pulse Ox O2 Delivery O2 Flow Rate FiO2 07/28/17 09:30 98.5 63 14 138/65 (89) 100 Room Air 07/28/17 09:15 61 14 135/65 (88) 100 Room Air 07/28/17 09:00 58 14 143/71 (95) 100 Room Air 07/28/17 08:57 98.5 60 14 143/69 (93) 100 Room Air 07/28/17 08:03 98.1 78 18 128/62 (84) 96 07/28/17 05:38 98.4 73 20 123/60 (81) 99 07/28/17 00:11 16 07/27/17 23:49 98.4 76 20 136/68 (90) 100 07/27/17 20:00 98.3 83 18 133/62 (85) 100 07/27/17 16:03 98.8 85 18 132/62 (85) 100 07/27/17 12:03 97.9 90 18 120/56 (77) 100 I/O 07/27/17 07/27/17 07/27/17 07/28/17 07/28/17 07/28/17 07:00 15:00 23:00 07:00 15:00 23:00 Intake Total 720 ml 360 ml 420 ml 300 ml Output Total 900 ml 1600 ml 725 ml 15 ml Balance -180 ml -1240 ml -305 ml 285 ml Intake Oral 720 ml 360 ml 420 ml Other 300 ml Output Urine Total 900 ml 1600 ml 725 ml Estimated Blood Loss 15 ml # Bowel Movements 0 0 Result Diagram: 07/26/17 0441 07/26/17 0441 Imaging Last Impressions Lower Extremity MRI 07/23/17 0000 Signed Impressions: Service Date/Time: Sunday, July 23, 2017 20:15 - CONCLUSION: 1. The soft tissue ulceration laterally of the left leg appears slightly improved. No drainable soft tissue abscess. 2. However, there is increased conspicuity and extent of cortical thickening and signal changes of the fibula compatible with acute on chronic osteomyelitis. There is elongated and nearly diffuse intramedullary fluid typical of abscess as well as an apparent developing sinus tract approximately 6.1 cm proximal to the lateral malleolus. Yonathan Hess MD Chest X-Ray 07/22/17 0000 Signed Impressions: Service Date/Time: Saturday, July 22, 2017 13:06 - CONCLUSION: No acute disease. Cuba Bone MD Abdomen/Pelvis CT 07/22/17 0000 Signed Impressions: Service Date/Time: Saturday, July 22, 2017 14:36 - CONCLUSION: 1. Chronic bony changes about the pelvic girdle and proximal femurs or bony destruction and extensive heterotopic bone formation. 2. Probable associated decubitus type ulcers bilaterally with the right ischium/inferior pubic ramus partially exposed suggesting osteomyelitis in this region. 3. Cholelithiasis. 4. Ostomy in the upper midabdomen. Ry Uribe MD Objective Remarks GENERAL: This is a well-nourished, well-developed patient, in no apparent distress. HEENT: NC, AT. CARDIOVASCULAR: Regular rate and regular rhythm without murmurs, gallops, or rubs. RESPIRATORY: Clear to auscultation. Breath sounds equal bilaterally. No wheezes , rales, or rhonchi. GASTROINTESTINAL: Abdomen soft, non-tender, nondistended. Normoactive bowel sounds; ostomy in place. MUSCULOSKELETAL: Right AKA. LLE is wrapped. Wound VAC in place. NEURO: Alert & Oriented x4 to person, place, time, situation. Paraplegic PSYCH: Mood and affect appropriate. Procedures left tibia bone biopsy A/P Problem List: (1) UTI (urinary tract infection) ICD Code: N39.0 - Urinary tract infection, site not specified Status: Acute (2) Osteomyelitis ICD Code: M86.9 - Osteomyelitis, unspecified Assessment and Plan 52 yo BM with Paraplegia Acute and chronic osteomyelitis and abscess/sinus tract at the fibula of left lower extremity. Chronic wound LLE. Culture has proteus, group D enterococcus and MRSA.. Recommended AKA but refusing. He is opting for medical management continue IV Invanz ID recommending bone biopsy . Will need PICC ESBL UTI with chronic indwelling catheter which will be replaced. Culture growing ESBL, Klebsiella and GNR continue IV Invanz. Nausea/vomiting/diarrhea Possibly gastroenteritis. Improved. C diff negative. - antiemetics as needed. - ADAT. - hold bowel regimen. Continue Lactinex Anemia Appears chronic. - follow CBC and transfuse as needed. Elevated LFTs CT abdomen without obvious abnormality. LFTs appear chronically elevated. - improved Sacral decubitus. Continue wound care/wound VAC DVT prophylaxis: Lovenox Problem Qualifiers (1) Osteomyelitis: Mahesh Garrett MD Jul 28, 2017 11:14
[2017-07-28] MEDS ORDERED: ePHEDrine/NS 25 MG/5 ML SYRINGE IV ONE (12:00)
[2017-07-28] MEDS ORDERED: LIDOCAINE HCL 1% PF 5 ML SYRINGE OTHER ONE (12:00)
[2017-07-28] MEDS ORDERED: PHENYLEPH/NS 1000 MCG/10 ML SYR IV ONE (12:00)
[2017-07-28] MEDS ORDERED: ONDANSETRON HCL 4 MG/2 ML VIAL IV ONE (12:00)
[2017-07-28] MEDS ORDERED: PROPOFOL 200 MG/20 ML AMP IV ONE (12:00)
[2017-07-28] MEDS ORDERED: DEXAMETHASONE SOD PHOS 4 MG/ML VIAL IV ONE (12:00)
[2017-07-28 12:03] VITALS: BP 136/74; PULSE 75; RESP 18; TEMP 98.1; O2SAT 100
[2017-07-28] MEDS: DAPTOmycin INJ 750 MG in SODIUM CHLORIDE 0.9% INJ 100 ML IV SCH (14:17)
[2017-07-28] MEDS: ERTAPENEM INJ 1,000 MG in SODIUM CHLORIDE 0.9% INJ 100 ML IV SCH (14:57)
[2017-07-28 16:03] VITALS: BP 147/70; PULSE 63; RESP 18; TEMP 98.4; O2SAT 100
[2017-07-28] MEDS: ENOXAPARIN SODIUM 40 MG/0.4 ML SYRINGE SQ SCH (18:09)
[2017-07-28 20:00] VITALS: BP 120/60; PULSE 88; RESP 18; TEMP 98.5; O2SAT 99
[2017-07-28 20:21] VITALS: O2SAT 99
[2017-07-29] VITALS: BP 133/71; PULSE 72; RESP 18; TEMP 98; O2SAT 98
[2017-07-29] MEDS: ACETAMINOPHEN/HYDROcodone 325 MG/10 MG TAB PO PRN ×6 (01:59→21:54)
[2017-07-29 04:00] VITALS: BP 148/65; PULSE 69; RESP 18; TEMP 98.4; O2SAT 98
[2017-07-29] MEDS: LACTOBACILLUS ACIDOPHILUS TAB PO SCH ×2 (07:51→21:54)
[2017-07-29] MEDS: SODIUM CHLORIDE 0.9% FLUSH 10 ML FLUSH IV FLUSH SCH ×2 (07:52→21:54)
[2017-07-29] MEDS: MEGESTROL ACETATE SUSP 400 MG/10 ML CUP PO SCH (07:52)
[2017-07-29 08:00] VITALS: BP 172/75; PULSE 63; RESP 20; TEMP 98.2; O2SAT 100
[2017-07-29] MEDS: COLLAGENASE OINT 30 GM TUBE TOPICAL SCH (08:04)
--- NOTE | 2017-07-29 08:20 | HHI.PR ---
Subjective Remarks Follow-up osteomyelitis of the left tibia status post biopsy. No new complaints stools today forming up dw RN Objective Vitals Vital Signs Date Time Temp Pulse Resp B/P (MAP) Pulse Ox O2 Delivery O2 Flow Rate FiO2 07/29/17 04:00 Room Air 07/29/17 04:00 98.4 69 18 148/65 (92) 98 07/29/17 00:00 Room Air 07/29/17 00:00 98.0 72 18 133/71 (91) 98 07/28/17 20:21 99 21 07/28/17 20:00 Room Air 07/28/17 20:00 98.5 88 18 120/60 (80) 99 07/28/17 16:03 98.4 63 18 147/70 (95) 100 07/28/17 12:03 98.1 75 18 136/74 (94) 100 07/28/17 09:30 98.5 63 14 138/65 (89) 100 Room Air 07/28/17 09:15 61 14 135/65 (88) 100 Room Air 07/28/17 09:00 58 14 143/71 (95) 100 Room Air 07/28/17 08:57 98.5 60 14 143/69 (93) 100 Room Air I/O 07/28/17 07/28/17 07/28/17 07/29/17 07/29/17 07/29/17 07:00 15:00 23:00 07:00 15:00 23:00 Intake Total 420 ml 300 ml 420 ml 360 ml Output Total 725 ml 15 ml 1600 ml 650 ml Balance -305 ml 285 ml -1180 ml -290 ml Intake Oral 420 ml 420 ml 360 ml Other 300 ml Output Urine Total 725 ml 1600 ml 650 ml Estimated Blood Loss 15 ml # Bowel Movements 0 1 Result Diagram: 07/26/17 0441 07/26/17 0441 Imaging Last Impressions Lower Extremity MRI 07/23/17 0000 Signed Impressions: Service Date/Time: Sunday, July 23, 2017 20:15 - CONCLUSION: 1. The soft tissue ulceration laterally of the left leg appears slightly improved. No drainable soft tissue abscess. 2. However, there is increased conspicuity and extent of cortical thickening and signal changes of the fibula compatible with acute on chronic osteomyelitis. There is elongated and nearly diffuse intramedullary fluid typical of abscess as well as an apparent developing sinus tract approximately 6.1 cm proximal to the lateral malleolus. Yonathan Hess MD Chest X-Ray 07/22/17 0000 Signed Impressions: Service Date/Time: Saturday, July 22, 2017 13:06 - CONCLUSION: No acute disease. [place] Bone MD Abdomen/Pelvis CT 07/22/17 0000 Signed Impressions: Service Date/Time: Saturday, July 22, 2017 14:36 - CONCLUSION: 1. Chronic bony changes about the pelvic girdle and proximal femurs or bony destruction and extensive heterotopic bone formation. 2. Probable associated decubitus type ulcers bilaterally with the right ischium/inferior pubic ramus partially exposed suggesting osteomyelitis in this region. 3. Cholelithiasis. 4. Ostomy in the upper midabdomen. Ry Uribe MD Objective Remarks GENERAL: This is a well-nourished, well-developed patient, in no apparent distress. HEENT: NC, AT. CARDIOVASCULAR: Regular rate and regular rhythm without murmurs, gallops, or rubs. RESPIRATORY: Clear to auscultation. Breath sounds equal bilaterally. No wheezes , rales, or rhonchi. GASTROINTESTINAL: Abdomen soft, non-tender, nondistended. Normoactive bowel sounds; ostomy in place. MUSCULOSKELETAL: Right AKA. LLE is wrapped. Wound VAC in place. NEURO: Alert & Oriented x4 to person, place, time, situation. Paraplegic PSYCH: Mood and affect appropriate. Procedures left tibia bone biopsy A/P Problem List: (1) UTI (urinary tract infection) ICD Code: N39.0 - Urinary tract infection, site not specified Status: Acute (2) Osteomyelitis ICD Code: M86.9 - Osteomyelitis, unspecified Assessment and Plan 52 yo BM with Paraplegia Acute and chronic osteomyelitis and abscess/sinus tract at the fibula of left lower extremity. Chronic wound LLE. Culture has proteus, group D enterococcus and MRSA.. Recommended AKA but refusing. He is opting for medical management continue IV Invanz ID recommending bone biopsy 07/28 f/u path. Will need PICC ESBL UTI with chronic indwelling catheter which will be replaced. Culture growing ESBL, Klebsiella and GNR continue IV Invanz. Nausea/vomiting/diarrhea Possibly gastroenteritis. Improved. C diff negative. - antiemetics as needed. - ADAT. - hold bowel regimen. Continue Lactinex Anemia Appears chronic. - follow CBC and transfuse as needed. Elevated LFTs CT abdomen without obvious abnormality. LFTs appear chronically elevated. - improved Sacral decubitus. Continue wound care/wound VAC DVT prophylaxis: Lovenox Problem Qualifiers (1) Osteomyelitis: Mahesh Garrett MD Jul 29, 2017 08:20
[2017-07-29 12:00] VITALS: BP 147/66; PULSE 67; RESP 20; TEMP 98.2; O2SAT 100
[2017-07-29] MEDS: DAPTOmycin INJ 750 MG in SODIUM CHLORIDE 0.9% INJ 100 ML IV SCH (12:31)
--- NOTE | 2017-07-29 13:43 | PD.POD ---
Subjective Pain score: 0 Remarks Reviewed with patient we are awaiting biopsy results. The patient is wishing for left lower extremity to remain because it helps with transferring and balance. He is well aware that it is a nonfunctioning extremity in the sense of ambulation however it functions for him with wheelchair transfer in and out of his car. So, from the patient stand point, he sees the left lower extremity as "functioning" and is highly resistant to any amputation unless it is absolutely indicated. Past Med/Surg/Social History Social History Smoking Status: Former Smoker Objective Vital Signs Vital Signs Date Time Temp Pulse Resp B/P (MAP) Pulse Ox O2 Delivery O2 Flow Rate FiO2 07/29/17 12:32 21 07/29/17 12:00 98.2 67 20 147/66 (93) 100 07/29/17 08:00 98.2 63 20 172/75 (107) 100 07/29/17 04:00 Room Air 07/29/17 04:00 98.4 69 18 148/65 (92) 98 07/29/17 00:00 Room Air 07/29/17 00:00 98.0 72 18 133/71 (91) 98 07/28/17 20:21 99 21 07/28/17 20:00 Room Air 07/28/17 20:00 98.5 88 18 120/60 (80) 99 07/28/17 16:03 98.4 63 18 147/70 (95) 100 Coded Allergies: clindamycin (Verified Allergy, Severe, HIVES, 07/22/17) sulfamethoxazole (Verified Allergy, Severe, RASH, 07/22/17) trimethoprim (Verified Allergy, Severe, RASH, 07/22/17) vancomycin (Verified Allergy, Severe, hives, 07/22/17) morphine (Verified Adverse Reaction, Severe, Tachycardia, 07/22/17) Medications and IVs Administered Medications Medications (Trade) Dose Ordered Sig/Jocelynn Route PRN Reason Start Time Stop Time Status Last Admin Dose Admin Sodium Chloride (NS Flush) 2 ml BID IV FLUSH 07/22/17 21:00 07/29/17 07:52 Enoxaparin Sodium (Lovenox Inj) 40 mg Q24H SQ 07/22/17 18:00 07/28/17 18:09 Collagenase (Santyl Oint) 1 applic DAILY TOPICAL 07/23/17 09:00 07/29/17 08:04 Lactobacillus Acidophilus (Lactinex) 1 tab BID PO 07/22/17 21:00 07/29/17 07:51 Megestrol Acetate (Megace Liq) 625 mg DAILY PO 07/23/17 09:00 07/29/17 07:52 Acetaminophen/ Hydrocodone Bitart (Commack 10-325 Mg) 1 tab Q4H PRN PO PAIN SCALE 4 TO 10 07/22/17 17:00 07/29/17 09:50 Ertapenem 1000 mg/ Sodium Chloride 100 ml @ 200 mls/hr Q24H IV 07/24/17 13:00 07/28/17 14:57 Lactated Ringer's 1,000 ml @ 30 mls/hr Q24H PRN IV SEE LABEL COMMENTS 07/28/17 05:00 07/31/17 04:59 07/28/17 05:20 Metoprolol Tartrate (Lopressor) 25 mg MOLD INSPECTOR PRN PO SEE LABEL COMMENTS 07/28/17 05:00 07/31/17 04:59 07/28/17 07:26 Daptomycin 750 mg/ Sodium Chloride 100 ml @ 200 mls/hr Q24H IV 07/28/17 13:00 07/29/17 12:31 Other Results Microbiology Date/Time Source Procedure Growth Status 07/28/17 00:00 Wound Leg Fungal Smear - Final NO FUNGAL ELEMENTS SEEN. Resulted 07/28/17 00:00 Wound Leg Fungal Culture Pending Resulted 07/28/17 00:00 Wound Leg Acid Fast Stain Pending Received 07/28/17 00:00 Wound Leg Mycobacterial Culture Pending Received 07/28/17 00:00 Wound Leg Gram Stain - Final Resulted 07/28/17 00:00 Wound Leg Wound Culture - Preliminary NO GROWTH IN 24 HOURS. Resulted 07/28/17 00:00 Wound Leg Fungal Smear - Final NO FUNGAL ELEMENTS SEEN. Resulted 07/28/17 00:00 Wound Leg Fungal Culture Pending Resulted 07/28/17 00:00 Wound Leg Acid Fast Stain Pending Received 07/28/17 00:00 Wound Leg Mycobacterial Culture Pending Received 07/28/17 00:00 Wound Leg Gram Stain - Final Resulted 07/28/17 00:00 Wound Leg Wound Culture - Preliminary NO GROWTH IN 24 HOURS. Resulted Bone path pending Exam-Podiatry Remarks Well-healed above-knee amputation. Left lower extremity: Flaccid extremity that sits externally rotated in the bed with pressure on the lateral aspect of the leg coursing from fibula down to lateral malleolus. The foot is warm pedal pulses are palpable sensation is not intact there is no muscle movement or spasm noted. Bandage removed wound examined: Varying wound layers of depth however there is an expansile ulceration from just below the head of the fibula down to approximately 6 cm from the lateral malleolus, greatest width is approximately 6 cm greatest depth is approximately 1 cm, exposed deep fascia more proximal overall there is about 95% granulation tissue with viable bleeding tissue upon removing the bandage, serous sanguinous drainage noted with much improved no odor. Physical Exam General appearance: comfortable Nutritional status: normal Orientation: alert and oriented x3 Assessment & Plan A/P Left ankle leg ulcer- exspansile, fibular osteomyelitis. SP Fibula Biopsy, ulcer debridement. I discussed long-term goals with the patient. He is requesting all limb salvage efforts. We spent time discussing ways to offload the patient's left lateral extremity including wrapping "kick stand"type blanket of the proximal thigh to prevent external rotation of the distal leg. This was done utilizing Dylan wrap and a rolled blanket of the proximal thigh also with a pillow of the lateral foot. I forewarned the patient to watch for any signs of irritation for we do not want any proximal ulcerations, new thigh ulcerations. We will follow along the pathology. We will continue Xeroform bandage changes daily. Reviewed case with Jordy Reyes, plan to re-evaluate in 2-3 days. Of note, the patient will be receiving a prosthetic for the right lower extremity (this apparently was done prior to the admission) not necessarily for ambulation but to balance out his extremities when he transfers into his vehicle. This patient is highly motivated to remain as highly functional as he can, he wishes to return to the gym, he wants to return to pool therapy as soon as the ulcers have healed. I will sign out to Rod Sykes pending biopsy, nursing ok to change bandage. Won Brambila DPAbby Jul 29, 2017 13:43
[2017-07-29 16:00] VITALS: BP 144/60; PULSE 79; RESP 20; TEMP 98.2; O2SAT 98
[2017-07-29] MEDS: ERTAPENEM INJ 1,000 MG in SODIUM CHLORIDE 0.9% INJ 100 ML IV SCH (16:22)
[2017-07-29] MEDS: ENOXAPARIN SODIUM 40 MG/0.4 ML SYRINGE SQ SCH (18:12)
[2017-07-29 20:00] VITALS: BP 153/67; PULSE 83; RESP 16; TEMP 99; O2SAT 99
[2017-07-30] VITALS (7 sets, daily range): BP systolic 124–162; BP diastolic 59–78; PULSE 66–98; RESP 16–18; TEMP 98.2–99.1; O2SAT 97–100
[2017-07-30] MEDS: ACETAMINOPHEN/HYDROcodone 325 MG/10 MG TAB PO PRN ×5 (05:45→22:26)
--- NOTE | 2017-07-30 07:10 | PD.ORT.PN ---
Subjective Subjective Remarks Patient is awake and alert. He continues to have sacral decubitus wounds and left leg wounds. He had recent biopsy of left fibula by Dr. Brambila Objective Vitals Vital Signs Date Time Temp Pulse Resp B/P (MAP) Pulse Ox O2 Delivery O2 Flow Rate FiO2 07/30/17 04:00 Room Air 07/30/17 00:00 Room Air 07/30/17 00:00 98.9 78 18 153/67 (95) 99 07/29/17 20:36 21 07/29/17 20:00 99.0 83 16 153/67 (95) 99 07/29/17 20:00 Room Air 07/29/17 16:00 98.2 79 20 144/60 (88) 98 07/29/17 12:32 21 07/29/17 12:00 98.2 67 20 147/66 (93) 100 07/29/17 08:00 98.2 63 20 172/75 (107) 100 I/O 07/29/17 07/29/17 07/29/17 07/30/17 07/30/17 07/30/17 07:00 15:00 23:00 07:00 15:00 23:00 Intake Total 360 ml 720 ml 620 ml Output Total 650 ml 1200 ml 1800 ml Balance -290 ml -480 ml -1180 ml Intake Oral 360 ml 720 ml 620 ml Output Urine Total 650 ml 1200 ml 1800 ml # Bowel Movements 1 Result Diagram: 07/26/17 04407/26/17 044 Objective Remarks LLE: wound on lateral lower leg spanning from lateral malleolus to proximal fibula. approx 3cm in width. granulation tissue present throughout entire wound. proximal area of wound has drainage with area of necrotic skin Assessment & Plan Assessment and Plan 1) Left Leg wound--pressure ulcer -recommend wet to dry dressings BID--needs outpatient wound care clinic -would not recommend any surgical intervention at this time. overall, wound is healthy and no bone exposed. -Would recommend treatment of leg wound like a decubitus ulcer--need to keep all pressure off leg wound -Follow-up with wound clinic, no orthopedic follow-up necessary Kenyon Reyes MD Jul 30, 2017 07:10
[2017-07-30] MEDS: COLLAGENASE OINT 30 GM TUBE TOPICAL SCH (09:00)
[2017-07-30] MEDS: SODIUM CHLORIDE 0.9% FLUSH 10 ML FLUSH IV FLUSH SCH ×2 (09:00→22:28)
[2017-07-30] MEDS: LACTOBACILLUS ACIDOPHILUS TAB PO SCH ×2 (10:01→22:26)
[2017-07-30] MEDS: MEGESTROL ACETATE SUSP 400 MG/10 ML CUP PO SCH (10:01)
[2017-07-30] MEDS: DAPTOmycin INJ 750 MG in SODIUM CHLORIDE 0.9% INJ 100 ML IV SCH (12:59)
[2017-07-30] MEDS ORDERED: SODIUM CHLORIDE 0.9% FLUSH 10 ML FLUSH IV FLUSH PRN (13:15)
[2017-07-30] MEDS: ERTAPENEM INJ 1,000 MG in SODIUM CHLORIDE 0.9% INJ 100 ML IV SCH (14:03)
--- NOTE | 2017-07-30 14:38 | PD.WCN.NOT ---
Neg Pressure Wound Therapy Wound Location Wound Location: Bilateral Ischium Wound Description Wound bed appearance: 70% pale red non granulation tissue and ~30% red granulation tissue.Minimal sanguinous drainage is noted Periwound appearance: Other (Some macteration and epibole) Settings Suction: 125 mmHg Intensity: Low Other Information: Bridged, Mushroomed Foam type: Black Number of pieces: 2 Additonal Information Patient seen on [facility] for wound VAC dressing change around 1300. Patient lifted L leg and R stump up to reveal wound behind scrotum to bilateral ischial area. Removed ABd pad with paper tape and moist gauze from wound to bilateral ischial area. Cleansed wound with normal saline and patted dry.Periwound skin was cleansed with bath wipes and patted dry. Periwound skin, scrotum and groin areas were encrusted using stoma powder and skkn barrier film spray.Skin barrier film was applied from periwound to L thigh for bridging.Applied stoma paste to wound margins to seal wound VAC dressing. Applied One large piece of granufoam to wound bed . Then applied a second smaller piece of black granufoam to fill in entire wound bed. Secured foam in place with VAC drape. Small hole was cut in VAC drape to expose foam. VAC drape was bridged from wound to L anterior thigh. Then applied 1 Long strip of black granufoam from wound bed extending to L anterior thigh over drape bridge. Trac pad was applied to Anterior thigh bridge. Covered all exposed granufoam with VAC drape to seal.Patient tolerated VAC dressing application well.Will change Wound VAC dressing again on Sunday08/01/2017. Sonam Flannery [facility] Jul 30, 2017 14:38
--- NOTE | 2017-07-30 15:16 | HHI.PR ---
Subjective Remarks 4- Follow-up osteomyelitis of the left tibia status post biopsy. No new complaints stools today forming up dw RN 4- COMPLAINS OF EXPLOSIVE DIARRHEA FROM HIS COLOSTOMY BAG DW RN AND PT AND CASE MANAGEMENT NOT WANTING SURGERY ON HIS LEG AT THIS TIME Objective Vitals Vital Signs Date Time Temp Pulse Resp B/P (MAP) Pulse Ox O2 Delivery O2 Flow Rate FiO2 07/30/17 12:05 99.1 98 18 139/63 (88) 98 07/30/17 08:03 98.2 66 18 162/78 (106) 100 07/30/17 04:00 Room Air 07/30/17 00:00 Room Air 07/30/17 00:00 98.9 78 18 153/67 (95) 99 07/29/17 20:36 21 07/29/17 20:00 99.0 83 16 153/67 (95) 99 07/29/17 20:00 Room Air 07/29/17 16:00 98.2 79 20 144/60 (88) 98 I/O 07/29/17 07/29/17 07/29/17 07/30/17 07/30/17 07/30/17 07:00 15:00 23:00 07:00 15:00 23:00 Intake Total 360 ml 720 ml 620 ml Output Total 650 ml 1200 ml 1800 ml Balance -290 ml -480 ml -1180 ml Intake Oral 360 ml 720 ml 620 ml Output Urine Total 650 ml 1200 ml 1800 ml # Bowel Movements 1 Result Diagram: 07/26/17 0441 07/26/17 0441 Imaging Last Impressions Lower Extremity MRI 07/23/17 0000 Signed Impressions: Service Date/Time: Sunday, July 23, 2017 20:15 - CONCLUSION: 1. The soft tissue ulceration laterally of the left leg appears slightly improved. No drainable soft tissue abscess. 2. However, there is increased conspicuity and extent of cortical thickening and signal changes of the fibula compatible with acute on chronic osteomyelitis. There is elongated and nearly diffuse intramedullary fluid typical of abscess as well as an apparent developing sinus tract approximately 6.1 cm proximal to the lateral malleolus. Yonathan Hess MD Chest X-Ray 07/22/17 0000 Signed Impressions: Service Date/Time: Saturday, July 22, 2017 13:06 - CONCLUSION: No acute disease. Cuba Bone MD Abdomen/Pelvis CT 07/22/17 0000 Signed Impressions: Service Date/Time: Saturday, July 22, 2017 14:36 - CONCLUSION: 1. Chronic bony changes about the pelvic girdle and proximal femurs or bony destruction and extensive heterotopic bone formation. 2. Probable associated decubitus type ulcers bilaterally with the right ischium/inferior pubic ramus partially exposed suggesting osteomyelitis in this region. 3. Cholelithiasis. 4. Ostomy in the upper midabdomen. Ry Uribe MD Objective Remarks GENERAL: Awake and alert and oriented 3 talkative and cooperative SKIN: Warm and dry. Left lower extremity is dressed HEAD: Atraumatic. Normocephalic. EYES: Pupils equal and round. No scleral icterus. No injection or drainage. ENT: No nasal bleeding or discharge. Mucous membranes pink and moist. NECK: Trachea midline. No JVD. CARDIOVASCULAR: Regular rate and rhythm. RESPIRATORY: No accessory muscle use. Clear to auscultation. Breath sounds equal bilaterally. GASTROINTESTINAL: Abdomen soft, non-tender, nondistended. Hepatic and splenic margins not palpable. MUSCULOSKELETAL: Extremities without clubbing, cyanosis, or edema. No obvious deformities. Right [id number] amputation --left lower extremity is dressed NEUROLOGICAL: Awake and alert. No obvious cranial nerve deficits. Motor grossly within normal limits. Five out of 5 muscle strength in the arms. Normal speech. PSYCHIATRIC: Appropriate mood and affect; insight and judgment ABnormal. Procedures left tibia bone biopsy Medications and IVs Current Medications Ketorolac Tromethamine (Toradol Inj) 30 mg ONCE ONCE IV PUSH Last administered on 07/22/17at 14:24; Start 07/22/17 at 14:15; Stop 07/22/17 at 14:16 ; Status DC Iohexol (Omnipaque 350 Inj) 88 ml STK-MED ONCE IVCONTRAST Last administered on 07/22/17at 14:56; Start 07/22/17 at 14:56; Stop 07/22/17 at 14:57; Status DC Ceftriaxone Sodium 1000 mg/ Sodium Chloride 100 ml @ 200 mls/hr ONCE ONCE IV Last administered on 07/22/17at 15:56; Start 07/22/17 at 15:45; Stop 07/22/17 at 16:14; Status DC Acetaminophen/ Hydrocodone Bitart (Bonifay 5-325 Mg) 1 tab ONCE ONCE PO Last administered on 07/22/17at 16:29; Start 07/22/17 at 16:00; Stop 07/22/17 at 16:01 ; Status DC Sodium Chloride (NS Flush) 2 ml UNSCH PRN IV FLUSH FLUSH AFTER USING IV ACCESS ; Start 07/22/17 at 16:30 Sodium Chloride (NS Flush) 2 ml BID IV FLUSH Last administered on 07/29/17at 21: 54; Start 07/22/17 at 21:00 Acetaminophen (Tylenol) 650 mg Q4H PRN PO TEMP > 100.4; Start 07/22/17 at 16:30 Ondansetron HCl (Zofran Inj) 4 mg Q6H PRN IVP NAUSEA OR VOMITING; Start at 16:30 Enoxaparin Sodium (Lovenox Inj) 40 mg Q24H SQ Last administered on 07/29/17at 18 :12; Start 07/22/17 at 18:00 Naloxone HCl (Narcan Inj) 0.4 mg UNSCH PRN IV PUSH SEE LABEL COMMENTS; Start at 16:30 Senna/Docusate Sodium (Mecca-Colace) 1 tab BID PO Last administered on at 21:07; Start 07/22/17 at 21:00; Stop 07/28/17 at 14:48; Status DC Magnesium Hydroxide (Milk Of Magnesia Liq) 30 ml Q12H PRN PO Mild constipation ; Start 07/22/17 at 16:30 Sennosides (Senokot) 17.2 mg Q12H PRN PO Moderate constipation; Start 07/22/17 at 16:30 Bisacodyl (Dulcolax Supp) 10 mg DAILY PRN RECTAL SEVERE CONSITIPATION; Start at 16:30 Lactulose (Lactulose Liq) 30 ml DAILY PRN PO SEVERE CONSITIPATION; Start at 16:30 Daptomycin / Sodium Chloride 100 ml @ 200 mls/hr Q24H IV ; Start 07/22/17 at 16 :30; Stop 07/22/17 at 18:17; Status DC Collagenase (Santyl Oint) 1 applic DAILY TOPICAL Last administered on at 08:04; Start 07/23/17 at 09:00 Lactobacillus Acidophilus (Lactinex) 1 tab BID PO Last administered on at 10:01; Start 07/22/17 at 21:00 Megestrol Acetate (Megace Liq) 625 mg DAILY PO Last administered on 07/30/17at 10:01; Start 07/23/17 at 09:00 Acetaminophen/ Hydrocodone Bitart (Bonifay 10-325 Mg) 1 tab Q4H PRN PO PAIN SCALE 4 TO 10 Last administered on 07/30/17at 13:56; Start 07/22/17 at 17:00 Piperacillin Sod/ Tazobactam Sod 50 ml @ 100 mls/hr Q6H IV Last administered on 07/24/17at 06:32; Start 07/23/17 at 18:00; Stop 07/24/17 at 11:13; Status DC Gadodiamide (Omniscan Pf Inj) 16 ml STK-MED ONCE IVCONTRAST Last administered on 07/23/17at 21:33; Start 07/23/17 at 21:32; Stop 07/23/17 at 21:33; Status DC Miscellaneous Medication (ASP Crit: Doc ESBL, MDR A baumannii or P aer) 1 UNSCH X1 PRN .XX PHARMACY DOCUMENTATION; Start 07/24/17 at 11:15; Stop 07/25/17 at 11 :14; Status DC Miscellaneous Medication ([facility] Information) 1 UNSCH X1 PRN XX PHARMACY DOCUMENTATION; Start 07/24/17 at 11:15; Stop 07/25/17 at 11:14; Status DC Ertapenem 1000 mg/ Sodium Chloride 100 ml @ 200 mls/hr Q24H IV Last administered on 07/30/17at 14:03; Start 07/24/17 at 13:00 Lactated Ringer's 1,000 ml @ 30 mls/hr Q24H PRN IV SEE LABEL COMMENTS Last administered on 07/28/17at 05:20; Start 07/28/17 at 05:00; Stop 07/31/17 at 04:59 Sodium Chloride 500 ml @ 30 mls/hr [id number] PRN IV SEE LABEL COMMENTS; Start at 05:00; Stop 07/31/17 at 04:59 Metoprolol Tartrate (Lopressor) 25 mg GLOBAL COORDINATOR PRN PO SEE LABEL COMMENTS Last administered on 07/28/17at 07:26; Start 07/28/17 at 05:00; Stop 07/31/17 at 04:59 Povidone Iodine (Betadine 5% Antisepsis Kit) 1 applic GLOBAL COORDINATOR PRN EACH NARE SEE LABEL COMMENTS; Start 07/28/17 at 05:00; Stop 07/31/17 at 04:59 Chlorhexidine Gluconate (Chlorhexidine 2% Cloth) 3 pack GLOBAL COORDINATOR PRN TOPICAL SEE LABEL COMMENTS; Start 07/28/17 at 05:00; Stop 07/31/17 at 04:59 Bupivacaine HCl (Marcaine Pf 0.25% Inj) 30 ml STK-MED ONCE .ROUTE ; Start at 07:43; Stop 07/28/17 at 07:44; Status DC Acetaminophen 0 ml @ As Directed STK-MED ONCE IV ; Start 07/28/17 at 07:50; Stop 07/28/17 at 07:51; Status DC Neomycin/Polymyxin (Neosporin G.u. Irr) 3 ml STK-MED ONCE .ROUTE ; Start at 07:51; Stop 07/28/17 at 07:52; Status DC Hydromorphone HCl (*DILAUDID PF INJ PERIprocedure ONLY) 0.5 mg STK-MED ONCE .ROUTE Last administered on 07/28/17at 09:07; Start 07/28/17 at 09:07; Stop at 09:08; Status DC Fentanyl Citrate (fentaNYL INJ) 100 mcg STK-MED ONCE .ROUTE ; Start 07/28/17 at 09:15; Stop 07/28/17 at 09:16; Status DC Daptomycin 750 mg/ Sodium Chloride 100 ml @ 200 mls/hr Q24H IV Last administered on 07/30/17at 12:59; Start 07/28/17 at 13:00 Sodium Chloride (NS Flush) See Protocol DAILY IV FLUSH ; Start 07/31/17 at 09:00 Sodium Chloride (NS Flush) See Protocol UNSCH PRN IV FLUSH SEE PROTOCOL TABLE; Start 07/30/17 at 13:15 Heparin Sodium (Porcine) (Heparin Central Flush) See Protocol DAILY IV FLUSH ; Start 5/1/18 at 09:00 Heparin Sodium (Porcine) (Heparin Central Flush) See Protocol UNSCH PRN IV FLUSH SEE PROTOCOL TABLE; Start 07/30/17 at 13:15 Sodium Chloride (NS Flush) UNSCH PRN IV FLUSH SEE PROTOCOL TABLE; Start at 13:15 A/P Problem List: (1) UTI (urinary tract infection) ICD Code: N39.0 - Urinary tract infection, site not specified Status: Acute (2) Osteomyelitis ICD Code: M86.9 - Osteomyelitis, unspecified Assessment and Plan 52 yo BM with Paraplegia Acute and chronic osteomyelitis and abscess/sinus tract at the fibula of left lower extremity. Chronic wound LLE. Culture has proteus, group D enterococcus and MRSA.. Recommended AKA but refusing ON THE LEFT. He is opting for medical management continue IV Invanz ID recommending bone biopsy 07/28 f/u path. Will need PICC HAS RIGHT AKA ALREADY AWAIT PATHOLOGY ESBL UTI with chronic indwelling catheter which will be replaced. Culture growing ESBL, Klebsiella and GNR continue IV Invanz. Nausea/vomiting/diarrhea Possibly gastroenteritis. Improved. C diff negative. - antiemetics as needed. - ADAT. - hold bowel regimen. Continue Lactinex Anemia Appears chronic. - follow CBC and transfuse as needed. Elevated LFTs CT abdomen without obvious abnormality. LFTs appear chronically elevated. - improved Sacral decubitus. Continue wound care/wound VAC DVT prophylaxis: Lovenox Discharge Planning PENDING ID AND PODIATRY AND ORTHO CLEARANCE AND ANTIBIOTICS SET UP Problem Qualifiers (1) Osteomyelitis: Erasmo Mendoza DO Jul 30, 2017 15:16
[2017-07-30] MEDS: ENOXAPARIN SODIUM 40 MG/0.4 ML SYRINGE SQ SCH (18:02)
[2017-07-31] MEDS: ACETAMINOPHEN/HYDROcodone 325 MG/10 MG TAB PO PRN ×5 (03:13→20:42)
[2017-07-31 03:50] VITALS: BP 126/60; PULSE 78; RESP 16; TEMP 98.1; O2SAT 98
[2017-07-31 07:39] VITALS: O2SAT 98
[2017-07-31 08:03] VITALS: BP 129/62; PULSE 71; RESP 18; TEMP 98.2; O2SAT 100
[2017-07-31] MEDS: LACTOBACILLUS ACIDOPHILUS TAB PO SCH ×2 (08:04→20:41)
[2017-07-31] MEDS: SODIUM CHLORIDE 0.9% FLUSH 10 ML FLUSH IV FLUSH SCH ×3 (08:10→20:42)
[2017-07-31] MEDS: MEGESTROL ACETATE SUSP 400 MG/10 ML CUP PO SCH (08:19)
[2017-07-31] MEDS: COLLAGENASE OINT 30 GM TUBE TOPICAL SCH (09:00)
--- NOTE | 2017-07-31 10:58 | HHI.PR ---
Subjective Remarks 4--29 Follow-up osteomyelitis of the left tibia status post biopsy. No new complaints stools today forming up pepe RN 4-30 COMPLAINS OF EXPLOSIVE DIARRHEA FROM HIS COLOSTOMY BAG DW RN AND PT AND CASE MANAGEMENT NOT WANTING SURGERY ON HIS LEG AT THIS TIME 5-1 FOLLOW UP OSTEOMYELITIS ON LEFT TIBIA AWAIT OFFICIAL PATHOLOGY DW RN AND PT AND CHEMIST PHARMACEUTICAL STATES STILL HAVING DIARRHEA IN HIS OSTOMY BUT NOT EXPLOSIVE YESTERDAY AM LABS Objective Vitals Vital Signs Date Time Temp Pulse Resp B/P (MAP) Pulse Ox O2 Delivery O2 Flow Rate FiO2 07/31/17 08:03 98.2 71 18 129/62 (84) 100 07/31/17 07:39 98 21 07/31/17 03:50 98.1 78 16 126/60 (82) 98 07/30/17 23:32 98.8 84 16 130/60 (83) 98 07/30/17 22:26 Room Air 07/30/17 20:47 97 21 07/30/17 19:52 98.7 86 16 124/59 (80) 99 07/30/17 16:03 98.8 90 18 133/66 (88) 98 07/30/17 12:05 99.1 98 18 139/63 (88) 98 I/O 07/30/17 07/30/17 07/30/17 07/31/17 07/31/17 07/31/17 07:00 15:00 23:00 07:00 15:00 23:00 Intake Total 620 ml 720 ml 720 ml Output Total 1800 ml 200 ml 1100 ml Balance -1180 ml 520 ml -380 ml Intake Oral 620 ml 720 ml 720 ml Output Urine Total 1800 ml 200 ml 1100 ml # Bowel Movements 0 Imaging Last Impressions Lower Extremity MRI 07/23/17 0000 Signed Impressions: Service Date/Time: Sunday, July 23, 2017 20:15 - CONCLUSION: 1. The soft tissue ulceration laterally of the left leg appears slightly improved. No drainable soft tissue abscess. 2. However, there is increased conspicuity and extent of cortical thickening and signal changes of the fibula compatible with acute on chronic osteomyelitis. There is elongated and nearly diffuse intramedullary fluid typical of abscess as well as an apparent developing sinus tract approximately 6.1 cm proximal to the lateral malleolus. Yonathan Hess MD Chest X-Ray 07/22/17 0000 Signed Impressions: Service Date/Time: Saturday, July 22, 2017 13:06 - CONCLUSION: No acute disease. Cuba Bone MD Abdomen/Pelvis CT 07/22/17 0000 Signed Impressions: Service Date/Time: Saturday, July 22, 2017 14:36 - CONCLUSION: 1. Chronic bony changes about the pelvic girdle and proximal femurs or bony destruction and extensive heterotopic bone formation. 2. Probable associated decubitus type ulcers bilaterally with the right ischium/inferior pubic ramus partially exposed suggesting osteomyelitis in this region. 3. Cholelithiasis. 4. Ostomy in the upper midabdomen. Ry Uribe MD Objective Remarks GENERAL: Awake and alert and oriented 3 talkative and cooperative SKIN: Warm and dry. Left lower extremity is dressed HEAD: Atraumatic. Normocephalic. EYES: Pupils equal and round. No scleral icterus. No injection or drainage. ENT: No nasal bleeding or discharge. Mucous membranes pink and moist. TONGUE MIDLINE NECK: Trachea midline. No JVD. SUPPLE CARDIOVASCULAR: Regular rate and rhythm. S1, S2 NO S3 OR S4 RESPIRATORY: No accessory muscle use. Clear to auscultation. Breath sounds equal bilaterally. GASTROINTESTINAL: Abdomen soft, non-tender, nondistended. Hepatic and splenic margins not palpable. COLOSTOMY WITH MUSHY STOOL MUSCULOSKELETAL: Extremities RIGHT ABOVE THE KNEE AMPUTATION- LEFT LEG DRESSED No obvious deformities. Right [id number] amputation --left lower extremity is dressed NEUROLOGICAL: Awake and alert. No obvious cranial nerve deficits. Motor grossly within normal limits. Five out of 5 muscle strength in the arms. Normal speech. PSYCHIATRIC: Appropriate mood and affect; insight and judgment ABnormal. Procedures left tibia bone biopsy Medications and IVs Current Medications Ketorolac Tromethamine (Toradol Inj) 30 mg ONCE ONCE IV PUSH Last administered on 07/22/17at 14:24; Start 07/22/17 at 14:15; Stop 07/22/17 at 14:16 ; Status DC Iohexol (Omnipaque 350 Inj) 88 ml STK-MED ONCE IVCONTRAST Last administered on 07/22/17at 14:56; Start 07/22/17 at 14:56; Stop 07/22/17 at 14:57; Status DC Ceftriaxone Sodium 1000 mg/ Sodium Chloride 100 ml @ 200 mls/hr ONCE ONCE IV Last administered on 07/22/17at 15:56; Start 07/22/17 at 15:45; Stop 07/22/17 at 16:14; Status DC Acetaminophen/ Hydrocodone Bitart ([place] 5-325 Mg) 1 tab ONCE ONCE PO Last administered on 07/22/17at 16:29; Start 07/22/17 at 16:00; Stop 07/22/17 at 16:01 ; Status DC Sodium Chloride (NS Flush) 2 ml UNSCH PRN IV FLUSH FLUSH AFTER USING IV ACCESS ; Start 07/22/17 at 16:30 Sodium Chloride (NS Flush) 2 ml BID IV FLUSH Last administered on 07/31/17at 08: 10; Start 07/22/17 at 21:00 Acetaminophen (Tylenol) 650 mg Q4H PRN PO TEMP > 100.4; Start 07/22/17 at 16:30 Ondansetron HCl (Zofran Inj) 4 mg Q6H PRN IVP NAUSEA OR VOMITING; Start at 16:30 Enoxaparin Sodium (Lovenox Inj) 40 mg Q24H SQ Last administered on 07/30/17at 18 :02; Start 07/22/17 at 18:00 Naloxone HCl (Narcan Inj) 0.4 mg UNSCH PRN IV PUSH SEE LABEL COMMENTS; Start at 16:30 Senna/Docusate Sodium ([place]-Colace) 1 tab BID PO Last administered on at 21:07; Start 07/22/17 at 21:00; Stop 07/28/17 at 14:48; Status DC Magnesium Hydroxide (Milk Of Magnesia Liq) 30 ml Q12H PRN PO Mild constipation ; Start 07/22/17 at 16:30 Sennosides (Senokot) 17.2 mg Q12H PRN PO Moderate constipation; Start 07/22/17 at 16:30 Bisacodyl (Dulcolax Supp) 10 mg DAILY PRN RECTAL SEVERE CONSITIPATION; Start at 16:30 Lactulose (Lactulose Liq) 30 ml DAILY PRN PO SEVERE CONSITIPATION; Start at 16:30 Daptomycin / Sodium Chloride 100 ml @ 200 mls/hr Q24H IV ; Start 07/22/17 at 16 :30; Stop 07/22/17 at 18:17; Status DC Collagenase (Santyl Oint) 1 applic DAILY TOPICAL Last administered on at 08:04; Start 07/23/17 at 09:00 Lactobacillus Acidophilus (Lactinex) 1 tab BID PO Last administered on at 08:04; Start 07/22/17 at 21:00 Megestrol Acetate (Megace Liq) 625 mg DAILY PO Last administered on 07/31/17at 08 :19; Start 07/23/17 at 09:00 Acetaminophen/ Hydrocodone Bitart ([place] 10-325 Mg) 1 tab Q4H PRN PO PAIN SCALE 4 TO 10 Last administered on 07/31/17at 08:05; Start 07/22/17 at 17:00 Piperacillin Sod/ Tazobactam Sod 50 ml @ 100 mls/hr Q6H IV Last administered on 07/24/17at 06:32; Start 07/23/17 at 18:00; Stop 07/24/17 at 11:13; Status DC Gadodiamide (Omniscan Pf Inj) 16 ml STK-MED ONCE IVCONTRAST Last administered on 07/23/17at 21:33; Start 07/23/17 at 21:32; Stop 07/23/17 at 21:33; Status DC Miscellaneous Medication (ASP Crit: Doc ESBL, MDR A baumannii or P aer) 1 UNSCH X1 PRN .XX PHARMACY DOCUMENTATION; Start 07/24/17 at 11:15; Stop 07/25/17 at 11 :14; Status DC Miscellaneous Medication ([facility] Information) 1 UNSCH X1 PRN XX PHARMACY DOCUMENTATION; Start 07/24/17 at 11:15; Stop 07/25/17 at 11:14; Status DC Ertapenem 1000 mg/ Sodium Chloride 100 ml @ 200 mls/hr Q24H IV Last administered on 07/30/17at 14:03; Start 07/24/17 at 13:00 Lactated Ringer's 1,000 ml @ 30 mls/hr Q24H PRN IV SEE LABEL COMMENTS Last administered on 07/28/17at 05:20; Start 07/28/17 at 05:00; Stop 07/31/17 at 04:59 ; Status DC Sodium Chloride 500 ml @ 30 mls/hr [id number] PRN IV SEE LABEL COMMENTS; Start at 05:00; Stop 07/31/17 at 04:59; Status DC Metoprolol Tartrate (Lopressor) 25 mg SOLAR PANEL INSTALLATION SUPERVISOR PRN PO SEE LABEL COMMENTS Last administered on 07/28/17at 07:26; Start 07/28/17 at 05:00; Stop 07/31/17 at 04:59 ; Status DC Povidone Iodine (Betadine 5% Antisepsis Kit) 1 applic SOLAR PANEL INSTALLATION SUPERVISOR PRN EACH NARE SEE LABEL COMMENTS; Start 07/28/17 at 05:00; Stop 07/31/17 at 04:59; Status DC Chlorhexidine Gluconate (Chlorhexidine 2% Cloth) 3 pack SOLAR PANEL INSTALLATION SUPERVISOR PRN TOPICAL SEE LABEL COMMENTS; Start 07/28/17 at 05:00; Stop 07/31/17 at 04:59; Status DC Bupivacaine HCl (Marcaine Pf 0.25% Inj) 30 ml STK-MED ONCE .ROUTE ; Start at 07:43; Stop 07/28/17 at 07:44; Status DC Acetaminophen 0 ml @ As Directed STK-MED ONCE IV ; Start 07/28/17 at 07:50; Stop 07/28/17 at 07:51; Status DC Neomycin/Polymyxin (Neosporin G.u. Irr) 3 ml STK-MED ONCE .ROUTE ; Start at 07:51; Stop 07/28/17 at 07:52; Status DC Hydromorphone HCl (*DILAUDID PF INJ PERIprocedure ONLY) 0.5 mg STK-MED ONCE .ROUTE Last administered on 07/28/17at 09:07; Start 07/28/17 at 09:07; Stop at 09:08; Status DC Fentanyl Citrate (fentaNYL INJ) 100 mcg STK-MED ONCE .ROUTE ; Start 07/28/17 at 09:15; Stop 07/28/17 at 09:16; Status DC Daptomycin 750 mg/ Sodium Chloride 100 ml @ 200 mls/hr Q24H IV Last administered on 07/30/17at 12:59; Start 07/28/17 at 13:00 Sodium Chloride (NS Flush) See Protocol DAILY IV FLUSH Last administered on 07/31at 08:10; Start 07/31/17 at 09:00 Sodium Chloride (NS Flush) See Protocol UNSCH PRN IV FLUSH SEE PROTOCOL TABLE; Start 07/30/17 at 13:15 Heparin Sodium (Porcine) (Heparin Central Flush) See Protocol DAILY IV FLUSH Last administered on 07/31/17at 08:05; Start 07/31/17 at 09:00 Heparin Sodium (Porcine) (Heparin Central Flush) See Protocol UNSCH PRN IV FLUSH SEE PROTOCOL TABLE; Start 07/30/17 at 13:15 Sodium Chloride (NS Flush) UNSCH PRN IV FLUSH SEE PROTOCOL TABLE; Start at 13:15 Lidocaine HCl (Xylocaine-Mpf 1% Inj) 5 ml STK-MED ONCE OTHER ; Start 07/28/17 at 12:00; Stop 07/31/17 at 07:39; Status DC Phenylephrine HCl (Neosynephrine/ NS 1000 Mcg/10ml Syr) 1,000 mcg STK-MED ONCE IV ; Start 07/28/17 at 12:00; Stop 07/31/17 at 07:39; Status DC Ephedrine Sulfate (ePHEDrine/NS 25 MG/5 ML SYR) 25 mg STK-MED ONCE IV ; Start at 12:00; Stop 07/31/17 at 07:39; Status DC Dexamethasone Sodium Phosphate (Decadron Inj) 4 mg STK-MED ONCE IV ; Start 07/28 at 12:00; Stop 07/31/17 at 07:39; Status DC Ondansetron HCl (Zofran Inj) 4 mg STK-MED ONCE IV ; Start 07/28/17 at 12:00; Stop 07/31/17 at 07:39; Status DC Propofol (Diprivan 200 Mg/20 ml Inj) 200 mg STK-MED ONCE IV ; Start 07/28/17 at 12:00; Stop 07/31/17 at 07:39; Status DC A/P Problem List: (1) UTI (urinary tract infection) ICD Code: N39.0 - Urinary tract infection, site not specified Status: Acute (2) Osteomyelitis ICD Code: M86.9 - Osteomyelitis, unspecified Assessment and Plan 52 yo BM with Paraplegia Acute and chronic osteomyelitis and abscess/sinus tract at the fibula of left lower extremity. Chronic wound LLE. Culture has proteus, group D enterococcus and MRSA.. Recommended AKA but refusing ON THE LEFT. He is opting for medical management continue IV Invanz ID recommending bone biopsy 07/28 f/u path. Will need PICC HAS RIGHT AKA ALREADY AWAIT PATHOLOGY ESBL UTI with chronic indwelling catheter which will be replaced. Culture growing ESBL, Klebsiella and GNR continue IV Invanz. Nausea/vomiting/diarrhea- STILL HAVING DIARRHEA IN HIS OSTOMY Possibly gastroenteritis. Improved. C diff negative. - antiemetics as needed. - ADAT. - hold bowel regimen. Continue Lactinex Anemia Appears chronic. - follow CBC and transfuse as needed. Elevated LFTs CT abdomen without obvious abnormality. LFTs appear chronically elevated. - improved Sacral decubitus. Continue wound care/wound VAC DVT prophylaxis: Lovenox Discharge Planning PENDING ID AND PODIATRY AND ORTHO CLEARANCE AND ANTIBIOTICS SET UP Problem Qualifiers (1) Osteomyelitis: Erasmo Mendoza DO July 31, 2017 10:58
[2017-07-31 12:03] VITALS: BP 126/61; PULSE 73; RESP 18; TEMP 98.3; O2SAT 100
[2017-07-31] MEDS: DAPTOmycin INJ 750 MG in SODIUM CHLORIDE 0.9% INJ 100 ML IV SCH (12:05)
[2017-07-31] MEDS: ERTAPENEM INJ 1,000 MG in SODIUM CHLORIDE 0.9% INJ 100 ML IV SCH (12:50)
--- NOTE | 2017-07-31 14:35 | HHI.IDPN ---
Subjective Subjective Remarks afebrile clx are negative - final Path P tolerates abx ok co diarrhea Antibiotics daptomycin Ertapenem Allergies: Coded Allergies: clindamycin (Verified Allergy, Severe, HIVES, 07/22/17) sulfamethoxazole (Verified Allergy, Severe, RASH, 07/22/17) trimethoprim (Verified Allergy, Severe, RASH, 07/22/17) vancomycin (Verified Allergy, Severe, hives, 07/22/17) morphine (Verified Adverse Reaction, Severe, Tachycardia, 07/22/17) Objective . Vital Signs Date Time Temp Pulse Resp B/P (MAP) Pulse Ox O2 Delivery O2 Flow Rate FiO2 07/31/17 12:03 98.3 73 18 126/61 (82) 100 07/31/17 08:03 98.2 71 18 129/62 (84) 100 07/31/17 07:39 98 21 07/31/17 03:50 98.1 78 16 126/60 (82) 98 07/30/17 23:32 98.8 84 16 130/60 (83) 98 07/30/17 22:26 Room Air 07/30/17 20:47 97 21 07/30/17 19:52 98.7 86 16 124/59 (80) 99 07/30/17 16:03 98.8 90 18 133/66 (88) 98 Imaging Last Impressions Lower Extremity MRI 07/23/17 0000 Signed Impressions: Service Date/Time: Sunday, July 23, 2017 20:15 - CONCLUSION: 1. The soft tissue ulceration laterally of the left leg appears slightly improved. No drainable soft tissue abscess. 2. However, there is increased conspicuity and extent of cortical thickening and signal changes of the fibula compatible with acute on chronic osteomyelitis. There is elongated and nearly diffuse intramedullary fluid typical of abscess as well as an apparent developing sinus tract approximately 6.1 cm proximal to the lateral malleolus. Yonathan Hess MD Chest X-Ray 07/22/17 0000 Signed Impressions: Service Date/Time: Saturday, July 22, 2017 13:06 - CONCLUSION: No acute disease. Cuba Bone MD Abdomen/Pelvis CT 07/22/17 0000 Signed Impressions: Service Date/Time: Saturday, July 22, 2017 14:36 - CONCLUSION: 1. Chronic bony changes about the pelvic girdle and proximal femurs or bony destruction and extensive heterotopic bone formation. 2. Probable associated decubitus type ulcers bilaterally with the right ischium/inferior pubic ramus partially exposed suggesting osteomyelitis in this region. 3. Cholelithiasis. 4. Ostomy in the upper midabdomen. Ry Uribe MD Physical Exam CONSTITUTIONAL/GENERAL: This is an adequately nourished patient, in no apparent distress. TUBES/LINES/DRAINS: SKIN: No jaundice, rashes, or lesions. . Skin temperature appropriate. Not diaphoretic. VAC in place over L buttock ulcer with serosang dc CARDIOVASCULAR: Regular rate and rhythm without murmurs, gallops, or rubs. No JVD. Peripheral pulses symmetric. RESPIRATORY/CHEST: Symmetric, unlabored respirations. Clear to auscultation. Breath sounds equal bilaterally. No wheezes, rales, or rhonchi. GASTROINTESTINAL: Abdomen soft, + tender to palpation in RLQ, mildly to moderately distended. No hepato-splenomegaly, or palpable masses. No guarding. Bowel sounds present. Stoma in place with liquid brown stool GENITOURINARY: Without palpable bladder distension. Sp catheter in place with quite cloudy urine MUSCULOSKELETAL: Extremities without clubbing, cyanosis, or edema. dressing in place over LLE NEUROLOGICAL: Awake and alert. Paraplegia Follows commands with BUE. Clear speech PSYCHIATRIC: calm and coooperative Assessment & Plan Remarks Paraplegia Acute and chronic osteomyelitis at the fibula of left lower extremity. Chronic wound LLE. Culture has proteus, group D enterococcus and MRSA.. UTI - growing ESBL+ e.coli Sacral decubitus ulcer. : stage IV, but clean L fibula osteo and abscess/ sinus tract - with probably underlying PVD - only surgical option is AKA and the pt is refusing diarrhea, C.diff negative cont Ertapenem, daptomycin will fu path will dw Ana Valentine MD July 31, 2017 14:35
[2017-07-31 16:03] VITALS: BP 160/67; PULSE 81; RESP 18; TEMP 98.1; O2SAT 99
[2017-07-31] MEDS: ENOXAPARIN SODIUM 40 MG/0.4 ML SYRINGE SQ SCH (18:26)
[2017-07-31 20:05] VITALS: BP 128/60; PULSE 89; RESP 16; TEMP 98.9; O2SAT 97
[2017-08-01] VITALS (7 sets, daily range): BP systolic 110–136; BP diastolic 56–63; PULSE 71–107; RESP 16–18; TEMP 97.6–98.7; O2SAT 98–100
[2017-08-01] MEDS: ACETAMINOPHEN/HYDROcodone 325 MG/10 MG TAB PO PRN ×5 (00:47→21:27)
[2017-08-01 07:12] LABS: AUTOMATED NEUTROPHIL # 3.7 TH/MM3 (1.8-7.7); BASOPHIL # 0.1 TH/MM3 (0-0.2); BASOPHIL % 0.8 % (0.0-2.0); EOSINOPHIL # 0.5 TH/MM3 (0-0.4); EOSINOPHIL % 6.8 % (0.0-4.0); HEMATOCRIT 31.8 % (39.0-51.0); LYMPH % 31.5 % (9.0-44.0); LYMPHOCYTE # 2.2 TH/MM3 (1.0-4.8); MEAN CELL VOLUME 76.8 FL (80.0-100.0); MEAN CORPUSCULAR HEMOGLOBIN 24.1 PG (27.0-34.0); MEAN CORPUSCULAR HGB CONC 31.3 % (32.0-36.0); MEAN PLATELET VOLUME 7.1 FL (7.0-11.0); MONO % 8.6 % (0.0-8.0); MONOCYTE # 0.6 TH/MM3 (0-0.9); NEUT % 52.3 % (16.0-70.0); PLATELET COUNT 436 TH/MM3 (150-450); RED BLOOD COUNT 4.15 MIL/MM3 (4.50-5.90); RED CELL DISTRIBUTION WIDTH 18.4 % (11.6-17.2); WHITE BLOOD COUNT 7.1 TH/MM3 (4.0-11.0)
[2017-08-01 07:36] LABS: ALBUMIN 2.4 GM/DL (3.4-5.0); AST (GOT) 27 U/L (15-37); BICARBONATE 26.5 MEQ/L (21.0-32.0); BLOOD UREA NITROGEN 12 MG/DL (7-18); CALCIUM 9.3 MG/DL (8.5-10.1); CHLORIDE 105 MEQ/L (98-107); CREATININE 0.52 MG/DL (0.60-1.30); GLOMERULAR FILTRATION RATE 203 ML/MIN (>89); GLUCOSE,RANDOM 90 MG/DL (74-106); MAGNESIUM 1.8 MG/DL (1.5-2.5); SODIUM (NA) 139 MEQ/L (136-145)
[2017-08-01 07:46] LABS: ALKALINE PHOSPHATASE 152 U/L (45-117); ALT (GPT) 39 U/L (12-78); PHOSPHORUS 4.2 MG/DL (2.5-4.9); TOTAL BILIRUBIN ADULT LESS THAN 0.1 MG/DL (0.2-1.0); TOTAL PROTEIN 7.1 GM/DL (6.4-8.2)
[2017-08-01] MEDS: SODIUM CHLORIDE 0.9% FLUSH 10 ML FLUSH IV FLUSH SCH ×3 (09:00→21:27)
[2017-08-01] MEDS: COLLAGENASE OINT 30 GM TUBE TOPICAL SCH (09:00)
[2017-08-01] MEDS: MEGESTROL ACETATE SUSP 400 MG/10 ML CUP PO SCH (09:17)
[2017-08-01] MEDS: LACTOBACILLUS ACIDOPHILUS TAB PO SCH ×2 (09:20→21:27)
[2017-08-01] MEDS: ERTAPENEM INJ 1,000 MG in SODIUM CHLORIDE 0.9% INJ 100 ML IV SCH (13:18)
[2017-08-01] MEDS: DAPTOmycin INJ 750 MG in SODIUM CHLORIDE 0.9% INJ 100 ML IV SCH (14:22)
--- NOTE | 2017-08-01 15:00 | HHI.IDPN ---
Subjective Subjective Remarks afebrile clx are negative - final Path negative for osteo, clx are negative as well tolerates abx ok co diarrhea MRI changes are cw with acute and chronic osteo only Pt was offered AKA but refusing it Antibiotics daptomycin Ertapenem Allergies: Coded Allergies: clindamycin (Verified Allergy, Severe, HIVES, 07/22/17) sulfamethoxazole (Verified Allergy, Severe, RASH, 07/22/17) trimethoprim (Verified Allergy, Severe, RASH, 07/22/17) vancomycin (Verified Allergy, Severe, hives, 07/22/17) morphine (Verified Adverse Reaction, Severe, Tachycardia, 07/22/17) Objective . Vital Signs Date Time Temp Pulse Resp B/P (MAP) Pulse Ox O2 Delivery O2 Flow Rate FiO2 08/01/17 08:03 98.2 76 18 117/58 (77) 100 08/01/17 04:45 98.4 73 16 120/62 (81) 100 08/01/17 00:45 98.7 74 18 136/63 (87) 99 07/31/17 20:05 98.9 89 16 128/60 (82) 97 07/31/17 16:03 98.1 81 18 160/67 (98) 99 . Laboratory Tests Test 08/01/17 06:10 White Blood Count 7.1 TH/MM3 Red Blood Count 4.15 MIL/MM3 Hemoglobin 10.0 GM/DL Hematocrit 31.8 % Mean Corpuscular Volume 76.8 FL Mean Corpuscular Hemoglobin 24.1 PG Mean Corpuscular Hemoglobin Concent 31.3 % Red Cell Distribution Width 18.4 % Platelet Count 436 TH/MM3 Mean Platelet Volume 7.1 FL Neutrophils (%) (Auto) 52.3 % Lymphocytes (%) (Auto) 31.5 % Monocytes (%) (Auto) 8.6 % Eosinophils (%) (Auto) 6.8 % Basophils (%) (Auto) 0.8 % Neutrophils # (Auto) 3.7 TH/MM3 Lymphocytes # (Auto) 2.2 TH/MM3 Monocytes # (Auto) 0.6 TH/MM3 Eosinophils # (Auto) 0.5 TH/MM3 Basophils # (Auto) 0.1 TH/MM3 CBC Comment DIFF FINAL Differential Comment Laboratory Tests Test 08/01/17 06:10 Blood Urea Nitrogen 12 MG/DL Creatinine 0.52 MG/DL Random Glucose 90 MG/DL Total Protein 7.1 GM/DL Albumin 2.4 GM/DL Calcium Level 9.3 MG/DL Phosphorus Level 4.2 MG/DL Magnesium Level 1.8 MG/DL Alkaline Phosphatase 152 U/L Aspartate Amino Transf (AST/SGOT) 27 U/L Alanine Aminotransferase (ALT/SGPT) 39 U/L Total Bilirubin LESS THAN 0.1 MG/DL Sodium Level 139 MEQ/L Potassium Level 5.1 MEQ/L Chloride Level 105 MEQ/L Carbon Dioxide Level 26.5 MEQ/L Anion Gap 8 MEQ/L Estimat Glomerular Filtration Rate 203 ML/MIN Free Thyroxine 0.80 NG/DL Thyroid Stimulating Hormone 3rd Gen 1.920 uIU/ML Imaging Last Impressions Lower Extremity MRI 07/23/17 0000 Signed Impressions: Service Date/Time: Sunday, July 23, 2017 20:15 - CONCLUSION: 1. The soft tissue ulceration laterally of the left leg appears slightly improved. No drainable soft tissue abscess. 2. However, there is increased conspicuity and extent of cortical thickening and signal changes of the fibula compatible with acute on chronic osteomyelitis. There is elongated and nearly diffuse intramedullary fluid typical of abscess as well as an apparent developing sinus tract approximately 6.1 cm proximal to the lateral malleolus. Yonathan Hess MD Chest X-Ray 07/22/17 0000 Signed Impressions: Service Date/Time: Saturday, July 22, 2017 13:06 - CONCLUSION: No acute disease. Cuba Bone MD Abdomen/Pelvis CT 07/22/17 0000 Signed Impressions: Service Date/Time: Saturday, July 22, 2017 14:36 - CONCLUSION: 1. Chronic bony changes about the pelvic girdle and proximal femurs or bony destruction and extensive heterotopic bone formation. 2. Probable associated decubitus type ulcers bilaterally with the right ischium/inferior pubic ramus partially exposed suggesting osteomyelitis in this region. 3. Cholelithiasis. 4. Ostomy in the upper midabdomen. Ry Uribe MD Physical Exam CONSTITUTIONAL/GENERAL: This is an adequately nourished patient, in no apparent distress. TUBES/LINES/DRAINS: SKIN: No jaundice, rashes, or lesions. . Skin temperature appropriate. Not diaphoretic. large sacrum, buttocks wound was seen during dressing change; tissue with great pink granulations, no purulence, or necrotic tissue CARDIOVASCULAR: Regular rate and rhythm without murmurs, gallops, or rubs. No JVD. Peripheral pulses symmetric. RESPIRATORY/CHEST: Symmetric, unlabored respirations. Clear to auscultation. Breath sounds equal bilaterally. No wheezes, rales, or rhonchi. GASTROINTESTINAL: Abdomen soft, + tender to palpation in RLQ, mildly to moderately distended. No hepato-splenomegaly, or palpable masses. No guarding. Bowel sounds present. Stoma in place with liquid brown stool GENITOURINARY: Without palpable bladder distension. Sp catheter in place with quite cloudy urine MUSCULOSKELETAL: Extremities without clubbing, cyanosis, or edema. dressing in place over LLE NEUROLOGICAL: Awake and alert. Paraplegia Follows commands with BUE. Clear speech PSYCHIATRIC: calm and coooperative Assessment & Plan Remarks Paraplegia Acute and chronic osteomyelitis at the fibula of left lower extremity. Chronic wound LLE. Culture has proteus, group D enterococcus and MRSA.. UTI - growing ESBL+ e.coli Sacral decubitus ulcer. : stage IV, but clean L fibula osteo and abscess/ sinus tract on MRI but bone bx did not confirm osteo - with probably underlying PVD - only surgical option is AKA and the pt is refusing diarrhea, C.diff negative cont Ertapenem, daptomycin for now consult wound care Prognosis is very poor as far as cure 2/2 pt's constant pepe [place] : he recommended wound care or AKA dw Dr Contreras radiologist pepe pathologist Ana Dunbar MD August 01, 2017 15:00
--- NOTE | 2017-08-01 15:24 | PD.WCN.NOT ---
Neg Pressure Wound Therapy Wound Location Wound Location: Bilateral ischial area Wound Description Length: ~12cm Width: ~15cm Depth: ~1cm Wound bed appearance: 100% red granulation tissue, island of epithelialization is noted at 6 o'clock. Moderate sanguinous/ thin yellow exudate is noted without odor Periwound appearance: Other (Some maceration) Settings Suction: 125 mmHg Intensity: Low Other Information: Bridged, Mushroomed Foam type: Black Number of pieces: 3 Additonal Information Patient seen on 4 north for wound VAC dressing change around 1200 for wound VAC dressing change. Removed saturated, slightly dislodged wound VAC dressing in place to reveal wound. Wound was cleansed with normal saline and patted dry. Applied stoma powder and wiped off excess and sprayed cavilon skin barrier film spray to entire periwound and scrotum to encrust. Repeated encrusting one time. Stoma Paste was applied to all intertriginous areas to periwound and lined wound with stoma paste. One long strip of granufoam was cut and applied to wound bed. Applied two smaller pieces of granufoam to fill in entire wound bed. Secured granufoam with 1 large piece of VAC drape. VAC drape was then bridged to L anterior upper thigh with granufoam over VAC drape. Attached Sensi trac pad with mushroom cap of granufoam to Bridged granufoam on L anterior thigh. Covered all exposed granufoam with VAC drape. Wound VAC started. Wound VAC has low leak rate at 125 mm/hg low continuous suction. Next wound VAC dressing change is Sunday08/03/2017. [facility] August 01, 2017 15:23
[2017-08-01 15:41] LABS: HEMOGLOBIN A1C 5.5 % (4.3-6.0)
--- NOTE | 2017-08-01 16:23 | PD.POD ---
Subjective Podiatric Problems s/p bone bx with , on 07/29/17. Pt denies any pain to the leg, only complains of pain to the decubitus ulcer. He denies any n/v/f/h/c/sob. Pain score: 0 Past Med/Surg/Social History Social History Smoking Status: Former Smoker Objective Vital Signs Vital Signs Date Time Temp Pulse Resp B/P (MAP) Pulse Ox O2 Delivery O2 Flow Rate FiO2 08/01/17 08:03 98.2 76 18 117/58 (77) 100 08/01/17 04:45 98.4 73 16 120/62 (81) 100 08/01/17 00:45 98.7 74 18 136/63 (87) 99 07/31/17 20:05 98.9 89 16 128/60 (82) 97 Coded Allergies: clindamycin (Verified Allergy, Severe, HIVES, 07/22/17) sulfamethoxazole (Verified Allergy, Severe, RASH, 07/22/17) trimethoprim (Verified Allergy, Severe, RASH, 07/22/17) vancomycin (Verified Allergy, Severe, hives, 07/22/17) morphine (Verified Adverse Reaction, Severe, Tachycardia, 07/22/17) Physical Exam Remarks Left lateral leg ulcer remains unchanged from previous consult. No signs of acute infection. Assessment & Plan A/P 1) Left fibula OM, s/p bone bx -Biopsy completed at request of medical doctor, biopsy was negative, but likely a false negative as pt has been on claims adjuster supervisor iv abx -Any surgical intervention, other then an AKA, would require excising the fibula. This is unfortunately out of my scope of practice. Case was discussed with in detail, he feels conservative care is most appropriate at this time. -Cont wound care as ordered, abx as per ID Pt needs appt at the [place] [facility] arranged prior to d/c Josefina Arroyo DPM August 01, 2017 16:23
[2017-08-01] MEDS: ENOXAPARIN SODIUM 40 MG/0.4 ML SYRINGE SQ SCH (17:36)
--- NOTE | 2017-08-01 18:16 | HHI.PR ---
Subjective Remarks Follow-up for osteomyelitis Pain is controlled, still does not want to do surgery. Diarrhea has improved but still present via ostomy. Objective Vitals Vital Signs Date Time Temp Pulse Resp B/P (MAP) Pulse Ox O2 Delivery O2 Flow Rate FiO2 08/01/17 16:03 98.1 91 18 125/57 (79) 98 08/01/17 12:03 98.0 71 18 112/56 (74) 98 08/01/17 08:03 98.2 76 18 117/58 (77) 100 08/01/17 04:45 98.4 73 16 120/62 (81) 100 08/01/17 00:45 98.7 74 18 136/63 (87) 99 07/31/17 20:05 98.9 89 16 128/60 (82) 97 I/O 07/31/17 07/31/17 07/31/17 08/01/17 08/01/17 08/01/17 06:59 14:59 22:59 06:59 14:59 22:59 Intake Total 720 ml 480 ml 480 ml Output Total 1100 ml 2150 ml 1700 ml Balance -380 ml -1670 ml -1220 ml Intake Oral 720 ml 480 ml 480 ml Output Urine Total 1100 ml 1600 ml 1400 ml Stool Total 550 ml 300 ml # Bowel Movements 0 0 Result Diagram: 08/01/17 0610 08/01/17 0610 Objective Remarks GENERAL: Awake and alert and oriented 3 talkative and cooperative CARDIOVASCULAR: Regular rate and rhythm. S1, S2 NO S3 OR S4 RESPIRATORY: No accessory muscle use. Clear to auscultation. Breath sounds equal bilaterally. GASTROINTESTINAL: Abdomen soft, non-tender, nondistended. COLOSTOMY WITH MUSHY STOOL MUSCULOSKELETAL: Extremities RIGHT ABOVE THE KNEE AMPUTATION- LEFT LEG DRESSED No obvious deformities. Right [id number] amputation --left lower extremity is dressed NEUROLOGICAL: Awake and alert. No obvious cranial nerve deficits. Motor grossly within normal limits Procedures left tibia bone biopsy A/P Problem List: (1) UTI (urinary tract infection) ICD Code: N39.0 - Urinary tract infection, site not specified Status: Acute (2) Osteomyelitis ICD Code: M86.9 - Osteomyelitis, unspecified Assessment and Plan 52 yo BM with Paraplegia Acute and chronic osteomyelitis and abscess/sinus tract at the fibula of left lower extremity. Chronic wound LLE. Culture has proteus, group D enterococcus and MRSA.. -AK recommended but patient refusing, pathology is back, allegedly inflammation but no osteomyelitis. Per radiology, MRI shows osteomyelitis. Discussed with infectious disease, continue Invanz for now. ESBL UTI with chronic indwelling catheter which will be replaced. Culture growing ESBL, Klebsiella and GNR continue IV Invanz. Nausea/vomiting/diarrhea-resolving, monitor Possibly gastroenteritis. Improved. C diff negative. - antiemetics as needed. - ADAT. - hold bowel regimen. Continue Lactinex Anemia Appears chronic. - follow CBC and transfuse as needed. Elevated LFTs CT abdomen without obvious abnormality. LFTs appear chronically elevated. - improved Sacral decubitus. Continue wound care/wound VAC DVT prophylaxis: Lovenox Discharge Planning Once cleared by infectious disease. Problem Qualifiers (1) Osteomyelitis: Irvin Nicholas MD August 01, 2017 18:16
[2017-08-02 01:04] VITALS: BP 124/58; PULSE 66; RESP 18; TEMP 98.3; O2SAT 96
[2017-08-02] MEDS: ACETAMINOPHEN/HYDROcodone 325 MG/10 MG TAB PO PRN ×5 (01:29→20:17)
[2017-08-02 05:46] VITALS: BP 120/60; PULSE 82; RESP 18; TEMP 98.6; O2SAT 100
[2017-08-02 08:00] VITALS: BP 129/60; PULSE 72; RESP 20; TEMP 98.8; O2SAT 100
[2017-08-02] MEDS: LACTOBACILLUS ACIDOPHILUS TAB PO SCH ×2 (08:23→20:16)
[2017-08-02] MEDS: MEGESTROL ACETATE SUSP 400 MG/10 ML CUP PO SCH (08:24)
[2017-08-02] MEDS: SODIUM CHLORIDE 0.9% FLUSH 10 ML FLUSH IV FLUSH SCH ×3 (08:27→20:16)
[2017-08-02] MEDS: COLLAGENASE OINT 30 GM TUBE TOPICAL SCH (08:28)
[2017-08-02 12:00] VITALS: BP 126/58; PULSE 91; RESP 20; TEMP 98.7; O2SAT 97
[2017-08-02] MEDS: ERTAPENEM INJ 1,000 MG in SODIUM CHLORIDE 0.9% INJ 100 ML IV SCH (12:19)
[2017-08-02] MEDS: DAPTOmycin INJ 750 MG in SODIUM CHLORIDE 0.9% INJ 100 ML IV SCH (13:00)
--- NOTE | 2017-08-02 13:37 | HHI.PR ---
Subjective Remarks Patient complains of right-sided abdominal pain which improved with passing gas no fever or chills Objective Vitals Vital Signs Date Time Temp Pulse Resp B/P (MAP) Pulse Ox O2 Delivery O2 Flow Rate FiO2 08/02/17 12:00 98.7 91 20 126/58 (80) 97 08/02/17 08:00 98.8 72 20 129/60 (83) 100 08/02/17 07:00 Room Air 08/02/17 05:46 98.6 82 18 120/60 (80) 100 08/02/17 04:09 Room Air 08/02/17 01:04 98.3 66 18 124/58 (80) 96 08/02/17 00:00 Room Air 08/01/17 20:00 Room Air 08/01/17 20:00 97.6 107 16 110/60 (77) 98 08/01/17 19:49 98 21 08/01/17 16:03 98.1 91 18 125/57 (79) 98 I/O 08/01/17 08/01/17 08/01/17 08/02/17 08/02/17 08/02/17 06:59 14:59 22:59 06:59 14:59 22:59 Intake Total 480 ml 540 ml Output Total 1700 ml 1800 ml 1075 ml Balance -1220 ml -1260 ml -1075 ml Intake Oral 480 ml 540 ml Output Urine Total 1400 ml 1800 ml 1075 ml Stool Total 300 ml # Bowel Movements 0 Result Diagram: 08/01/17 0610 08/01/17 0610 Objective Remarks GENERAL: This is a well-nourished, well-developed patient, in no apparent distress. SKIN: No rashes, warm and dry HEAD: Atraumatic. Normocephalic. EYES: Pupils equal round and reactive. Extraocular motions intact. No scleral icterus. ENT: Nose without bleeding, or drainage, Airway patent. NECK: Trachea midline. Supple CARDIOVASCULAR: Regular rate and rhythm without murmurs, gallops, or rubs. RESPIRATORY: Fair air entry bilaterally. No wheezes, rales, or rhonchi. GASTROINTESTINAL: Abdomen soft, non-tender, nondistended. Positive bowel sounds MUSCULOSKELETAL: Right AKA, left lower extremity dressing NEUROLOGICAL: Awake and alert. Moves all extremity. Normal speech.no focal neurological deficit Procedures left tibia bone biopsy A/P Problem List: (1) UTI (urinary tract infection) ICD Code: N39.0 - Urinary tract infection, site not specified Status: Acute (2) Osteomyelitis ICD Code: M86.9 - Osteomyelitis, unspecified Assessment and Plan 52 yo BM with Paraplegia /: Continue current care with IV antibiotic Invanz per ID. Patient, follow CBC and temperature Acute and chronic osteomyelitis and abscess/sinus tract at the fibula of left lower extremity. Chronic wound LLE. Culture has proteus, group D enterococcus and MRSA.. -AK recommended but patient refusing, pathology is back, allegedly inflammation but no osteomyelitis. Per radiology, MRI shows osteomyelitis. Discussed with infectious disease, continue Invanz for now. ESBL UTI with chronic indwelling catheter which will be replaced. Culture growing ESBL, Klebsiella and GNR continue IV Invanz. Nausea/vomiting/diarrhea-resolving, monitor Possibly gastroenteritis. Improved. C diff negative. - antiemetics as needed. - ADAT. - hold bowel regimen. Continue Lactinex Anemia Appears chronic. - follow CBC and transfuse as needed. Elevated LFTs CT abdomen without obvious abnormality. LFTs appear chronically elevated. - improved Sacral decubitus. Continue wound care/wound VAC DVT prophylaxis: Lovenox Problem Qualifiers (1) Osteomyelitis: Karlee Hsieh MD August 02, 2017 13:37
[2017-08-02 16:00] VITALS: BP 134/65; PULSE 90; RESP 20; TEMP 98; O2SAT 100
[2017-08-02] MEDS: ENOXAPARIN SODIUM 40 MG/0.4 ML SYRINGE SQ SCH (17:31)
[2017-08-02 20:00] VITALS: BP 118/71; PULSE 84; RESP 18; TEMP 98.7; O2SAT 98
[2017-08-03] MEDS: ACETAMINOPHEN/HYDROcodone 325 MG/10 MG TAB PO PRN ×6 (00:05→22:28)
[2017-08-03 00:08] VITALS: BP 120/72; PULSE 88; RESP 18; TEMP 99.4; O2SAT 100
[2017-08-03 04:25] VITALS: BP 133/73; PULSE 85; RESP 18; TEMP 99; O2SAT 95
[2017-08-03 08:00] VITALS: BP 137/65; PULSE 71; RESP 20; TEMP 98.8; O2SAT 100
[2017-08-03] MEDS: LACTOBACILLUS ACIDOPHILUS TAB PO SCH ×2 (08:59→22:28)
[2017-08-03] MEDS: MEGESTROL ACETATE SUSP 400 MG/10 ML CUP PO SCH (09:00)
[2017-08-03] MEDS: COLLAGENASE OINT 30 GM TUBE TOPICAL SCH (09:00)
[2017-08-03] MEDS: SODIUM CHLORIDE 0.9% FLUSH 10 ML FLUSH IV FLUSH SCH ×3 (09:00→22:28)
[2017-08-03 12:00] VITALS: BP 117/56; PULSE 94; RESP 20; TEMP 98.1; O2SAT 100
[2017-08-03] MEDS: ERTAPENEM INJ 1,000 MG in SODIUM CHLORIDE 0.9% INJ 100 ML IV SCH (13:00)
[2017-08-03] MEDS: DAPTOmycin INJ 750 MG in SODIUM CHLORIDE 0.9% INJ 100 ML IV SCH (13:09)
--- NOTE | 2017-08-03 15:02 | PD.WCN.NOT ---
Wound Consult Recommendation: Please remove wound VAC on Sunday and cleanse wound to bilateral ischial area with wound cleanser and apply Maxorb AG to wound bed loosely packed. Secure dressing with ABD pad and Medfix tape. Please spray periwound with Cavilon skin protectant spray before securing dressing with tape. Change dressing daily. Neg Pressure Wound Therapy Wound Location Wound Location: Bilateral ischial area Wound Description Length: ~12cm Width: ~15cm Depth: ~0.6cm Wound bed appearance: 100% red granulation tissue, island of epithelialization is noted at 6 o'clock. Moderate sanguinous/ thin yellow exudate is noted without odor Settings Suction: 125 mmHg Intensity: Low Other Information: Bridged, Mushroomed Foam type: Black Number of pieces: 3 Additonal Information Patient seen on 4 north for wound VAC dressing change around 1100 for wound VAC dressing change. Removed saturated, slightly dislodged wound VAC dressing in place to reveal wound. Wound was cleansed with normal saline and patted dry. Applied stoma powder and wiped off excess and sprayed cavilon skin barrier film spray to entire periwound and scrotum to encrust. Repeated encrusting one time. Stoma Paste was applied to all intertriginous areas to periwound and lined wound with stoma paste. One long strip of granufoam was cut and applied to wound bed. Applied two smaller pieces of granufoam to fill in entire wound bed. Secured granufoam with 1 large piece of VAC drape. VAC drape was then bridged to L anterior upper thigh with granufoam over VAC drape. Attached Sensi trac pad with mushroom cap of granufoam to Bridged granufoam on L anterior thigh. Covered all exposed granufoam with VAC drape. Wound VAC started. Wound VAC has low leak rate at 125 mm/hg low continuous suction. Will not need VAC with next dressing change. Wound is less than 1 cm deep with island of epithelialization. Son[facility] Flannery [facility] August 03, 2017 15:02
--- NOTE | 2017-08-03 15:17 | HHI.IDPN ---
Subjective Subjective Remarks afebrile clx are negative - final Path negative for osteo, clx are negative as well tolerates abx ok co RLQ pain, stooling MRI changes are cw with acute and chronic osteo only: dw radilogist Pt was offered AKA but refusing it Antibiotics daptomycin Ertapenem Allergies: Coded Allergies: clindamycin (Verified Allergy, Severe, HIVES, 07/22/17) sulfamethoxazole (Verified Allergy, Severe, RASH, 07/22/17) trimethoprim (Verified Allergy, Severe, RASH, 07/22/17) vancomycin (Verified Allergy, Severe, hives, 07/22/17) morphine (Verified Adverse Reaction, Severe, Tachycardia, 07/22/17) Objective . Vital Signs Date Time Temp Pulse Resp B/P (MAP) Pulse Ox O2 Delivery O2 Flow Rate FiO2 08/03/17 12:00 98.1 94 20 117/56 (76) 100 08/03/17 08:00 98.8 71 20 137/65 (89) 100 08/03/17 07:37 Room Air 08/03/17 04:25 99.0 85 18 133/73 (93) 95 08/03/17 04:00 Room Air 08/03/17 00:08 99.4 88 18 120/72 (88) 100 08/03/17 00:00 Room Air 08/02/17 20:00 Room Air 08/02/17 20:00 98.7 84 18 118/71 (87) 98 08/02/17 16:00 98.0 90 20 134/65 (88) 100 08/03/17 08/03/17 08/04/17 14:59 22:59 06:59 Intake Total 0 ml Balance 0 ml IV Total 0 ml Imaging Last Impressions Lower Extremity MRI 07/23/17 0000 Signed Impressions: Service Date/Time: Sunday, July 23, 2017 20:15 - CONCLUSION: 1. The soft tissue ulceration laterally of the left leg appears slightly improved. No drainable soft tissue abscess. 2. However, there is increased conspicuity and extent of cortical thickening and signal changes of the fibula compatible with acute on chronic osteomyelitis. There is elongated and nearly diffuse intramedullary fluid typical of abscess as well as an apparent developing sinus tract approximately 6.1 cm proximal to the lateral malleolus. Yonathan Hess MD Chest X-Ray 07/22/17 0000 Signed Impressions: Service Date/Time: Saturday, July 22, 2017 13:06 - CONCLUSION: No acute disease. Cuba Bone MD Abdomen/Pelvis CT 07/22/17 0000 Signed Impressions: Service Date/Time: Saturday, July 22, 2017 14:36 - CONCLUSION: 1. Chronic bony changes about the pelvic girdle and proximal femurs or bony destruction and extensive heterotopic bone formation. 2. Probable associated decubitus type ulcers bilaterally with the right ischium/inferior pubic ramus partially exposed suggesting osteomyelitis in this region. 3. Cholelithiasis. 4. Ostomy in the upper midabdomen. Ry Uribe MD Physical Exam CONSTITUTIONAL/GENERAL: This is an adequately nourished patient, in no apparent distress. TUBES/LINES/DRAINS: SKIN: No jaundice, rashes, or lesions. . Skin temperature appropriate. Not diaphoretic. large sacrum, buttocks wound was seen during dressing change; tissue with great pink granulations, no purulence, or necrotic tissue CARDIOVASCULAR: Regular rate and rhythm without murmurs, gallops, or rubs. No JVD. Peripheral pulses symmetric. RESPIRATORY/CHEST: Symmetric, unlabored respirations. Clear to auscultation. Breath sounds equal bilaterally. No wheezes, rales, or rhonchi. GASTROINTESTINAL: Abdomen soft, + tender to palpation in RLQ, mildly to moderately distended. No hepato-splenomegaly, or palpable masses. No guarding. Bowel sounds present. Stoma in place with liquid brown stool GENITOURINARY: Without palpable bladder distension. Sp catheter in place with quite cloudy urine MUSCULOSKELETAL: Extremities without clubbing, cyanosis, or edema. d LLE longitudinal ulcer is kathleen completely granulated over except one area in proximal aspect DP pulse non palpable, TP pulse is 2/2 nails are pink, brisk refill - doubt vascular insufficiaency NEUROLOGICAL: Awake and alert. Paraplegia Follows commands with BUE. Clear speech PSYCHIATRIC: calm and coooperative Assessment & Plan Remarks Paraplegia Acute and chronic osteomyelitis at the fibula of left lower extremity. Chronic wound LLE. Culture has proteus, group D enterococcus and MRSA.. UTI - growing ESBL+ e.coli Sacral decubitus ulcer. : stage IV, but clean L fibula osteo and abscess/ sinus tract on MRI but bone bx did not confirm osteo diarrhea, C.diff negative New abd pain cont Ertapenem, daptomycin for now consult case mng to arrange wound care @ Dr Courtney office and eventually grafting rechk ESR Prognosis is very poor as far as cure 2/2 pt's constant pressure dw Violeta York, Jori Peters,Ana Mcqueen MD August 03, 2017 15:17
--- NOTE | 2017-08-03 15:18 | PD.WCN.NOT ---
Wound Consult Additional Information: Patient was seen at 1300 for reinforcement of VAC dressing. Received call from MACK JENSEN for leaking wound VAC. Radha attempted to fix, but has been unsuccessful. Reinforced dressing with MACK Garcia and instructional writer at bedside. Patient is able to hold legs up to reveal separation of dressing. Applied another piece of granufoam to wound bed and reapplied stoma paste. Wound VAC dressing was sealed with Additional VAC drape. Trac pad was repositioned on L anterior thigh and secured with VAC drape.Wound VAC dressing is suctioning at 125 mm/hg continuous with low leak rate. Neg Pressure Wound Therapy Wound Description Wound bed appearance: 100% red granulation tissue, island of epithelialization is noted at 6 o'clock. Moderate sanguinous/ thin yellow exudate is noted without odor Settings Suction: 125 mmHg Intensity: Low Other Information: Bridged, Mushroomed Foam type: Black Number of pieces: 3 [facility] August 03, 2017 15:18
--- NOTE | 2017-08-03 15:51 | RADRPT ---
EXAM DATE/TIME: 08/03/2017 14:52 [facility] COMPARISON: CT ABDOMEN & PELVIS W CONTRAST, July 22, 2017, 14:36. INDICATIONS : Abdomen pain. MEDICAL HISTORY : Hypertension. Myocardial infarction. Emphysema. SURGICAL HISTORY : thoracic fusion, colon resection, venous umbrella, right below the knee amputation ENCOUNTER: Initial ACUITY: 1 week PAIN SCORE: Non-responsive. LOCATION: Bilateral abdomen FINDINGS: 2 supine frontal views of the abdomen demonstrate air within bowel in a nonobstructive pattern. No or ganomegaly is appreciated. Ostomy wafer overlies the mid abdomen. IVC filter is located to the right of midline overlying the L2-L3 level. Lung bases are clear. Thoracic spine rods are partially visuali zed. There are chronic pelvic changes bilaterally with abnormal shaped and developed acetabula with s uperior migration of the femoral heads bilaterally with destruction of the femoral heads and heteroto pic ossification. These findings are stable. CONCLUSION: 1. No acute abdominal abnormality is identified. 2. 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 Yonathan Callahan MD on August 03, 2017 at 15:46 Board Certified Radiologist. This report was verified electronically.
[2017-08-03 16:00] VITALS: BP 127/58; PULSE 81; RESP 20; TEMP 98.8; O2SAT 100
[2017-08-03] MEDS: ENOXAPARIN SODIUM 40 MG/0.4 ML SYRINGE SQ SCH (17:24)
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
[2017-08-03 20:02] VITALS: BP 142/63; PULSE 89; RESP 20; TEMP 98.6; O2SAT 99
--- NOTE | 2017-08-03 20:16 | HHI.PR ---
Subjective Remarks Patient felt feverish overnight, he reported having soft stools today No reported fever documented Objective Vitals Vital Signs Date Time Temp Pulse Resp B/P (MAP) Pulse Ox O2 Delivery O2 Flow Rate FiO2 08/03/17 16:00 98.8 81 20 127/58 (81) 100 08/03/17 12:00 98.1 94 20 117/56 (76) 100 08/03/17 08:00 98.8 71 20 137/65 (89) 100 08/03/17 07:37 Room Air 08/03/17 04:25 99.0 85 18 133/73 (93) 95 08/03/17 04:00 Room Air 08/03/17 00:08 99.4 88 18 120/72 (88) 100 08/03/17 00:00 Room Air I/O 08/02/17 08/02/17 08/02/17 08/03/17 08/03/17 08/03/17 07:00 15:00 23:00 07:00 15:00 23:00 Intake Total 480 ml 480 ml 0 ml 760 ml Output Total 1075 ml 1000 ml 450 ml 1800 ml 1000 ml Balance -1075 ml -520 ml -450 ml -1320 ml 0 ml -240 ml Intake Oral 480 ml 480 ml 560 ml IV Total 0 ml 200 ml Output Urine Total 1075 ml 1000 ml 450 ml 1500 ml 1000 ml Stool Total 300 ml # Bowel Movements 0 Result Diagram: 08/01/17 0610 08/01/17 0610 Objective Remarks GENERAL: This is a well-nourished, well-developed patient, in no apparent distress. SKIN: No rashes, warm and dry HEAD: Atraumatic. Normocephalic. EYES: Pupils equal round and reactive. Extraocular motions intact. No scleral icterus. ENT: Nose without bleeding, or drainage, Airway patent. NECK: Trachea midline. Supple CARDIOVASCULAR: Regular rate and rhythm without murmurs, gallops, or rubs. RESPIRATORY: Fair air entry bilaterally. No wheezes, rales, or rhonchi. GASTROINTESTINAL: Abdomen soft, non-tender, nondistended. Positive bowel sounds MUSCULOSKELETAL: Right AKA, left lower extremity dressing NEUROLOGICAL: Awake and alert. Moves all extremity. Normal speech.no focal neurological deficit Procedures left tibia bone biopsy A/P Problem List: (1) UTI (urinary tract infection) ICD Code: N39.0 - Urinary tract infection, site not specified Status: Acute (2) Osteomyelitis ICD Code: M86.9 - Osteomyelitis, unspecified Assessment and Plan 52 yo BM with Paraplegia 08/02: Continue current care with IV antibiotic Invanz per ID. Patient, follow CBC and temperature 08/03: No acute issue continue current care with IV antibiotic per ID A/P: Acute and chronic osteomyelitis and abscess/sinus tract at the fibula of left lower extremity. Chronic wound LLE. Culture has proteus, group D enterococcus and MRSA.. -AK recommended but patient refusing, pathology is back, allegedly inflammation but no osteomyelitis. Per radiology, MRI shows osteomyelitis. Discussed with infectious disease, continue Invanz for now. ESBL UTI with chronic indwelling catheter which will be replaced. Culture growing ESBL, Klebsiella and GNR continue IV Invanz. Nausea/vomiting/diarrhea-resolving, monitor Possibly gastroenteritis. Improved. C diff negative. - antiemetics as needed. - ADAT. - hold bowel regimen. Continue Lactinex Anemia Appears chronic. - follow CBC and transfuse as needed. Elevated LFTs CT abdomen without obvious abnormality. LFTs appear chronically elevated. - improved Sacral decubitus. Continue wound care/wound VAC DVT prophylaxis: Lovenox Problem Qualifiers (1) Osteomyelitis: Karlee Hsieh MD August 03, 2017 20:15
[2017-08-04 00:03] VITALS: BP 113/67; PULSE 82; RESP 20; TEMP 98.3; O2SAT 99
[2017-08-04] MEDS: ACETAMINOPHEN/HYDROcodone 325 MG/10 MG TAB PO PRN ×6 (02:17→21:18)
[2017-08-04 04:08] VITALS: BP 112/71; PULSE 79; RESP 20; TEMP 98.2; O2SAT 100
[2017-08-04 08:00] VITALS: BP 120/62; PULSE 85; RESP 20; TEMP 98.6; O2SAT 100
[2017-08-04] MEDS: MEGESTROL ACETATE SUSP 400 MG/10 ML CUP PO SCH (08:47)
[2017-08-04] MEDS: LACTOBACILLUS ACIDOPHILUS TAB PO SCH ×2 (08:47→21:18)
[2017-08-04] MEDS: COLLAGENASE OINT 30 GM TUBE TOPICAL SCH (09:00)
[2017-08-04] MEDS: SODIUM CHLORIDE 0.9% FLUSH 10 ML FLUSH IV FLUSH SCH ×3 (09:00→21:18)
[2017-08-04 12:00] VITALS: BP 130/62; PULSE 72; RESP 20; TEMP 98.6; O2SAT 99
[2017-08-04] MEDS: DAPTOmycin INJ 750 MG in SODIUM CHLORIDE 0.9% INJ 100 ML IV SCH (13:26)
[2017-08-04] MEDS: ERTAPENEM INJ 1,000 MG in SODIUM CHLORIDE 0.9% INJ 100 ML IV SCH (14:55)
[2017-08-04 16:00] VITALS: BP 128/61; PULSE 87; RESP 20; TEMP 98.2; O2SAT 100
[2017-08-04] MEDS: ENOXAPARIN SODIUM 40 MG/0.4 ML SYRINGE SQ SCH (17:19)
[2017-08-04 20:00] VITALS: BP 137/63; PULSE 80; RESP 18; TEMP 98.6; O2SAT 98
--- NOTE | 2017-08-04 20:23 | HHI.PR ---
Subjective Remarks Resting in bed, no acute issues overnight, no chest pain or short of breath, continue IV antibiotic Invanz and daptomycin Objective Vitals Vital Signs Date Time Temp Pulse Resp B/P (MAP) Pulse Ox O2 Delivery O2 Flow Rate FiO2 08/04/17 16:37 100 Room Air 08/04/17 16:00 98.2 87 20 128/61 (83) 100 08/04/17 12:00 98.6 72 20 130/62 (84) 99 08/04/17 08:00 98.6 85 20 120/62 (81) 100 08/04/17 04:08 98.2 79 20 112/71 (85) 100 08/04/17 00:03 98.3 82 20 113/67 (82) 99 I/O 08/03/17 08/03/17 08/03/17 08/04/17 08/04/17 08/04/17 07:00 15:00 23:00 07:00 15:00 23:00 Intake Total 480 ml 0 ml 760 ml 720 ml Output Total 1800 ml 1000 ml 1500 ml 950 ml Balance -1320 ml 0 ml -240 ml -1500 ml -230 ml Intake Oral 480 ml 560 ml 720 ml IV Total 0 ml 200 ml Output Urine Total 1500 ml 1000 ml 1500 ml 950 ml Stool Total 300 ml Result Diagram: 08/01/17 0610 08/01/17 0610 Objective Remarks GENERAL: This is a well-nourished, well-developed patient, in no apparent distress. NEUROLOGICAL: Awake and alert. Moves all extremity. Normal speech.no focal neurological deficit Procedures left tibia bone biopsy A/P Problem List: (1) UTI (urinary tract infection) ICD Code: N39.0 - Urinary tract infection, site not specified Status: Acute (2) Osteomyelitis ICD Code: M86.9 - Osteomyelitis, unspecified Assessment and Plan 52 yo BM with Paraplegia 08/04: Continue current care with IV antibiotic Invanz per ID. Patient, follow CBC and temperature Acute and chronic osteomyelitis and abscess/sinus tract at the fibula of left lower extremity. Chronic wound LLE. Culture has proteus, group D enterococcus and MRSA.. -AK recommended but patient refusing, pathology is back, allegedly inflammation but no osteomyelitis. Per radiology, MRI shows osteomyelitis. Discussed with infectious disease, continue Invanz for now. ESBL UTI with chronic indwelling catheter which will be replaced. Culture growing ESBL, Klebsiella and GNR continue IV Invanz. Nausea/vomiting/diarrhea-resolving, monitor Possibly gastroenteritis. Improved. C diff negative. - antiemetics as needed. - ADAT. - hold bowel regimen. Continue Lactinex Anemia Appears chronic. - follow CBC and transfuse as needed. Elevated LFTs CT abdomen without obvious abnormality. LFTs appear chronically elevated. - improved Sacral decubitus. Continue wound care/wound VAC DVT prophylaxis: Lovenox Problem Qualifiers (1) Osteomyelitis: Karlee Hsieh MD August 04, 2017 20:23
[2017-08-05] MEDS: ACETAMINOPHEN/HYDROcodone 325 MG/10 MG TAB PO PRN ×5 (01:16→21:30)
[2017-08-05 04:46] VITALS: BP 121/60; PULSE 68; RESP 18; TEMP 98.5; O2SAT 99
[2017-08-05 08:00] VITALS: BP 112/65; PULSE 72; RESP 20; TEMP 98.3; O2SAT 100
[2017-08-05] MEDS: LACTOBACILLUS ACIDOPHILUS TAB PO SCH ×2 (08:39→21:30)
[2017-08-05] MEDS: MEGESTROL ACETATE SUSP 400 MG/10 ML CUP PO SCH (08:40)
[2017-08-05] MEDS: SODIUM CHLORIDE 0.9% FLUSH 10 ML FLUSH IV FLUSH SCH ×3 (09:00→21:00)
[2017-08-05] MEDS: COLLAGENASE OINT 30 GM TUBE TOPICAL SCH (09:00)
[2017-08-05 12:00] VITALS: BP 123/62; PULSE 94; RESP 20; TEMP 98.8; O2SAT 100
[2017-08-05] MEDS: DAPTOmycin INJ 750 MG in SODIUM CHLORIDE 0.9% INJ 100 ML IV SCH (13:44)
[2017-08-05] MEDS: ERTAPENEM INJ 1,000 MG in SODIUM CHLORIDE 0.9% INJ 100 ML IV SCH (13:45)
[2017-08-05 16:00] VITALS: BP 150/82; PULSE 84; RESP 20; TEMP 99; O2SAT 100
[2017-08-05] MEDS: ENOXAPARIN SODIUM 40 MG/0.4 ML SYRINGE SQ SCH (17:38)
--- NOTE | 2017-08-05 18:06 | HHI.PR ---
Subjective Remarks no acute issues Objective Vitals Vital Signs Date Time Temp Pulse Resp B/P (MAP) Pulse Ox O2 Delivery O2 Flow Rate FiO2 08/05/17 16:00 100 Room Air 08/05/17 14:26 100 Room Air 08/05/17 12:00 98.8 94 20 123/62 (82) 100 08/05/17 08:00 98.3 72 20 112/65 (81) 100 08/05/17 08:00 100 Room Air 08/05/17 04:46 98.5 68 18 121/60 (80) 99 08/04/17 20:00 Room Air 08/04/17 20:00 98.6 80 18 137/63 (87) 98 I/O 08/04/17 08/04/17 08/04/17 08/05/17 08/05/17 08/05/17 07:00 15:00 23:00 07:00 15:00 23:00 Intake Total 720 ml 360 ml Output Total 1500 ml 950 ml 1300 ml Balance -1500 ml -230 ml -940 ml Intake Oral 720 ml 360 ml Output Urine Total 1500 ml 950 ml 1300 ml Result Diagram: 08/01/17 0610 08/01/17 0610 Objective Remarks GENERAL: This is a well-nourished, well-developed patient, in no apparent distress. NEUROLOGICAL: Awake and alert. Moves all extremity. Normal speech.no focal neurological deficit Procedures left tibia bone biopsy A/P Problem List: (1) UTI (urinary tract infection) ICD Code: N39.0 - Urinary tract infection, site not specified Status: Acute (2) Osteomyelitis ICD Code: M86.9 - Osteomyelitis, unspecified Assessment and Plan 52 yo BM with Paraplegia 08/05: Continue IV antibiotic per ID. Patient, follow CBC and temperature Acute and chronic osteomyelitis and abscess/sinus tract at the fibula of left lower extremity. Chronic wound LLE. Culture has proteus, group D enterococcus and MRSA.. -AK recommended but patient refusing, pathology is back, allegedly inflammation but no osteomyelitis. Per radiology, MRI shows osteomyelitis. Discussed with infectious disease, continue Invanz for now. ESBL UTI with chronic indwelling catheter which will be replaced. Culture growing ESBL, Klebsiella and GNR continue IV Invanz. Nausea/vomiting/diarrhea-resolving, monitor Possibly gastroenteritis. Improved. C diff negative. - antiemetics as needed. - ADAT. - hold bowel regimen. Continue Lactinex Anemia Appears chronic. - follow CBC and transfuse as needed. Elevated LFTs CT abdomen without obvious abnormality. LFTs appear chronically elevated. - improved Sacral decubitus. Continue wound care/wound VAC DVT prophylaxis: Lovenox Problem Qualifiers (1) Osteomyelitis: Karlee Hsieh MD August 05, 2017 18:06
[2017-08-05 20:00] VITALS: BP_SYST 115; BP_SYST 121; BP_DIAS 67; BP_DIAS 97; PULSE 120; PULSE 94; RESP 17; RESP 18; TEMP 98.4; TEMP 98.5; O2SAT 97; O2SAT 99
[2017-08-06] VITALS: BP 133/63; PULSE 99; RESP 16; TEMP 97.7; O2SAT 99
[2017-08-06] MEDS: ACETAMINOPHEN/HYDROcodone 325 MG/10 MG TAB PO PRN ×6 (01:39→22:21)
[2017-08-06 04:00] VITALS: BP 128/61; PULSE 66; RESP 16; TEMP 98.5; O2SAT 98
[2017-08-06 08:03] VITALS: BP 122/73; PULSE 75; RESP 17; TEMP 98.3; O2SAT 100
[2017-08-06] MEDS: SODIUM CHLORIDE 0.9% FLUSH 10 ML FLUSH IV FLUSH SCH ×3 (09:25→22:21)
[2017-08-06] MEDS: LACTOBACILLUS ACIDOPHILUS TAB PO SCH ×2 (09:25→22:22)
[2017-08-06] MEDS: MEGESTROL ACETATE SUSP 400 MG/10 ML CUP PO SCH (09:25)
[2017-08-06] MEDS: COLLAGENASE OINT 30 GM TUBE TOPICAL SCH (09:25)
[2017-08-06] MEDS: DAPTOmycin INJ 750 MG in SODIUM CHLORIDE 0.9% INJ 100 ML IV SCH (11:53)
[2017-08-06 12:04] VITALS: BP 135/57; PULSE 96; RESP 17; TEMP 98.9; O2SAT 99
[2017-08-06] MEDS: ERTAPENEM INJ 1,000 MG in SODIUM CHLORIDE 0.9% INJ 100 ML IV SCH (13:29)
--- NOTE | 2017-08-06 14:16 | HHI.PR ---
Subjective Remarks Resting comfortably in bed No event overnight Denied chest and or short of breath No fever or chills Objective Vitals Vital Signs Date Time Temp Pulse Resp B/P (MAP) Pulse Ox O2 Delivery O2 Flow Rate FiO2 08/06/17 12:04 98.9 96 17 135/57 (83) 99 08/06/17 08:03 98.3 75 17 122/73 (89) 100 08/06/17 08:00 Room Air 08/06/17 04:00 98.5 66 16 128/61 (83) 98 08/06/17 04:00 Room Air 08/06/17 00:00 97.7 99 16 133/63 (86) 99 08/06/17 00:00 Room Air 08/05/17 20:00 Room Air 08/05/17 20:00 98.5 94 17 121/67 (85) 99 08/05/17 16:00 100 Room Air 08/05/17 16:00 99.0 84 20 150/82 (104) 100 08/05/17 14:26 100 Room Air I/O 08/05/17 08/05/17 08/05/17 08/06/17 08/06/17 08/06/17 07:00 15:00 23:00 07:00 15:00 23:00 Intake Total 360 ml 720 ml 480 ml Output Total 1300 ml 950 ml 1000 ml Balance -940 ml -230 ml -520 ml Intake Oral 360 ml 720 ml 480 ml Output Urine Total 1300 ml 950 ml 1000 ml Objective Remarks GENERAL: This is a well-nourished, well-developed patient, in no apparent distress. NEUROLOGICAL: Awake and alert. Moves all extremity. Normal speech.no focal neurological deficit Procedures left tibia bone biopsy A/P Problem List: (1) UTI (urinary tract infection) ICD Code: N39.0 - Urinary tract infection, site not specified Status: Acute (2) Osteomyelitis ICD Code: M86.9 - Osteomyelitis, unspecified Assessment and Plan 52 yo BM with Paraplegia 08/05: Continue IV antibiotic per ID. Patient, follow CBC and temperature 08/06: No acute issue check labs CK and BUN/creatinine while on antibiotic check in a.m. A/P: Acute and chronic osteomyelitis and abscess/sinus tract at the fibula of left lower extremity. Chronic wound LLE. Culture has proteus, group D enterococcus and MRSA.. -AK recommended but patient refusing, pathology is back, allegedly inflammation but no osteomyelitis. Per radiology, MRI shows osteomyelitis. Discussed with infectious disease, continue Invanz for now. ESBL UTI with chronic indwelling catheter which will be replaced. Culture growing ESBL, Klebsiella and GNR continue IV Invanz. Nausea/vomiting/diarrhea-resolving, monitor Possibly gastroenteritis. Improved. C diff negative. - antiemetics as needed. - ADAT. - hold bowel regimen. Continue Lactinex Anemia Appears chronic. - follow CBC and transfuse as needed. Elevated LFTs CT abdomen without obvious abnormality. LFTs appear chronically elevated. - improved Sacral decubitus. Continue wound care/wound VAC DVT prophylaxis: Lovenox Problem Qualifiers (1) Osteomyelitis: Karlee Hsieh MD August 06, 2017 14:16
[2017-08-06 16:03] VITALS: BP 117/56; PULSE 82; RESP 17; TEMP 98.8; O2SAT 100
[2017-08-06] MEDS: ENOXAPARIN SODIUM 40 MG/0.4 ML SYRINGE SQ SCH (18:05)
[2017-08-06 20:00] VITALS: BP 154/78; PULSE 82; RESP 20; TEMP 98.1; O2SAT 94
[2017-08-07] VITALS: BP 138/76; PULSE 90; RESP 17; TEMP 98; O2SAT 98
[2017-08-07] MEDS: ACETAMINOPHEN/HYDROcodone 325 MG/10 MG TAB PO PRN ×5 (02:27→20:01)
[2017-08-07 07:28] LABS: BICARBONATE 26.9 MEQ/L (21.0-32.0); CREATININE 0.49 MG/DL (0.60-1.30)
[2017-08-07 08:00] VITALS: BP 144/74; PULSE 73; RESP 20; TEMP 98.1; O2SAT 100
[2017-08-07] MEDS: MEGESTROL ACETATE SUSP 400 MG/10 ML CUP PO SCH (09:14)
[2017-08-07] MEDS: LACTOBACILLUS ACIDOPHILUS TAB PO SCH ×2 (09:14→20:01)
[2017-08-07] MEDS: SODIUM CHLORIDE 0.9% FLUSH 10 ML FLUSH IV FLUSH SCH ×3 (09:15→20:01)
[2017-08-07] MEDS: COLLAGENASE OINT 30 GM TUBE TOPICAL SCH (09:15)
[2017-08-07 12:00] VITALS: BP 126/71; PULSE 84; RESP 20; TEMP 97.9; O2SAT 98
--- NOTE | 2017-08-07 12:09 | RADRPT ---
EXAM DATE/TIME: 08/06/2017 16:24 [facility] COMPARISON: MRI LOWER LEG LEFT W & W/O CONTRAST, July 23, 2017, 20:15. INDICATIONS : Left lower extremity infection. DOSE: 21.4 mCi Tc99m Ceretec labeled white blood cells IV SPECT IMAGIN hrs, 20 hrs IMAGNG: SPECT/CT imaging with fusion was performed. RADIATION DOSE: 3.95 CTDIvol (mGy) MEDICAL HISTORY : Myocardial infarction. SURGICAL HISTORY : Colostomy. ENCOUNTER: Initial ACUITY: 1 week PAIN SCALE: 4/10 LOCATION: Left Leg. TECHNIQUE: Following the in vitro labeling of autologous white cells and reinjection, whole body scan was perfor med at the specified times. SPECT imaging was performed at the specified time in sagittal, axial and coronal planes. Attenuation correction was performed with the computed tomography and both the atten uation correction and non-attenuation corrected data sets were reviewed. FINDINGS: There is abnormal accumulation of white cells out the entire fibula. There is no evidence of any abno rmal accumulation within the tibia.. CONCLUSION: Diffuse abnormal accumulation of white cells throughout the entire fibula suggestive of osteomyelitis . This appears to correlate with the prior MRI of the lower left leg. Janes Landon MD on August 07, 2017 at 12:02 Board Certified Radiologist. This report was verified electronically.
[2017-08-07] MEDS: DAPTOmycin INJ 750 MG in SODIUM CHLORIDE 0.9% INJ 100 ML IV SCH (12:13)
[2017-08-07] MEDS: ERTAPENEM INJ 1,000 MG in SODIUM CHLORIDE 0.9% INJ 100 ML IV SCH (12:52)
--- NOTE | 2017-08-07 15:03 | HHI.PR ---
Subjective Remarks Patient reported having diarrhea I looked at his ostomy back the stool is very mildly on the softer side, he stated he had 3 bowel movement I do not think this is diarrhea His BUN/creatinine and CK labs within normal limits while on antibiotic daptomycin Objective Vitals Vital Signs Date Time Temp Pulse Resp B/P (MAP) Pulse Ox O2 Delivery O2 Flow Rate FiO2 08/07/17 12:00 97.9 84 20 126/71 (89) 98 08/07/17 08:00 98.1 73 20 144/74 (97) 100 08/07/17 08:00 Room Air 08/07/17 00:00 98.0 90 17 138/76 (96) 98 08/06/17 20:30 Room Air 08/06/17 20:00 98.1 82 20 154/78 (103) 94 08/06/17 16:03 98.8 82 17 117/56 (76) 100 I/O 08/06/17 08/06/17 08/06/17 08/07/17 08/07/17 08/07/17 07:00 15:00 23:00 07:00 15:00 23:00 Intake Total 480 ml 840 ml 240 ml Output Total 1000 ml 500 ml 950 ml Balance -520 ml 340 ml -710 ml Intake Oral 480 ml 840 ml 240 ml Output Urine Total 1000 ml 500 ml 950 ml Result Diagram: 08/07/17 0630 Objective Remarks GENERAL: This is a well-nourished, well-developed patient, in no apparent distress. NEUROLOGICAL: Awake and alert. Moves all extremity. Normal speech.no focal neurological deficit Procedures left tibia bone biopsy A/P Problem List: (1) UTI (urinary tract infection) ICD Code: N39.0 - Urinary tract infection, site not specified Status: Acute (2) Osteomyelitis ICD Code: M86.9 - Osteomyelitis, unspecified Assessment and Plan 52 yo BM with Paraplegia 08/05: Continue IV antibiotic per ID. Patient, follow CBC and temperature 08/06: No acute issue check labs CK and BUN/creatinine while on antibiotic check in a.m. 08/07: Patient reported having diarrhea I looked at his ostomy back the stool is very mildly on the softer side, he stated he had 3 bowel movement I do not think this is diarrhea His BUN/creatinine and CK labs within normal limits while on antibiotic daptomycin A/P: Acute and chronic osteomyelitis and abscess/sinus tract at the fibula of left lower extremity. Chronic wound LLE. Culture has proteus, group D enterococcus and MRSA.. -AK recommended but patient refusing, pathology is back, allegedly inflammation but no osteomyelitis. Per radiology, MRI shows osteomyelitis. Discussed with infectious disease, continue Invanz for now. ESBL UTI with chronic indwelling catheter which will be replaced. Culture growing ESBL, Klebsiella and GNR continue IV Invanz. Nausea/vomiting/diarrhea-resolving, monitor Possibly gastroenteritis. Improved. C diff negative. - antiemetics as needed. - ADAT. - hold bowel regimen. Continue Lactinex Anemia Appears chronic. - follow CBC and transfuse as needed. Elevated LFTs CT abdomen without obvious abnormality. LFTs appear chronically elevated. - improved Sacral decubitus. Continue wound care/wound VAC DVT prophylaxis: Lovenox Problem Qualifiers (1) Osteomyelitis: Karlee Hsieh MD August 07, 2017 15:03
[2017-08-07 16:00] VITALS: BP 154/87; PULSE 97; RESP 20; TEMP 97.9; O2SAT 100
[2017-08-07] MEDS: ENOXAPARIN SODIUM 40 MG/0.4 ML SYRINGE SQ SCH (17:17)
[2017-08-07 20:00] VITALS: BP 151/83; PULSE 90; RESP 18; TEMP 98.4; O2SAT 98
[2017-08-08] VITALS: BP 151/83; PULSE 74; RESP 20; TEMP 98.3; O2SAT 99
[2017-08-08] MEDS: ACETAMINOPHEN/HYDROcodone 325 MG/10 MG TAB PO PRN ×6 (00:14→21:41)
[2017-08-08 08:00] VITALS: BP 130/66; PULSE 75; RESP 20; TEMP 98.7; O2SAT 100
[2017-08-08] MEDS: SODIUM CHLORIDE 0.9% FLUSH 10 ML FLUSH IV FLUSH SCH ×3 (09:00→21:43)
[2017-08-08] MEDS: COLLAGENASE OINT 30 GM TUBE TOPICAL SCH (09:00)
[2017-08-08] MEDS: LACTOBACILLUS ACIDOPHILUS TAB PO SCH ×2 (10:04→21:42)
[2017-08-08] MEDS: MEGESTROL ACETATE SUSP 400 MG/10 ML CUP PO SCH (10:05)
[2017-08-08 12:00] VITALS: BP 122/72; PULSE 94; RESP 20; TEMP 98.9; O2SAT 99
[2017-08-08] MEDS: ERTAPENEM INJ 1,000 MG in SODIUM CHLORIDE 0.9% INJ 100 ML IV SCH (13:41)
--- NOTE | 2017-08-08 13:49 | HHI.IDPN ---
Subjective Subjective Remarks afebrile clx are negative - final Path negative for osteo, clx are negative as well tolerates abx ok co RLQ pain, stooling MRI changes are cw with acute and chronic osteo only: dw radilogist CEretec + for entire fibula Antibiotics daptomycin Ertapenem Allergies: Coded Allergies: clindamycin (Verified Allergy, Severe, HIVES, 07/22/17) sulfamethoxazole (Verified Allergy, Severe, RASH, 07/22/17) trimethoprim (Verified Allergy, Severe, RASH, 07/22/17) vancomycin (Verified Allergy, Severe, hives, 07/22/17) morphine (Verified Adverse Reaction, Severe, Tachycardia, 07/22/17) Objective . Vital Signs Date Time Temp Pulse Resp B/P (MAP) Pulse Ox O2 Delivery O2 Flow Rate FiO2 08/08/17 08:00 98.7 75 20 130/66 (87) 100 08/08/17 00:00 98.3 74 20 151/83 (105) 99 08/07/17 20:00 98.4 90 18 151/83 (105) 98 08/07/17 19:30 Room Air 08/07/17 16:00 97.9 97 20 154/87 (109) 100 . Laboratory Tests Test 08/06/17 22:30 Erythrocyte Sedimentation Rate 57 mm/hr Laboratory Tests Test 08/07/17 06:30 Blood Urea Nitrogen 12 MG/DL Creatinine 0.49 MG/DL Random Glucose 98 MG/DL Calcium Level 9.0 MG/DL Sodium Level 139 MEQ/L Potassium Level 4.7 MEQ/L Chloride Level 105 MEQ/L Carbon Dioxide Level 26.9 MEQ/L Anion Gap 7 MEQ/L Estimat Glomerular Filtration Rate 217 ML/MIN Total Creatine Kinase 272 U/L Imaging L Last Impressions Tumor Localization 08/06/17 0000 Signed Impressions: Service Date/Time: Sunday, August 06, 2017 16:24 - CONCLUSION: Diffuse abnormal accumulation of white cells throughout the entire fibula suggestive of osteomyelitis. This appears to correlate with the prior MRI of the lower left leg. Janes Landon MD Abdomen X-Ray 08/03/17 0000 Signed Impressions: Service Date/Time: Thursday, August 03, 2017 14:52 - CONCLUSION: 1. No acute abdominal abnormality is identified. 2. 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 Yonathan Callahan MD Lower Extremity MRI 07/23/17 0000 Signed Impressions: Service Date/Time: Sunday, July 23, 2017 20:15 - CONCLUSION: 1. The soft tissue ulceration laterally of the left leg appears slightly improved. No drainable soft tissue abscess. 2. However, there is increased conspicuity and extent of cortical thickening and signal changes of the fibula compatible with acute on chronic osteomyelitis. There is elongated and nearly diffuse intramedullary fluid typical of abscess as well as an apparent developing sinus tract approximately 6.1 cm proximal to the lateral malleolus. Yonathan Hess MD Chest X-Ray 07/22/17 0000 Signed Impressions: Service Date/Time: Saturday, July 22, 2017 13:06 - CONCLUSION: No acute disease. Cuba Bone MD Abdomen/Pelvis CT 07/22/17 0000 Signed Impressions: Service Date/Time: Saturday, July 22, 2017 14:36 - CONCLUSION: 1. Chronic bony changes about the pelvic girdle and proximal femurs or bony destruction and extensive heterotopic bone formation. 2. Probable associated decubitus type ulcers bilaterally with the right ischium/inferior pubic ramus partially exposed suggesting osteomyelitis in this region. 3. Cholelithiasis. 4. Ostomy in the upper midabdomen. Ry Uribe MD Physical Exam CONSTITUTIONAL/GENERAL: This is an adequately nourished patient, in no apparent distress. TUBES/LINES/DRAINS: SKIN: No jaundice, rashes, or lesions. . Skin temperature appropriate. Not diaphoretic. large sacrum, buttocks wound was seen during dressing change; tissue with great pink granulations, no purulence, or necrotic tissue CARDIOVASCULAR: Regular rate and rhythm without murmurs, gallops, or rubs. No JVD. Peripheral pulses symmetric. RESPIRATORY/CHEST: Symmetric, unlabored respirations. Clear to auscultation. Breath sounds equal bilaterally. No wheezes, rales, or rhonchi. GASTROINTESTINAL: Abdomen soft, not tender to palpation in RLQ, mildly distended. No hepato-splenomegaly, or palpable masses. No guarding. Bowel sounds present. Stoma in place with soft light brown stool GENITOURINARY: Without palpable bladder distension. Sp catheter in place with clear urine MUSCULOSKELETAL: Extremities without clubbing, cyanosis, or edema. d LLE longitudinal ulcer is kathleen completely granulated over except one area in proximal aspect about 0.5 cm Wound is beefy red with excellent bleeding DP pulse non palpable, TP pulse is 2/2 nails are pink, brisk refill - doubt vascular insufficiaency NEUROLOGICAL: Awake and alert. Paraplegia Follows commands with BUE. Clear speech PSYCHIATRIC: calm and coooperative Assessment & Plan Remarks Paraplegia Acute and chronic osteomyelitis at the fibula of left lower extremity. Chronic wound LLE. Culture has proteus, group D enterococcus and MRSA.. UTI - growing ESBL+ e.coli Sacral decubitus ulcer. : stage IV, but clean L fibula osteo and abscess/ sinus tract on MRI but bone bx did not confirm osteo MRI/ CEretec strongly positive for ostes diarrhea, C.diff negative New abd pain: appears to resolve cont Ertapenem, daptomycin for now CKs weekly while on dapto consult case mng to arrange wound care @ Dr Courtney office and eventually grafting Dr Zapien is planning to fu pt tomorrow :plan pepe [place] Prognosis is very poor as far as cure 2/2 pt's constant pressure dw Violeta York, Amy Peters,Ana Mcqueen MD August 08, 2017 13:49
[2017-08-08] MEDS: DAPTOmycin INJ 750 MG in SODIUM CHLORIDE 0.9% INJ 100 ML IV SCH (14:39)
[2017-08-08 16:00] VITALS: BP 132/62; PULSE 91; RESP 20; TEMP 98.5; O2SAT 99
[2017-08-08] MEDS: ENOXAPARIN SODIUM 40 MG/0.4 ML SYRINGE SQ SCH (17:54)
--- NOTE | 2017-08-08 18:05 | HHI.PR ---
Subjective Remarks Resting comfortably in bed No event overnight Denied chest and or short of breath No fever or chills Objective Vitals Vital Signs Date Time Temp Pulse Resp B/P (MAP) Pulse Ox O2 Delivery O2 Flow Rate FiO2 08/08/17 12:00 98.9 94 20 122/72 (89) 99 08/08/17 08:00 98.7 75 20 130/66 (87) 100 08/08/17 00:00 98.3 74 20 151/83 (105) 99 08/07/17 20:00 98.4 90 18 151/83 (105) 98 08/07/17 19:30 Room Air I/O 08/07/17 08/07/17 08/07/17 08/08/17 08/08/17 08/08/17 07:00 15:00 23:00 07:00 15:00 23:00 Intake Total 240 ml 720 ml 420 ml Output Total 950 ml 775 ml 1025 ml Balance -710 ml -55 ml -605 ml Intake Oral 240 ml 720 ml 420 ml Output Urine Total 950 ml 775 ml 1025 ml # Voids 1 # Bowel Movements 1 Result Diagram: 08/07/17 0630 Objective Remarks GENERAL: This is a well-nourished, well-developed patient, in no apparent distress. NEUROLOGICAL: Awake and alert. Moves all extremity. Normal speech.no focal neurological deficit Procedures left tibia bone biopsy A/P Problem List: (1) UTI (urinary tract infection) ICD Code: N39.0 - Urinary tract infection, site not specified Status: Acute (2) Osteomyelitis ICD Code: M86.9 - Osteomyelitis, unspecified Assessment and Plan 52 yo BM with Paraplegia 08/08: Continue antibiotic Invanz and daptomycin per ID, BUN/creatinine and CK weekly, further recommendation per ID A/P: Acute and chronic osteomyelitis and abscess/sinus tract at the fibula of left lower extremity. Chronic wound LLE. Culture has proteus, group D enterococcus and MRSA.. -AK recommended but patient refusing, pathology is back, allegedly inflammation but no osteomyelitis. Per radiology, MRI shows osteomyelitis. Discussed with infectious disease, continue Invanz for now. ESBL UTI with chronic indwelling catheter which will be replaced. Culture growing ESBL, Klebsiella and GNR continue IV Invanz. Nausea/vomiting/diarrhea-resolving, monitor Possibly gastroenteritis. Improved. C diff negative. - antiemetics as needed. - ADAT. - hold bowel regimen. Continue Lactinex Anemia Appears chronic. - follow CBC and transfuse as needed. Elevated LFTs CT abdomen without obvious abnormality. LFTs appear chronically elevated. - improved Sacral decubitus. Continue wound care/wound VAC DVT prophylaxis: Lovenox Problem Qualifiers (1) Osteomyelitis: Karlee Hsieh MD August 08, 2017 18:05
[2017-08-08 20:00] VITALS: BP 138/58; PULSE 89; RESP 20; TEMP 98.7; O2SAT 98
[2017-08-09] VITALS (7 sets, daily range): BP systolic 121–138; BP diastolic 58–76; PULSE 68–93; RESP 16–20; TEMP 98.1–98.9; O2SAT 97–100
[2017-08-09] MEDS: ACETAMINOPHEN/HYDROcodone 325 MG/10 MG TAB PO PRN ×6 (01:47→22:20)
--- NOTE | 2017-08-09 07:00 | PD.ORT.PN ---
Subjective Subjective Remarks Pain controlled. Continues to have chronic wound over her left tibia. Objective Vitals Vital Signs Date Time Temp Pulse Resp B/P (MAP) Pulse Ox O2 Delivery O2 Flow Rate FiO2 08/09/17 01:45 98.7 87 20 127/58 (81) 99 08/08/17 20:00 98.7 89 20 138/58 (84) 98 08/08/17 20:00 Room Air 08/08/17 16:00 98.5 91 20 132/62 (85) 99 08/08/17 12:00 98.9 94 20 122/72 (89) 99 08/08/17 08:00 98.7 75 20 130/66 (87) 100 08/08/17 07:00 Room Air I/O 08/08/17 08/08/17 08/08/17 08/09/17 08/09/17 08/09/17 07:00 15:00 23:00 07:00 15:00 23:00 Intake Total 420 ml 240 ml Output Total 1025 ml 800 ml Balance -605 ml -560 ml Intake Oral 420 ml 240 ml Output Urine Total 1025 ml 800 ml # Voids 1 # Bowel Movements 1 Result Diagram: 08/07/17 0630 Objective Remarks LLE: wound on lateral lower leg spanning from lateral malleolus to proximal fibula. approx 3cm in width. granulation tissue present throughout entire wound. proximal area of wound has drainage with area of necrotic skin. Assessment & Plan Assessment and Plan Left lower extremity infection with chronic wound over fibula He had a discussion with Dr. Reyes today for surgical intervention for his left lower extremity. Treatment options are continued wound care which have been futile, removal of fibula with the hopes of antibiotic treatment and wound care and thirdly left above-knee amputation. With his chronic wounds and osteomyelitis, his best chance for further progression will be to proceed with an above knee amputation. He would like to think and consider his options. We will resume his diet and if he decides to proceed with either the removal of the fibula or above knee amputation this will be undertaken next week. At this point he will continue with IV antibiotics and dressing changes. Cuba Nicholas Jr. August 09, 2017 07:00
--- NOTE | 2017-08-09 08:04 | PD.ORT.PN ---
Subjective Subjective Remarks Patient is awake and alert. He has sacral decubitus wounds and left leg pressure ulcers. He had recent biopsy of left fibula by Dr. Brambila which was negative by pathology and culture. Objective Vitals Vital Signs Date Time Temp Pulse Resp B/P (MAP) Pulse Ox O2 Delivery O2 Flow Rate FiO2 08/09/17 04:00 98.7 68 20 121/70 (87) 100 08/09/17 01:45 98.7 87 20 127/58 (81) 99 08/08/17 20:00 98.7 89 20 138/58 (84) 98 08/08/17 20:00 Room Air 08/08/17 16:00 98.5 91 20 132/62 (85) 99 08/08/17 12:00 98.9 94 20 122/72 (89) 99 08/08/17 08:00 98.7 75 20 130/66 (87) 100 I/O 08/08/17 08/08/17 08/08/17 08/09/17 08/09/17 08/09/17 07:00 15:00 23:00 07:00 15:00 23:00 Intake Total 420 ml 240 ml 220 ml Output Total 1025 ml 800 ml 850 ml Balance -605 ml -560 ml -630 ml Intake Oral 420 ml 240 ml 220 ml Output Urine Total 1025 ml 800 ml 850 ml # Voids 1 # Bowel Movements 1 Result Diagram: 08/07/17 0630 Objective Remarks LLE: wound on lateral lower leg spanning from lateral malleolus to proximal fibula, approx 3cm in width. Granulation tissue present throughout entire wound. MRI and bone scan show possible fibula osteomyelitis I had lengthy discussion with patient today regarding surgical treatment options including resection of fibula versus above-knee amputation. -Given the large open wound, I do not feel that resection of the fibula would be beneficial. This would make his wound larger. He is unlikely to resolve the wound infection or heal the wound. -I explained that the most likely way to cure his infection would be an above -knee amputation. Thus far he has refused amputation. He states he would like to think about this. If patient does not wish to proceed with amputation, I would recommend discharge home with wound care. It is my opinion that antibiotics alone cannot cure this infection. Currently his large open wound is the biggest problem. If he is unable to manage the wound and heal the pressure ulcers, he will ultimately have ongoing infection and will ultimately need an amputation. Assessment & Plan Assessment and Plan Left lower extremity infection with chronic wound over fibula He had a discussion with Dr. Reyes today for surgical intervention for his left lower extremity. Treatment options are continued wound care which have been futile, removal of fibula with the hopes of antibiotic treatment and wound care and thirdly left above-knee amputation. With his chronic wounds and osteomyelitis, his best chance for further progression will be to proceed with an above knee amputation. He would like to think and consider his options. We will resume his diet and if he decides to proceed with either the removal of the fibula or above knee amputation this will be undertaken next week. At this point he will continue with IV antibiotics and dressing changes. Kenyon Reyes MD August 09, 2017 08:04
[2017-08-09] MEDS: COLLAGENASE OINT 30 GM TUBE TOPICAL SCH (09:00)
[2017-08-09] MEDS: SODIUM CHLORIDE 0.9% FLUSH 10 ML FLUSH IV FLUSH SCH ×3 (09:00→21:13)
[2017-08-09] MEDS: LACTOBACILLUS ACIDOPHILUS TAB PO SCH ×2 (09:50→21:13)
[2017-08-09] MEDS: MEGESTROL ACETATE SUSP 400 MG/10 ML CUP PO SCH (09:52)
[2017-08-09] MEDS: DAPTOmycin INJ 750 MG in SODIUM CHLORIDE 0.9% INJ 100 ML IV SCH (13:14)
[2017-08-09] MEDS: ERTAPENEM INJ 1,000 MG in SODIUM CHLORIDE 0.9% INJ 100 ML IV SCH (14:04)
--- NOTE | 2017-08-09 15:49 | HHI.PR ---
Subjective Remarks Patient voicing frustration about the possibility of amputation. He states he is thinking about it but recalls his right leg was much worse before he agreed to the previous right AKA. He denies pain. Objective Vitals Vital Signs Date Time Temp Pulse Resp B/P (MAP) Pulse Ox O2 Delivery O2 Flow Rate FiO2 08/09/17 12:19 98.9 88 17 124/76 (92) 98 08/09/17 08:03 98.2 93 17 133/68 (89) 100 08/09/17 04:00 98.7 68 20 121/70 (87) 100 08/09/17 01:45 98.7 87 20 127/58 (81) 99 08/08/17 20:00 98.7 89 20 138/58 (84) 98 08/08/17 20:00 Room Air 08/08/17 16:00 98.5 91 20 132/62 (85) 99 I/O 08/08/17 08/08/17 08/08/17 08/09/17 08/09/17 08/09/17 07:00 15:00 23:00 07:00 15:00 23:00 Intake Total 420 ml 240 ml 220 ml Output Total 1025 ml 800 ml 850 ml Balance -605 ml -560 ml -630 ml Intake Oral 420 ml 240 ml 220 ml Output Urine Total 1025 ml 800 ml 850 ml # Voids 1 # Bowel Movements 1 Result Diagram: 08/07/17 0630 Objective Remarks GENERAL: No acute distress, anxious about current condition. CARDIOVASCULAR: Regular rate and rhythm without murmurs, gallops, or rubs. MUSCULOSKELETAL: s/p right AKA. LLE wound is wrapped. dressing intact. Procedures left tibia bone biopsy A/P Problem List: (1) UTI (urinary tract infection) ICD Code: N39.0 - Urinary tract infection, site not specified Status: Acute (2) Osteomyelitis ICD Code: M86.9 - Osteomyelitis, unspecified Assessment and Plan 52 yo BM with Paraplegia Acute and chronic osteomyelitis and abscess/sinus tract at the fibula of left lower extremity. Chronic wound LLE. Culture has proteus, group D enterococcus and MRSA.. -Orthopedics recommends AKA for best possible outcome but patient has been refusing. He is thinking about his options. Pathology is back, allegedly inflammation but no osteomyelitis. Per radiology, MRI shows osteomyelitis. ID following, continue Invanz for now. ESBL UTI with chronic indwelling catheter which will be replaced. Culture growing ESBL, Klebsiella and GNR continue IV Invanz. Nausea/vomiting/diarrhea-resolving, monitor Possibly gastroenteritis. Improved. C diff negative. - antiemetics as needed. - ADAT. - hold bowel regimen. Continue Lactinex Anemia Appears chronic. - follow CBC and transfuse as needed. Elevated LFTs CT abdomen without obvious abnormality. LFTs appear chronically elevated. - improved Sacral decubitus. Continue wound care DVT prophylaxis: Lovenox Discharge Planning Recommendation is for AKA. Patient is thinking about his options. Continue IV abx and wound care. Problem Qualifiers (1) Osteomyelitis: Xochitl Wilson MD August 09, 2017 15:49
[2017-08-09] MEDS: ENOXAPARIN SODIUM 40 MG/0.4 ML SYRINGE SQ SCH (18:02)
[2017-08-10 03:43] VITALS: BP 136/67; PULSE 68; RESP 16; TEMP 97.9; O2SAT 99
[2017-08-10] MEDS: ACETAMINOPHEN/HYDROcodone 325 MG/10 MG TAB PO PRN ×5 (03:49→22:13)
[2017-08-10 08:03] VITALS: BP 146/69; PULSE 78; RESP 17; TEMP 98.4; O2SAT 100
[2017-08-10] MEDS: SODIUM CHLORIDE 0.9% FLUSH 10 ML FLUSH IV FLUSH SCH ×3 (09:00→22:13)
[2017-08-10] MEDS: COLLAGENASE OINT 30 GM TUBE TOPICAL SCH (09:00)
[2017-08-10] MEDS: LACTOBACILLUS ACIDOPHILUS TAB PO SCH ×2 (09:13→22:13)
[2017-08-10] MEDS: MEGESTROL ACETATE SUSP 400 MG/10 ML CUP PO SCH (09:13)
--- NOTE | 2017-08-10 10:39 | HHI.PR ---
Subjective Remarks Patient reports he is doing okay. He is still thinking about whether or not to have amputation. He is considering trying more antibiotics. Objective Vitals Vital Signs Date Time Temp Pulse Resp B/P (MAP) Pulse Ox O2 Delivery O2 Flow Rate FiO2 08/10/17 08:03 98.4 78 17 146/69 (94) 100 08/10/17 03:43 97.9 68 16 136/67 (90) 99 08/10/17 00:00 Room Air 08/09/17 23:49 98.1 81 16 131/60 (83) 97 08/09/17 20:00 Room Air 08/09/17 19:55 98.2 89 16 130/61 (84) 99 08/09/17 16:03 98.9 82 17 138/64 (88) 97 08/09/17 12:19 98.9 88 17 124/76 (92) 98 I/O 08/09/17 08/09/17 08/09/17 08/10/17 08/10/17 08/10/17 07:00 15:00 23:00 07:00 15:00 23:00 Intake Total 220 ml 720 ml 480 ml Output Total 850 ml 1000 ml 850 ml Balance -630 ml -280 ml -370 ml Intake Oral 220 ml 720 ml 480 ml Output Urine Total 850 ml 1000 ml 850 ml # Bowel Movements 0 Result Diagram: 08/07/17 0630 Objective Remarks GENERAL: No acute distress, anxious about current condition. CARDIOVASCULAR: Regular rate and rhythm without murmurs, gallops, or rubs. MUSCULOSKELETAL: s/p right AKA. LLE wound is wrapped. dressing intact. Procedures left tibia bone biopsy A/P Problem List: (1) UTI (urinary tract infection) ICD Code: N39.0 - Urinary tract infection, site not specified Status: Acute (2) Osteomyelitis ICD Code: M86.9 - Osteomyelitis, unspecified Assessment and Plan 52 yo BM with Paraplegia Acute and chronic osteomyelitis and abscess/sinus tract at the fibula of left lower extremity. Chronic wound LLE. Culture has proteus, group D enterococcus and MRSA.. -Orthopedics recommends AKA for best possible outcome but patient has been refusing. Pathology is back, allegedly inflammation but no osteomyelitis. Per radiology, MRI shows osteomyelitis. ID following, continue Invanz for now. -Patient is still thinking about whether or not to have amputation. We discussed the recommendations from the specialist. He is leaning more towards trying more antibiotics. ESBL UTI with chronic indwelling catheter which will be replaced. Culture growing ESBL, Klebsiella and GNR continue IV Invanz. Nausea/vomiting/diarrhea-resolving, monitor Possibly gastroenteritis. Improved. C diff negative. - antiemetics as needed. - ADAT. - hold bowel regimen. Continue Lactinex Anemia Appears chronic. - follow CBC and transfuse as needed. Elevated LFTs CT abdomen without obvious abnormality. LFTs appear chronically elevated. - improved Sacral decubitus. Continue wound care DVT prophylaxis: Lovenox Discharge Planning Recommendation is for AKA. Patient is thinking about his options. Continue IV abx and wound care. Problem Qualifiers (1) Osteomyelitis: Xochitl Wilson MD August 10, 2017 10:39
[2017-08-10 12:03] VITALS: BP 131/61; PULSE 103; RESP 17; TEMP 98.4; O2SAT 98
[2017-08-10] MEDS: DAPTOmycin INJ 750 MG in SODIUM CHLORIDE 0.9% INJ 100 ML IV SCH (13:28)
[2017-08-10] MEDS: ERTAPENEM INJ 1,000 MG in SODIUM CHLORIDE 0.9% INJ 100 ML IV SCH (13:29)
[2017-08-10 16:03] VITALS: BP 117/58; PULSE 86; RESP 17; TEMP 98.2; O2SAT 98
[2017-08-10] MEDS: ENOXAPARIN SODIUM 40 MG/0.4 ML SYRINGE SQ SCH (17:44)
[2017-08-10 20:55] VITALS: BP 131/63; PULSE 81; RESP 16; TEMP 98.7; O2SAT 99
[2017-08-10 23:45] VITALS: BP 128/66; PULSE 80; RESP 16; TEMP 98.2; O2SAT 98
[2017-08-11 05:00] VITALS: BP 146/80; PULSE 69; RESP 16; TEMP 98.4; O2SAT 98
[2017-08-11] MEDS: ACETAMINOPHEN/HYDROcodone 325 MG/10 MG TAB PO PRN ×5 (05:13→22:14)
[2017-08-11 08:03] VITALS: BP 146/80; PULSE 74; RESP 20; TEMP 97.9; O2SAT 92
[2017-08-11] MEDS: SODIUM CHLORIDE 0.9% FLUSH 10 ML FLUSH IV FLUSH SCH ×3 (09:00→20:45)
[2017-08-11] MEDS: MEGESTROL ACETATE SUSP 400 MG/10 ML CUP PO SCH (09:35)
[2017-08-11] MEDS: LACTOBACILLUS ACIDOPHILUS TAB PO SCH ×2 (09:35→20:45)
[2017-08-11] MEDS: COLLAGENASE OINT 30 GM TUBE TOPICAL SCH (09:43)
[2017-08-11 12:03] VITALS: BP 121/71; PULSE 74; RESP 20; TEMP 98; O2SAT 98
[2017-08-11] MEDS: DAPTOmycin INJ 750 MG in SODIUM CHLORIDE 0.9% INJ 100 ML IV SCH (13:05)
--- NOTE | 2017-08-11 13:24 | HHI.PR ---
Subjective Remarks Patient reports he is feeling okay. He states he is still thinking about whether or not he will go through with above the knee amputation. Objective Vitals Vital Signs Date Time Temp Pulse Resp B/P (MAP) Pulse Ox O2 Delivery O2 Flow Rate FiO2 08/11/17 08:03 97.9 74 20 146/80 (102) 92 08/11/17 08:00 Room Air 08/11/17 05:00 98.4 69 16 146/80 (102) 98 08/10/17 23:45 98.2 80 16 128/66 (86) 98 08/10/17 20:55 98.7 81 16 131/63 (85) 99 08/10/17 20:10 Room Air 08/10/17 16:03 98.2 86 17 117/58 (77) 98 I/O 08/10/17 08/10/17 08/10/17 08/11/17 08/11/17 08/11/17 07:00 15:00 23:00 07:00 15:00 23:00 Intake Total 480 ml 100 ml 1060 ml 0 ml Output Total 850 ml 1150 ml 1700 ml Balance -370 ml 100 ml -90 ml -1700 ml Intake Oral 480 ml 960 ml 0 ml IV Total 100 ml 100 ml Output Urine Total 850 ml 1150 ml 1200 ml Stool Total 500 ml # Bowel Movements 0 Result Diagram: 08/07/17 0630 Objective Remarks GENERAL: No acute distress, anxious about current condition. CARDIOVASCULAR: Regular rate and rhythm without murmurs, gallops, or rubs. MUSCULOSKELETAL: s/p right AKA. LLE wound is wrapped. dressing intact. Procedures left tibia bone biopsy A/P Problem List: (1) UTI (urinary tract infection) ICD Code: N39.0 - Urinary tract infection, site not specified Status: Acute (2) Osteomyelitis ICD Code: M86.9 - Osteomyelitis, unspecified Assessment and Plan 52 yo BM with Paraplegia Acute and chronic osteomyelitis and abscess/sinus tract at the fibula of left lower extremity. Chronic wound LLE. Culture has proteus, group D enterococcus and MRSA.. -Orthopedics recommends AKA for best possible outcome but patient has been refusing. Pathology is back, allegedly inflammation but no osteomyelitis. Per radiology, MRI shows osteomyelitis. ID following, continue Invanz for now. -Patient is still thinking about whether or not to have amputation. We discussed the recommendations from the specialist. I also discussed with him the red blood cell tagged findings. He is still undecided. ESBL UTI with chronic indwelling catheter which will be replaced. Culture growing ESBL, Klebsiella and GNR continue IV Invanz. Nausea/vomiting/diarrhea-resolving, monitor Possibly gastroenteritis. Resolved. C diff negative. - antiemetics as needed. - ADAT. - hold bowel regimen. Continue Lactinex Anemia Appears chronic. - follow CBC and transfuse as needed. Elevated LFTs CT abdomen without obvious abnormality. LFTs appear chronically elevated. -Resolved. Sacral decubitus. Continue wound care DVT prophylaxis: Lovenox Discharge Planning Recommendation is for AKA. Patient is thinking about his options. Continue IV abx and wound care. Problem Qualifiers (1) Osteomyelitis: Xochitl Wilson MD August 11, 2017 13:24
[2017-08-11] MEDS: ERTAPENEM INJ 1,000 MG in SODIUM CHLORIDE 0.9% INJ 100 ML IV SCH (13:46)
--- NOTE | 2017-08-11 15:48 | HHI.IDPN ---
Subjective Subjective Remarks afebrile doing OK stool is soft tolearting abx OK Dr [place] recommendations noted Antibiotics daptomycin Ertapenem Allergies: Coded Allergies: clindamycin (Verified Allergy, Severe, HIVES, 07/22/17) sulfamethoxazole (Verified Allergy, Severe, RASH, 07/22/17) trimethoprim (Verified Allergy, Severe, RASH, 07/22/17) vancomycin (Verified Allergy, Severe, hives, 07/22/17) morphine (Verified Adverse Reaction, Severe, Tachycardia, 07/22/17) Objective . Vital Signs Date Time Temp Pulse Resp B/P (MAP) Pulse Ox O2 Delivery O2 Flow Rate FiO2 08/11/17 12:03 98.0 74 20 121/71 (88) 98 08/11/17 08:03 97.9 74 20 146/80 (102) 92 08/11/17 08:00 Room Air 08/11/17 05:00 98.4 69 16 146/80 (102) 98 08/10/17 23:45 98.2 80 16 128/66 (86) 98 08/10/17 20:55 98.7 81 16 131/63 (85) 99 08/10/17 20:10 Room Air 08/10/17 16:03 98.2 86 17 117/58 (77) 98 Imaging Last Impressions Tumor Localization 08/06/17 0000 Signed Impressions: Service Date/Time: Sunday, August 06, 2017 16:24 - CONCLUSION: Diffuse abnormal accumulation of white cells throughout the entire fibula suggestive of osteomyelitis. This appears to correlate with the prior MRI of the lower left leg. Janes Landon MD Abdomen X-Ray 08/03/17 0000 Signed Impressions: Service Date/Time: Thursday, August 03, 2017 14:52 - CONCLUSION: 1. No acute abdominal abnormality is identified. 2. 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 Yonathan Callahan MD Lower Extremity MRI 07/23/17 0000 Signed Impressions: Service Date/Time: Sunday, July 23, 2017 20:15 - CONCLUSION: 1. The soft tissue ulceration laterally of the left leg appears slightly improved. No drainable soft tissue abscess. 2. However, there is increased conspicuity and extent of cortical thickening and signal changes of the fibula compatible with acute on chronic osteomyelitis. There is elongated and nearly diffuse intramedullary fluid typical of abscess as well as an apparent developing sinus tract approximately 6.1 cm proximal to the lateral malleolus. Yonathan Hess MD Chest X-Ray 07/22/17 0000 Signed Impressions: Service Date/Time: Saturday, July 22, 2017 13:06 - CONCLUSION: No acute disease. Cuba Bone MD Abdomen/Pelvis CT 07/22/17 0000 Signed Impressions: Service Date/Time: Saturday, July 22, 2017 14:36 - CONCLUSION: 1. Chronic bony changes about the pelvic girdle and proximal femurs or bony destruction and extensive heterotopic bone formation. 2. Probable associated decubitus type ulcers bilaterally with the right ischium/inferior pubic ramus partially exposed suggesting osteomyelitis in this region. 3. Cholelithiasis. 4. Ostomy in the upper midabdomen. Ry Uribe MD Physical Exam CONSTITUTIONAL/GENERAL: This is an adequately nourished patient, in no apparent distress. TUBES/LINES/DRAINS: SKIN: No jaundice, rashes, or lesions. . Skin temperature appropriate. Not diaphoretic. l CARDIOVASCULAR: Regular rate and rhythm without murmurs, gallops, or rubs. No JVD. Peripheral pulses symmetric. RESPIRATORY/CHEST: Symmetric, unlabored respirations. Clear to auscultation. GASTROINTESTINAL: Abdomen soft, not tender to palpation in RLQ, mildly distended. Stoma in place with soft light brown stool GENITOURINARY: Without palpable bladder distension. Sp catheter in place with clear urine MUSCULOSKELETAL: Extremities without clubbing, cyanosis, or edema. Dressing in place LLE intact NEUROLOGICAL: Awake and alert. Paraplegia Follows commands with BUE. Clear speech PSYCHIATRIC: calm and coooperative Assessment & Plan Remarks Paraplegia Acute and chronic osteomyelitis at the fibula of left lower extremity. Chronic wound LLE. Culture has proteus, group D enterococcus and MRSA.. UTI - growing ESBL+ e.coli Sacral decubitus ulcer. : stage IV, but clean L fibula osteo and abscess/ sinus tract on MRI but bone bx did not confirm osteo MRI/ CEretec strongly positive for osteo Will Rx as chronic osteo at this point WIll take previous cultures ant hte fact of recent other site ESBL infectio n into account to paul abx Rx diarrhea, C.diff negative cont Ertapenem, daptomycin for tenatively 6 weeks CKs weekly while on dapto labs weekly : CKs, CMP, CBC monitor clinically ESR every 2-3 wks dw case mngr: pt has to place to go dw Ana Breaux MD August 11, 2017 15:48
[2017-08-11 16:03] VITALS: BP 126/72; PULSE 72; RESP 20; TEMP 97.9; O2SAT 99
[2017-08-11] MEDS: ENOXAPARIN SODIUM 40 MG/0.4 ML SYRINGE SQ SCH (18:12)
[2017-08-12] VITALS: BP 148/89; PULSE 71; RESP 18; TEMP 98.3
[2017-08-12] MEDS: ACETAMINOPHEN/HYDROcodone 325 MG/10 MG TAB PO PRN ×6 (02:10→21:23)
[2017-08-12 04:00] VITALS: BP 134/64; PULSE 72; RESP 18; TEMP 98.5; O2SAT 98
[2017-08-12 08:03] VITALS: BP 137/76; PULSE 83; RESP 18; TEMP 97.8; O2SAT 99
[2017-08-12] MEDS: SODIUM CHLORIDE 0.9% FLUSH 10 ML FLUSH IV FLUSH SCH ×3 (09:00→21:23)
[2017-08-12] MEDS: MEGESTROL ACETATE SUSP 400 MG/10 ML CUP PO SCH (09:41)
[2017-08-12] MEDS: LACTOBACILLUS ACIDOPHILUS TAB PO SCH ×2 (09:42→21:22)
[2017-08-12] MEDS: COLLAGENASE OINT 30 GM TUBE TOPICAL SCH (09:44)
--- NOTE | 2017-08-12 11:07 | HHI.PR ---
Subjective Remarks No new issues. Extensive discussion with the patient today. He decided to try to continue on antibiotics and does not want to have amputation at this time. He understand the high likelihood of failure. Objective Vitals Vital Signs Date Time Temp Pulse Resp B/P (MAP) Pulse Ox O2 Delivery O2 Flow Rate FiO2 08/12/17 08:03 97.8 83 18 137/76 (96) 99 08/12/17 04:00 98.5 72 18 134/64 (87) 98 08/12/17 01:58 Room Air 08/12/17 00:00 98.3 71 18 148/89 (108) 08/11/17 21:30 Room Air 08/11/17 16:03 97.9 72 20 126/72 (90) 99 08/11/17 12:03 98.0 74 20 121/71 (88) 98 I/O 08/11/17 08/11/17 08/11/17 08/12/17 08/12/17 08/12/17 07:00 15:00 23:00 07:00 15:00 23:00 Intake Total 0 ml 200 ml 420 ml 640 ml Output Total 1700 ml 1600 ml 1250 ml Balance -1700 ml 200 ml -1180 ml -610 ml Intake Oral 0 ml 420 ml 640 ml IV Total 200 ml Output Urine Total 1200 ml 1600 ml 1250 ml Stool Total 500 ml # Bowel Movements 0 Objective Remarks GENERAL: No acute distress, anxious about current condition. CARDIOVASCULAR: Regular rate and rhythm without murmurs, gallops, or rubs. MUSCULOSKELETAL: s/p right AKA. LLE wound is wrapped. dressing intact. Procedures left tibia bone biopsy A/P Problem List: (1) UTI (urinary tract infection) ICD Code: N39.0 - Urinary tract infection, site not specified Status: Acute (2) Osteomyelitis ICD Code: M86.9 - Osteomyelitis, unspecified Assessment and Plan 52 yo BM with Paraplegia Acute and chronic osteomyelitis and abscess/sinus tract at the fibula of left lower extremity. Chronic wound LLE. Culture has proteus, group D enterococcus and MRSA.. -Orthopedics recommends AKA for best possible outcome but patient has been refusing. Pathology is back, allegedly inflammation but no osteomyelitis. However MRI in tumor localization all consistent with osteomyelitis involving the whole fibula. -Antibiotics per ID, on ertapenem and daptomycin - Recommendations per orthopedic's for [id number] amputation. However the patient is currently refusing and wants to try antibiotics. Discussed with case management to assist with placement. Infectious disease to consider discharge antibiotics. ESBL UTI with chronic indwelling catheter which will be replaced. Culture growing ESBL, Klebsiella and GNR continue IV Invanz. Nausea/vomiting/diarrhea-resolving, monitor Possibly gastroenteritis. Resolved. C diff negative. - antiemetics as needed. - ADAT. - hold bowel regimen. Continue Lactinex Anemia Appears chronic. - follow CBC and transfuse as needed. Elevated LFTs CT abdomen without obvious abnormality. LFTs appear chronically elevated. -Resolved. Sacral decubitus. Continue wound care DVT prophylaxis: Lovenox Discharge Planning Recommendation is for AKA. However the patient refused. Plan is for discharge to SNF with IV antibiotics. Case management following, infectious disease to follow. Problem Qualifiers (1) Osteomyelitis: Xochitl Wilson MD August 12, 2017 11:07
[2017-08-12 12:03] VITALS: BP 115/65; PULSE 92; RESP 18; TEMP 98.2; O2SAT 96
[2017-08-12] MEDS: DAPTOmycin INJ 750 MG in SODIUM CHLORIDE 0.9% INJ 100 ML IV SCH (13:06)
[2017-08-12] MEDS: ERTAPENEM INJ 1,000 MG in SODIUM CHLORIDE 0.9% INJ 100 ML IV SCH (13:47)
[2017-08-12 16:03] VITALS: BP 110/79; PULSE 79; RESP 18; TEMP 97.9; O2SAT 99
[2017-08-12] MEDS: ENOXAPARIN SODIUM 40 MG/0.4 ML SYRINGE SQ SCH (18:14)
[2017-08-12 21:27] VITALS: BP 151/72; PULSE 75; RESP 16; TEMP 98.6; O2SAT 98
[2017-08-13] VITALS: BP 145/97; PULSE 78; RESP 20; TEMP 97.6; O2SAT 98
[2017-08-13] MEDS: ACETAMINOPHEN/HYDROcodone 325 MG/10 MG TAB PO PRN ×6 (03:12→22:59)
[2017-08-13 03:59] VITALS: BP 140/96; PULSE 82; RESP 16; TEMP 98.4; O2SAT 98
[2017-08-13 08:00] VITALS: BP 125/67; PULSE 68; RESP 18; TEMP 98.1; O2SAT 98
--- NOTE | 2017-08-13 08:35 | PD.ORT.PN ---
Subjective Subjective Remarks Pain controlled. Continues to have chronic wound over her left tibia. Objective Vitals Vital Signs Date Time Temp Pulse Resp B/P (MAP) Pulse Ox O2 Delivery O2 Flow Rate FiO2 08/13/17 08:00 98.1 68 18 125/67 (86) 98 08/13/17 06:25 Room Air 08/13/17 03:59 98.4 82 16 140/96 (111) 98 08/13/17 00:00 97.6 78 20 145/97 (113) 98 08/13/17 00:00 Room Air 08/12/17 21:27 98.6 75 16 151/72 (98) 98 08/12/17 21:00 Room Air 08/12/17 16:03 97.9 79 18 110/79 (89) 99 08/12/17 12:03 98.2 92 18 115/65 (82) 96 I/O 08/12/17 08/12/17 08/12/17 08/13/17 08/13/17 08/13/17 07:00 15:00 23:00 07:00 15:00 23:00 Intake Total 640 ml 200 ml 520 ml Output Total 1250 ml 1600 ml 1000 ml Balance -610 ml 200 ml -1080 ml -1000 ml Intake Oral 640 ml 520 ml IV Total 200 ml Output Urine Total 1250 ml 1600 ml 1000 ml # Bowel Movements 0 Objective Remarks LLE: wound on lateral lower leg spanning from lateral malleolus to proximal fibula, approx 3cm in width. Granulation tissue present throughout entire wound. Assessment & Plan Assessment and Plan Left lower extremity infection with chronic wound over fibula I had lengthy discussion with patient today regarding surgical treatment options including resection of fibula versus above-knee amputation. -Given the large open wound, I do not feel that resection of the fibula would be beneficial. This would make his wound larger. He is unlikely to resolve the wound infection or heal the wound. -I explained that the most likely way to cure his infection would be an above -knee amputation. At this point, he refuses amputation. I would recommend discharge home with wound care. It is my opinion that antibiotics alone cannot cure this infection. Currently his large open wound is the biggest problem. He will need to make sure that he avoids any pressure over these wounds. If he is unable to manage the wound and heal the pressure ulcers, he will ultimately have ongoing infection and will ultimately need an amputation. At this point he will continue with IV antibiotics and dressing changes. Cuba Nicholas Jr. August 13, 2017 08:35
[2017-08-13] MEDS: SODIUM CHLORIDE 0.9% FLUSH 10 ML FLUSH IV FLUSH SCH ×3 (09:00→22:54)
[2017-08-13] MEDS: MEGESTROL ACETATE SUSP 400 MG/10 ML CUP PO SCH (09:42)
[2017-08-13] MEDS: COLLAGENASE OINT 30 GM TUBE TOPICAL SCH (09:42)
[2017-08-13] MEDS: LACTOBACILLUS ACIDOPHILUS TAB PO SCH ×2 (09:42→22:54)
--- NOTE | 2017-08-13 10:59 | HHI.PR ---
Subjective Remarks Patient reports he is feeling okay. He decided to try antibiotics and refusing amputation. Objective Vitals Vital Signs Date Time Temp Pulse Resp B/P (MAP) Pulse Ox O2 Delivery O2 Flow Rate FiO2 08/13/17 08:00 98.1 68 18 125/67 (86) 98 08/13/17 06:25 Room Air 08/13/17 03:59 98.4 82 16 140/96 (111) 98 08/13/17 00:00 97.6 78 20 145/97 (113) 98 08/13/17 00:00 Room Air 08/12/17 21:27 98.6 75 16 151/72 (98) 98 08/12/17 21:00 Room Air 08/12/17 16:03 97.9 79 18 110/79 (89) 99 08/12/17 12:03 98.2 92 18 115/65 (82) 96 I/O 08/12/17 08/12/17 08/12/17 08/13/17 08/13/17 08/13/17 07:00 15:00 23:00 07:00 15:00 23:00 Intake Total 640 ml 200 ml 520 ml Output Total 1250 ml 1600 ml 1000 ml Balance -610 ml 200 ml -1080 ml -1000 ml Intake Oral 640 ml 520 ml IV Total 200 ml Output Urine Total 1250 ml 1600 ml 1000 ml # Bowel Movements 0 Objective Remarks GENERAL: No acute distress, anxious about current condition. CARDIOVASCULAR: Regular rate and rhythm without murmurs, gallops, or rubs. MUSCULOSKELETAL: s/p right AKA. LLE wound is wrapped. dressing intact. Procedures left tibia bone biopsy A/P Problem List: (1) UTI (urinary tract infection) ICD Code: N39.0 - Urinary tract infection, site not specified Status: Acute (2) Osteomyelitis ICD Code: M86.9 - Osteomyelitis, unspecified Assessment and Plan 52 yo BM with Paraplegia Acute and chronic osteomyelitis and abscess/sinus tract at the fibula of left lower extremity. Chronic wound LLE. Culture has proteus, group D enterococcus and MRSA.. -Orthopedics recommends AKA for best possible outcome but patient has been refusing. Pathology is back, allegedly inflammation but no osteomyelitis. However MRI in tumor localization all consistent with osteomyelitis involving the whole fibula. -Antibiotics per ID, on ertapenem and daptomycin - Recommendations per orthopedic's for [id number] amputation. However the patient is currently refusing and wants to try antibiotics. Discussed with case management to assist with placement. Discussed with infectious disease. Limited options for antibiotics. ESBL UTI with chronic indwelling catheter which will be replaced. Culture growing ESBL, Klebsiella and GNR continue IV Invanz. Nausea/vomiting/diarrhea-resolving, monitor Possibly gastroenteritis. Resolved. C diff negative. - antiemetics as needed. - ADAT. - hold bowel regimen. Continue Lactinex Anemia Appears chronic. - follow CBC and transfuse as needed. Elevated LFTs CT abdomen without obvious abnormality. LFTs appear chronically elevated. -Resolved. Sacral decubitus. Continue wound care DVT prophylaxis: Lovenox Discharge Planning Recommendation is for AKA. However the patient refused. Plan is for discharge to SNF with IV antibiotics. However limited options for antibiotics per ID. Problem Qualifiers (1) Osteomyelitis: Xochitl Wilson MD August 13, 2017 10:59
[2017-08-13 12:00] VITALS: BP 149/63; PULSE 93; RESP 18; TEMP 98.7; O2SAT 100
[2017-08-13] MEDS: DAPTOmycin INJ 750 MG in SODIUM CHLORIDE 0.9% INJ 100 ML IV SCH (13:06)
[2017-08-13] MEDS: ERTAPENEM INJ 1,000 MG in SODIUM CHLORIDE 0.9% INJ 100 ML IV SCH (14:03)
--- NOTE | 2017-08-13 14:54 | HHI.FF ---
Infusion Therapy Location of Infusion Therapy: Home [facility] IV Infusion Order Patient Information Patient Weight 80.3 kg Diagnosis: Diagnosis chronic osteo Coded Allergies: clindamycin (Verified Allergy, Severe, HIVES, 07/22/17) sulfamethoxazole (Verified Allergy, Severe, RASH, 07/22/17) trimethoprim (Verified Allergy, Severe, RASH, 07/22/17) vancomycin (Verified Allergy, Severe, hives, 07/22/17) morphine (Verified Adverse Reaction, Severe, Tachycardia, 07/22/17) Administer Medication Ertapenem 1 gram IV q 24 hours Start Treatment: August 13, 2017 Stop Treatment: Sep 23, 2017 Administer Medication Daptomycin q 24 hours 750 mg IV Start Treatment: August 13, 2017 Stop Treatment: Sep 23, 2017 Additional Information Additional Instructions [x] Peripheral flush and dressing changes per protocol [x] Implanted port and central line cleaner: * Implanted port: 10 ml Normal Saline followed by 5 ml Heparin 100 units/ml Heparin flush after each use and monthly to maintain. [] May leave port accessed during therapy. [] May leave peripheral site accessed for duration of therapy. [x] If patient has SOB or respiratory distress, check oxygen saturation. If less than 90% or clinical signs of respiratory distress, administer oxygen at 2 L/min. via nasal cannula and notify physician. [x] Anaphylaxis/Reaction orders: * Stop infusion. * Keep IV line open with saline flush. * Notify physician. * Monitor vital signs every 15 minutes until symptoms resolve. * Check Oxygen saturation; Oxygen at 2 L/min. via nasal cannula if less than 90% or clinical signs of respiratory distress. * Administer diphenhydramine (Benadryl) 25 mg IV STAT, (unless patient has received as pre-med). May repeat once, if necessary. * Solu-Cortef 250 mg IVP over 30-60 seconds, use 100 mg vials for each dissolution. * Epinephrine (1mg/1 ml) 0.3 mg subcutaneously or IVP now with any signs of respiratory distress. * Check with physician for new additional pre-med orders if patient is re- challenged or re-treated. [x] May remove PICC line when treatment complete, after confirming with Physician. [x] If the patient is admitted to the hospital, the ED, or transferred via [facility] , complete transfer form including medication reconciliation order sheet. Laboratory Tests Weekly Labs: CBC w/diff, Creatinine, LFT's (Hepatic function test), Serum CK Levels Ana Peters MD August 13, 2017 14:54
[2017-08-13 16:00] VITALS: BP 140/60; PULSE 88; RESP 18; TEMP 98.6; O2SAT 97
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
[2017-08-13] MEDS: ENOXAPARIN SODIUM 40 MG/0.4 ML SYRINGE SQ SCH (18:00)
[2017-08-13 20:00] VITALS: BP 146/67; PULSE 82; RESP 17; TEMP 98.9; O2SAT 96
[2017-08-14] VITALS: BP 159/76; PULSE 79; RESP 17; TEMP 98.2; O2SAT 99
[2017-08-14] MEDS: ACETAMINOPHEN/HYDROcodone 325 MG/10 MG TAB PO PRN ×5 (05:18→22:05)
[2017-08-14 06:00] VITALS: BP 157/76; PULSE 70; RESP 18; TEMP 98.4; O2SAT 99
[2017-08-14 08:00] VITALS: BP 119/80; PULSE 71; RESP 16; TEMP 98.1; O2SAT 99
[2017-08-14] MEDS: COLLAGENASE OINT 30 GM TUBE TOPICAL SCH (08:21)
[2017-08-14] MEDS: SODIUM CHLORIDE 0.9% FLUSH 10 ML FLUSH IV FLUSH SCH ×3 (08:21→21:19)
[2017-08-14] MEDS: LACTOBACILLUS ACIDOPHILUS TAB PO SCH ×2 (08:21→21:18)
[2017-08-14] MEDS: MEGESTROL ACETATE SUSP 400 MG/10 ML CUP PO SCH (08:21)
--- NOTE | 2017-08-14 10:20 | HHI.PR ---
Addendum to Inpatient Note Additional Information after discussing with pt's manager trust Dr Brambila decision is made to attempt another biopsy under special procedures in attempt to obtain the pathogen as well as to confirm the osteomyelitis case was dw Dr Brambila in details this am and he agrees on the above plan dw Dr Familia cantu RN dw Dr Steve kincaid dw case mngr as well Ana Peters MD August 14, 2017 10:20
[2017-08-14 12:00] VITALS: BP 138/72; PULSE 80; RESP 16; TEMP 98; O2SAT 99
[2017-08-14] MEDS: DAPTOmycin INJ 750 MG in SODIUM CHLORIDE 0.9% INJ 100 ML IV SCH (12:36)
--- NOTE | 2017-08-14 12:39 | HHI.PR ---
Subjective Remarks Patient reports he is feeling okay. No fevers or chills. Objective Vitals Vital Signs Date Time Temp Pulse Resp B/P (MAP) Pulse Ox O2 Delivery O2 Flow Rate FiO2 08/14/17 12:00 98.0 80 16 138/72 (94) 99 08/14/17 08:00 98.1 71 16 119/80 (93) 99 08/14/17 06:18 19 08/14/17 06:00 98.4 70 18 157/76 (103) 99 08/14/17 00:00 98.2 79 17 159/76 (103) 99 08/13/17 20:00 98.9 82 17 146/67 (93) 96 08/13/17 19:00 96 Room Air 08/13/17 16:00 98.6 88 18 140/60 (86) 97 08/13/17 16:00 Room Air I/O 08/13/17 08/13/17 08/13/17 08/14/17 08/14/17 08/14/17 07:00 15:00 23:00 07:00 15:00 23:00 Intake Total 1580 ml 120 ml Output Total 1000 ml 1490 ml 1400 ml Balance -1000 ml 90 ml -1280 ml Intake Oral 1580 ml 120 ml Output Urine Total 1000 ml 1450 ml 1400 ml Stool Total 40 ml # Bowel Movements 0 Objective Remarks GENERAL: No acute distress, anxious about current condition. CARDIOVASCULAR: Regular rate and rhythm without murmurs, gallops, or rubs. MUSCULOSKELETAL: s/p right AKA. LLE wound is wrapped. dressing intact. Procedures left tibia bone biopsy A/P Problem List: (1) UTI (urinary tract infection) ICD Code: N39.0 - Urinary tract infection, site not specified Status: Acute (2) Osteomyelitis ICD Code: M86.9 - Osteomyelitis, unspecified Assessment and Plan 52 yo BM with Paraplegia Acute and chronic osteomyelitis and abscess/sinus tract at the fibula of left lower extremity. Chronic wound LLE. Culture has proteus, group D enterococcus and MRSA.. -Orthopedics recommends AKA for best possible outcome but patient has been refusing. Pathology is back, allegedly inflammation but no osteomyelitis. However MRI in tumor localization all consistent with osteomyelitis involving the whole fibula. Infectious disease following. Plan is to attempt another biopsy under special procedures in attempt to obtain the pathogen as well as to confirm the osteomyelitis -Antibiotics per ID, on ertapenem and daptomycin ESBL UTI with chronic indwelling catheter which will be replaced. Culture growing ESBL, Klebsiella and GNR continue IV Invanz. Nausea/vomiting/diarrhea-resolving, monitor Possibly gastroenteritis. Resolved. C diff negative. - antiemetics as needed. - ADAT. - hold bowel regimen. Continue Lactinex Anemia Appears chronic. - follow CBC and transfuse as needed. Elevated LFTs CT abdomen without obvious abnormality. LFTs appear chronically elevated. -Resolved. Sacral decubitus. Continue wound care DVT prophylaxis: Lovenox Discharge Planning Recommendation is for AKA per orthopedics. However the patient refused. Plan is to continue antibiotics per the patient's preference. However need to attempt another biopsy under special procedures in attempt to obtain the pathogen as well as to confirm the osteomyelitis per infectious disease. Problem Qualifiers (1) Osteomyelitis: Xochitl Wilson MD August 14, 2017 12:39
[2017-08-14 13:09] LABS: BASOPHIL # 0.1 TH/MM3 (0-0.2); EOSINOPHIL # 0.6 TH/MM3 (0-0.4); EOSINOPHIL % 7.3 % (0.0-4.0); HEMATOCRIT 33.9 % (39.0-51.0); HEMOGLOBIN 10.8 GM/DL (13.0-17.0); LYMPH % 31.2 % (9.0-44.0); LYMPHOCYTE # 2.4 TH/MM3 (1.0-4.8); MEAN CELL VOLUME 76.7 FL (80.0-100.0); MEAN CORPUSCULAR HEMOGLOBIN 24.3 PG (27.0-34.0); MEAN CORPUSCULAR HGB CONC 31.8 % (32.0-36.0); MEAN PLATELET VOLUME 6.9 FL (7.0-11.0); MONO % 9.2 % (0.0-8.0); MONOCYTE # 0.7 TH/MM3 (0-0.9); NEUT % 51.3 % (16.0-70.0); PLATELET COUNT 387 TH/MM3 (150-450); RED BLOOD COUNT 4.42 MIL/MM3 (4.50-5.90); RED CELL DISTRIBUTION WIDTH 19.3 % (11.6-17.2); WHITE BLOOD COUNT 7.7 TH/MM3 (4.0-11.0)
[2017-08-14] MEDS: ERTAPENEM INJ 1,000 MG in SODIUM CHLORIDE 0.9% INJ 100 ML IV SCH (13:10)
[2017-08-14 13:31] LABS: ALBUMIN 2.8 GM/DL (3.4-5.0); AST (GOT) 26 U/L (15-37); BICARBONATE 26.7 MEQ/L (21.0-32.0); BLOOD UREA NITROGEN 13 MG/DL (7-18); CALCIUM 8.9 MG/DL (8.5-10.1); CHLORIDE 104 MEQ/L (98-107); CREATININE 0.56 MG/DL (0.60-1.30); GLOMERULAR FILTRATION RATE 186 ML/MIN (>89); GLUCOSE,RANDOM 82 MG/DL (74-106); SODIUM (NA) 138 MEQ/L (136-145)
[2017-08-14 13:32] LABS: ALT (GPT) 36 U/L (12-78)
[2017-08-14 13:34] LABS: ALKALINE PHOSPHATASE 136 U/L (45-117); TOTAL BILIRUBIN ADULT 0.1 MG/DL (0.2-1.0); TOTAL PROTEIN 7.4 GM/DL (6.4-8.2)
[2017-08-14 13:48] LABS: WESTERGREN SEDIMENTATION RATE 49 mm/hr (0-20)
[2017-08-14] MEDS ORDERED: MIDAZOLAM HCL 5 MG/5 ML VIAL ONE (15:36)
[2017-08-14] MEDS ORDERED: fentaNYL CITRATE 250 MCG/5 ML AMP ONE (15:36)
[2017-08-14 16:15] VITALS: BP 115/66; PULSE 81; RESP 20; O2SAT 97
--- NOTE | 2017-08-14 17:04 | PD.RAD ---
Post Procedure Progress Note Pre Procedure Diagnosis: (1) Osteomyelitis Post Procedure Diagnosis: (1) Osteomyelitis Procedure Date: August 14, 2017 Supervising Radiologist: Ry Uribe Proceduralist/Assist: Jannet Duffy, RT(R)(CV), Ferdinand Murrieta RT(R) Anesthesia: Local, Analgesia, Conscious Sedation Plan of Activity Patient to Unit: ROPU Patient Condition: Good See PACS Report for procedural detail/treatment Biopsy Imaging Guidance: Fluoroscopy Side: Left Biopsy Procedure: Bone (tibia) Specimen: Core Biopsy Ry Uribe MD August 14, 2017 17:04
--- NOTE | 2017-08-14 17:11 | HHI.IDPN ---
Subjective Subjective Remarks pt seen prior to procedure dw multiple providors o/w doing ok tolerating abx afebriledapto ertapenem Labs are noted: CK creeping up Antibiotics daptomycin Ertapenem Allergies: Coded Allergies: clindamycin (Verified Allergy, Severe, HIVES, 07/22/17) sulfamethoxazole (Verified Allergy, Severe, RASH, 07/22/17) trimethoprim (Verified Allergy, Severe, RASH, 07/22/17) vancomycin (Verified Allergy, Severe, hives, 07/22/17) morphine (Verified Adverse Reaction, Severe, Tachycardia, 07/22/17) Objective . Vital Signs Date Time Temp Pulse Resp B/P (MAP) Pulse Ox O2 Delivery O2 Flow Rate FiO2 08/14/17 16:15 81 20 115/66 (82) 97 08/14/17 12:00 98.0 80 16 138/72 (94) 99 08/14/17 08:00 98.1 71 16 119/80 (93) 99 08/14/17 06:18 19 08/14/17 06:00 98.4 70 18 157/76 (103) 99 08/14/17 00:00 98.2 79 17 159/76 (103) 99 08/13/17 20:00 98.9 82 17 146/67 (93) 96 08/13/17 19:00 96 Room Air . Laboratory Tests Test 08/14/17 12:20 White Blood Count 7.7 TH/MM3 Red Blood Count 4.42 MIL/MM3 Hemoglobin 10.8 GM/DL Hematocrit 33.9 % Mean Corpuscular Volume 76.7 FL Mean Corpuscular Hemoglobin 24.3 PG Mean Corpuscular Hemoglobin Concent 31.8 % Red Cell Distribution Width 19.3 % Platelet Count 387 TH/MM3 Mean Platelet Volume 6.9 FL Neutrophils (%) (Auto) 51.3 % Lymphocytes (%) (Auto) 31.2 % Monocytes (%) (Auto) 9.2 % Eosinophils (%) (Auto) 7.3 % Basophils (%) (Auto) 1.0 % Neutrophils # (Auto) 4.0 TH/MM3 Lymphocytes # (Auto) 2.4 TH/MM3 Monocytes # (Auto) 0.7 TH/MM3 Eosinophils # (Auto) 0.6 TH/MM3 Basophils # (Auto) 0.1 TH/MM3 CBC Comment DIFF FINAL Differential Comment Erythrocyte Sedimentation Rate 49 mm/hr Laboratory Tests Test 08/14/17 12:20 Blood Urea Nitrogen 13 MG/DL Creatinine 0.56 MG/DL Random Glucose 82 MG/DL Total Protein 7.4 GM/DL Albumin 2.8 GM/DL Calcium Level 8.9 MG/DL Alkaline Phosphatase 136 U/L Aspartate Amino Transf (AST/SGOT) 26 U/L Alanine Aminotransferase (ALT/SGPT) 36 U/L Total Bilirubin 0.1 MG/DL Sodium Level 138 MEQ/L Potassium Level 4.4 MEQ/L Chloride Level 104 MEQ/L Carbon Dioxide Level 26.7 MEQ/L Anion Gap 7 MEQ/L Estimat Glomerular Filtration Rate 186 ML/MIN Total Creatine Kinase 352 U/L Creatine Kinase MB 6.0 NG/ML Creatine Kinase MB % 1.7 % Microbiology Date/Time Source Procedure Growth Status 08/14/17 16:04 Wound Bone Acid Fast Stain Pending Received 08/14/17 16:04 Wound Bone Mycobacterial Culture Pending Received 08/14/17 16:04 Wound Bone Gram Stain Pending Received 08/14/17 16:04 Wound Bone Wound Culture Pending Received Imaging Last Impressions Tumor Localization 08/06/17 0000 Signed Impressions: Service Date/Time: Sunday, August 06, 2017 16:24 - CONCLUSION: Diffuse abnormal accumulation of white cells throughout the entire fibula suggestive of osteomyelitis. This appears to correlate with the prior MRI of the lower left leg. Janes Landon MD Abdomen X-Ray 08/03/17 0000 Signed Impressions: Service Date/Time: Thursday, August 03, 2017 14:52 - CONCLUSION: 1. No acute abdominal abnormality is identified. 2. 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 Yonathan Callahan MD Lower Extremity MRI 07/23/17 0000 Signed Impressions: Service Date/Time: Sunday, July 23, 2017 20:15 - CONCLUSION: 1. The soft tissue ulceration laterally of the left leg appears slightly improved. No drainable soft tissue abscess. 2. However, there is increased conspicuity and extent of cortical thickening and signal changes of the fibula compatible with acute on chronic osteomyelitis. There is elongated and nearly diffuse intramedullary fluid typical of abscess as well as an apparent developing sinus tract approximately 6.1 cm proximal to the lateral malleolus. Yonathan Hess MD Chest X-Ray 07/22/17 0000 Signed Impressions: Service Date/Time: Saturday, July 22, 2017 13:06 - CONCLUSION: No acute disease. Cuba Bone MD Abdomen/Pelvis CT 07/22/17 0000 Signed Impressions: Service Date/Time: Saturday, July 22, 2017 14:36 - CONCLUSION: 1. Chronic bony changes about the pelvic girdle and proximal femurs or bony destruction and extensive heterotopic bone formation. 2. Probable associated decubitus type ulcers bilaterally with the right ischium/inferior pubic ramus partially exposed suggesting osteomyelitis in this region. 3. Cholelithiasis. 4. Ostomy in the upper midabdomen. Ry Uribe MD Physical Exam CONSTITUTIONAL/GENERAL: This is an adequately nourished patient, in no apparent distress. TUBES/LINES/DRAINS: SKIN: No jaundice, rashes, or lesions. MUSCULOSKELETAL: Extremities without clubbing, cyanosis, or edema. Dressing in place LLE intact NEUROLOGICAL: Awake and alert. Paraplegia Follows commands with BUE. Clear speech PSYCHIATRIC: calm and coooperative Assessment & Plan Remarks Paraplegia Acute and chronic osteomyelitis at the fibula of left lower extremity. Chronic wound LLE. Culture has proteus, group D enterococcus and MRSA.. UTI - growing ESBL+ e.coli Sacral decubitus ulcer. : stage IV, but clean L fibula osteo and abscess/ sinus tract on MRI but bone bx did not confirm osteo MRI/ CEretec strongly positive for osteo Will Rx as chronic osteo at this point WIll take previous cultures ant hte fact of recent other site ESBL infectio n into account to paul abx Rx diarrhea, C.diff negative cont Ertapenem, daptomycin for tenatively 6 weeks fu CKs closely: if 4 X AUL will have to change abx labs weekly : CKs, CMP, CBC monitor clinically ESR every 2-3 wks will follow clx andf path dw case mngr: pt has to place to go dw Ana Breaux MD August 14, 2017 17:11
[2017-08-14] MEDS: ENOXAPARIN SODIUM 40 MG/0.4 ML SYRINGE SQ SCH (17:21)
[2017-08-14 20:00] VITALS: BP 156/68; PULSE 84; RESP 18; TEMP 98.1; O2SAT 97
[2017-08-15] VITALS: BP 148/76; PULSE 79; RESP 17; TEMP 98; O2SAT 99
[2017-08-15] MEDS: ACETAMINOPHEN/HYDROcodone 325 MG/10 MG TAB PO PRN ×6 (02:00→21:38)
[2017-08-15 04:00] VITALS: BP 147/84; PULSE 65; RESP 17; TEMP 97.9; O2SAT 99
[2017-08-15 08:03] VITALS: BP 135/75; PULSE 61; RESP 17; TEMP 98.2; O2SAT 99
--- NOTE | 2017-08-15 08:11 | HHI.PR ---
Subjective Remarks Follow-up multiple medical problems : Acute and chronic osteomyelitis and abscess/sinus tract at the fibula of left lower extremity. ESBL UTI. Nausea vomiting. patient says he has a complicated buttock wound and wants to be seen by a retail product demo specialist. [employer] wound care physician for evaluation. Patient had the biopsy done. He denies any pain at this time. No fever or chills overnight. Not eating much more nausea today. Objective Vitals Vital Signs Date Time Temp Pulse Resp B/P (MAP) Pulse Ox O2 Delivery O2 Flow Rate FiO2 08/15/17 07:04 18 08/15/17 04:00 97.9 65 17 147/84 (105) 99 08/15/17 00:00 98.0 79 17 148/76 (100) 99 08/14/17 20:00 Room Air 08/14/17 20:00 98.1 84 18 156/68 (97) 97 08/14/17 16:15 81 20 115/66 (82) 97 08/14/17 16:00 Room Air 08/14/17 12:00 98.0 80 16 138/72 (94) 99 08/14/17 12:00 Room Air I/O 08/14/17 08/14/17 08/14/17 08/15/17 08/15/17 08/15/17 07:00 15:00 23:00 07:00 15:00 23:00 Intake Total 120 ml 1180 ml 0 ml Output Total 1400 ml 1215 ml 625 ml Balance -1280 ml -35 ml -625 ml Intake Oral 120 ml 1180 ml 0 ml Output Urine Total 1400 ml 1150 ml 625 ml Stool Total 65 ml # Bowel Movements 0 0 Result Diagram: 08/14/17 1220 08/14/17 1220 Imaging Last Impressions Tumor Localization 08/06/17 0000 Signed Impressions: Service Date/Time: Sunday, August 06, 2017 16:24 - CONCLUSION: Diffuse abnormal accumulation of white cells throughout the entire fibula suggestive of osteomyelitis. This appears to correlate with the prior MRI of the lower left leg. Janes Landon MD Abdomen X-Ray 08/03/17 0000 Signed Impressions: Service Date/Time: Thursday, August 03, 2017 14:52 - CONCLUSION: 1. No acute abdominal abnormality is identified. 2. 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 Yonathan Callahan MD Lower Extremity MRI 07/23/17 0000 Signed Impressions: Service Date/Time: Sunday, July 23, 2017 20:15 - CONCLUSION: 1. The soft tissue ulceration laterally of the left leg appears slightly improved. No drainable soft tissue abscess. 2. However, there is increased conspicuity and extent of cortical thickening and signal changes of the fibula compatible with acute on chronic osteomyelitis. There is elongated and nearly diffuse intramedullary fluid typical of abscess as well as an apparent developing sinus tract approximately 6.1 cm proximal to the lateral malleolus. Yonathan Hess MD Chest X-Ray 07/22/17 0000 Signed Impressions: Service Date/Time: Saturday, July 22, 2017 13:06 - CONCLUSION: No acute disease. Cuba Bone MD Abdomen/Pelvis CT 07/22/17 0000 Signed Impressions: Service Date/Time: Saturday, July 22, 2017 14:36 - CONCLUSION: 1. Chronic bony changes about the pelvic girdle and proximal femurs or bony destruction and extensive heterotopic bone formation. 2. Probable associated decubitus type ulcers bilaterally with the right ischium/inferior pubic ramus partially exposed suggesting osteomyelitis in this region. 3. Cholelithiasis. 4. Ostomy in the upper midabdomen. Ry Uribe MD Objective Remarks GENERAL: A 52-year-old -[place] Citizen male in bed, chronically ill. CARDIOVASCULAR: Regular rate and rhythm. RESPIRATORY: No accessory muscle use. Clear to auscultation. Breath sounds equal bilaterally. GASTROINTESTINAL: Abdomen soft, non-tender, nondistended. Hepatic and splenic margins not palpable. MUSCULOSKELETAL: S/p right AKA. LLE wound is wrapped. Dressing intact. Sacral decubitus wound, dressing intact. NEUROLOGICAL: Awake and alert. No obvious cranial nerve deficits. Motor grossly within normal limits. Five out of 5 muscle strength in the arms and legs. Normal speech. PSYCHIATRIC: Appropriate mood and affect; insight and judgment normal. Procedures left tibia bone biopsy A/P Problem List: (1) UTI (urinary tract infection) ICD Code: N39.0 - Urinary tract infection, site not specified Status: Acute (2) Osteomyelitis ICD Code: M86.9 - Osteomyelitis, unspecified Assessment and Plan 52 yo BM with Paraplegia Acute and chronic osteomyelitis and abscess/sinus tract at the fibula of left lower extremity. Chronic wound LLE. Culture has proteus, group D enterococcus and MRSA. -Orthopedics recommends AKA for best possible outcome but patient has been refusing. Pathology is back, allegedly inflammation but no osteomyelitis. However MRI in tumor localization all consistent with osteomyelitis involving the whole fibula. Infectious disease following. S/p biopsy under special procedures in attempt to obtain the pathogen as well as to confirm the osteomyelitis. -Antibiotics per ID, on ertapenem and daptomycin ESBL UTI with chronic indwelling catheter which will be replaced. Culture growing ESBL, Klebsiella and GNR continue IV Invanz. Sacral decubitus ulcers. Consult wound care physician over tomorrow probably Nausea/vomiting/diarrhea-resolving, monitor Possibly gastroenteritis. Resolved. C diff negative. - antiemetics as needed. - ADAT. - hold bowel regimen. Continue Lactinex Anemia Appears chronic. - follow CBC and transfuse as needed. Elevated LFTs CT abdomen without obvious abnormality. LFTs appear chronically elevated. -Resolved. DVT prophylaxis: Lovenox Discharge Planning Recommendation is for AKA per orthopedics. However the patient refused. Plan is to continue antibiotics per the patient's preference. S/p another biopsy under special procedures in attempt to obtain the pathogen as well as to confirm the osteomyelitis per infectious disease Dr Kaiser ff. Consult wound care physician for decubitus wound Problem Qualifiers (1) Osteomyelitis: Katlin Dunn MD August 15, 2017 08:11
[2017-08-15] MEDS: COLLAGENASE OINT 30 GM TUBE TOPICAL SCH (09:00)
[2017-08-15] MEDS: SODIUM CHLORIDE 0.9% FLUSH 10 ML FLUSH IV FLUSH SCH ×3 (09:45→13:13)
[2017-08-15] MEDS: MEGESTROL ACETATE SUSP 400 MG/10 ML CUP PO SCH (09:46)
[2017-08-15] MEDS: LACTOBACILLUS ACIDOPHILUS TAB PO SCH ×2 (09:47→20:24)
--- NOTE | 2017-08-15 10:39 | RADRPT ---
EXAM DATE/TIME: 08/14/2017 16:02 [place] COMPARISON: No previous studies available for comparison. INDICATIONS : Patient with history of osteomyelitis in need of left fibula biopsy for evaluation. MEDICAL HISTORY : Paraplegia Osteomyelitis SURGICAL HISTORY : Right AKA Back surgery ENCOUNTER: Initial ACUITY: 3 weeks PAIN SCORE: 8/10 LOCATION: Bilateral Lower back FLUORO TIME: 1.68 minutes IMAGE SERIES: 4 SEDATION TIME: 30 minutes MEDICATION(S): 1.) 5 mg midazolam (Versed) IV 2.) 250 mcg fentanyl (Sublimaze) IV DEVICE(S): 1.) 12 gauge MC2 Bone lesion biopsy System Core specimen(s) was obtained and submitted to laboratory for pathologic evaluation. PROCEDURE : 1. Fluoroscopically guided needle biopsy. 2. Conscious sedation with continuous EKG and Oximetry monitoring. The risks, benefits and alternatives to the procedure were explained and verbal and written consent w as obtained. The site was prepped in sterile fashion. Full sterile technique was used, including cap, mask, steri le gloves and gown and a large sterile sheet. Hand hygiene and 2% chlorhexidine and/or betadine/alco hol prep was utilized per protocol for cutaneous antisepsis. The skin and subcutaneous tissues were infiltrated with local anesthetic solution. With fluoroscopic guidance the large osteo core needle was drilled into the abnormal appearing fibula . Bony sample was placed in a culture test tube for laboratory analysis Conscious sedation was performed with the prescribed dosages and duration as above in the presence of an independent trained radiology nurse to assist in the monitoring of the patient. EKG and oximetry remained stable throughout the procedure. CONCLUSION: Uncomplicated needle biopsy of the left fibula as above. Ry Uribe MD on August 15, 2017 at 10:33 Board Certified Radiologist. This report was verified electronically.
[2017-08-15 12:03] VITALS: BP 120/66; PULSE 84; RESP 17; TEMP 98.3; O2SAT 98
[2017-08-15] MEDS: DAPTOmycin INJ 750 MG in SODIUM CHLORIDE 0.9% INJ 100 ML IV SCH (13:13)
[2017-08-15] MEDS: ERTAPENEM INJ 1,000 MG in SODIUM CHLORIDE 0.9% INJ 100 ML IV SCH (14:20)
--- NOTE | 2017-08-15 15:16 | HHI.IDPN ---
Subjective Subjective Remarks sp bx yday denies muscle pain in upper body muscle group[s no fever CK stay the same (348) Antibiotics daptomycin Ertapenem Allergies: Coded Allergies: clindamycin (Verified Allergy, Severe, HIVES, 07/22/17) sulfamethoxazole (Verified Allergy, Severe, RASH, 07/22/17) trimethoprim (Verified Allergy, Severe, RASH, 07/22/17) vancomycin (Verified Allergy, Severe, hives, 07/22/17) morphine (Verified Adverse Reaction, Severe, Tachycardia, 07/22/17) Objective . Vital Signs Date Time Temp Pulse Resp B/P (MAP) Pulse Ox O2 Delivery O2 Flow Rate FiO2 08/15/17 14:13 18 08/15/17 08:03 98.2 61 17 135/75 (95) 99 08/15/17 08:00 Room Air 21 08/15/17 04:00 97.9 65 17 147/84 (105) 99 08/15/17 00:00 98.0 79 17 148/76 (100) 99 08/14/17 20:00 Room Air 08/14/17 20:00 98.1 84 18 156/68 (97) 97 08/14/17 16:15 81 20 115/66 (82) 97 08/14/17 16:00 Room Air . Laboratory Tests Test 08/14/17 12:20 White Blood Count 7.7 TH/MM3 Red Blood Count 4.42 MIL/MM3 Hemoglobin 10.8 GM/DL Hematocrit 33.9 % Mean Corpuscular Volume 76.7 FL Mean Corpuscular Hemoglobin 24.3 PG Mean Corpuscular Hemoglobin Concent 31.8 % Red Cell Distribution Width 19.3 % Platelet Count 387 TH/MM3 Mean Platelet Volume 6.9 FL Neutrophils (%) (Auto) 51.3 % Lymphocytes (%) (Auto) 31.2 % Monocytes (%) (Auto) 9.2 % Eosinophils (%) (Auto) 7.3 % Basophils (%) (Auto) 1.0 % Neutrophils # (Auto) 4.0 TH/MM3 Lymphocytes # (Auto) 2.4 TH/MM3 Monocytes # (Auto) 0.7 TH/MM3 Eosinophils # (Auto) 0.6 TH/MM3 Basophils # (Auto) 0.1 TH/MM3 CBC Comment DIFF FINAL Differential Comment Erythrocyte Sedimentation Rate 49 mm/hr Laboratory Tests Test 08/14/17 12:20 08/15/17 05:25 Blood Urea Nitrogen 13 MG/DL Creatinine 0.56 MG/DL Random Glucose 82 MG/DL Total Protein 7.4 GM/DL Albumin 2.8 GM/DL Calcium Level 8.9 MG/DL Alkaline Phosphatase 136 U/L Aspartate Amino Transf (AST/SGOT) 26 U/L Alanine Aminotransferase (ALT/SGPT) 36 U/L Total Bilirubin 0.1 MG/DL Sodium Level 138 MEQ/L Potassium Level 4.4 MEQ/L Chloride Level 104 MEQ/L Carbon Dioxide Level 26.7 MEQ/L Anion Gap 7 MEQ/L Estimat Glomerular Filtration Rate 186 ML/MIN Total Creatine Kinase 352 U/L 348 U/L Creatine Kinase MB 6.0 NG/ML 5.8 NG/ML Creatine Kinase MB % 1.7 % 1.7 % Microbiology Date/Time Source Procedure Growth Status 08/14/17 16:04 Wound Bone Fungal Smear - Final NO FUNGAL ELEMENTS SEEN. Resulted 08/14/17 16:04 Wound Bone Fungal Culture Pending Resulted 08/14/17 16:04 Wound Bone Acid Fast Stain Pending Received 08/14/17 16:04 Wound Bone Mycobacterial Culture Pending Received 08/14/17 16:04 Wound Bone Gram Stain - Final Resulted 08/14/17 16:04 Wound Bone Wound Culture - Preliminary NO GROWTH IN 24 HOURS. Resulted Imaging Last Impressions Needle Biopsy X-Ray 08/14/17 0000 Signed Impressions: Service Date/Time: Monday, August 14, 2017 16:02 - CONCLUSION: Uncomplicated needle biopsy of the left fibula as above. Ry Uribe MD Tumor Localization 08/06/17 0000 Signed Impressions: Service Date/Time: Sunday, August 06, 2017 16:24 - CONCLUSION: Diffuse abnormal accumulation of white cells throughout the entire fibula suggestive of osteomyelitis. This appears to correlate with the prior MRI of the lower left leg. Janes Landon MD Abdomen X-Ray 08/03/17 0000 Signed Impressions: Service Date/Time: Thursday, August 03, 2017 14:52 - CONCLUSION: 1. No acute abdominal abnormality is identified. 2. 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 Yonathan Callahan MD Lower Extremity MRI 07/23/17 0000 Signed Impressions: Service Date/Time: Sunday, July 23, 2017 20:15 - CONCLUSION: 1. The soft tissue ulceration laterally of the left leg appears slightly improved. No drainable soft tissue abscess. 2. However, there is increased conspicuity and extent of cortical thickening and signal changes of the fibula compatible with acute on chronic osteomyelitis. There is elongated and nearly diffuse intramedullary fluid typical of abscess as well as an apparent developing sinus tract approximately 6.1 cm proximal to the lateral malleolus. Yonathan Hess MD Chest X-Ray 07/22/17 0000 Signed Impressions: Service Date/Time: Saturday, July 22, 2017 13:06 - CONCLUSION: No acute disease. Cuba Bone MD Abdomen/Pelvis CT 07/22/17 0000 Signed Impressions: Service Date/Time: Saturday, July 22, 2017 14:36 - CONCLUSION: 1. Chronic bony changes about the pelvic girdle and proximal femurs or bony destruction and extensive heterotopic bone formation. 2. Probable associated decubitus type ulcers bilaterally with the right ischium/inferior pubic ramus partially exposed suggesting osteomyelitis in this region. 3. Cholelithiasis. 4. Ostomy in the upper midabdomen. Ry Uribe MD Physical Exam CONSTITUTIONAL/GENERAL: This is an adequately nourished patient, in no apparent distress. TUBES/LINES/DRAINS: SKIN: No jaundice, rashes, or lesions. MUSCULOSKELETAL: Extremities without clubbing, cyanosis, or edema. longitudinal wound is nearly 100% granulated and much less in size NEUROLOGICAL: Awake and alert. Paraplegia Follows commands with BUE. Clear speech PSYCHIATRIC: calm and coooperative Assessment & Plan Remarks Paraplegia Acute and chronic osteomyelitis at the fibula of left lower extremity. Chronic wound LLE. Culture has proteus, group D enterococcus and MRSA.. UTI - growing ESBL+ e.coli Sacral decubitus ulcer. : stage IV, but clean L fibula osteo and abscess/ sinus tract on MRI but bone bx did not confirm osteo MRI/ CEretec strongly positive for osteo Will Rx as chronic osteo at this point WIll take previous cultures ant hte fact of recent other site ESBL infectio n into account to paul abx Rx diarrhea, C.diff negative cont Ertapenem, daptomycin for tenatively 6 weeks fu CKs closely: if 4 X AUL will have to change abx labs weekly : CKs, CMP, CBC fu P bx, clx will finalise abx based on clx other options: zyvox, meropenem Ana Peters MD August 15, 2017 15:16
[2017-08-15 16:03] VITALS: BP 134/66; PULSE 76; RESP 17; TEMP 98.8; O2SAT 99
[2017-08-15] MEDS: ENOXAPARIN SODIUM 40 MG/0.4 ML SYRINGE SQ SCH (17:36)
[2017-08-15 20:00] VITALS: BP 147/64; PULSE 91; RESP 21; TEMP 98.1; O2SAT 96
[2017-08-16] VITALS: BP 124/64; PULSE 78; RESP 21; TEMP 97.8; O2SAT 99
[2017-08-16] MEDS: ACETAMINOPHEN/HYDROcodone 325 MG/10 MG TAB PO PRN ×6 (02:10→22:19)
[2017-08-16 04:00] VITALS: BP 146/74; PULSE 68; RESP 21; TEMP 97.8; O2SAT 99
--- NOTE | 2017-08-16 07:58 | HHI.PR ---
Subjective Remarks Patient in bed says he feels better today and he is happy, was seen by Dr Melendrez. No fever or chills. No n/v/d/c. Objective Vitals Vital Signs Date Time Temp Pulse Resp B/P (MAP) Pulse Ox O2 Delivery O2 Flow Rate FiO2 08/16/17 04:00 97.8 68 21 146/74 (98) 99 08/16/17 03:19 18 08/16/17 00:00 97.8 78 21 124/64 (84) 99 08/15/17 20:00 Room Air 08/15/17 20:00 98.1 91 21 147/64 (91) 96 08/15/17 16:03 98.8 76 17 134/66 (88) 99 08/15/17 12:03 98.3 84 17 120/66 (84) 98 08/15/17 08:03 98.2 61 17 135/75 (95) 99 08/15/17 08:00 Room Air 21 I/O 08/15/17 08/15/17 08/15/17 08/16/17 08/16/17 08/16/17 07:00 15:00 23:00 07:00 15:00 23:00 Intake Total 0 ml 500 ml 480 ml 960 ml Output Total 625 ml 1800 ml 1600 ml Balance -625 ml 500 ml -1320 ml -640 ml Intake Oral 0 ml 300 ml 480 ml 960 ml IV Total 200 ml Output Urine Total 625 ml 1800 ml 1600 ml # Bowel Movements 0 0 Result Diagram: 08/14/17 1220 08/14/17 1220 Imaging Last Impressions Needle Biopsy X-Ray 08/14/17 0000 Signed Impressions: Service Date/Time: Monday, August 14, 2017 16:02 - CONCLUSION: Uncomplicated needle biopsy of the left fibula as above. Ry Uribe MD Tumor Localization 08/06/17 0000 Signed Impressions: Service Date/Time: Sunday, August 06, 2017 16:24 - CONCLUSION: Diffuse abnormal accumulation of white cells throughout the entire fibula suggestive of osteomyelitis. This appears to correlate with the prior MRI of the lower left leg. Janes Landon MD Abdomen X-Ray 08/03/17 0000 Signed Impressions: Service Date/Time: Thursday, August 03, 2017 14:52 - CONCLUSION: 1. No acute abdominal abnormality is identified. 2. 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 Yonathan Callahan MD Lower Extremity MRI 07/23/17 0000 Signed Impressions: Service Date/Time: Sunday, July 23, 2017 20:15 - CONCLUSION: 1. The soft tissue ulceration laterally of the left leg appears slightly improved. No drainable soft tissue abscess. 2. However, there is increased conspicuity and extent of cortical thickening and signal changes of the fibula compatible with acute on chronic osteomyelitis. There is elongated and nearly diffuse intramedullary fluid typical of abscess as well as an apparent developing sinus tract approximately 6.1 cm proximal to the lateral malleolus. Yonathan Hess MD Chest X-Ray 07/22/17 0000 Signed Impressions: Service Date/Time: Saturday, July 22, 2017 13:06 - CONCLUSION: No acute disease. Cuba Bone MD Abdomen/Pelvis CT 07/22/17 0000 Signed Impressions: Service Date/Time: Saturday, July 22, 2017 14:36 - CONCLUSION: 1. Chronic bony changes about the pelvic girdle and proximal femurs or bony destruction and extensive heterotopic bone formation. 2. Probable associated decubitus type ulcers bilaterally with the right ischium/inferior pubic ramus partially exposed suggesting osteomyelitis in this region. 3. Cholelithiasis. 4. Ostomy in the upper midabdomen. Ry Uribe MD Objective Remarks GENERAL: A 52-year-old -[place] male in bed, chronically ill. CARDIOVASCULAR: Regular rate and rhythm. RESPIRATORY: No accessory muscle use. Clear to auscultation. Breath sounds equal bilaterally. GASTROINTESTINAL: Abdomen soft, non-tender, nondistended. Hepatic and splenic margins not palpable. MUSCULOSKELETAL: S/p right AKA. LLE wound is wrapped. Dressing intact. Sacral decubitus wound, dressing intact. NEUROLOGICAL: Awake and alert. No obvious cranial nerve deficits. Motor grossly within normal limits. Five out of 5 muscle strength in the arms and legs. Normal speech. PSYCHIATRIC: Appropriate mood and affect; insight and judgment normal. Procedures left tibia bone biopsy A/P Problem List: (1) UTI (urinary tract infection) ICD Code: N39.0 - Urinary tract infection, site not specified Status: Acute (2) Osteomyelitis ICD Code: M86.9 - Osteomyelitis, unspecified Assessment and Plan 52 yo BM with Paraplegia Acute and chronic osteomyelitis and abscess/sinus tract at the fibula of left lower extremity. Chronic wound LLE. Culture has proteus, group D enterococcus and MRSA. -Orthopedics recommends AKA for best possible outcome but patient has been refusing. Pathology is back, allegedly inflammation but no osteomyelitis. However MRI in tumor localization all consistent with osteomyelitis involving the whole fibula. Infectious disease following. S/p biopsy under special procedures in attempt to obtain the pathogen as well as to confirm the osteomyelitis. -Antibiotics per ID, on ertapenem and daptomycin ESBL UTI with chronic indwelling catheter which will be replaced. Culture growing ESBL, Klebsiella and GNR continue IV Invanz. Sacral decubitus ulcers. Consult wound care physician appreciate recommendations. wound is healing well. Nausea/vomiting/diarrhea-resolving, monitor Possibly gastroenteritis. Resolved. C diff negative. - antiemetics as needed. - ADAT. - hold bowel regimen. Continue Lactinex Anemia Appears chronic. - follow CBC and transfuse as needed. Elevated LFTs CT abdomen without obvious abnormality. LFTs appear chronically elevated. -Resolved. DVT prophylaxis: Lovenox Discharge Planning Recommendation is for AKA per orthopedics. However the patient refused. Plan is to continue antibiotics per the patient's preference. S/p another biopsy under special procedures in attempt to obtain the pathogen as well as to confirm the osteomyelitis per infectious disease Dr Kaiser ff. Consult wound care physician for decubitus wound, seen by Dr Melendrez appreciate recommendations. Problem Qualifiers (1) Osteomyelitis: Katlin Dunn MD August 16, 2017 07:58
[2017-08-16 08:03] VITALS: BP 139/71; PULSE 71; RESP 18; TEMP 97.9; O2SAT 99
[2017-08-16] MEDS: MEGESTROL ACETATE SUSP 400 MG/10 ML CUP PO SCH (09:00)
[2017-08-16] MEDS: COLLAGENASE OINT 30 GM TUBE TOPICAL SCH (09:00)
[2017-08-16] MEDS: LACTOBACILLUS ACIDOPHILUS TAB PO SCH ×2 (10:13→22:20)
--- NOTE | 2017-08-16 10:15 | PD.WOU.CON ---
Patient Intake Chief Complaint bilateral ischial ulcers and left leg ulcer Consult Requested by Primary Care Physician Abran De Oliveira DO Coded Allergies: clindamycin (Verified Allergy, Severe, HIVES, 07/22/17) sulfamethoxazole (Verified Allergy, Severe, RASH, 07/22/17) trimethoprim (Verified Allergy, Severe, RASH, 07/22/17) vancomycin (Verified Allergy, Severe, hives, 07/22/17) morphine (Verified Adverse Reaction, Severe, Tachycardia, 07/22/17) Vital Signs Date Time Temp Pulse Resp B/P (MAP) Pulse Ox O2 Delivery O2 Flow Rate FiO2 08/16/17 08:03 97.9 71 18 139/71 (93) 99 08/16/17 04:00 97.8 68 21 146/74 (98) 99 08/16/17 03:19 18 08/16/17 00:00 97.8 78 21 124/64 (84) 99 08/15/17 20:00 Room Air 08/15/17 20:00 98.1 91 21 147/64 (91) 96 08/15/17 16:03 98.8 76 17 134/66 (88) 99 08/15/17 12:03 98.3 84 17 120/66 (84) 98 Wound Assessment Wound Information - Wound One 08/16/17:Wound dimensions this week are: 10.6x15.5cm Wound Location: bilateral ischial ulcer Wound Length: 10.6cm Wound Width: 15.5 Wound Two Wound Location: left leg ulcer Classification: FT- full thickness Wound Length: 31.3cm Wound Width: 4cm Wound Depth: <0.1cm Lab and Radiology Results Radiology Last Impressions Needle Biopsy X-Ray 08/14/17 0000 Signed Impressions: Service Date/Time: Monday, August 14, 2017 16:02 - CONCLUSION: Uncomplicated needle biopsy of the left fibula as above. Ry Uribe MD Tumor Localization 08/06/17 0000 Signed Impressions: Service Date/Time: Sunday, August 06, 2017 16:24 - CONCLUSION: Diffuse abnormal accumulation of white cells throughout the entire fibula suggestive of osteomyelitis. This appears to correlate with the prior MRI of the lower left leg. Janes Landon MD Abdomen X-Ray 08/03/17 0000 Signed Impressions: Service Date/Time: Thursday, August 03, 2017 14:52 - CONCLUSION: 1. No acute abdominal abnormality is identified. 2. 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 Yonathan Callahan MD Lower Extremity MRI 07/23/17 0000 Signed Impressions: Service Date/Time: Sunday, July 23, 2017 20:15 - CONCLUSION: 1. The soft tissue ulceration laterally of the left leg appears slightly improved. No drainable soft tissue abscess. 2. However, there is increased conspicuity and extent of cortical thickening and signal changes of the fibula compatible with acute on chronic osteomyelitis. There is elongated and nearly diffuse intramedullary fluid typical of abscess as well as an apparent developing sinus tract approximately 6.1 cm proximal to the lateral malleolus. Yonathan Hess MD Chest X-Ray 07/22/17 0000 Signed Impressions: Service Date/Time: Saturday, July 22, 2017 13:06 - CONCLUSION: No acute disease. Cuba Bone MD Abdomen/Pelvis CT 07/22/17 0000 Signed Impressions: Service Date/Time: Saturday, July 22, 2017 14:36 - CONCLUSION: 1. Chronic bony changes about the pelvic girdle and proximal femurs or bony destruction and extensive heterotopic bone formation. 2. Probable associated decubitus type ulcers bilaterally with the right ischium/inferior pubic ramus partially exposed suggesting osteomyelitis in this region. 3. Cholelithiasis. 4. Ostomy in the upper midabdomen. MD Parvin Maldonado Karla A. MD August 16, 2017 10:15
[2017-08-16 12:03] VITALS: BP 134/56; PULSE 86; RESP 18; TEMP 98.2; O2SAT 98
[2017-08-16] MEDS: ERTAPENEM INJ 1,000 MG in SODIUM CHLORIDE 0.9% INJ 100 ML IV SCH (13:00)
--- NOTE | 2017-08-16 13:18 | PD.WCN.NOT ---
Wound Consult Description: Patient seen for follow up of bilateral ischial wound, and LLE wound with Doctor Melendrez Communicated with: RN Becki abernathy and Doctor Melendrez. Recommendation: Please defer to written orders from Doctor Melendrez Additional Information: Patient seen on for follow up of bilateral ischial wound and LLE wound with Doctor Melendrez.Wound with wound VAC previously. Wound VAC was discontinued on Sunday08/06/2017, due to epithelial tissue growing in wound bed and depth of wound. Patient lifted leg and stump up for wound assessment of bilateral ischial area. Removed dressing in place to reveal open clean wound to bilateral ischial area. Wound measures 10.6cm x 15.5cm x ~0.6cm. Wound presents with 100 % red granulation tissue. [place] of epithelialization noted scattered throughout wound bed.Cleansed wound with wound cleanser and patted dry.Wound Applied Maxorb AG to wound bed loosely packed and covered with two ABD pads secured with medfix tape. Removed dressing in place to LLE to reveal wound that is clean with 95% red granulation tissue and ~5% yellow tissue. Wound measures 31.3cm x 4cm x ~0.1cm. Wound margins approximating with new epithelial tissue. Periwound is unremarkable. Cleansed wound with wound cleanser and patted dry. Applied four puracol collagen dressings to wound bed and then applied Maxorb II, followed by two ABD pads and dry 4x4 gauze pads. Secured dressings with rolled gauze and tape. Doctor Melendrez wrote wound care orders. Sonam Flannery [facility] August 16, 2017 13:18
[2017-08-16] MEDS: DAPTOmycin INJ 750 MG in SODIUM CHLORIDE 0.9% INJ 100 ML IV SCH (13:35)
[2017-08-16] MEDS: SODIUM CHLORIDE 0.9% FLUSH 10 ML FLUSH IV FLUSH SCH ×3 (13:42→22:20)
[2017-08-16 16:03] VITALS: BP 116/66; PULSE 87; RESP 18; TEMP 98.1; O2SAT 100
[2017-08-16] MEDS: ENOXAPARIN SODIUM 40 MG/0.4 ML SYRINGE SQ SCH (18:15)
[2017-08-16 20:00] VITALS: BP 164/76; PULSE 78; RESP 18; TEMP 98.6; O2SAT 96
[2017-08-17] VITALS: BP 156/66; PULSE 67; RESP 17; TEMP 98.5; O2SAT 98
[2017-08-17] MEDS: ACETAMINOPHEN/HYDROcodone 325 MG/10 MG TAB PO PRN ×5 (05:03→21:45)
--- NOTE | 2017-08-17 07:32 | HHI.PR ---
Subjective Remarks Says has soem pain in his right abdomen near the stoma at baseline, says is not a new pain. No n/v. Stoma changed with good OP. No fever or chills. Objective Vitals Vital Signs Date Time Temp Pulse Resp B/P (MAP) Pulse Ox O2 Delivery O2 Flow Rate FiO2 08/17/17 00:00 98.5 67 17 156/66 (96) 98 08/16/17 20:45 Room Air 08/16/17 20:00 98.6 78 18 164/76 (105) 96 08/16/17 16:03 98.1 87 18 116/66 (83) 100 08/16/17 12:03 98.2 86 18 134/56 (82) 98 08/16/17 08:03 97.9 71 18 139/71 (93) 99 08/16/17 08:00 96 Room Air 21 I/O 08/16/17 08/16/17 08/16/17 08/17/17 08/17/17 08/17/17 07:00 15:00 23:00 07:00 15:00 23:00 Intake Total 960 ml 640 ml 420 ml Output Total 1600 ml 1600 ml 1500 ml Balance -640 ml -960 ml -1080 ml Intake Oral 960 ml 640 ml 420 ml Output Urine Total 1600 ml 1600 ml 1500 ml # Bowel Movements 0 Result Diagram: 08/14/17 1220 08/14/17 1220 Imaging Last Impressions Needle Biopsy X-Ray 08/14/17 0000 Signed Impressions: Service Date/Time: Monday, August 14, 2017 16:02 - CONCLUSION: Uncomplicated needle biopsy of the left fibula as above. Ry Uribe MD Tumor Localization 08/06/17 0000 Signed Impressions: Service Date/Time: Sunday, August 06, 2017 16:24 - CONCLUSION: Diffuse abnormal accumulation of white cells throughout the entire fibula suggestive of osteomyelitis. This appears to correlate with the prior MRI of the lower left leg. Janes Landon MD Abdomen X-Ray 08/03/17 0000 Signed Impressions: Service Date/Time: Thursday, August 03, 2017 14:52 - CONCLUSION: 1. No acute abdominal abnormality is identified. 2. 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 Yonathan Callahan MD Lower Extremity MRI 07/23/17 0000 Signed Impressions: Service Date/Time: Sunday, July 23, 2017 20:15 - CONCLUSION: 1. The soft tissue ulceration laterally of the left leg appears slightly improved. No drainable soft tissue abscess. 2. However, there is increased conspicuity and extent of cortical thickening and signal changes of the fibula compatible with acute on chronic osteomyelitis. There is elongated and nearly diffuse intramedullary fluid typical of abscess as well as an apparent developing sinus tract approximately 6.1 cm proximal to the lateral malleolus. Yonathan Hess MD Chest X-Ray 07/22/17 0000 Signed Impressions: Service Date/Time: Saturday, July 22, 2017 13:06 - CONCLUSION: No acute disease. Cuba Bone MD Abdomen/Pelvis CT 07/22/17 0000 Signed Impressions: Service Date/Time: Saturday, July 22, 2017 14:36 - CONCLUSION: 1. Chronic bony changes about the pelvic girdle and proximal femurs or bony destruction and extensive heterotopic bone formation. 2. Probable associated decubitus type ulcers bilaterally with the right ischium/inferior pubic ramus partially exposed suggesting osteomyelitis in this region. 3. Cholelithiasis. 4. Ostomy in the upper midabdomen. Ry Uribe MD Objective Remarks GENERAL: A 52-year-old -Japanese male in bed, chronically ill. CARDIOVASCULAR: Regular rate and rhythm. RESPIRATORY: No accessory muscle use. Clear to auscultation. Breath sounds equal bilaterally. GASTROINTESTINAL: Abdomen soft, non-tender, nondistended. Hepatic and splenic margins not palpable. MUSCULOSKELETAL: S/p right AKA. LLE wound is wrapped. Dressing intact. Sacral decubitus wound, dressing intact. NEUROLOGICAL: Awake and alert. No obvious cranial nerve deficits. Motor grossly within normal limits. Five out of 5 muscle strength in the arms and legs. Normal speech. PSYCHIATRIC: Appropriate mood and affect; insight and judgment normal. Procedures left tibia bone biopsy A/P Problem List: (1) UTI (urinary tract infection) ICD Code: N39.0 - Urinary tract infection, site not specified Status: Acute (2) Osteomyelitis ICD Code: M86.9 - Osteomyelitis, unspecified Assessment and Plan 52 yo BM with Paraplegia Acute and chronic osteomyelitis and abscess/sinus tract at the fibula of left lower extremity. Chronic wound LLE. Culture has proteus, group D enterococcus and MRSA. -Orthopedics recommends AKA for best possible outcome but patient has been refusing. Pathology is back, allegedly inflammation but no osteomyelitis. However MRI in tumor localization all consistent with osteomyelitis involving the whole fibula. Infectious disease following. S/p biopsy under special procedures in attempt to obtain the pathogen as well as to confirm the osteomyelitis. -Antibiotics per ID, on ertapenem and daptomycin ESBL UTI with chronic indwelling catheter which will be replaced. Culture growing ESBL, Klebsiella and GNR continue IV Invanz. Sacral decubitus ulcers. Consult wound care physician appreciate recommendations. wound is healing well. Nausea/vomiting/diarrhea-resolving, monitor Possibly gastroenteritis. Resolved. C diff negative. - antiemetics as needed. - ADAT. - hold bowel regimen. Continue Lactinex Anemia Appears chronic. - follow CBC and transfuse as needed. Elevated LFTs CT abdomen without obvious abnormality. LFTs appear chronically elevated. -Resolved. DVT prophylaxis: Lovenox Discharge Planning Recommendation is for AKA per orthopedics. However the patient refused. Plan is to continue antibiotics per the patient's preference. S/p another biopsy under special procedures in attempt to obtain the pathogen as well as to confirm the osteomyelitis per infectious disease Dr Kaiser ff. Consult wound care physician for decubitus wound, seen by Dr Melendrez appreciate recommendations. Problem Qualifiers (1) Osteomyelitis: aKtlin Dunn MD August 17, 2017 07:32
[2017-08-17 07:40] VITALS: BP 150/72; PULSE 78; RESP 18; TEMP 98.5; O2SAT 97
[2017-08-17] MEDS: MEGESTROL ACETATE SUSP 400 MG/10 ML CUP PO SCH (08:58)
[2017-08-17] MEDS: LACTOBACILLUS ACIDOPHILUS TAB PO SCH ×2 (08:58→21:45)
[2017-08-17] MEDS: COLLAGENASE OINT 30 GM TUBE TOPICAL SCH (09:00)
[2017-08-17 12:10] VITALS: BP 145/65; PULSE 85; RESP 18; TEMP 98.6; O2SAT 98
[2017-08-17] MEDS: DAPTOmycin INJ 750 MG in SODIUM CHLORIDE 0.9% INJ 100 ML IV SCH (12:42)
[2017-08-17] MEDS: ERTAPENEM INJ 1,000 MG in SODIUM CHLORIDE 0.9% INJ 100 ML IV SCH (14:14)
--- NOTE | 2017-08-17 15:30 | HHI.IDPN ---
Subjective Subjective Remarks doing well Neg path and neg clx Antibiotics daptomycin Ertapenem Allergies: Coded Allergies: clindamycin (Verified Allergy, Severe, HIVES, 07/22/17) sulfamethoxazole (Verified Allergy, Severe, RASH, 07/22/17) trimethoprim (Verified Allergy, Severe, RASH, 07/22/17) vancomycin (Verified Allergy, Severe, hives, 07/22/17) morphine (Verified Adverse Reaction, Severe, Tachycardia, 07/22/17) Objective . Vital Signs Date Time Temp Pulse Resp B/P (MAP) Pulse Ox O2 Delivery O2 Flow Rate FiO2 08/17/17 12:10 98.6 85 18 145/65 (91) 98 08/17/17 08:00 96 Room Air 21 08/17/17 07:40 98.5 78 18 150/72 (98) 97 08/17/17 00:00 98.5 67 17 156/66 (96) 98 08/16/17 20:45 Room Air 08/16/17 20:00 98.6 78 18 164/76 (105) 96 08/16/17 16:03 98.1 87 18 116/66 (83) 100 . Microbiology Date/Time Source Procedure Growth Status 08/14/17 16:04 Wound Bone Fungal Smear - Final NO FUNGAL ELEMENTS SEEN. Resulted 08/14/17 16:04 Wound Bone Fungal Culture Pending Resulted 08/14/17 16:04 Wound Bone Acid Fast Stain - Final NO ACID FAST BACILLI SEEN Resulted 08/14/17 16:04 Wound Bone Mycobacterial Culture Pending Resulted 08/14/17 16:04 Wound Bone Gram Stain - Final Complete 08/14/17 16:04 Wound Bone Wound Culture - Final NO GROWTH IN 72 HRS.--AEROBICALLY OR ... Complete Imaging Last Impressions Needle Biopsy X-Ray 08/14/17 0000 Signed Impressions: Service Date/Time: Monday, August 14, 2017 16:02 - CONCLUSION: Uncomplicated needle biopsy of the left fibula as above. Ry Uribe MD Tumor Localization 08/06/17 0000 Signed Impressions: Service Date/Time: Sunday, August 06, 2017 16:24 - CONCLUSION: Diffuse abnormal accumulation of white cells throughout the entire fibula suggestive of osteomyelitis. This appears to correlate with the prior MRI of the lower left leg. Janes Landon MD Abdomen X-Ray 08/03/17 0000 Signed Impressions: Service Date/Time: Thursday, August 03, 2017 14:52 - CONCLUSION: 1. No acute abdominal abnormality is identified. 2. 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 Yonathan Callahan MD Lower Extremity MRI 07/23/17 0000 Signed Impressions: Service Date/Time: Sunday, July 23, 2017 20:15 - CONCLUSION: 1. The soft tissue ulceration laterally of the left leg appears slightly improved. No drainable soft tissue abscess. 2. However, there is increased conspicuity and extent of cortical thickening and signal changes of the fibula compatible with acute on chronic osteomyelitis. There is elongated and nearly diffuse intramedullary fluid typical of abscess as well as an apparent developing sinus tract approximately 6.1 cm proximal to the lateral malleolus. Yonathan Hess MD Chest X-Ray 07/22/17 0000 Signed Impressions: Service Date/Time: Saturday, July 22, 2017 13:06 - CONCLUSION: No acute disease. Cuba Bone MD Abdomen/Pelvis CT 07/22/17 0000 Signed Impressions: Service Date/Time: Saturday, July 22, 2017 14:36 - CONCLUSION: 1. Chronic bony changes about the pelvic girdle and proximal femurs or bony destruction and extensive heterotopic bone formation. 2. Probable associated decubitus type ulcers bilaterally with the right ischium/inferior pubic ramus partially exposed suggesting osteomyelitis in this region. 3. Cholelithiasis. 4. Ostomy in the upper midabdomen. Ry Uribe MD Physical Exam CONSTITUTIONAL/GENERAL: This is an adequately nourished patient, in no apparent distress. TUBES/LINES/DRAINS: SKIN: No jaundice, rashes, or lesions. MUSCULOSKELETAL: dressing in place NEUROLOGICAL: Awake and alert. Paraplegia Follows commands with BUE. Clear speech PSYCHIATRIC: calm and coooperative Assessment & Plan Remarks Paraplegia Acute and chronic osteomyelitis at the fibula of left lower extremity. Chronic wound LLE. Culture has proteus, group D enterococcus and MRSA.. UTI - growing ESBL+ e.coli Sacral decubitus ulcer. : stage IV, but clean L fibula osteo and abscess/ sinus tract on MRI but bone bx did not confirm osteo MRI/ CEretec strongly positive for osteo Will Rx as chronic osteo at this point WIll take previous cultures ant hte fact of recent other site ESBL infectio n into account to paul abx Rx diarrhea, C.diff negative Again negative path for osteo and no growth in culture dc Ertapenem, daptomycin for tenatively 6 weeks will start doxycyline x up to 6 weeks fu ESR fu with Dr Murtaza PAIZ to dc from ID standpoint Ana Peters MD August 17, 2017 15:30
[2017-08-17] MEDS: SODIUM CHLORIDE 0.9% FLUSH 10 ML FLUSH IV FLUSH SCH ×3 (16:12→21:44)
[2017-08-17 16:21] VITALS: BP 147/72; PULSE 84; RESP 20; TEMP 98.6; O2SAT 97
[2017-08-17] MEDS: ENOXAPARIN SODIUM 40 MG/0.4 ML SYRINGE SQ SCH (18:33)
[2017-08-17 20:00] VITALS: BP 138/65; PULSE 77; RESP 19; TEMP 98.2; O2SAT 98
[2017-08-17] MEDS: DOXYCYCLINE HYCLATE 100 MG TAB PO SCH (21:45)
[2017-08-18] VITALS: BP 146/67; PULSE 80; RESP 19; TEMP 98.9; O2SAT 97
[2017-08-18] MEDS: ACETAMINOPHEN/HYDROcodone 325 MG/10 MG TAB PO PRN ×6 (01:46→22:39)
[2017-08-18 08:00] VITALS: BP 156/77; PULSE 67; RESP 20; TEMP 98.1; O2SAT 98
--- NOTE | 2017-08-18 08:09 | HHI.PR ---
Subjective Remarks He appears to not acute distress at this time. Has no pain at this time. Eating fairly well. However says since the by mouth antibiotics were started yesterday he has some diarrhea today. Will check for C. difficile. He denies any shortness of breath or chest pain. No fever or chills. No cough. Objective Vitals Vital Signs Date Time Temp Pulse Resp B/P (MAP) Pulse Ox O2 Delivery O2 Flow Rate FiO2 08/18/17 00:00 98.9 80 19 146/67 (93) 97 08/17/17 20:45 Room Air 08/17/17 20:00 98.2 77 19 138/65 (89) 98 08/17/17 16:21 98.6 84 20 147/72 (97) 97 08/17/17 12:10 98.6 85 18 145/65 (91) 98 I/O 08/17/17 08/17/17 08/17/17 08/18/17 08/18/17 08/18/17 07:00 15:00 23:00 07:00 15:00 23:00 Intake Total 420 ml 720 ml 440 ml Output Total 1500 ml 650 ml 1100 ml Balance -1080 ml 70 ml -660 ml Intake Oral 420 ml 720 ml 440 ml Output Urine Total 1500 ml 650 ml 1100 ml Result Diagram: 08/14/17 1220 08/14/17 1220 Imaging Last Impressions Needle Biopsy X-Ray 08/14/17 0000 Signed Impressions: Service Date/Time: Monday, August 14, 2017 16:02 - CONCLUSION: Uncomplicated needle biopsy of the left fibula as above. Ry Uribe MD Tumor Localization 08/06/17 0000 Signed Impressions: Service Date/Time: Sunday, August 06, 2017 16:24 - CONCLUSION: Diffuse abnormal accumulation of white cells throughout the entire fibula suggestive of osteomyelitis. This appears to correlate with the prior MRI of the lower left leg. Janes Landon MD Abdomen X-Ray 08/03/17 0000 Signed Impressions: Service Date/Time: Thursday, August 03, 2017 14:52 - CONCLUSION: 1. No acute abdominal abnormality is identified. 2. 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 Yonathan Callahan MD Lower Extremity MRI 07/23/17 0000 Signed Impressions: Service Date/Time: Sunday, July 23, 2017 20:15 - CONCLUSION: 1. The soft tissue ulceration laterally of the left leg appears slightly improved. No drainable soft tissue abscess. 2. However, there is increased conspicuity and extent of cortical thickening and signal changes of the fibula compatible with acute on chronic osteomyelitis. There is elongated and nearly diffuse intramedullary fluid typical of abscess as well as an apparent developing sinus tract approximately 6.1 cm proximal to the lateral malleolus. Yonathan Hess MD Chest X-Ray 07/22/17 0000 Signed Impressions: Service Date/Time: Saturday, July 22, 2017 13:06 - CONCLUSION: No acute disease. Cuba Bone MD Abdomen/Pelvis CT 07/22/17 0000 Signed Impressions: Service Date/Time: Saturday, July 22, 2017 14:36 - CONCLUSION: 1. Chronic bony changes about the pelvic girdle and proximal femurs or bony destruction and extensive heterotopic bone formation. 2. Probable associated decubitus type ulcers bilaterally with the right ischium/inferior pubic ramus partially exposed suggesting osteomyelitis in this region. 3. Cholelithiasis. 4. Ostomy in the upper midabdomen. Ry Uribe MD Objective Remarks GENERAL: A 52-year-old -Iranian male in bed, chronically ill. CARDIOVASCULAR: Regular rate and rhythm. RESPIRATORY: No accessory muscle use. Clear to auscultation. Breath sounds equal bilaterally. GASTROINTESTINAL: Abdomen soft, non-tender, nondistended. Hepatic and splenic margins not palpable. MUSCULOSKELETAL: S/p right AKA. LLE wound is wrapped. Dressing intact. Sacral decubitus wound, dressing intact. NEUROLOGICAL: Awake and alert. No obvious cranial nerve deficits. Motor grossly within normal limits. Five out of 5 muscle strength in the arms and legs. Normal speech. PSYCHIATRIC: Appropriate mood and affect; insight and judgment normal. Procedures left tibia bone biopsy A/P Problem List: (1) UTI (urinary tract infection) ICD Code: N39.0 - Urinary tract infection, site not specified Status: Acute (2) Osteomyelitis ICD Code: M86.9 - Osteomyelitis, unspecified Assessment and Plan 52 yo BM with Paraplegia Acute and chronic osteomyelitis and abscess/sinus tract at the fibula of left lower extremity. Chronic wound LLE. Culture has proteus, group D enterococcus and MRSA. -Orthopedics recommends AKA for best possible outcome but patient has been refusing. Pathology is back, allegedly inflammation but no osteomyelitis. However MRI in tumor localization all consistent with osteomyelitis involving the whole fibula. Infectious disease following. S/p biopsy under special procedures in attempt to obtain the pathogen as well as to confirm the osteomyelitis. -Antibiotics per ID, received ertapenem and daptomycin, now DCd. Switched to doxycycline 100 mg p.o. twice daily for 6 weeks. Diarrhea after p.o. antibiotics started patient. Check C. difficile. Continue Lactinex. ESBL UTI with chronic indwelling catheter which will be replaced. Culture growing ESBL, Klebsiella and GNR continue IV Invanz. Sacral decubitus ulcers. Consult wound care physician appreciate recommendations. wound is healing well. Nausea/vomiting/diarrhea-resolving, monitor Possibly gastroenteritis. Resolved. C diff negative. - antiemetics as needed. - ADAT. - hold bowel regimen. Continue Lactinex Anemia Appears chronic. - follow CBC and transfuse as needed. Elevated LFTs CT abdomen without obvious abnormality. LFTs appear chronically elevated. -Resolved. DVT prophylaxis: Lovenox Discharge Planning Recommendation is for AKA per orthopedics. However the patient refused. Plan is to continue antibiotics per the patient's preference. S/p another biopsy under special procedures in attempt to obtain the pathogen as well as to confirm the osteomyelitis per infectious disease Dr Job nguyen. Discussed with Dr. Fran joaquin patient for discharge to have antibiotics by mouth doxycycline milligrams for 6 weeks at discharge. Consult wound care physician for decubitus wound, seen by Dr Melendrez appreciate recommendations. Case management following for discharge. Discussed with Raúl RITCHIE Problem Qualifiers (1) Osteomyelitis: Katlin Dunn MD August 18, 2017 08:09
[2017-08-18] MEDS: LACTOBACILLUS ACIDOPHILUS TAB PO SCH ×2 (08:31→22:38)
[2017-08-18] MEDS: SODIUM CHLORIDE 0.9% FLUSH 10 ML FLUSH IV FLUSH SCH ×3 (08:31→21:00)
[2017-08-18] MEDS: MEGESTROL ACETATE SUSP 400 MG/10 ML CUP PO SCH (08:31)
[2017-08-18] MEDS: DOXYCYCLINE HYCLATE 100 MG TAB PO SCH ×2 (08:32→22:38)
[2017-08-18] MEDS: COLLAGENASE OINT 30 GM TUBE TOPICAL SCH (08:33)
[2017-08-18] MEDS ORDERED: DOXY100T PO (11:01)
[2017-08-18] MEDS ORDERED: HYDR-3583 PO (11:01)
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
[2017-08-18 12:00] VITALS: BP 131/66; PULSE 87; RESP 20; TEMP 98.4; O2SAT 98
[2017-08-18 16:00] VITALS: BP 158/75; PULSE 82; RESP 20; TEMP 98.4; O2SAT 99
[2017-08-18] MEDS: ENOXAPARIN SODIUM 40 MG/0.4 ML SYRINGE SQ SCH (18:30)
[2017-08-18 20:01] VITALS: BP 165/82; PULSE 86; RESP 19; TEMP 98.2; O2SAT 99
[2017-08-19 00:01] VITALS: BP 168/69; PULSE 78; RESP 18; TEMP 98.7; O2SAT 99
[2017-08-19] MEDS: ACETAMINOPHEN/HYDROcodone 325 MG/10 MG TAB PO PRN ×5 (03:30→20:25)
[2017-08-19 06:19] VITALS: BP 156/65; PULSE 71; RESP 18; TEMP 98.9; O2SAT 98
[2017-08-19 08:00] VITALS: BP 180/78; PULSE 83; RESP 20; TEMP 98.2; O2SAT 99
[2017-08-19] MEDS: SODIUM CHLORIDE 0.9% FLUSH 10 ML FLUSH IV FLUSH SCH ×3 (08:35→20:25)
[2017-08-19] MEDS: LACTOBACILLUS ACIDOPHILUS TAB PO SCH ×2 (08:36→20:25)
[2017-08-19] MEDS: MEGESTROL ACETATE SUSP 400 MG/10 ML CUP PO SCH (08:36)
[2017-08-19] MEDS: DOXYCYCLINE HYCLATE 100 MG TAB PO SCH ×2 (08:37→20:25)
[2017-08-19] MEDS: COLLAGENASE OINT 30 GM TUBE TOPICAL SCH (08:55)
--- NOTE | 2017-08-19 09:05 | HHI.PR ---
Subjective Remarks till with diarrhea in stoma. C diff is neg will give imodium/ No n/v. No fever ro chills. No abd pain. Objective Vitals Vital Signs Date Time Temp Pulse Resp B/P (MAP) Pulse Ox O2 Delivery O2 Flow Rate FiO2 08/19/17 06:19 98.9 71 18 156/65 (95) 98 08/19/17 00:01 98.7 78 18 168/69 (102) 99 08/19/17 00:01 Room Air 08/18/17 20:01 98.2 86 19 165/82 (109) 99 08/18/17 20:01 Room Air 08/18/17 16:00 98.4 82 20 158/75 (102) 99 08/18/17 12:00 98.4 87 20 131/66 (87) 98 I/O 08/18/17 08/18/17 08/18/17 08/19/17 08/19/17 08/19/17 07:00 15:00 23:00 07:00 15:00 23:00 Intake Total 440 ml 480 ml 910 ml Output Total 1100 ml 500 ml 1800 ml Balance -660 ml -20 ml -890 ml Intake Oral 440 ml 480 ml 910 ml Output Urine Total 1100 ml 500 ml 950 ml Stool Total 850 ml # Bowel Movements 1 Imaging Last Impressions Needle Biopsy X-Ray 08/14/17 0000 Signed Impressions: Service Date/Time: Monday, August 14, 2017 16:02 - CONCLUSION: Uncomplicated needle biopsy of the left fibula as above. Ry Uribe MD Tumor Localization 08/06/17 0000 Signed Impressions: Service Date/Time: Sunday, August 06, 2017 16:24 - CONCLUSION: Diffuse abnormal accumulation of white cells throughout the entire fibula suggestive of osteomyelitis. This appears to correlate with the prior MRI of the lower left leg. Janes Landon MD Abdomen X-Ray 08/03/17 0000 Signed Impressions: Service Date/Time: Thursday, August 03, 2017 14:52 - CONCLUSION: 1. No acute abdominal abnormality is identified. 2. 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 Yonathan Callahan MD Lower Extremity MRI 07/23/17 0000 Signed Impressions: Service Date/Time: Sunday, July 23, 2017 20:15 - CONCLUSION: 1. The soft tissue ulceration laterally of the left leg appears slightly improved. No drainable soft tissue abscess. 2. However, there is increased conspicuity and extent of cortical thickening and signal changes of the fibula compatible with acute on chronic osteomyelitis. There is elongated and nearly diffuse intramedullary fluid typical of abscess as well as an apparent developing sinus tract approximately 6.1 cm proximal to the lateral malleolus. Yonathan Hess MD Chest X-Ray 07/22/17 0000 Signed Impressions: Service Date/Time: Saturday, July 22, 2017 13:06 - CONCLUSION: No acute disease. Cuba Bone MD Abdomen/Pelvis CT 07/22/17 0000 Signed Impressions: Service Date/Time: Saturday, July 22, 2017 14:36 - CONCLUSION: 1. Chronic bony changes about the pelvic girdle and proximal femurs or bony destruction and extensive heterotopic bone formation. 2. Probable associated decubitus type ulcers bilaterally with the right ischium/inferior pubic ramus partially exposed suggesting osteomyelitis in this region. 3. Cholelithiasis. 4. Ostomy in the upper midabdomen. Ry Uribe MD Objective Remarks GENERAL: A 52-year-old -[place] Citizen male in bed, chronically ill. CARDIOVASCULAR: Regular rate and rhythm. RESPIRATORY: No accessory muscle use. Clear to auscultation. Breath sounds equal bilaterally. GASTROINTESTINAL: Abdomen soft, non-tender, nondistended. Hepatic and splenic margins not palpable. MUSCULOSKELETAL: S/p right AKA. LLE wound is wrapped. Dressing intact. Sacral decubitus wound, dressing intact. NEUROLOGICAL: Awake and alert. No obvious cranial nerve deficits. Motor grossly within normal limits. Five out of 5 muscle strength in the arms and legs. Normal speech. PSYCHIATRIC: Appropriate mood and affect; insight and judgment normal. Procedures left tibia bone biopsy A/P Problem List: (1) UTI (urinary tract infection) ICD Code: N39.0 - Urinary tract infection, site not specified Status: Acute (2) Osteomyelitis ICD Code: M86.9 - Osteomyelitis, unspecified Assessment and Plan 52 yo BM with Paraplegia Acute and chronic osteomyelitis and abscess/sinus tract at the fibula of left lower extremity. Chronic wound LLE. Culture has proteus, group D enterococcus and MRSA. -Orthopedics recommends AKA for best possible outcome but patient has been refusing. Pathology is back, allegedly inflammation but no osteomyelitis. However MRI in tumor localization all consistent with osteomyelitis involving the whole fibula. Infectious disease following. S/p biopsy under special procedures in attempt to obtain the pathogen as well as to confirm the osteomyelitis. -Antibiotics per ID, received ertapenem and daptomycin, now DCd. Switched to doxycycline 100 mg p.o. twice daily for 6 weeks. Diarrhea after p.o. antibiotics started patient. Check C. difficile. Continue Lactinex. ESBL UTI with chronic indwelling catheter which will be replaced. Culture growing ESBL, Klebsiella and GNR continue IV Invanz. Sacral decubitus ulcers. Consult wound care physician appreciate recommendations. wound is healing well. Nausea/vomiting/diarrhea-resolving, monitor Possibly gastroenteritis. Resolved. Reopeat C diff negative. - antiemetics as needed. - ADAT. - hold bowel regimen. Continue Lactinex - Add imodium Anemia Appears chronic. - follow CBC and transfuse as needed. Elevated LFTs CT abdomen without obvious abnormality. LFTs appear chronically elevated. -Resolved. DVT prophylaxis: Lovenox Discharge Planning Recommendation is for AKA per orthopedics. However the patient refused. Plan is to continue antibiotics per the patient's preference. S/p another biopsy under special procedures in attempt to obtain the pathogen as well as to confirm the osteomyelitis per infectious disease Dr Job nguyen. Discussed with Dr. Peters clear patient for discharge to have antibiotics by mouth doxycycline milligrams for 6 weeks at discharge. Consult wound care physician for decubitus wound, seen by Dr Melendrez appreciate recommendations. Case management following for discharge. Discussed with Raúl RUBIN. Problem Qualifiers (1) Osteomyelitis: Katlin Dunn MD August 19, 2017 09:05
[2017-08-19] MEDS ORDERED: LOPERAMIDE HCL 2 MG CAP PO ONE (10:45)
[2017-08-19 12:00] VITALS: BP 145/69; PULSE 89; RESP 20; TEMP 99.1; O2SAT 99
[2017-08-19 16:00] VITALS: BP 151/75; PULSE 80; RESP 20; TEMP 99.2; O2SAT 99
[2017-08-19] MEDS: ENOXAPARIN SODIUM 40 MG/0.4 ML SYRINGE SQ SCH (17:59)
[2017-08-19 20:00] VITALS: BP 132/63; PULSE 94; RESP 18; TEMP 98.7; O2SAT 97
[2017-08-19] MEDS: LOPERAMIDE HCL 2 MG CAP PO PRN (20:25)
[2017-08-20] VITALS: BP 139/68; PULSE 73; RESP 17; TEMP 98.8; O2SAT 99
[2017-08-20] MEDS: ACETAMINOPHEN/HYDROcodone 325 MG/10 MG TAB PO PRN ×6 (00:18→20:57)
[2017-08-20 04:00] VITALS: BP_SYST 126; BP_SYST 130; BP_DIAS 64; BP_DIAS 82; PULSE 77; PULSE 90; RESP 15; RESP 16; TEMP 98; TEMP 99.1; O2SAT 93; O2SAT 98
[2017-08-20] MEDS: LOPERAMIDE HCL 2 MG CAP PO PRN ×2 (04:28→20:57)
[2017-08-20 07:50] VITALS: BP 132/74; PULSE 74; RESP 20; TEMP 98.3; O2SAT 100
[2017-08-20] MEDS: DOXYCYCLINE HYCLATE 100 MG TAB PO SCH ×2 (08:40→20:57)
[2017-08-20] MEDS: MEGESTROL ACETATE SUSP 400 MG/10 ML CUP PO SCH (08:40)
[2017-08-20] MEDS: LACTOBACILLUS ACIDOPHILUS TAB PO SCH ×2 (08:40→20:57)
[2017-08-20] MEDS: SODIUM CHLORIDE 0.9% FLUSH 10 ML FLUSH IV FLUSH SCH ×3 (08:50→20:57)
[2017-08-20] MEDS: COLLAGENASE OINT 30 GM TUBE TOPICAL SCH (09:00)
--- NOTE | 2017-08-20 09:36 | HHI.PR ---
Subjective Remarks Says still with diarrhea despite having Imodium and Lactinex. No fever or chills overnight. Denies chest pain or shortness of breath wounds are healing very well. No pain at this time. Objective Vitals Vital Signs Date Time Temp Pulse Resp B/P (MAP) Pulse Ox O2 Delivery O2 Flow Rate FiO2 08/20/17 07:50 98.3 74 20 132/74 (93) 100 08/20/17 04:00 98.0 77 16 126/64 (84) 98 08/20/17 04:00 Room Air 08/20/17 00:00 Room Air 08/20/17 00:00 98.8 73 17 139/68 (91) 99 08/19/17 20:00 Room Air 08/19/17 20:00 98.7 94 18 132/63 (86) 97 08/19/17 16:00 99.2 80 20 151/75 (100) 99 08/19/17 12:00 99.1 89 20 145/69 (94) 99 I/O 08/19/17 08/19/17 08/19/17 08/20/17 08/20/17 08/20/17 07:00 15:00 23:00 07:00 15:00 23:00 Intake Total 910 ml 600 ml 800 ml Output Total 1800 ml 1225 ml 550 ml Balance -890 ml -625 ml 250 ml Intake Oral 910 ml 600 ml 800 ml Output Urine Total 950 ml 1225 ml 550 ml Stool Total 850 ml # Bowel Movements 1 Imaging Last Impressions Needle Biopsy X-Ray 08/14/17 0000 Signed Impressions: Service Date/Time: Monday, August 14, 2017 16:02 - CONCLUSION: Uncomplicated needle biopsy of the left fibula as above. Ry Uribe MD Tumor Localization 08/06/17 0000 Signed Impressions: Service Date/Time: Sunday, August 06, 2017 16:24 - CONCLUSION: Diffuse abnormal accumulation of white cells throughout the entire fibula suggestive of osteomyelitis. This appears to correlate with the prior MRI of the lower left leg. Janes Landon MD Abdomen X-Ray 08/03/17 0000 Signed Impressions: Service Date/Time: Thursday, August 03, 2017 14:52 - CONCLUSION: 1. No acute abdominal abnormality is identified. 2. 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 Yonathan Callahan MD Lower Extremity MRI 07/23/17 0000 Signed Impressions: Service Date/Time: Sunday, July 23, 2017 20:15 - CONCLUSION: 1. The soft tissue ulceration laterally of the left leg appears slightly improved. No drainable soft tissue abscess. 2. However, there is increased conspicuity and extent of cortical thickening and signal changes of the fibula compatible with acute on chronic osteomyelitis. There is elongated and nearly diffuse intramedullary fluid typical of abscess as well as an apparent developing sinus tract approximately 6.1 cm proximal to the lateral malleolus. Yonathan Hess MD Chest X-Ray 07/22/17 0000 Signed Impressions: Service Date/Time: Saturday, July 22, 2017 13:06 - CONCLUSION: No acute disease. Cuba Bone MD Abdomen/Pelvis CT 07/22/17 0000 Signed Impressions: Service Date/Time: Saturday, July 22, 2017 14:36 - CONCLUSION: 1. Chronic bony changes about the pelvic girdle and proximal femurs or bony destruction and extensive heterotopic bone formation. 2. Probable associated decubitus type ulcers bilaterally with the right ischium/inferior pubic ramus partially exposed suggesting osteomyelitis in this region. 3. Cholelithiasis. 4. Ostomy in the upper midabdomen. Ry Uribe MD Objective Remarks GENERAL: A 52-year-old -[place] male in bed, chronically ill. CARDIOVASCULAR: Regular rate and rhythm. RESPIRATORY: No accessory muscle use. Clear to auscultation. Breath sounds equal bilaterally. GASTROINTESTINAL: Abdomen soft, non-tender, nondistended. Hepatic and splenic margins not palpable. MUSCULOSKELETAL: S/p right AKA. LLE wound is wrapped. Dressing intact. Sacral decubitus wound, dressing intact. NEUROLOGICAL: Awake and alert. No obvious cranial nerve deficits. Motor grossly within normal limits. Five out of 5 muscle strength in the arms and legs. Normal speech. PSYCHIATRIC: Appropriate mood and affect; insight and judgment normal. Procedures left tibia bone biopsy A/P Problem List: (1) UTI (urinary tract infection) ICD Code: N39.0 - Urinary tract infection, site not specified Status: Acute (2) Osteomyelitis ICD Code: M86.9 - Osteomyelitis, unspecified Assessment and Plan 52 yo BM with Paraplegia: Acute and chronic osteomyelitis and abscess/sinus tract at the fibula of left lower extremity. Chronic wound LLE. Culture has proteus, group D enterococcus and MRSA. -Orthopedics recommends AKA for best possible outcome but patient has been refusing. Pathology is back, allegedly inflammation but no osteomyelitis. However MRI in tumor localization all consistent with osteomyelitis involving the whole fibula. Infectious disease following. S/p biopsy under special procedures in attempt to obtain the pathogen as well as to confirm the osteomyelitis. -Antibiotics per ID, received ertapenem and daptomycin, now DCd. Switched to doxycycline 100 mg p.o. twice daily for 6 weeks. Diarrhea after p.o. antibiotics started patient. Check C. difficile is negative Continue Lactinex. Added Imodium without much improvement. ESBL UTI with chronic indwelling catheter which will be replaced. Culture growing ESBL, Klebsiella and GNR continue IV Invanz. Sacral decubitus ulcers. Consult wound care physician appreciate recommendations. wound is healing well. Nausea/vomiting/diarrhea-resolving, monitor Possibly gastroenteritis. Resolved. Reopeat C diff negative. - antiemetics as needed. - ADAT. - hold bowel regimen. Continue Lactinex - Add imodium Anemia Appears chronic. - follow CBC and transfuse as needed. Elevated LFTs CT abdomen without obvious abnormality. LFTs appear chronically elevated. -Resolved. DVT prophylaxis: Lovenox Discharge Planning Recommendation is for AKA per orthopedics. However the patient refused. Plan is to continue antibiotics per the patient's preference. S/p another biopsy under special procedures in attempt to obtain the pathogen as well as to confirm the osteomyelitis per infectious disease Dr Job nguyen. Discussed with Dr. Peters clear patient for discharge to have antibiotics by mouth doxycycline milligrams for 6 weeks at discharge. Consult wound care physician for decubitus wound, seen by Dr Melendrez appreciate recommendations. Case management following for discharge. Discussed with Raúl nguyen for DC plan Problem Qualifiers (1) Osteomyelitis: Katlin Dunn MD August 20, 2017 09:36
[2017-08-20 12:00] VITALS: BP 128/63; PULSE 93; RESP 18; TEMP 98.8; O2SAT 98
[2017-08-20] MEDS ORDERED: DIPHENOXYLATE/ATROPINE 2.5 MG/0.025 MG TAB PO PRN (15:15)
[2017-08-20] MEDS ORDERED: DIPHENOXYLATE/ATROPINE 2.5 MG/0.025 MG TAB PO ONE (15:15)
[2017-08-20 16:00] VITALS: BP 128/61; PULSE 89; RESP 20; TEMP 98.6; O2SAT 99
[2017-08-20] MEDS: ENOXAPARIN SODIUM 40 MG/0.4 ML SYRINGE SQ SCH (18:20)
[2017-08-20 19:53] VITALS: BP 146/62; PULSE 92; RESP 16; TEMP 98.7; O2SAT 98
[2017-08-21] VITALS (7 sets, daily range): BP systolic 116–136; BP diastolic 57–72; PULSE 67–93; RESP 16–20; TEMP 98.1–98.7; O2SAT 97–100
[2017-08-21] MEDS: ACETAMINOPHEN/HYDROcodone 325 MG/10 MG TAB PO PRN ×6 (00:22→21:32)
[2017-08-21] MEDS: DOXYCYCLINE HYCLATE 100 MG TAB PO SCH ×2 (08:14→21:31)
[2017-08-21] MEDS: LACTOBACILLUS ACIDOPHILUS TAB PO SCH ×2 (08:14→21:31)
[2017-08-21] MEDS: MEGESTROL ACETATE SUSP 400 MG/10 ML CUP PO SCH (08:15)
[2017-08-21] MEDS: SODIUM CHLORIDE 0.9% FLUSH 10 ML FLUSH IV FLUSH SCH ×3 (08:15→21:32)
[2017-08-21] MEDS: COLLAGENASE OINT 30 GM TUBE TOPICAL SCH (08:16)
[2017-08-21] MEDS: LOPERAMIDE HCL 2 MG CAP PO PRN (09:06)
--- NOTE | 2017-08-21 11:07 | HHI.PR ---
Subjective Remarks Patient is in bed. Says he has back pain. No abdominal pain. Still with some diarrhea however improved some. No fever or chills. No nausea vomiting diarrhea constipation. Objective Vitals Vital Signs Date Time Temp Pulse Resp B/P (MAP) Pulse Ox O2 Delivery O2 Flow Rate FiO2 08/21/17 07:55 98.5 72 20 133/72 (92) 100 08/21/17 04:35 98.6 67 16 136/65 (88) 98 08/21/17 00:23 98.4 82 16 116/57 (76) 99 08/20/17 20:50 Room Air 08/20/17 19:53 98.7 92 16 146/62 (90) 98 08/20/17 16:00 98.6 89 20 128/61 (83) 99 08/20/17 12:00 98.8 93 18 128/63 (84) 98 I/O 08/20/17 08/20/17 08/20/17 08/21/17 08/21/17 08/21/17 07:00 15:00 23:00 07:00 15:00 23:00 Intake Total 800 ml 840 ml 360 ml Output Total 550 ml 500 ml 1100 ml Balance 250 ml 340 ml -740 ml Intake Oral 800 ml 840 ml 360 ml Output Urine Total 550 ml 500 ml 800 ml Stool Total 300 ml Objective Remarks GENERAL: A 52-year-old -Malag[place] male in bed, chronically ill. CARDIOVASCULAR: Regular rate and rhythm. RESPIRATORY: No accessory muscle use. Clear to auscultation. Breath sounds equal bilaterally. GASTROINTESTINAL: Abdomen soft, non-tender, nondistended. Hepatic and splenic margins not palpable. MUSCULOSKELETAL: S/p right AKA. LLE wound is wrapped. Dressing intact. Sacral decubitus wound, dressing intact. NEUROLOGICAL: Awake and alert. No obvious cranial nerve deficits. Motor grossly within normal limits. Five out of 5 muscle strength in the arms and legs. Normal speech. PSYCHIATRIC: Appropriate mood and affect; insight and judgment normal. Procedures left tibia bone biopsy A/P Problem List: (1) UTI (urinary tract infection) ICD Code: N39.0 - Urinary tract infection, site not specified Status: Acute (2) Osteomyelitis ICD Code: M86.9 - Osteomyelitis, unspecified Assessment and Plan 52 yo BM with Paraplegia: Acute and chronic osteomyelitis and abscess/sinus tract at the fibula of left lower extremity. Chronic wound LLE. Culture has proteus, group D enterococcus and MRSA. -Orthopedics recommends AKA for best possible outcome but patient has been refusing. Pathology is back, allegedly inflammation but no osteomyelitis. However MRI in tumor localization all consistent with osteomyelitis involving the whole fibula. Infectious disease following. S/p biopsy under special procedures in attempt to obtain the pathogen as well as to confirm the osteomyelitis. -Antibiotics per ID, received ertapenem and daptomycin, now DCd. Switched to doxycycline 100 mg p.o. twice daily for 6 weeks. Diarrhea after p.o. antibiotics started patient. Check C. difficile is negative Continue Lactinex. Added Imodium without much improvement. ESBL UTI with chronic indwelling catheter which will be replaced. Culture growing ESBL, Klebsiella and GNR continue IV Invanz. Sacral decubitus ulcers. Consult wound care physician appreciate recommendations. wound is healing well. Nausea/vomiting/diarrhea-resolving, monitor Possibly gastroenteritis. Resolved. Reopeat C diff negative. - antiemetics as needed. - ADAT. - hold bowel regimen. Continue Lactinex - Add imodium Anemia Appears chronic. - follow CBC and transfuse as needed. Elevated LFTs CT abdomen without obvious abnormality. LFTs appear chronically elevated. -Resolved. DVT prophylaxis: Lovenox Discharge Planning Recommendation is for AKA per orthopedics. However the patient refused. Plan is to continue antibiotics per the patient's preference. S/p another biopsy under special procedures in attempt to obtain the pathogen as well as to confirm the osteomyelitis per infectious disease Dr Job nguyen. Discussed with Dr. Peters clear patient for discharge to have antibiotics by mouth doxycycline milligrams for 6 weeks at discharge. Consult wound care physician for decubitus wound, seen by Dr Melendrez appreciate recommendations. Case management following for discharge. Discussed with Raúl nguyen for DC plan Problem Qualifiers (1) Osteomyelitis: Katlin Dunn MD August 21, 2017 11:07
[2017-08-21] MEDS: DIPHENOXYLATE/ATROPINE 2.5 MG/0.025 MG TAB PO SCH ×2 (15:55→21:31)
[2017-08-21] MEDS: ENOXAPARIN SODIUM 40 MG/0.4 ML SYRINGE SQ SCH (17:37)
[2017-08-22] MEDS: ACETAMINOPHEN/HYDROcodone 325 MG/10 MG TAB PO PRN ×5 (03:35→22:08)
[2017-08-22] MEDS: DIPHENOXYLATE/ATROPINE 2.5 MG/0.025 MG TAB PO SCH ×4 (03:35→22:08)
[2017-08-22 04:52] VITALS: BP 139/62; PULSE 71; RESP 16; TEMP 97.9; O2SAT 99
--- NOTE | 2017-08-22 07:35 | HHI.PR ---
Subjective Remarks Still with diarrhea. Since he change his dietary habits he is eating more fish now. No nausea vomiting. Pain is controlled by medications. No fever or chills. Objective Vitals Vital Signs Date Time Temp Pulse Resp B/P (MAP) Pulse Ox O2 Delivery O2 Flow Rate FiO2 08/22/17 05:02 18 08/22/17 04:52 97.9 71 16 139/62 (87) 99 08/21/17 23:30 98.7 75 16 133/59 (83) 97 08/21/17 21:35 Room Air 08/21/17 19:45 98.4 82 16 136/60 (85) 97 08/21/17 15:45 98.1 93 20 132/60 (84) 99 08/21/17 11:55 98.4 88 20 128/60 (82) 97 08/21/17 07:55 98.5 72 20 133/72 (92) 100 I/O 08/21/17 08/21/17 08/21/17 08/22/17 08/22/17 08/22/17 07:00 15:00 23:00 07:00 15:00 23:00 Intake Total 360 ml 960 ml 720 ml Output Total 1100 ml 600 ml 1500 ml Balance -740 ml 360 ml -780 ml Intake Oral 360 ml 960 ml 720 ml Output Urine Total 800 ml 600 ml 1200 ml Stool Total 300 ml 300 ml # Bowel Movements 1 Imaging Last Impressions Needle Biopsy X-Ray 08/14/17 0000 Signed Impressions: Service Date/Time: Monday, August 14, 2017 16:02 - CONCLUSION: Uncomplicated needle biopsy of the left fibula as above. Ry Uribe MD Tumor Localization 08/06/17 0000 Signed Impressions: Service Date/Time: Sunday, August 06, 2017 16:24 - CONCLUSION: Diffuse abnormal accumulation of white cells throughout the entire fibula suggestive of osteomyelitis. This appears to correlate with the prior MRI of the lower left leg. Janes Landon MD Abdomen X-Ray 08/03/17 0000 Signed Impressions: Service Date/Time: Thursday, August 03, 2017 14:52 - CONCLUSION: 1. No acute abdominal abnormality is identified. 2. 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 Yonathan Callahan MD Lower Extremity MRI 07/23/17 0000 Signed Impressions: Service Date/Time: Sunday, July 23, 2017 20:15 - CONCLUSION: 1. The soft tissue ulceration laterally of the left leg appears slightly improved. No drainable soft tissue abscess. 2. However, there is increased conspicuity and extent of cortical thickening and signal changes of the fibula compatible with acute on chronic osteomyelitis. There is elongated and nearly diffuse intramedullary fluid typical of abscess as well as an apparent developing sinus tract approximately 6.1 cm proximal to the lateral malleolus. Yonathan Hess MD Chest X-Ray 07/22/17 Signed Impressions: Service Date/Time: Saturday, July 22, 2017 13:06 - CONCLUSION: No acute disease. Cuba Bone MD Abdomen/Pelvis CT 07/22/17 0000 Signed Impressions: Service Date/Time: Saturday, July 22, 2017 14:36 - CONCLUSION: 1. Chronic bony changes about the pelvic girdle and proximal femurs or bony destruction and extensive heterotopic bone formation. 2. Probable associated decubitus type ulcers bilaterally with the right ischium/inferior pubic ramus partially exposed suggesting osteomyelitis in this region. 3. Cholelithiasis. 4. Ostomy in the upper midabdomen. Ry Uribe MD Objective Remarks GENERAL: A 52-year-old -[place] male in bed, chronically ill. CARDIOVASCULAR: Regular rate and rhythm. RESPIRATORY: No accessory muscle use. Clear to auscultation. Breath sounds equal bilaterally. GASTROINTESTINAL: Abdomen soft, non-tender, nondistended. Hepatic and splenic margins not palpable. MUSCULOSKELETAL: S/p right AKA. LLE wound is wrapped. Dressing intact. Sacral decubitus wound, dressing intact. NEUROLOGICAL: Awake and alert. No obvious cranial nerve deficits. Motor grossly within normal limits. Five out of 5 muscle strength in the arms and legs. Normal speech. PSYCHIATRIC: Appropriate mood and affect; insight and judgment normal. Procedures left tibia bone biopsy A/P Problem List: (1) UTI (urinary tract infection) ICD Code: N39.0 - Urinary tract infection, site not specified Status: Acute (2) Osteomyelitis ICD Code: M86.9 - Osteomyelitis, unspecified Assessment and Plan 52 yo BM with Paraplegia: Acute and chronic osteomyelitis and abscess/sinus tract at the fibula of left lower extremity. Chronic wound LLE. Culture has proteus, group D enterococcus and MRSA. -Orthopedics recommends AKA for best possible outcome but patient has been refusing. Pathology is back, allegedly inflammation but no osteomyelitis. However MRI in tumor localization all consistent with osteomyelitis involving the whole fibula. Infectious disease following. S/p biopsy under special procedures in attempt to obtain the pathogen as well as to confirm the osteomyelitis. -Antibiotics per ID, received ertapenem and daptomycin, now DCd. Switched to doxycycline 100 mg p.o. twice daily for 6 weeks. Diarrhea after p.o. antibiotics started patient. Check C. difficile is negative Continue Lactinex. Added Imodium without much improvement. ESBL UTI with chronic indwelling catheter which will be replaced. Culture growing ESBL, Klebsiella and GNR continue IV Invanz. Sacral decubitus ulcers. Consult wound care physician appreciate recommendations. wound is healing well. Nausea/vomiting/diarrhea-resolving, monitor Possibly gastroenteritis. Resolved. Reopeat C diff negative. - antiemetics as needed. - ADAT. - hold bowel regimen. Continue Lactinex - Add imodium Anemia Appears chronic. - follow CBC and transfuse as needed. Elevated LFTs CT abdomen without obvious abnormality. LFTs appear chronically elevated. -Resolved. DVT prophylaxis: Lovenox Discharge Planning Recommendation is for AKA per orthopedics. However the patient refused. Plan is to continue antibiotics per the patient's preference. S/p another biopsy under special procedures in attempt to obtain the pathogen as well as to confirm the osteomyelitis per infectious disease Dr Job nguyen. Discussed with Dr. Peters clear patient for discharge to have antibiotics by mouth doxycycline milligrams for 6 weeks at discharge. Consult wound care physician for decubitus wound, seen by Dr Melendrez appreciate recommendations. Case management following for discharge. Discussed with CARYN ff for DC plan Problem Qualifiers (1) Osteomyelitis: Katlin Dunn MD August 22, 2017 07:35
[2017-08-22 08:03] VITALS: BP 148/77; PULSE 74; RESP 16; TEMP 98.6; O2SAT 100
[2017-08-22] MEDS: SODIUM CHLORIDE 0.9% FLUSH 10 ML FLUSH IV FLUSH SCH ×3 (09:05→21:00)
[2017-08-22] MEDS: MEGESTROL ACETATE SUSP 400 MG/10 ML CUP PO SCH (09:06)
[2017-08-22] MEDS: DOXYCYCLINE HYCLATE 100 MG TAB PO SCH ×2 (09:06→22:08)
[2017-08-22] MEDS: LACTOBACILLUS ACIDOPHILUS TAB PO SCH ×2 (09:06→22:08)
[2017-08-22] MEDS: COLLAGENASE OINT 30 GM TUBE TOPICAL SCH (09:07)
[2017-08-22 12:03] VITALS: BP 116/72; PULSE 82; RESP 16; TEMP 98.5; O2SAT 98
--- NOTE | 2017-08-22 13:16 | HHI.PR ---
Addendum to Inpatient Note Additional Information IV Ertapenem, daptomycin were stopped cont doxycyline x up to 6 weeks fu ESR fu with Dr Hauser OK to dc from ID standpoint Ana Peters MD August 22, 2017 13:16
[2017-08-22 16:03] VITALS: BP 129/73; PULSE 86; RESP 16; TEMP 98.1; O2SAT 99
[2017-08-22] MEDS: ENOXAPARIN SODIUM 40 MG/0.4 ML SYRINGE SQ SCH (18:15)
[2017-08-22 19:55] VITALS: BP 148/74; PULSE 88; RESP 16; TEMP 98; O2SAT 98
[2017-08-22 23:40] VITALS: BP 146/72; PULSE 86; RESP 16; TEMP 98.5; O2SAT 98
[2017-08-23] MEDS: DIPHENOXYLATE/ATROPINE 2.5 MG/0.025 MG TAB PO SCH ×4 (02:21→20:15)
[2017-08-23] MEDS: ACETAMINOPHEN/HYDROcodone 325 MG/10 MG TAB PO PRN ×5 (02:22→20:14)
[2017-08-23 04:20] VITALS: BP 135/73; PULSE 71; RESP 16; TEMP 98.2; O2SAT 98
[2017-08-23 08:00] VITALS: BP 142/85; PULSE 78; RESP 16; TEMP 97.9; O2SAT 99
--- NOTE | 2017-08-23 08:30 | HHI.PR ---
Subjective Remarks till with diarrhea in stoma. No pain No fever or chills. No n/v. Objective Vitals Vital Signs Date Time Temp Pulse Resp B/P (MAP) Pulse Ox O2 Delivery O2 Flow Rate FiO2 08/23/17 04:20 98.2 71 16 135/73 (93) 98 08/23/17 04:00 Room Air 08/23/17 03:48 18 08/23/17 00:00 Room Air 08/22/17 23:40 98.5 86 16 146/72 (96) 98 08/22/17 22:10 Room Air 08/22/17 19:55 98.0 88 16 148/74 (98) 98 08/22/17 16:03 98.1 86 16 129/73 (91) 99 08/22/17 16:00 Room Air 21 08/22/17 12:03 98.5 82 16 116/72 (87) 98 I/O 08/22/17 08/22/17 08/22/17 08/23/17 08/23/17 08/23/17 07:00 15:00 23:00 07:00 15:00 23:00 Intake Total 720 ml 520 ml 720 ml Output Total 1500 ml 1800 ml 1400 ml Balance -780 ml -1280 ml -680 ml Intake Oral 720 ml 520 ml 720 ml Output Urine Total 1200 ml 1800 ml 1050 ml Stool Total 300 ml 350 ml # Bowel Movements 0 Objective Remarks GENERAL: A 52-year-old -Spanish male in bed, chronically ill. CARDIOVASCULAR: Regular rate and rhythm. RESPIRATORY: No accessory muscle use. Clear to auscultation. Breath sounds equal bilaterally. GASTROINTESTINAL: Abdomen soft, non-tender, nondistended. Hepatic and splenic margins not palpable. MUSCULOSKELETAL: S/p right AKA. LLE wound is wrapped. Dressing intact. Sacral decubitus wound, dressing intact. NEUROLOGICAL: Awake and alert. No obvious cranial nerve deficits. Motor grossly within normal limits. Five out of 5 muscle strength in the arms and legs. Normal speech. PSYCHIATRIC: Appropriate mood and affect; insight and judgment normal. Procedures left tibia bone biopsy A/P Problem List: (1) UTI (urinary tract infection) ICD Code: N39.0 - Urinary tract infection, site not specified Status: Acute (2) Osteomyelitis ICD Code: M86.9 - Osteomyelitis, unspecified Assessment and Plan 52 yo BM with Paraplegia: Acute and chronic osteomyelitis and abscess/sinus tract at the fibula of left lower extremity. Chronic wound LLE. Culture has proteus, group D enterococcus and MRSA. -Orthopedics recommends AKA for best possible outcome but patient has been refusing. Pathology is back, allegedly inflammation but no osteomyelitis. However MRI in tumor localization all consistent with osteomyelitis involving the whole fibula. Infectious disease following. S/p biopsy under special procedures in attempt to obtain the pathogen as well as to confirm the osteomyelitis. -Antibiotics per ID, received ertapenem and daptomycin, now DCd. Switched to doxycycline 100 mg p.o. twice daily for 6 weeks. Diarrhea after p.o. antibiotics started patient. Check C. difficile is negative Continue Lactinex. Added Imodium without much improvement. ESBL UTI with chronic indwelling catheter which will be replaced. Culture growing ESBL, Klebsiella and GNR continue IV Invanz. Sacral decubitus ulcers. Consult wound care physician appreciate recommendations. wound is healing well. Nausea/vomiting/diarrhea-resolving, monitor Possibly gastroenteritis. Resolved. Reopeat C diff negative. - antiemetics as needed. - ADAT. - hold bowel regimen. Continue Lactinex - Add imodium Anemia Appears chronic. - follow CBC and transfuse as needed. Elevated LFTs CT abdomen without obvious abnormality. LFTs appear chronically elevated. -Resolved. DVT prophylaxis: Lovenox Discharge Planning Recommendation is for AKA per orthopedics. However the patient refused. Plan is to continue antibiotics per the patient's preference. S/p another biopsy under special procedures in attempt to obtain the pathogen as well as to confirm the osteomyelitis per infectious disease Dr Job nguyen. Discussed with Dr. Peters clear patient for discharge to have antibiotics by mouth doxycycline milligrams for 6 weeks at discharge. Consult wound care physician for decubitus wound, seen by Dr Melendrez appreciate recommendations. Case management following for discharge. Discussed with CARYN nguyen for DC plan Problem Qualifiers (1) Osteomyelitis: Katlin Dunn MD August 23, 2017 08:30
[2017-08-23] MEDS: MEGESTROL ACETATE SUSP 400 MG/10 ML CUP PO SCH (08:34)
[2017-08-23] MEDS: DOXYCYCLINE HYCLATE 100 MG TAB PO SCH ×2 (08:34→20:14)
[2017-08-23] MEDS: LACTOBACILLUS ACIDOPHILUS TAB PO SCH ×2 (08:34→20:14)
[2017-08-23] MEDS: SODIUM CHLORIDE 0.9% FLUSH 10 ML FLUSH IV FLUSH SCH ×3 (08:35→20:15)
[2017-08-23] MEDS: COLLAGENASE OINT 30 GM TUBE TOPICAL SCH (08:36)
[2017-08-23] MEDS: LOPERAMIDE HCL 2 MG CAP PO PRN ×3 (08:51→20:14)
[2017-08-23 12:00] VITALS: BP 130/63; PULSE 88; RESP 18; TEMP 98.2; O2SAT 97
[2017-08-23 16:00] VITALS: BP 145/79; PULSE 82; RESP 16; TEMP 98.7; O2SAT 99
[2017-08-23] MEDS: ENOXAPARIN SODIUM 40 MG/0.4 ML SYRINGE SQ SCH (18:33)
[2017-08-23 20:00] VITALS: BP 158/77; PULSE 92; RESP 20; TEMP 98.9; O2SAT 99
[2017-08-23 23:56] VITALS: BP 158/78; PULSE 88; RESP 20; TEMP 98.9; O2SAT 99
[2017-08-24] MEDS: ACETAMINOPHEN/HYDROcodone 325 MG/10 MG TAB PO PRN ×6 (00:25→21:35)
[2017-08-24] MEDS: DIPHENOXYLATE/ATROPINE 2.5 MG/0.025 MG TAB PO SCH ×4 (05:23→21:35)
[2017-08-24 05:53] VITALS: BP 125/68; PULSE 74; RESP 20; TEMP 98.3; O2SAT 99
[2017-08-24 08:00] VITALS: BP 119/95; PULSE 77; RESP 20; TEMP 98.4; O2SAT 98
[2017-08-24] MEDS: DOXYCYCLINE HYCLATE 100 MG TAB PO SCH ×2 (08:49→21:35)
[2017-08-24] MEDS: LACTOBACILLUS ACIDOPHILUS TAB PO SCH ×2 (08:49→21:35)
[2017-08-24] MEDS: MEGESTROL ACETATE SUSP 400 MG/10 ML CUP PO SCH (08:49)
[2017-08-24] MEDS: SODIUM CHLORIDE 0.9% FLUSH 10 ML FLUSH IV FLUSH SCH ×3 (08:50→21:00)
[2017-08-24] MEDS: COLLAGENASE OINT 30 GM TUBE TOPICAL SCH (08:50)
[2017-08-24 12:00] VITALS: BP 108/74; PULSE 114; RESP 20; TEMP 98.2; O2SAT 99
--- NOTE | 2017-08-24 15:36 | HHI.PR ---
Subjective Remarks Patient says he is feeling all right. Denies any chest pain or shortness of breath. Denies any nausea or vomiting. Objective Vital Signs Date Time Temp Pulse Resp B/P (MAP) Pulse Ox O2 Delivery O2 Flow Rate FiO2 08/24/17 12:00 98.2 114 20 108/74 (85) 99 08/24/17 11:00 Room Air 08/24/17 08:00 98.4 77 20 119/95 (103) 98 08/24/17 07:00 Room Air 08/24/17 05:53 98.3 74 20 125/68 (87) 99 08/24/17 05:27 Room Air 08/23/17 23:56 98.9 88 20 158/78 (104) 99 08/23/17 20:00 Room Air 08/23/17 20:00 98.9 92 20 158/77 (104) 99 08/23/17 16:00 98.7 82 16 145/79 (101) 99 I/O 08/23/17 08/23/17 08/23/17 08/24/17 08/24/17 08/24/17 07:00 15:00 23:00 07:00 15:00 23:00 Intake Total 720 ml 360 ml Output Total 1400 ml 1860 ml 875 ml Balance -680 ml -1860 ml -515 ml Intake Oral 720 ml 360 ml Output Urine Total 1050 ml 1860 ml 875 ml Stool Total 350 ml Objective Remarks GENERAL: Patient lying in bed. Appears comfortable. SKIN: Warm and dry. HEAD: Normocephalic. EYES: No scleral icterus. No injection or drainage. NECK: Supple, trachea midline. No JVD. CARDIOVASCULAR: Regular rate and rhythm without murmurs, gallops, or rubs. RESPIRATORY: Breath sounds equal bilaterally. No accessory muscle use. GASTROINTESTINAL: Abdomen soft, non-tender, nondistended. Colostomy was soft brown stool. No blood. MUSCULOSKELETAL: No cyanosis, or edema. Right lower extremity amputation. Left lower extremity with dressings intact. BACK: Nontender without obvious deformity. No CVA tenderness. A/P Assessment and Plan 52 yo BM with Paraplegia: //Acute and chronic osteomyelitis and abscess/sinus tract at the fibula of left lower extremity. Chronic wound LLE. Culture has proteus, group D enterococcus and MRSA. -Orthopedics recommends AKA for best possible outcome but patient has been refusing. Pathology is back, allegedly inflammation but no osteomyelitis. However MRI in tumor localization all consistent with osteomyelitis involving the whole fibula. Infectious disease following. S/p biopsy under special procedures in attempt to obtain the pathogen as well as to confirm the osteomyelitis. -Antibiotics per ID, received ertapenem and daptomycin, now DCd. Switched to doxycycline 100 mg p.o. twice daily for 6 weeks. = Continue antibiotics as per ID. Appreciate ID assistance. //Diarrhea after p.o. antibiotics started patient. Check C. difficile is negative Continue Lactinex. Added Imodium without much improvement. = C. difficile negative. Really this is just loose stool in his stoma. Does not appear to be diarrhea. No blood. //ESBL UTI with chronic indwelling catheter which will be replaced. Culture growing ESBL, Klebsiella and GNR continue IV Invanz. //Sacral decubitus ulcers. Consult wound care physician appreciate recommendations. wound is healing well. //Anemia Appears chronic. - follow CBC and transfuse as needed. //Elevated LFTs CT abdomen without obvious abnormality. LFTs appear chronically elevated. -Resolved. DVT prophylaxis: Lovenox Discharge Planning Recommendation is for AKA per orthopedics. However the patient refused. Plan is to continue antibiotics per the patient's preference. S/p another biopsy under special procedures in attempt to obtain the pathogen as well as to confirm the osteomyelitis per infectious disease Dr Job nguyen. Discussed with Dr. Fran joaquin patient for discharge to have antibiotics by mouth doxycycline milligrams for 6 weeks at discharge. Consult wound care physician for decubitus wound, seen by Dr Melendrez appreciate recommendations. Case management following for discharge. =discussed with CARYN nguyen for DC plan Rick Ayala MD August 24, 2017 15:36
[2017-08-24 16:00] VITALS: BP 141/75; PULSE 93; RESP 20; TEMP 98.1; O2SAT 98
[2017-08-24] MEDS: ENOXAPARIN SODIUM 40 MG/0.4 ML SYRINGE SQ SCH (17:03)
[2017-08-24 20:00] VITALS: BP 144/54; PULSE 92; RESP 18; TEMP 97.9; O2SAT 96
[2017-08-25] VITALS: BP 124/58; PULSE 78; RESP 16; TEMP 97.8; O2SAT 97
[2017-08-25] MEDS: DIPHENOXYLATE/ATROPINE 2.5 MG/0.025 MG TAB PO SCH ×4 (01:37→21:10)
[2017-08-25] MEDS: ACETAMINOPHEN/HYDROcodone 325 MG/10 MG TAB PO PRN ×6 (01:37→22:30)
[2017-08-25 04:00] VITALS: BP 124/59; PULSE 75; RESP 18; TEMP 98.2; O2SAT 96
[2017-08-25 08:00] VITALS: BP 135/68; PULSE 71; RESP 20; TEMP 98.2; O2SAT 99
[2017-08-25] MEDS: LACTOBACILLUS ACIDOPHILUS TAB PO SCH ×2 (09:07→21:11)
[2017-08-25] MEDS: DOXYCYCLINE HYCLATE 100 MG TAB PO SCH ×2 (09:07→21:11)
[2017-08-25] MEDS: MEGESTROL ACETATE SUSP 400 MG/10 ML CUP PO SCH (09:07)
[2017-08-25] MEDS: SODIUM CHLORIDE 0.9% FLUSH 10 ML FLUSH IV FLUSH SCH ×3 (09:08→21:11)
[2017-08-25] MEDS: COLLAGENASE OINT 30 GM TUBE TOPICAL SCH (09:10)
[2017-08-25 12:00] VITALS: BP 135/62; PULSE 88; RESP 20; TEMP 98.4; O2SAT 97
--- NOTE | 2017-08-25 12:21 | HHI.PR ---
Subjective Remarks Patient says he is feeling well. Denies any chest pain or shortness of breath. He reports a sensation of reflux, worse when he lies down. Denies any chest pain or shortness of breath. Objective Vital Signs Date Time Temp Pulse Resp B/P (MAP) Pulse Ox O2 Delivery O2 Flow Rate FiO2 08/25/17 08:00 98.2 71 20 135/68 (90) 99 08/25/17 08:00 Room Air 08/25/17 04:00 98.2 75 18 124/59 (80) 96 08/25/17 00:00 Room Air 08/25/17 00:00 97.8 78 16 124/58 (80) 97 08/24/17 20:00 97.9 92 18 144/54 (84) 96 08/24/17 20:00 Room Air 08/24/17 16:00 98.1 93 20 141/75 (97) 98 I/O 08/24/17 08/24/17 08/24/17 08/25/17 08/25/17 08/25/17 07:00 15:00 23:00 07:00 15:00 23:00 Intake Total 360 ml 600 ml 480 ml Output Total 875 ml 950 ml 1000 ml Balance -515 ml -350 ml -520 ml Intake Oral 360 ml 600 ml 480 ml Output Urine Total 875 ml 950 ml 1000 ml Objective Remarks GENERAL: Patient lying in bed. Appears comfortable. No change on exam. SKIN: Warm and dry. HEAD: Normocephalic. EYES: No scleral icterus. No injection or drainage. NECK: Supple, trachea midline. No JVD. CARDIOVASCULAR: Regular rate and rhythm without murmurs, gallops, or rubs. RESPIRATORY: Breath sounds equal bilaterally. No accessory muscle use. GASTROINTESTINAL: Abdomen soft, non-tender, nondistended. Colostomy still with soft brown stool. No blood. MUSCULOSKELETAL: No cyanosis, or edema. Right lower extremity amputation. Left lower extremity with dressings intact. BACK: Nontender without obvious deformity. No CVA tenderness. A/P Assessment and Plan 52 yo BM with Paraplegia: //Acute and chronic osteomyelitis and abscess/sinus tract at the fibula of left lower extremity. Chronic wound LLE. Culture has proteus, group D enterococcus and MRSA. -Orthopedics recommends AKA for best possible outcome but patient has been refusing. Pathology is back, allegedly inflammation but no osteomyelitis. However MRI in tumor localization all consistent with osteomyelitis involving the whole fibula. Infectious disease following. S/p biopsy under special procedures in attempt to obtain the pathogen as well as to confirm the osteomyelitis. -Antibiotics per ID, received ertapenem and daptomycin, now DCd. Switched to doxycycline 100 mg p.o. twice daily for 6 weeks. = Continue antibiotics as per ID. Appreciate ID assistance. //Diarrhea after p.o. antibiotics started patient. Check C. difficile is negative Continue Lactinex. Added Imodium without much improvement. = C. difficile negative. Really this is just loose stool in his stoma. Does not appear to be diarrhea. No blood. //ESBL UTI with chronic indwelling catheter which will be replaced. Culture growing ESBL, Klebsiella and GNR continue IV Invanz. //Sacral decubitus ulcers. Consult wound care physician appreciate recommendations. wound is healing well. //Anemia Appears chronic. - follow CBC and transfuse as needed. //Elevated LFTs CT abdomen without obvious abnormality. LFTs appear chronically elevated. -Resolved. //Reflux. = We will order pantoprazole daily. DVT prophylaxis: Lovenox Discharge Planning Recommendation is for AKA per orthopedics. However the patient refused. Plan is to continue antibiotics per the patient's preference. S/p another biopsy under special procedures in attempt to obtain the pathogen as well as to confirm the osteomyelitis per infectious disease Dr Job nguyen. Discussed with Dr. Fran joaquin patient for discharge to have antibiotics by mouth doxycycline milligrams for 6 weeks at discharge. Consult wound care physician for decubitus wound, seen by Dr Melendrez appreciate recommendations. Case management following for discharge. =discussed with CARYN nguyen for DC plan Rick Ayala MD August 25, 2017 12:21
[2017-08-25] MEDS ORDERED: CALCIUM CARBONATE 500 MG CHEWABLE TAB CHEW ONE (12:30)
[2017-08-25] MEDS ORDERED: PANTOPRAZOLE SOD 40 MG DELAYED RELEASE TAB PO ONE (12:30)
[2017-08-25 16:00] VITALS: BP 159/71; PULSE 92; RESP 20; TEMP 98.5; O2SAT 98
[2017-08-25] MEDS: ENOXAPARIN SODIUM 40 MG/0.4 ML SYRINGE SQ SCH (18:47)
[2017-08-25 20:00] VITALS: BP 162/77; PULSE 89; RESP 16; TEMP 98.6; O2SAT 96
[2017-08-26] VITALS: BP 144/66; PULSE 79; RESP 19; TEMP 97.9; O2SAT 98
[2017-08-26] MEDS: ACETAMINOPHEN/HYDROcodone 325 MG/10 MG TAB PO PRN ×5 (02:44→20:47)
[2017-08-26] MEDS: DIPHENOXYLATE/ATROPINE 2.5 MG/0.025 MG TAB PO SCH ×4 (02:44→20:47)
[2017-08-26 04:00] VITALS: BP 141/74; PULSE 71; RESP 17; TEMP 98.1; O2SAT 97
[2017-08-26 07:45] VITALS: BP 107/56; PULSE 69; RESP 18; TEMP 98.6; O2SAT 98
[2017-08-26] MEDS: MEGESTROL ACETATE SUSP 400 MG/10 ML CUP PO SCH (08:42)
[2017-08-26] MEDS: LACTOBACILLUS ACIDOPHILUS TAB PO SCH ×2 (08:42→20:47)
[2017-08-26] MEDS: DOXYCYCLINE HYCLATE 100 MG TAB PO SCH ×2 (08:42→20:47)
[2017-08-26] MEDS: PANTOPRAZOLE SOD 20 MG DELAYED RELEASE TAB PO SCH (08:43)
[2017-08-26] MEDS: SODIUM CHLORIDE 0.9% FLUSH 10 ML FLUSH IV FLUSH SCH ×3 (08:43→20:48)
[2017-08-26] MEDS: COLLAGENASE OINT 30 GM TUBE TOPICAL SCH (08:44)
[2017-08-26 11:55] VITALS: BP 145/77; PULSE 89; RESP 18; TEMP 98.4; O2SAT 99
[2017-08-26 15:35] VITALS: BP 133/63; PULSE 77; RESP 18; TEMP 98.6; O2SAT 99
--- NOTE | 2017-08-26 15:36 | HHI.PR ---
Subjective Remarks Patient says he is feeling well. Reports that reflux somewhat better today. Denies any chest pain or shortness of breath. Denies any abdominal pain. Objective Vital Signs Date Time Temp Pulse Resp B/P (MAP) Pulse Ox O2 Delivery O2 Flow Rate FiO2 08/26/17 12:00 Room Air 08/26/17 11:55 98.4 89 18 145/77 (99) 99 08/26/17 08:00 Room Air 08/26/17 07:45 98.6 69 18 107/56 (73) 98 08/26/17 04:00 Room Air 08/26/17 04:00 98.1 71 17 141/74 (96) 97 08/26/17 00:00 Room Air 08/26/17 00:00 97.9 79 19 144/66 (92) 98 08/25/17 20:00 Room Air 08/25/17 20:00 98.6 89 16 162/77 (105) 96 08/25/17 16:00 98.5 92 20 159/71 (100) 98 08/25/17 16:00 Room Air I/O 08/25/17 08/25/17 08/25/17 08/26/17 08/26/17 08/26/17 07:00 15:00 23:00 07:00 15:00 23:00 Intake Total 480 ml 720 ml 320 ml Output Total 1000 ml 650 ml 1500 ml Balance -520 ml 70 ml -1180 ml Intake Oral 480 ml 720 ml 320 ml Output Urine Total 1000 ml 650 ml 1500 ml Objective Remarks GENERAL: Patient lying in bed. Appears comfortable. Again, no change on exam. SKIN: Warm and dry. HEAD: Normocephalic. EYES: No scleral icterus. No injection or drainage. NECK: Supple, trachea midline. No JVD. CARDIOVASCULAR: Regular rate and rhythm without murmurs, gallops, or rubs. RESPIRATORY: Breath sounds equal bilaterally. No accessory muscle use. GASTROINTESTINAL: Abdomen soft, non-tender, nondistended. Colostomy still with soft brown stool. No blood. MUSCULOSKELETAL: No cyanosis, or edema. Right lower extremity amputation. Left lower extremity with dressings intact. BACK: Nontender without obvious deformity. No CVA tenderness. A/P Assessment and Plan 52 yo BM with Paraplegia: //Acute and chronic osteomyelitis and abscess/sinus tract at the fibula of left lower extremity. Chronic wound LLE. Culture has proteus, group D enterococcus and MRSA. -Orthopedics recommends AKA for best possible outcome but patient has been refusing. Pathology is back, allegedly inflammation but no osteomyelitis. However MRI in tumor localization all consistent with osteomyelitis involving the whole fibula. Infectious disease following. S/p biopsy under special procedures in attempt to obtain the pathogen as well as to confirm the osteomyelitis. -Antibiotics per ID, received ertapenem and daptomycin, now DCd. Switched to doxycycline 100 mg p.o. twice daily for 6 weeks. = Continue antibiotics as per ID. Appreciate ID assistance. //Diarrhea after p.o. antibiotics started patient. Check C. difficile is negative Continue Lactinex. Added Imodium without much improvement. = C. difficile negative. Really this is just loose stool in his stoma. Does not appear to be diarrhea. No blood. //ESBL UTI with chronic indwelling catheter which will be replaced. Culture growing ESBL, Klebsiella and GNR continue IV Invanz. //Sacral decubitus ulcers. Consult wound care physician appreciate recommendations. wound is healing well. //Anemia Appears chronic. - follow CBC and transfuse as needed. //Elevated LFTs CT abdomen without obvious abnormality. LFTs appear chronically elevated. -Resolved. //Reflux. = Improving on pantoprazole daily. DVT prophylaxis: Lovenox Discharge Planning Recommendation is for AKA per orthopedics. However the patient refused. Plan is to continue antibiotics per the patient's preference. S/p another biopsy under special procedures in attempt to obtain the pathogen as well as to confirm the osteomyelitis per infectious disease Dr Job nguyen. Discussed with Dr. Peters clear patient for discharge to have antibiotics by mouth doxycycline milligrams for 6 weeks at discharge. Consult wound care physician for decubitus wound, seen by Dr Melendrez appreciate recommendations. Case management following for discharge. =discussed with CARYN nguyen for DC plan Rick Ayala MD August 26, 2017 15:35
[2017-08-26] MEDS: ENOXAPARIN SODIUM 40 MG/0.4 ML SYRINGE SQ SCH (18:39)
[2017-08-26 20:00] VITALS: BP 163/87; PULSE 83; RESP 17; TEMP 98.2; O2SAT 97
[2017-08-27] VITALS: BP 138/77; PULSE 75; RESP 16; TEMP 98.2; O2SAT 99
[2017-08-27] MEDS: ACETAMINOPHEN/HYDROcodone 325 MG/10 MG TAB PO PRN ×6 (00:36→21:59)
[2017-08-27 04:00] VITALS: BP 129/66; PULSE 70; RESP 14; TEMP 98.2; O2SAT 99
[2017-08-27] MEDS: DIPHENOXYLATE/ATROPINE 2.5 MG/0.025 MG TAB PO SCH ×4 (04:37→21:58)
[2017-08-27 07:55] VITALS: BP 123/60; PULSE 70; RESP 20; TEMP 98.5; O2SAT 97
[2017-08-27] MEDS: SODIUM CHLORIDE 0.9% FLUSH 10 ML FLUSH IV FLUSH SCH ×3 (09:00→21:59)
[2017-08-27] MEDS: MEGESTROL ACETATE SUSP 400 MG/10 ML CUP PO SCH (09:04)
[2017-08-27] MEDS: DOXYCYCLINE HYCLATE 100 MG TAB PO SCH ×2 (09:05→21:58)
[2017-08-27] MEDS: LACTOBACILLUS ACIDOPHILUS TAB PO SCH ×2 (09:05→21:58)
[2017-08-27] MEDS: PANTOPRAZOLE SOD 20 MG DELAYED RELEASE TAB PO SCH (09:05)
[2017-08-27] MEDS: COLLAGENASE OINT 30 GM TUBE TOPICAL SCH (09:12)
--- NOTE | 2017-08-27 10:24 | HHI.PR ---
Subjective Remarks Patient says he is feeling well. Reports reflux has resolved. Denies any chest pain or shortness of breath. Objective Vital Signs Date Time Temp Pulse Resp B/P (MAP) Pulse Ox O2 Delivery O2 Flow Rate FiO2 08/27/17 07:55 98.5 70 20 123/60 (81) 97 08/27/17 04:00 Room Air 08/27/17 04:00 98.2 70 14 129/66 (87) 99 08/27/17 00:00 Room Air 08/27/17 00:00 98.2 75 16 138/77 (97) 99 08/26/17 20:00 98.2 83 17 163/87 (112) 97 08/26/17 20:00 Room Air 08/26/17 16:00 Room Air 08/26/17 15:35 98.6 77 18 133/63 (86) 99 08/26/17 12:00 Room Air 08/26/17 11:55 98.4 89 18 145/77 (99) 99 I/O 08/26/17 08/26/17 08/26/17 08/27/17 08/27/17 08/27/17 07:00 15:00 23:00 07:00 15:00 23:00 Intake Total 320 ml 720 ml 480 ml Output Total 1500 ml 650 ml 1750 ml Balance -1180 ml 70 ml -1270 ml Intake Oral 320 ml 720 ml 480 ml Output Urine Total 1500 ml 650 ml 1750 ml Objective Remarks GENERAL: Patient lying in bed. Appears comfortable. No change on exam. SKIN: Warm and dry. HEAD: Normocephalic. EYES: No scleral icterus. No injection or drainage. NECK: Supple, trachea midline. No JVD. CARDIOVASCULAR: Regular rate and rhythm without murmurs, gallops, or rubs. RESPIRATORY: Breath sounds equal bilaterally. No accessory muscle use. GASTROINTESTINAL: Abdomen soft, non-tender, nondistended. Colostomy still with soft brown stool. No blood. MUSCULOSKELETAL: No cyanosis, or edema. Right lower extremity amputation. Left lower extremity with dressings intact. BACK: Nontender without obvious deformity. No CVA tenderness. A/P Assessment and Plan 52 yo BM with Paraplegia: //Acute and chronic osteomyelitis and abscess/sinus tract at the fibula of left lower extremity. Chronic wound LLE. Culture has proteus, group D enterococcus and MRSA. -Orthopedics recommends AKA for best possible outcome but patient has been refusing. Pathology is back, allegedly inflammation but no osteomyelitis. However MRI in tumor localization all consistent with osteomyelitis involving the whole fibula. Infectious disease following. S/p biopsy under special procedures in attempt to obtain the pathogen as well as to confirm the osteomyelitis. -Antibiotics per ID, received ertapenem and daptomycin, now DCd. Switched to doxycycline 100 mg p.o. twice daily for 6 weeks. = Continue antibiotics as per ID. Appreciate ID assistance. //Diarrhea after p.o. antibiotics started patient. Check C. difficile is negative Continue Lactinex. Added Imodium without much improvement. = C. difficile negative. Really this is just loose stool in his stoma. Does not appear to be diarrhea. No blood. //ESBL UTI with chronic indwelling catheter which will be replaced. Culture growing ESBL, Klebsiella and GNR continue IV Invanz. //Sacral decubitus ulcers. Consult wound care physician appreciate recommendations. wound is healing well. //Anemia Appears chronic. - follow CBC and transfuse as needed. //Elevated LFTs CT abdomen without obvious abnormality. LFTs appear chronically elevated. -Resolved. //Reflux. = Improving on pantoprazole daily. DVT prophylaxis: Lovenox Discharge Planning Recommendation is for AKA per orthopedics. However the patient refused. Plan is to continue antibiotics per the patient's preference. S/p another biopsy under special procedures in attempt to obtain the pathogen as well as to confirm the osteomyelitis per infectious disease Dr Job nguyen. Discussed with Dr. Peters clear patient for discharge to have antibiotics by mouth doxycycline milligrams for 6 weeks at discharge. Consult wound care physician for decubitus wound, seen by Dr Melendrez appreciate recommendations. Case management following for discharge. =discussed with CARYN nguyen for DC plan Rick Ayala MD August 27, 2017 10:24
[2017-08-27 12:10] VITALS: BP 116/56; PULSE 90; RESP 20; TEMP 98.8; O2SAT 98
[2017-08-27 15:55] VITALS: BP 121/61; PULSE 84; RESP 18; TEMP 98.3; O2SAT 99
[2017-08-27] MEDS: ENOXAPARIN SODIUM 40 MG/0.4 ML SYRINGE SQ SCH (17:47)
[2017-08-27 20:00] VITALS: BP 148/65; PULSE 84; RESP 21; TEMP 98.4; O2SAT 96
[2017-08-28] VITALS (7 sets, daily range): BP systolic 129–147; BP diastolic 64–98; PULSE 67–94; RESP 16–21; TEMP 97.8–98.7; O2SAT 96–99
[2017-08-28] MEDS: DIPHENOXYLATE/ATROPINE 2.5 MG/0.025 MG TAB PO SCH ×4 (03:53→21:34)
[2017-08-28] MEDS: ACETAMINOPHEN/HYDROcodone 325 MG/10 MG TAB PO PRN ×5 (05:21→21:34)
[2017-08-28 07:14] LABS: AUTOMATED NEUTROPHIL # 2.4 TH/MM3 (1.8-7.7); BASOPHIL % 0.8 % (0.0-2.0); EOSINOPHIL # 0.4 TH/MM3 (0-0.4); EOSINOPHIL % 6.5 % (0.0-4.0); HEMATOCRIT 34.8 % (39.0-51.0); HEMOGLOBIN 11.1 GM/DL (13.0-17.0); LYMPH % 38.8 % (9.0-44.0); LYMPHOCYTE # 2.1 TH/MM3 (1.0-4.8); MEAN CELL VOLUME 78.2 FL (80.0-100.0); MEAN PLATELET VOLUME 7.7 FL (7.0-11.0); MONO % 10.6 % (0.0-8.0); MONOCYTE # 0.6 TH/MM3 (0-0.9); NEUT % 43.3 % (16.0-70.0); PLATELET COUNT 245 TH/MM3 (150-450); RED BLOOD COUNT 4.45 MIL/MM3 (4.50-5.90); WHITE BLOOD COUNT 5.5 TH/MM3 (4.0-11.0)
[2017-08-28] MEDS: SODIUM CHLORIDE 0.9% FLUSH 10 ML FLUSH IV FLUSH SCH ×3 (09:00→21:00)
[2017-08-28] MEDS: DOXYCYCLINE HYCLATE 100 MG TAB PO SCH ×2 (09:21→21:34)
[2017-08-28] MEDS: PANTOPRAZOLE SOD 20 MG DELAYED RELEASE TAB PO SCH (09:21)
[2017-08-28] MEDS: LACTOBACILLUS ACIDOPHILUS TAB PO SCH ×2 (09:21→21:34)
[2017-08-28] MEDS: MEGESTROL ACETATE SUSP 400 MG/10 ML CUP PO SCH (09:22)
[2017-08-28] MEDS: COLLAGENASE OINT 30 GM TUBE TOPICAL SCH (09:23)
[2017-08-28 11:48] LABS: ALBUMIN 3.1 GM/DL (3.4-5.0); BICARBONATE 28.9 MEQ/L (21.0-32.0); CREATININE 0.68 MG/DL (0.60-1.30); MAGNESIUM 1.6 MG/DL (1.5-2.5)
[2017-08-28 11:49] LABS: DIRECT BILIRUBIN ADULT 0.1 MG/DL (0.0-0.2); PHOSPHORUS 3.3 MG/DL (2.5-4.9)
[2017-08-28 11:52] LABS: INDIRECT BILIRUBIN 0.1 MG/DL (0.0-0.8); TOTAL BILIRUBIN ADULT 0.2 MG/DL (0.2-1.0); TOTAL PROTEIN 7.5 GM/DL (6.4-8.2)
--- NOTE | 2017-08-28 15:48 | HHI.PR ---
Subjective Remarks Patient seen this morning around 11 AM. Says he is feeling well. Denies any chest pain or shortness of breath. Denies nausea or vomiting. Objective Vital Signs Date Time Temp Pulse Resp B/P (MAP) Pulse Ox O2 Delivery O2 Flow Rate FiO2 08/28/17 12:00 98.7 94 17 138/74 (95) 98 08/28/17 08:00 98.6 67 17 143/80 (101) 99 08/28/17 08:00 Room Air 08/28/17 04:00 98.1 72 20 129/64 (85) 98 08/28/17 02:06 Room Air 08/28/17 00:00 97.8 89 21 135/71 (92) 98 08/27/17 20:00 98.4 84 21 148/65 (92) 96 08/27/17 15:55 98.3 84 18 121/61 (81) 99 I/O 08/27/17 08/27/17 08/27/17 08/28/17 08/28/17 08/28/17 07:00 15:00 23:00 07:00 15:00 23:00 Intake Total 480 ml 840 ml 1200 ml Output Total 1750 ml 1000 ml 1000 ml Balance -1270 ml -160 ml 200 ml Intake Oral 480 ml 840 ml 1200 ml Output Urine Total 1750 ml 1000 ml 1000 ml Result Diagram: 08/28/17 0638 08/28/17 1058 Objective Remarks GENERAL: Patient lying in bed. Appears comfortable. Again, no change on exam. SKIN: Warm and dry. HEAD: Normocephalic. EYES: No scleral icterus. No injection or drainage. NECK: Supple, trachea midline. No JVD. CARDIOVASCULAR: Regular rate and rhythm without murmurs, gallops, or rubs. RESPIRATORY: Breath sounds equal bilaterally. No accessory muscle use. GASTROINTESTINAL: Abdomen soft, non-tender, nondistended. Colostomy still with soft brown stool. No blood. MUSCULOSKELETAL: No cyanosis, or edema. Right lower extremity amputation. Left lower extremity with dressings intact. BACK: Nontender without obvious deformity. No CVA tenderness. A/P Assessment and Plan 52 yo BM with Paraplegia: //Acute and chronic osteomyelitis and abscess/sinus tract at the fibula of left lower extremity. Chronic wound LLE. Culture has proteus, group D enterococcus and MRSA. -Orthopedics recommends AKA for best possible outcome but patient has been refusing. Pathology is back, allegedly inflammation but no osteomyelitis. However MRI in tumor localization all consistent with osteomyelitis involving the whole fibula. Infectious disease following. S/p biopsy under special procedures in attempt to obtain the pathogen as well as to confirm the osteomyelitis. -Antibiotics per ID, received ertapenem and daptomycin, now DCd. Switched to doxycycline 100 mg p.o. twice daily for 6 weeks. Stop date October 02 = 07/29. Patient seen and examined. Continue antibiotics as per ID. Appreciate ID assistance. //Diarrhea after p.o. antibiotics started patient. Check C. difficile is negative Continue Lactinex. Added Imodium without much improvement. = C. difficile negative. Really this is just loose stool in his stoma. Does not appear to be diarrhea. No blood. //ESBL UTI with chronic indwelling catheter which will be replaced. Culture growing ESBL, Klebsiella and GNR continue IV Invanz. //Sacral decubitus ulcers. Consult wound care physician appreciate recommendations. wound is healing well. //Anemia Appears chronic. - follow CBC and transfuse as needed. //Elevated LFTs CT abdomen without obvious abnormality. LFTs appear chronically elevated. -Resolved. //Reflux. = Improving on pantoprazole daily. DVT prophylaxis: Lovenox Discharge Planning Recommendation is for AKA per orthopedics. However the patient refused. Plan is to continue antibiotics per the patient's preference. S/p another biopsy under special procedures in attempt to obtain the pathogen as well as to confirm the osteomyelitis per infectious disease Dr Job nguyen. Discussed with Dr. Peters clear patient for discharge to have antibiotics by mouth doxycycline milligrams for 6 weeks at discharge. Consult wound care physician for decubitus wound, seen by Dr Melendrez appreciate recommendations. Case management following for discharge. =discussed with CARYN nguyen for DC plan Rick Ayala MD August 28, 2017 15:48
[2017-08-28] MEDS: ENOXAPARIN SODIUM 40 MG/0.4 ML SYRINGE SQ SCH (17:50)
[2017-08-29] MEDS: ACETAMINOPHEN/HYDROcodone 325 MG/10 MG TAB PO PRN ×6 (01:26→21:58)
[2017-08-29 04:50] VITALS: BP 142/81; PULSE 69; RESP 16; TEMP 98.4; O2SAT 99
[2017-08-29] MEDS: DIPHENOXYLATE/ATROPINE 2.5 MG/0.025 MG TAB PO SCH ×4 (05:44→21:58)
[2017-08-29 08:03] VITALS: BP 131/85; PULSE 75; RESP 16; TEMP 98.4; O2SAT 98
[2017-08-29] MEDS: SODIUM CHLORIDE 0.9% FLUSH 10 ML FLUSH IV FLUSH SCH ×3 (09:00→21:00)
[2017-08-29] MEDS: LACTOBACILLUS ACIDOPHILUS TAB PO SCH ×2 (09:17→21:58)
[2017-08-29] MEDS: MEGESTROL ACETATE SUSP 400 MG/10 ML CUP PO SCH (09:17)
[2017-08-29] MEDS: PANTOPRAZOLE SOD 20 MG DELAYED RELEASE TAB PO SCH (09:17)
[2017-08-29] MEDS: DOXYCYCLINE HYCLATE 100 MG TAB PO SCH ×2 (09:18→21:58)
[2017-08-29] MEDS: COLLAGENASE OINT 30 GM TUBE TOPICAL SCH (09:18)
--- NOTE | 2017-08-29 09:58 | HHI.PR ---
Subjective Remarks Patient says he is feeling fine. Denies any chest pain shortness of breath. Denies nausea or vomiting. Denies reflux. Objective Vital Signs Date Time Temp Pulse Resp B/P (MAP) Pulse Ox O2 Delivery O2 Flow Rate FiO2 08/29/17 08:03 98.4 75 16 131/85 (100) 98 08/29/17 04:50 98.4 69 16 142/81 (101) 99 08/29/17 04:00 Room Air 08/29/17 00:00 Room Air 08/28/17 23:40 98.3 74 16 137/73 (94) 97 08/28/17 20:00 Room Air 08/28/17 19:47 98.6 80 16 147/98 (114) 96 08/28/17 16:00 Room Air 08/28/17 16:00 98.1 86 18 137/65 (89) 99 08/28/17 12:00 98.7 94 17 138/74 (95) 98 08/28/17 12:00 Room Air I/O 08/28/17 08/28/17 08/28/17 08/29/17 08/29/17 08/29/17 06:59 14:59 22:59 06:59 14:59 22:59 Intake Total 1200 ml 1200 ml 720 ml Output Total 1000 ml 1050 ml 1750 ml Balance 200 ml 150 ml -1030 ml Intake Oral 1200 ml 1200 ml 720 ml Output Urine Total 1000 ml 700 ml 1250 ml Stool Total 350 ml 500 ml Result Diagram: 08/28/17 0638 08/28/17 1058 Objective Remarks GENERAL: Patient lying in bed. Appears comfortable. No change on exam. SKIN: Warm and dry. HEAD: Normocephalic. EYES: No scleral icterus. No injection or drainage. NECK: Supple, trachea midline. No JVD. CARDIOVASCULAR: Regular rate and rhythm without murmurs, gallops, or rubs. RESPIRATORY: Breath sounds equal bilaterally. No accessory muscle use. GASTROINTESTINAL: Abdomen soft, non-tender, nondistended. Colostomy still with soft brown stool. No blood. MUSCULOSKELETAL: No cyanosis, or edema. Right lower extremity amputation. Left lower extremity with dressings intact. BACK: Nontender without obvious deformity. No CVA tenderness. A/P Assessment and Plan 52 yo BM with Paraplegia: //Acute and chronic osteomyelitis and abscess/sinus tract at the fibula of left lower extremity. Chronic wound LLE. Culture has proteus, group D enterococcus and MRSA. -Orthopedics recommends AKA for best possible outcome but patient has been refusing. Pathology is back, allegedly inflammation but no osteomyelitis. However MRI in tumor localization all consistent with osteomyelitis involving the whole fibula. Infectious disease following. S/p biopsy under special procedures in attempt to obtain the pathogen as well as to confirm the osteomyelitis. -Antibiotics per ID, received ertapenem and daptomycin, now DCd. Switched to doxycycline 100 mg p.o. twice daily for 6 weeks. Stop date October 02 = 07/30. Patient seen and examined. Continue antibiotics as per ID. Appreciate ID assistance. //Diarrhea after p.o. antibiotics started patient. Check C. difficile is negative Continue Lactinex. Added Imodium without much improvement. = C. difficile negative. Really this is just loose stool in his stoma. Does not appear to be diarrhea. No blood. //ESBL UTI with chronic indwelling catheter which will be replaced. Culture growing ESBL, Klebsiella and GNR continue IV Invanz. //Sacral decubitus ulcers. Consult wound care physician appreciate recommendations. wound is healing well. //Anemia Appears chronic. - follow CBC and transfuse as needed. //Elevated LFTs CT abdomen without obvious abnormality. LFTs appear chronically elevated. -Resolved. //Reflux. = Improving on pantoprazole daily. DVT prophylaxis: Lovenox Discharge Planning Recommendation is for AKA per orthopedics. However the patient refused. Plan is to continue antibiotics per the patient's preference. S/p another biopsy under special procedures in attempt to obtain the pathogen as well as to confirm the osteomyelitis per infectious disease Dr Job nguyen. Discussed with Dr. Fran joaquin patient for discharge to have antibiotics by mouth doxycycline milligrams for 6 weeks at discharge. Consult wound care physician for decubitus wound, seen by Dr Melendrez appreciate recommendations. Case management following for discharge. =discussed with CARYN nguyen for DC plan Rick Ayala MD August 29, 2017 09:58
[2017-08-29 12:03] VITALS: BP 129/64; PULSE 83; RESP 16; TEMP 98.1; O2SAT 99
[2017-08-29 16:03] VITALS: BP 139/75; PULSE 82; RESP 16; TEMP 98.8; O2SAT 98
[2017-08-29] MEDS: ENOXAPARIN SODIUM 40 MG/0.4 ML SYRINGE SQ SCH (18:04)
[2017-08-29 20:00] VITALS: BP 143/74; PULSE 87; RESP 20; TEMP 98.5; O2SAT 96
[2017-08-30] VITALS (7 sets, daily range): BP systolic 126–152; BP diastolic 59–69; PULSE 69–85; RESP 16–18; TEMP 97.9–98.9; O2SAT 96–99
[2017-08-30] MEDS: ACETAMINOPHEN/HYDROcodone 325 MG/10 MG TAB PO PRN ×6 (02:14→23:55)
[2017-08-30] MEDS: DIPHENOXYLATE/ATROPINE 2.5 MG/0.025 MG TAB PO SCH ×4 (02:14→22:46)
[2017-08-30] MEDS: COLLAGENASE OINT 30 GM TUBE TOPICAL SCH (09:00)
[2017-08-30] MEDS: MEGESTROL ACETATE SUSP 400 MG/10 ML CUP PO SCH (09:16)
[2017-08-30] MEDS: PANTOPRAZOLE SOD 20 MG DELAYED RELEASE TAB PO SCH (09:17)
[2017-08-30] MEDS: LACTOBACILLUS ACIDOPHILUS TAB PO SCH ×2 (09:17→22:45)
[2017-08-30] MEDS: SODIUM CHLORIDE 0.9% FLUSH 10 ML FLUSH IV FLUSH SCH ×3 (09:17→22:46)
[2017-08-30] MEDS: DOXYCYCLINE HYCLATE 100 MG TAB PO SCH ×2 (09:17→22:46)
--- NOTE | 2017-08-30 09:32 | HHI.PR ---
Subjective Remarks Patient says he is feeling all right. No complaints. Objective Vital Signs Date Time Temp Pulse Resp B/P (MAP) Pulse Ox O2 Delivery O2 Flow Rate FiO2 08/30/17 05:15 97.9 69 16 131/67 (88) 97 08/30/17 00:00 Room Air 08/30/17 00:00 98.6 84 18 126/69 (88) 97 08/29/17 20:00 Room Air 08/29/17 20:00 98.5 87 20 143/74 (97) 96 08/29/17 16:03 98.8 82 16 139/75 (96) 98 08/29/17 15:01 18 08/29/17 12:03 98.1 83 16 129/64 (85) 99 I/O 08/29/17 08/29/17 08/29/17 08/30/17 08/30/17 08/30/17 07:00 15:00 23:00 07:00 15:00 23:00 Intake Total 720 ml 420 ml 240 ml Output Total 1750 ml 1600 ml 1400 ml Balance -1030 ml -1180 ml -1160 ml Intake Oral 720 ml 420 ml 240 ml Output Urine Total 1250 ml 1600 ml 1050 ml Stool Total 500 ml 350 ml # Bowel Movements 0 Result Diagram: 08/28/17 0638 08/28/17 1058 Objective Remarks GENERAL: Patient lying in bed. Appears comfortable. Again, no change on exam. SKIN: Warm and dry. HEAD: Normocephalic. EYES: No scleral icterus. No injection or drainage. NECK: Supple, trachea midline. No JVD. CARDIOVASCULAR: Regular rate and rhythm without murmurs, gallops, or rubs. RESPIRATORY: Breath sounds equal bilaterally. No accessory muscle use. GASTROINTESTINAL: Abdomen soft, non-tender, nondistended. Colostomy again with soft brown stool. No blood. MUSCULOSKELETAL: No cyanosis, or edema. Right lower extremity amputation. Left lower extremity with dressings intact. BACK: Nontender without obvious deformity. No CVA tenderness. A/P Assessment and Plan 52 yo BM with Paraplegia: //Acute and chronic osteomyelitis and abscess/sinus tract at the fibula of left lower extremity. Chronic wound LLE. Culture has proteus, group D enterococcus and MRSA. -Orthopedics recommends AKA for best possible outcome but patient has been refusing. Pathology is back, allegedly inflammation but no osteomyelitis. However MRI in tumor localization all consistent with osteomyelitis involving the whole fibula. Infectious disease following. S/p biopsy under special procedures in attempt to obtain the pathogen as well as to confirm the osteomyelitis. -Antibiotics per ID, received ertapenem and daptomycin, now DCd. Switched to doxycycline 100 mg p.o. twice daily for 6 weeks. Stop date October 02 =08/30. Patient seen and examined. Continue antibiotics as per ID. Appreciate ID assistance. //Diarrhea after p.o. antibiotics started patient. Check C. difficile is negative Continue Lactinex. Added Imodium without much improvement. = C. difficile negative. Really this is just loose stool in his stoma. Does not appear to be diarrhea. No blood. //ESBL UTI with chronic indwelling catheter which will be replaced. Culture growing ESBL, Klebsiella and GNR continue IV Invanz. //Sacral decubitus ulcers. Consult wound care physician appreciate recommendations. wound is healing well. //Anemia Appears chronic. - follow CBC and transfuse as needed. //Elevated LFTs CT abdomen without obvious abnormality. LFTs appear chronically elevated. -Resolved. //Reflux. = Improving on pantoprazole daily. DVT prophylaxis: Lovenox Discharge Planning Recommendation is for AKA per orthopedics. However the patient refused. Plan is to continue antibiotics per the patient's preference. S/p another biopsy under special procedures in attempt to obtain the pathogen as well as to confirm the osteomyelitis per infectious disease Dr Job nguyen. Discussed with Dr. Fran joaquin patient for discharge to have antibiotics by mouth doxycycline milligrams for 6 weeks at discharge. Consult wound care physician for decubitus wound, seen by Dr Melendrez appreciate recommendations. Case management following for discharge. =discussed with CARYN nguyen for DC plan Rick Ayala MD August 30, 2017 09:32
[2017-08-30] MEDS: ENOXAPARIN SODIUM 40 MG/0.4 ML SYRINGE SQ SCH (19:46)
[2017-08-31] MEDS: ACETAMINOPHEN/HYDROcodone 325 MG/10 MG TAB PO PRN ×5 (04:09→21:40)
[2017-08-31] MEDS: DIPHENOXYLATE/ATROPINE 2.5 MG/0.025 MG TAB PO SCH ×4 (04:09→21:40)
[2017-08-31 04:42] VITALS: BP 131/60; PULSE 79; RESP 16; TEMP 98.4; O2SAT 98
[2017-08-31 08:00] VITALS: BP 136/65; PULSE 71; RESP 18; TEMP 98.3; O2SAT 99
[2017-08-31] MEDS: COLLAGENASE OINT 30 GM TUBE TOPICAL SCH (09:00)
[2017-08-31] MEDS: SODIUM CHLORIDE 0.9% FLUSH 10 ML FLUSH IV FLUSH SCH ×3 (09:12→21:40)
[2017-08-31] MEDS: LACTOBACILLUS ACIDOPHILUS TAB PO SCH ×2 (09:14→21:40)
[2017-08-31] MEDS: MEGESTROL ACETATE SUSP 400 MG/10 ML CUP PO SCH (09:14)
[2017-08-31] MEDS: PANTOPRAZOLE SOD 20 MG DELAYED RELEASE TAB PO SCH (09:15)
[2017-08-31] MEDS: DOXYCYCLINE HYCLATE 100 MG TAB PO SCH ×2 (09:15→21:40)
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
[2017-08-31 12:00] VITALS: BP 151/67; PULSE 92; RESP 18; TEMP 98.5; O2SAT 97
[2017-08-31 16:00] VITALS: BP 119/58; PULSE 88; RESP 18; TEMP 98.7; O2SAT 95
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
[2017-08-31] MEDS: ENOXAPARIN SODIUM 40 MG/0.4 ML SYRINGE SQ SCH (17:27)
[2017-08-31 20:27] VITALS: BP 136/68; PULSE 90; RESP 16; TEMP 98.1; O2SAT 95
[2017-08-31 23:07] VITALS: BP 174/76; PULSE 78; RESP 16; TEMP 98.2; O2SAT 97
[2017-09-01] MEDS: DIPHENOXYLATE/ATROPINE 2.5 MG/0.025 MG TAB PO SCH ×4 (02:32→23:35)
[2017-09-01] MEDS: ACETAMINOPHEN/HYDROcodone 325 MG/10 MG TAB PO PRN ×6 (02:32→23:36)
[2017-09-01 05:04] VITALS: BP 143/66; PULSE 65; RESP 16; TEMP 98.7; O2SAT 96
[2017-09-01 08:00] VITALS: BP 122/61; PULSE 71; RESP 20; TEMP 97.9; O2SAT 97
[2017-09-01] MEDS: SODIUM CHLORIDE 0.9% FLUSH 10 ML FLUSH IV FLUSH SCH ×3 (09:00→23:36)
[2017-09-01] MEDS: PANTOPRAZOLE SOD 20 MG DELAYED RELEASE TAB PO SCH (09:59)
[2017-09-01] MEDS: MEGESTROL ACETATE SUSP 400 MG/10 ML CUP PO SCH (09:59)
[2017-09-01] MEDS: DOXYCYCLINE HYCLATE 100 MG TAB PO SCH ×2 (09:59→23:35)
[2017-09-01] MEDS: LACTOBACILLUS ACIDOPHILUS TAB PO SCH ×2 (10:00→23:35)
[2017-09-01] MEDS: COLLAGENASE OINT 30 GM TUBE TOPICAL SCH (10:07)
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
[2017-09-01 12:00] VITALS: BP 124/55; PULSE 83; RESP 20; TEMP 97.8; O2SAT 98
[2017-09-01 16:00] VITALS: BP 120/58; PULSE 92; RESP 20; TEMP 98.4; O2SAT 98
[2017-09-01] MEDS: ENOXAPARIN SODIUM 40 MG/0.4 ML SYRINGE SQ SCH (18:41)
[2017-09-01 20:00] VITALS: BP 149/65; PULSE 90; RESP 20; TEMP 98.4; O2SAT 97
[2017-09-02] VITALS: BP 139/64; PULSE 95; RESP 20; TEMP 98.2; O2SAT 96
[2017-09-02] MEDS: DIPHENOXYLATE/ATROPINE 2.5 MG/0.025 MG TAB PO SCH ×4 (03:39→20:15)
[2017-09-02] MEDS: ACETAMINOPHEN/HYDROcodone 325 MG/10 MG TAB PO PRN ×5 (03:44→22:40)
[2017-09-02 06:00] VITALS: BP 115/64; PULSE 73; RESP 19; TEMP 98.5; O2SAT 98
[2017-09-02 08:00] VITALS: BP 131/71; PULSE 71; RESP 20; TEMP 98.3; O2SAT 97
[2017-09-02] MEDS: LACTOBACILLUS ACIDOPHILUS TAB PO SCH ×2 (08:46→20:15)
[2017-09-02] MEDS: MEGESTROL ACETATE SUSP 400 MG/10 ML CUP PO SCH (08:46)
[2017-09-02] MEDS: PANTOPRAZOLE SOD 20 MG DELAYED RELEASE TAB PO SCH (08:46)
[2017-09-02] MEDS: SODIUM CHLORIDE 0.9% FLUSH 10 ML FLUSH IV FLUSH SCH ×3 (08:55→20:16)
[2017-09-02] MEDS: DOXYCYCLINE HYCLATE 100 MG TAB PO SCH ×2 (08:56→20:15)
[2017-09-02 12:00] VITALS: BP 122/71; PULSE 95; RESP 20; TEMP 98.3; O2SAT 96
--- NOTE | 2017-09-02 12:12 | HHI.PR ---
Subjective Remarks Nursing denies any deterioration since last night. Says stool is more formed in ostomy bag. Objective Vital Signs Date Time Temp Pulse Resp B/P (MAP) Pulse Ox O2 Delivery O2 Flow Rate FiO2 09/02/17 08:00 98.3 71 20 131/71 (91) 97 09/02/17 06:00 98.5 73 19 115/64 (81) 98 09/02/17 03:59 96 Room Air 09/02/17 00:00 98.2 95 20 139/64 (89) 96 09/01/17 20:00 98.4 90 20 149/65 (93) 97 09/01/17 16:00 98.4 92 20 120/58 (78) 98 I/O 09/01/17 09/01/17 09/01/17 09/02/17 09/02/17 09/02/17 06:59 14:59 22:59 06:59 14:59 22:59 Intake Total 1200 ml 960 ml 120 ml Output Total 1800 ml 1080 ml 1325 ml Balance -600 ml -120 ml -1205 ml Intake Oral 1200 ml 960 ml 120 ml Output Urine Total 1450 ml 1080 ml 1325 ml Stool Total 350 ml # Bowel Movements 0 Objective Remarks Lying in bed, awake and alert, no acute distress Lungs are clear bilaterally, unlabored breathing Ostomy bag with pasty appearing stool A/P Assessment and Plan 52 yo BM with Paraplegia: //Acute and chronic osteomyelitis and abscess/sinus tract at the fibula of left lower extremity. Chronic wound LLE. Culture has proteus, group D enterococcus and MRSA. -Patient has refused AKA recommendation from orthopedics. Pathology negative for osteomyelitis. However MRI in tumor localization all consistent with osteomyelitis involving the whole fibula. Infectious disease following. S/p biopsy under special procedures in attempt to obtain the pathogen as well as to confirm the osteomyelitis. Latest is regimen now is monotherapy doxycycline 100 mg p.o. twice daily for 6 weeks. Stop date October 02 improving diarrhea, c diff neg. //ESBL UTI with chronic indwelling catheter - doxycycline as above //Sacral decubitus ulcers. wound care physician appreciate recommendations. wound is healing well. //Anemia Appears chronic. -stable //Reflux. =pantoprazole DVT prophylaxis: Lovenox Discharge Planning Recommendation is for AKA per orthopedics. However the patient refused. Plan is to continue antibiotics per the patient's preference. S/p another biopsy under special procedures in attempt to obtain the pathogen as well as to confirm the osteomyelitis per infectious disease Dr Job nguyen. ID clear patient for discharge to have antibiotics by mouth doxycycline milligrams for 6 weeks at discharge. wound care physician for decubitus wound, seen by Dr Melendrez appreciate recommendations. Case management following for discharge. =discussed with CARYN nguyen for DC plan Micah Miller MD Sep 02, 2017 12:12
[2017-09-02] MEDS: COLLAGENASE OINT 30 GM TUBE TOPICAL SCH (14:42)
[2017-09-02 16:00] VITALS: BP 123/58; PULSE 96; RESP 20; TEMP 98.7; O2SAT 96
[2017-09-02] MEDS: ENOXAPARIN SODIUM 40 MG/0.4 ML SYRINGE SQ SCH (18:43)
[2017-09-02 20:00] VITALS: BP 162/66; PULSE 103; RESP 19; TEMP 98.1; O2SAT 95
[2017-09-03] VITALS: BP 129/67; PULSE 84; RESP 19; TEMP 98.5; O2SAT 98
[2017-09-03] MEDS: ACETAMINOPHEN/HYDROcodone 325 MG/10 MG TAB PO PRN ×6 (02:07→22:11)
[2017-09-03] MEDS: DIPHENOXYLATE/ATROPINE 2.5 MG/0.025 MG TAB PO SCH ×4 (02:07→22:10)
[2017-09-03 04:00] VITALS: BP 136/65; PULSE 75; RESP 18; TEMP 98.7; O2SAT 98
[2017-09-03 08:03] VITALS: BP 140/84; PULSE 76; RESP 17; TEMP 98.2; O2SAT 99
[2017-09-03] MEDS: COLLAGENASE OINT 30 GM TUBE TOPICAL SCH (09:00)
[2017-09-03] MEDS: SODIUM CHLORIDE 0.9% FLUSH 10 ML FLUSH IV FLUSH SCH ×3 (09:00→22:10)
[2017-09-03] MEDS: LACTOBACILLUS ACIDOPHILUS TAB PO SCH ×2 (09:13→22:10)
[2017-09-03] MEDS: MEGESTROL ACETATE SUSP 400 MG/10 ML CUP PO SCH (09:13)
[2017-09-03] MEDS: PANTOPRAZOLE SOD 20 MG DELAYED RELEASE TAB PO SCH (09:13)
[2017-09-03] MEDS: DOXYCYCLINE HYCLATE 100 MG TAB PO SCH ×2 (09:13→22:10)
--- NOTE | 2017-09-03 11:37 | HHI.PR ---
Subjective Remarks Nursing denies any deterioration since last night. pt has no new complaints. Objective Vital Signs Date Time Temp Pulse Resp B/P (MAP) Pulse Ox O2 Delivery O2 Flow Rate FiO2 09/03/17 10:58 98 Room Air 09/03/17 08:03 98.2 76 17 140/84 (102) 99 09/03/17 04:00 98.7 75 18 136/65 (88) 98 09/03/17 00:00 98.5 84 19 129/67 (87) 98 09/02/17 20:00 98.1 103 19 162/66 (98) 95 09/02/17 16:00 98.7 96 20 123/58 (79) 96 09/02/17 12:00 98.3 95 20 122/71 (88) 96 I/O 09/02/17 09/02/17 09/02/17 09/03/17 09/03/17 09/03/17 07:00 15:00 23:00 07:00 15:00 23:00 Intake Total 120 ml 720 ml 240 ml Output Total 1325 ml 750 ml 1255 ml Balance -1205 ml -30 ml -1015 ml Intake Oral 120 ml 720 ml 240 ml Output Urine Total 1325 ml 750 ml 1255 ml # Bowel Movements 0 0 Objective Remarks Lying in bed, awake and alert, no acute distress unlabored breathing Ostomy bag with formed stool A/P Assessment and Plan 52 yo BM with Paraplegia: //Acute and chronic osteomyelitis and abscess/sinus tract at the fibula of left lower extremity. Chronic wound LLE. Culture has proteus, group D enterococcus and MRSA. -Patient has refused AKA recommendation from orthopedics. Pathology negative for osteomyelitis. However MRI in tumor localization all consistent with osteomyelitis involving the whole fibula. Infectious disease following. S/p biopsy under special procedures in attempt to obtain the pathogen as well as to confirm the osteomyelitis. Latest is regimen now is monotherapy doxycycline 100 mg p.o. twice daily for 6 weeks. Stop date October 02. no clinical changes so far since last 3 days. improving diarrhea, c diff neg. //ESBL UTI with chronic indwelling catheter - doxycycline as above //Sacral decubitus ulcers. wound care physician appreciate recommendations. wound is healing well. //Anemia Appears chronic. -stable //Reflux. =pantoprazole DVT prophylaxis: Lovenox Discharge Planning Recommendation is for AKA per orthopedics. However the patient refused. Plan is to continue antibiotics per the patient's preference. S/p another biopsy under special procedures in attempt to obtain the pathogen as well as to confirm the osteomyelitis per infectious disease Dr Job nguyen. ID clear patient for discharge to have antibiotics by mouth doxycycline milligrams for 6 weeks at discharge w/ stop date October 02. wound care physician for decubitus wound, seen by Dr Melendrez appreciate recommendations. Case management following for discharge. =discussed with CARYN nguyen for DC plan Micah Miller MD Sep 03, 2017 11:37
[2017-09-03 12:03] VITALS: BP 135/72; PULSE 90; RESP 17; TEMP 97.8; O2SAT 98
[2017-09-03 16:03] VITALS: BP 151/91; PULSE 95; RESP 17; TEMP 98.9; O2SAT 98
[2017-09-03] MEDS: ENOXAPARIN SODIUM 40 MG/0.4 ML SYRINGE SQ SCH (17:26)
[2017-09-03 20:00] VITALS: BP 146/74; PULSE 99; RESP 14; TEMP 98.2; O2SAT 98
[2017-09-04] VITALS: BP 129/64; PULSE 82; RESP 16; TEMP 98.4; O2SAT 98
[2017-09-04] MEDS: DIPHENOXYLATE/ATROPINE 2.5 MG/0.025 MG TAB PO SCH ×4 (02:39→22:01)
[2017-09-04] MEDS: ACETAMINOPHEN/HYDROcodone 325 MG/10 MG TAB PO PRN ×6 (02:39→22:01)
[2017-09-04 03:50] VITALS: BP 134/65; PULSE 76; RESP 12; TEMP 97.5; O2SAT 96
[2017-09-04 08:00] VITALS: BP 140/71; PULSE 80; RESP 20; TEMP 98.3; O2SAT 99
[2017-09-04] MEDS: SODIUM CHLORIDE 0.9% FLUSH 10 ML FLUSH IV FLUSH SCH ×3 (08:40→22:02)
[2017-09-04] MEDS: DOXYCYCLINE HYCLATE 100 MG TAB PO SCH ×2 (08:41→22:01)
[2017-09-04] MEDS: LACTOBACILLUS ACIDOPHILUS TAB PO SCH ×2 (08:41→22:01)
[2017-09-04] MEDS: PANTOPRAZOLE SOD 20 MG DELAYED RELEASE TAB PO SCH (08:41)
[2017-09-04] MEDS: MEGESTROL ACETATE SUSP 400 MG/10 ML CUP PO SCH (08:42)
[2017-09-04] MEDS: COLLAGENASE OINT 30 GM TUBE TOPICAL SCH (09:00)
--- NOTE | 2017-09-04 09:17 | HHI.PR ---
Subjective Remarks Follow-up for LLE osteomyelitis, ESBL UTI, sacral decubitus ulcers. Patient reports no change compared to previous days. He states his left leg hurts all the time. He reports continued loose stools, states he emptied his colostomy bag 3 times last night. He has occasional right-sided abdominal pain, but none currently. He is tolerating oral intake. Denies any nausea or vomiting. He is worried about his placement does not want to go to [place] or [place] or [place]. Objective Vitals Vital Signs Date Time Temp Pulse Resp B/P (MAP) Pulse Ox O2 Delivery O2 Flow Rate FiO2 09/04/17 08:00 98.3 80 20 140/71 (94) 99 09/04/17 03:51 Room Air 09/04/17 03:50 97.5 76 12 134/65 (88) 96 09/04/17 00:00 Room Air 09/04/17 00:00 98.4 82 16 129/64 (85) 98 09/03/17 20:00 Room Air 09/03/17 20:00 98.2 99 14 146/74 (98) 98 09/03/17 16:03 98.9 95 17 151/91 (111) 98 09/03/17 14:02 98 Room Air 09/03/17 12:03 97.8 90 17 135/72 (93) 98 09/03/17 10:58 98 Room Air I/O 09/03/17 09/03/17 09/03/17 09/04/17 09/04/17 09/04/17 07:00 15:00 23:00 07:00 15:00 23:00 Intake Total 240 ml 960 ml 480 ml Output Total 1255 ml 1100 ml 900 ml Balance -1015 ml -140 ml -420 ml Intake Oral 240 ml 960 ml 480 ml Output Urine Total 1255 ml 1100 ml 900 ml # Bowel Movements 0 1 Imaging Last Impressions Needle Biopsy X-Ray 08/14/17 0000 Signed Impressions: Service Date/Time: Monday, August 14, 2017 16:02 - CONCLUSION: Uncomplicated needle biopsy of the left fibula as above. Ry Uribe MD Tumor Localization 08/06/17 0000 Signed Impressions: Service Date/Time: Sunday, August 06, 2017 16:24 - CONCLUSION: Diffuse abnormal accumulation of white cells throughout the entire fibula suggestive of osteomyelitis. This appears to correlate with the prior MRI of the lower left leg. Janes Landon MD Abdomen X-Ray 08/03/17 0000 Signed Impressions: Service Date/Time: Thursday, August 03, 2017 14:52 - CONCLUSION: 1. No acute abdominal abnormality is identified. 2. 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 Yonathan Callahan MD Lower Extremity MRI 07/23/17 0000 Signed Impressions: Service Date/Time: Sunday, July 23, 2017 20:15 - CONCLUSION: 1. The soft tissue ulceration laterally of the left leg appears slightly improved. No drainable soft tissue abscess. 2. However, there is increased conspicuity and extent of cortical thickening and signal changes of the fibula compatible with acute on chronic osteomyelitis. There is elongated and nearly diffuse intramedullary fluid typical of abscess as well as an apparent developing sinus tract approximately 6.1 cm proximal to the lateral malleolus. Yonathan Hess MD Chest X-Ray 07/22/17 0000 Signed Impressions: Service Date/Time: Saturday, July 22, 2017 13:06 - CONCLUSION: No acute disease. Cuba Bone MD Abdomen/Pelvis CT 07/22/17 0000 Signed Impressions: Service Date/Time: Saturday, July 22, 2017 14:36 - CONCLUSION: 1. Chronic bony changes about the pelvic girdle and proximal femurs or bony destruction and extensive heterotopic bone formation. 2. Probable associated decubitus type ulcers bilaterally with the right ischium/inferior pubic ramus partially exposed suggesting osteomyelitis in this region. 3. Cholelithiasis. 4. Ostomy in the upper midabdomen. Ry Uribe MD Objective Remarks GENERAL: Well-nourished, well-developed middle-aged male patient in [facility]. SKIN: Warm and dry. No rash. HEENT: Normocephalic. Atraumatic. Pupils equal and round. Mucous membranes pink and moist. CARDIOVASCULAR: Regular rate and rhythm. No murmur appreciated. RESPIRATORY: No accessory muscle use. Clear to auscultation. Breath sounds equal bilaterally. GASTROINTESTINAL: Abdomen soft, non-tender, nondistended. Normoactive bowel sounds x4. Colostomy bag with small amount of loose brown stool. MUSCULOSKELETAL: Left lower extremity with dressings and Dylan wrap, CDI. Left foot is warm with + capillary refill. NEUROLOGICAL: Awake and alert. No obvious cranial nerve deficits. Normal speech. PSYCHIATRIC: Appropriate mood and affect; insight and judgment normal. Procedures 07/28/17 -Dr. Brambila performed left sharp excisional debridement lateral leg ulcer and ankle with incision bone cortex, bone biopsy of fibula Medications and IVs Current Medications Medications (Trade) Dose Ordered Sig/Jocelynn Route Start Time Stop Time Status Last Admin (NS Flush) 2 ml UNSCH PRN IV FLUSH 07/22/17 16:30 08/29/17 09:16 (NS Flush) 2 ml BID IV FLUSH 07/22/17 21:00 09/04/17 08:40 (Tylenol) 650 mg Q4H PRN PO 07/22/17 16:30 (Zofran Inj) 4 mg Q6H PRN IVP 07/22/17 16:30 (Lovenox Inj) 40 mg Q24H SQ 07/22/17 18:00 Future hold 09/03/17 17:26 (Narcan Inj) 0.4 mg UNSCH PRN IV PUSH 07/22/17 16:30 (Milk Of Magnesia Liq) 30 ml Q12H PRN PO 07/22/17 16:30 (Senokot) 17.2 mg Q12H PRN PO 07/22/17 16:30 (Dulcolax Supp) 10 mg DAILY PRN RECTAL 07/22/17 16:30 (Lactulose Liq) 30 ml DAILY PRN PO 07/22/17 16:30 (Santyl Oint) 1 applic DAILY TOPICAL 07/23/17 09:00 09/02/17 14:42 (Lactinex) 1 tab BID PO 07/22/17 21:00 09/04/17 08:41 (Megace Liq) 625 mg DAILY PO 07/23/17 09:00 09/04/17 08:42 ([place] 10-325 Mg) 1 tab Q4H PRN PO 07/22/17 17:00 09/04/17 06:28 (NS Flush) See Protocol DAILY IV FLUSH 07/31/17 09:00 09/03/17 09:00 (NS Flush) See Protocol UNSCH PRN IV FLUSH 07/30/17 13:15 (NS Flush) UNSCH PRN IV FLUSH 07/30/17 13:15 08/15/17 15:14 (Vibratab) 100 mg Q12HR PO 08/17/17 21:00 09/04/17 08:41 (Imodium) 2 mg UNSCH PRN PO 08/19/17 10:30 08/23/17 20:14 (Lomotil Tab) 1 tab Q6H PO 08/21/17 15:15 09/04/17 02:39 (Protonix) 20 mg DAILY PO 08/26/17 09:00 09/04/17 08:41 (Heparin Central Flush) See Protocol DAILY IV FLUSH 09/01/17 09:00 09/04/17 08:40 (Heparin Central Flush) See Protocol UNSCH PRN IV FLUSH 08/31/17 16:30 Urinary Catheter: Yes Assessment to: Continue A/P Problem List: (1) UTI (urinary tract infection) ICD Code: N39.0 - Urinary tract infection, site not specified Status: Acute (2) Osteomyelitis ICD Code: M86.9 - Osteomyelitis, unspecified Assessment and Plan 52-year-old with Paraplegia presents with: Acute on chronic osteomyelitis and abscess/sinus tract at the LLE Fibula and Chronic Wound LLE -Prior wound culture from 06/11/17 with Proteus, Enterococcus, and MRSA -07/28/17 -Dr. Brambila performed left sharp excisional debridement lateral leg ulcer and ankle with incision bone cortex, bone biopsy of fibula -Repeat cultures from 07/28 and 08/14 with NGTD -LLE MRI strongly positive for osteomyelitis throughout fibula, however pathology has been negative -Patient has refused AKA recommendation from orthopedics -Infectious disease consulted, s/p treatment with daptomycin/ertapenem, now discontinued -ID recommended doxycycline 100mg po bid x6 weeks (stop date 10/02) -Pain control with [place] prn -Cleared from ID standpoint, needs placement ESBL UTI with chronic indwelling catheter -Continue on doxycycline as above -Afebrile Diarrhea: possibly secondary to antibiotics -C.diff negative x2 on 07/24 and 08/19 -Continue lactinex bid, lomotil q6h, and imodium prn -Diarrhea improving Sacral decubitus ulcers: chronic -wound care physician appreciate recommendations. -wound is healing well. Anemia: Appears chronic. -Hgb stable, no active signs of bleeding GERD: chronic -continue pantoprazole DVT prophylaxis: Lovenox Discharge Planning ID has cleared the patient for discharge on doxycycline 100mg po bid x6 weeks ( stop date 10/02). Needs placement. Problem Qualifiers (1) Osteomyelitis: Bonita Read PA-C Sep 04, 2017 9:17 am
[2017-09-04 12:00] VITALS: BP 133/65; PULSE 87; RESP 20; TEMP 98; O2SAT 98
[2017-09-04 16:00] VITALS: BP 139/72; PULSE 89; RESP 20; TEMP 98.5; O2SAT 98
[2017-09-04] MEDS: ENOXAPARIN SODIUM 40 MG/0.4 ML SYRINGE SQ SCH (17:49)
[2017-09-04 20:00] VITALS: BP 158/79; PULSE 86; RESP 16; TEMP 98.5; O2SAT 98
[2017-09-05] VITALS: BP 162/74; PULSE 83; RESP 16; TEMP 97.9; O2SAT 96
[2017-09-05] MEDS: ACETAMINOPHEN/HYDROcodone 325 MG/10 MG TAB PO PRN ×5 (02:30→22:25)
[2017-09-05] MEDS: DIPHENOXYLATE/ATROPINE 2.5 MG/0.025 MG TAB PO SCH ×4 (02:30→22:25)
[2017-09-05 04:00] VITALS: BP 135/66; PULSE 85; RESP 18; TEMP 97.7; O2SAT 99
[2017-09-05 06:49] LABS: BICARBONATE 26.3 MEQ/L (21.0-32.0); CALCIUM 9.2 MG/DL (8.5-10.1); CREATININE 0.61 MG/DL (0.60-1.30); MAGNESIUM 1.6 MG/DL (1.5-2.5)
[2017-09-05 08:00] VITALS: BP 131/70; PULSE 77; RESP 20; TEMP 98; O2SAT 100
[2017-09-05] MEDS: SODIUM CHLORIDE 0.9% FLUSH 10 ML FLUSH IV FLUSH SCH ×3 (09:00→21:00)
[2017-09-05] MEDS: COLLAGENASE OINT 30 GM TUBE TOPICAL SCH (09:00)
[2017-09-05] MEDS: LACTOBACILLUS ACIDOPHILUS TAB PO SCH ×2 (09:57→22:25)
[2017-09-05] MEDS: MEGESTROL ACETATE SUSP 400 MG/10 ML CUP PO SCH (09:57)
[2017-09-05] MEDS: DOXYCYCLINE HYCLATE 100 MG TAB PO SCH ×2 (09:57→22:25)
[2017-09-05] MEDS: PANTOPRAZOLE SOD 20 MG DELAYED RELEASE TAB PO SCH (09:57)
[2017-09-05 12:00] VITALS: BP 122/62; PULSE 90; RESP 20; TEMP 98.4; O2SAT 97
--- NOTE | 2017-09-05 15:23 | HHI.PR ---
Subjective Remarks 52-year-old male who is treated for ESBL UTI and osteomyelitis of the left fibula. He complains of loose stools visually evident in his ostomy bag. I explained to him that that is a common side effect of IV antibiotics. He understands that he will be going home soon and he is excited about that. Objective Vitals Vital Signs Date Time Temp Pulse Resp B/P (MAP) Pulse Ox O2 Delivery O2 Flow Rate FiO2 09/05/17 12:00 98.4 90 20 122/62 (82) 97 09/05/17 08:00 98.0 77 20 131/70 (90) 100 09/05/17 04:00 97.7 85 18 135/66 (89) 99 09/05/17 03:56 Room Air 09/05/17 00:00 Room Air 09/05/17 00:00 97.9 83 16 162/74 (103) 96 09/04/17 20:00 98.5 86 16 158/79 (105) 98 09/04/17 20:00 Room Air 09/04/17 18:36 98 Room Air 09/04/17 16:00 98.5 89 20 139/72 (94) 98 I/O 09/04/17 09/04/17 09/04/17 09/05/17 09/05/17 09/05/17 07:00 15:00 23:00 07:00 15:00 23:00 Intake Total 480 ml 240 ml 440 ml Output Total 900 ml 500 ml 1200 ml Balance -420 ml -260 ml -760 ml Intake Oral 480 ml 240 ml 440 ml Output Urine Total 900 ml 500 ml 1200 ml # Bowel Movements 1 1 Result Diagram: 09/05/17 0608 Objective Remarks GENERAL: Well-nourished, well-developed patient. SKIN: Warm and dry. HEAD: Normocephalic. EYES: No scleral icterus. No injection or drainage. NECK: Supple, trachea midline. No JVD or lymphadenopathy. CARDIOVASCULAR: Regular rate and rhythm without murmurs, gallops, or rubs. RESPIRATORY: Breath sounds equal bilaterally. No accessory muscle use. GASTROINTESTINAL: Abdomen soft, non-tender, nondistended. Colostomy bag centrally with loose light brown stools EXTREMITIES: No cyanosis, or edema. Right lower limb amputation, left lower limb under Dylan wrap NEUROLOGICAL: Awake, alert, and oriented x 3. Non-focal. Procedures 07/28/17 -Dr. Brambila performed left sharp excisional debridement lateral leg ulcer and ankle with incision bone cortex, bone biopsy of fibula A/P Problem List: (1) UTI (urinary tract infection) ICD Code: N39.0 - Urinary tract infection, site not specified Status: Acute (2) Osteomyelitis ICD Code: M86.9 - Osteomyelitis, unspecified Assessment and Plan 52-year-old with Paraplegia presents with osteomyelitis and urinary tract infection Acute on chronic osteomyelitis w/ abscess/sinus tract at the LLE Fibula and Chronic Wound LLE Wound culture from 06/11/17 with Proteus, Enterococcus, and MRSA Dr. Brambila performed left sharp excisional debridement lateral leg ulcer and ankle with incision bone cortex, bone biopsy of fibula on 07/28 Repeat cultures from 07/28 and 08/14 with no growth LLE MRI strongly positive for osteomyelitis throughout fibula, however pathology has been negative Patient has refused recommendations from orthopedics to amputate leg Per ID treatment with daptomycin/ertapenem, now discontinued ID recommends doxycycline 100mg po bid x6 weeks (stop date 10/02) Cleared for discharge from infectious disease standpoint Appreciate infectious disease ESBL UTI h/o chronic indwelling catheter due to paraplegia Continuing with doxycycline Diarrhea Present in colostomy bag Likely secondary to IV antibiotics C.diff negative x2 on 07/24 and 08/19 Continue lactinex bid, lomotil q6h, and imodium prn Sacral decubitus ulcers: chronic Appreciate wound care consult Anemia: chronic. Hgb stable, no active signs of bleeding GERD: chronic Continue pantoprazole DVT prophylaxis Lovenox Discharge Planning ID has cleared the patient for discharge on doxycycline 100mg po bid x6 weeks ( stop date 10/02). Awaiting placement Problem Qualifiers (1) Osteomyelitis: Tony Paulino MD Sep 05, 2017 15:23
[2017-09-05 16:00] VITALS: BP 146/66; PULSE 87; RESP 20; TEMP 98.8; O2SAT 99
[2017-09-05] MEDS: ENOXAPARIN SODIUM 40 MG/0.4 ML SYRINGE SQ SCH (18:08)
[2017-09-05 20:00] VITALS: BP 135/70; PULSE 88; RESP 18; TEMP 98.3; O2SAT 98
[2017-09-06] VITALS: BP 133/74; PULSE 88; RESP 18; TEMP 98.3; O2SAT 98
[2017-09-06] MEDS: ACETAMINOPHEN/HYDROcodone 325 MG/10 MG TAB PO PRN ×6 (02:36→21:33)
[2017-09-06] MEDS: DIPHENOXYLATE/ATROPINE 2.5 MG/0.025 MG TAB PO SCH ×4 (02:36→21:33)
[2017-09-06 08:00] VITALS: BP 136/74; PULSE 77; RESP 16; TEMP 97.9; O2SAT 97
[2017-09-06] MEDS: COLLAGENASE OINT 30 GM TUBE TOPICAL SCH (09:00)
[2017-09-06] MEDS: SODIUM CHLORIDE 0.9% FLUSH 10 ML FLUSH IV FLUSH SCH ×3 (09:00→21:00)
[2017-09-06] MEDS: PANTOPRAZOLE SOD 20 MG DELAYED RELEASE TAB PO SCH (09:51)
[2017-09-06] MEDS: LACTOBACILLUS ACIDOPHILUS TAB PO SCH ×2 (09:51→21:33)
[2017-09-06] MEDS: MEGESTROL ACETATE SUSP 400 MG/10 ML CUP PO SCH (09:51)
[2017-09-06] MEDS: DOXYCYCLINE HYCLATE 100 MG TAB PO SCH ×2 (09:51→21:33)
--- NOTE | 2017-09-06 12:46 | HHI.PR ---
Subjective Remarks Patient is in good spirits, he should be going home soon pending placement. He has no complaints this morning. Objective Vitals Vital Signs Date Time Temp Pulse Resp B/P (MAP) Pulse Ox O2 Delivery O2 Flow Rate FiO2 09/06/17 08:00 97.9 77 16 136/74 (94) 97 09/06/17 07:00 Room Air 09/06/17 00:00 98.3 88 18 133/74 (93) 98 09/06/17 00:00 Room Air 09/05/17 20:00 Room Air 09/05/17 20:00 98.3 88 18 135/70 (91) 98 09/05/17 16:00 98.8 87 20 146/66 (92) 99 I/O 09/05/17 09/05/17 09/05/17 09/06/17 09/06/17 09/06/17 07:00 15:00 23:00 07:00 15:00 23:00 Intake Total 440 ml 960 ml 720 ml Output Total 1200 ml 975 ml 1400 ml Balance -760 ml -15 ml -680 ml Intake Oral 440 ml 960 ml 720 ml Output Urine Total 1200 ml 975 ml 800 ml Stool Total 600 ml # Bowel Movements 1 Result Diagram: 09/05/17 0608 Objective Remarks GENERAL: Well-nourished, well-developed patient. SKIN: Warm and dry. HEAD: Normocephalic. EYES: No scleral icterus. No injection or drainage. NECK: Supple, trachea midline. No JVD or lymphadenopathy. CARDIOVASCULAR: Regular rate and rhythm without murmurs, gallops, or rubs. RESPIRATORY: Breath sounds equal bilaterally. No accessory muscle use. GASTROINTESTINAL: Abdomen soft, non-tender, nondistended. Colostomy bag centrally with loose light brown stools EXTREMITIES: No cyanosis, or edema. Right lower limb amputation, left lower limb under Dylan wrap NEUROLOGICAL: Awake, alert, and oriented x 3. Non-focal. Procedures 07/28/17 -Dr. Brambila performed left sharp excisional debridement lateral leg ulcer and ankle with incision bone cortex, bone biopsy of fibula A/P Problem List: (1) UTI (urinary tract infection) ICD Code: N39.0 - Urinary tract infection, site not specified Status: Acute (2) Osteomyelitis ICD Code: M86.9 - Osteomyelitis, unspecified Assessment and Plan 52-year-old with Paraplegia presents with osteomyelitis and urinary tract infection. No change to current plan, awaiting placement. Acute on chronic osteomyelitis w/ abscess/sinus tract at the LLE Fibula and Chronic Wound LLE Dr. Brambila performed left sharp excisional debridement lateral leg ulcer and ankle with incision bone cortex, bone biopsy of fibula on 07/28 Wound culture from 06/11/17 with Proteus, Enterococcus, and MRSA, repeat cultures from 07/28 and 08/14 with no growth LLE MRI strongly positive for osteomyelitis throughout fibula, however pathology has been negative Patient has refused recommendations from orthopedics to amputate leg ID recommends doxycycline 100mg po bid x6 weeks (stop date 10/02) Cleared for discharge from infectious disease standpoint Appreciate infectious disease ESBL UTI h/o chronic indwelling catheter due to paraplegia Continuing with doxycycline Diarrhea Present in colostomy bag Likely secondary to IV antibiotics C.diff negative x2 on 07/24 and 08/19 Continue lactinex bid, lomotil q6h, and imodium prn Sacral decubitus ulcers: chronic Appreciate wound care consult Anemia: chronic. Hgb stable, no active signs of bleeding GERD: chronic Continue pantoprazole DVT prophylaxis Lovenox Discharge Planning ID has cleared the patient for discharge on doxycycline 100mg po bid x6 weeks ( stop date 10/02). Awaiting placement Problem Qualifiers (1) Osteomyelitis: Tony Paulino MD Sep 06, 2017 12:46
[2017-09-06] MEDS: ENOXAPARIN SODIUM 40 MG/0.4 ML SYRINGE SQ SCH (17:42)
[2017-09-06 20:00] VITALS: BP 162/84; PULSE 97; RESP 18; TEMP 99.3; O2SAT 98
[2017-09-07] VITALS: BP 163/79; PULSE 110; RESP 18; TEMP 98.4; O2SAT 98
[2017-09-07] MEDS: ACETAMINOPHEN/HYDROcodone 325 MG/10 MG TAB PO PRN ×6 (02:00→22:16)
[2017-09-07] MEDS: DIPHENOXYLATE/ATROPINE 2.5 MG/0.025 MG TAB PO SCH ×4 (02:15→22:10)
[2017-09-07 04:00] VITALS: BP 121/75; PULSE 90; RESP 18; TEMP 98.4; O2SAT 98
[2017-09-07 08:00] VITALS: BP 121/59; PULSE 83; RESP 18; TEMP 98.3; O2SAT 98
[2017-09-07] MEDS: LACTOBACILLUS ACIDOPHILUS TAB PO SCH ×2 (08:39→22:10)
[2017-09-07] MEDS: SODIUM CHLORIDE 0.9% FLUSH 10 ML FLUSH IV FLUSH SCH ×3 (08:39→21:00)
[2017-09-07] MEDS: PANTOPRAZOLE SOD 20 MG DELAYED RELEASE TAB PO SCH (08:39)
[2017-09-07] MEDS: COLLAGENASE OINT 30 GM TUBE TOPICAL SCH (08:40)
[2017-09-07] MEDS: MEGESTROL ACETATE SUSP 400 MG/10 ML CUP PO SCH (08:40)
[2017-09-07] MEDS: DOXYCYCLINE HYCLATE 100 MG TAB PO SCH ×2 (10:18→22:10)
[2017-09-07 12:00] VITALS: BP 128/57; PULSE 85; RESP 18; TEMP 98.3; O2SAT 97
[2017-09-07] MEDS: KETOCONAZOLE 2% CREAM 15 GM TOPICAL SCH ×2 (12:00→22:11)
--- NOTE | 2017-09-07 13:39 | HHI.PR ---
Subjective Remarks Mr. Nolan points out a rash today that is covering the posterior aspect of his arms which wrist on pillows. He states there are times when he becomes sweaty during sleep or during exercise. Objective Vitals Vital Signs Date Time Temp Pulse Resp B/P (MAP) Pulse Ox O2 Delivery O2 Flow Rate FiO2 09/07/17 12:00 98.3 85 18 128/57 (80) 97 09/07/17 08:00 98 Room Air 09/07/17 08:00 98.3 83 18 121/59 (79) 98 09/07/17 04:00 Room Air 09/07/17 04:00 98.4 90 18 121/75 (90) 98 09/07/17 00:00 Room Air 09/07/17 00:00 98.4 110 18 163/79 (107) 98 09/06/17 20:00 Room Air 09/06/17 20:00 99.3 97 18 162/84 (110) 98 I/O 09/06/17 09/06/17 09/06/17 09/07/17 09/07/17 09/07/17 07:00 15:00 23:00 07:00 15:00 23:00 Intake Total 720 ml 2000 ml Output Total 1400 ml 2100 ml Balance -680 ml -100 ml Intake Oral 720 ml 2000 ml Output Urine Total 800 ml 1300 ml Stool Total 600 ml 800 ml Result Diagram: 09/05/17 0608 Objective Remarks GENERAL: Well-nourished, well-developed patient. SKIN: Warm and dry. Lacy mottled rash over posterior aspect of bilateral arms HEAD: Normocephalic. EYES: No scleral icterus. No injection or drainage. NECK: Supple, trachea midline. No JVD or lymphadenopathy. CARDIOVASCULAR: Regular rate and rhythm without murmurs, gallops, or rubs. RESPIRATORY: Breath sounds equal bilaterally. No accessory muscle use. GASTROINTESTINAL: Abdomen soft, non-tender, nondistended. Colostomy bag centrally with loose light brown stools EXTREMITIES: No cyanosis, or edema. Right lower limb amputation, left lower limb under Dylan wrap NEUROLOGICAL: Awake, alert, and oriented x 3. Non-focal. Procedures 07/28/17 -Dr. Brambila performed left sharp excisional debridement lateral leg ulcer and ankle with incision bone cortex, bone biopsy of fibula A/P Problem List: (1) UTI (urinary tract infection) ICD Code: N39.0 - Urinary tract infection, site not specified Status: Acute (2) Osteomyelitis ICD Code: M86.9 - Osteomyelitis, unspecified Assessment and Plan 52-year-old with Paraplegia presents with osteomyelitis and urinary tract infection. No change to current plan, awaiting placement. Acute on chronic osteomyelitis w/ abscess/sinus tract at the LLE Fibula and Chronic Wound LLE Dr. Brambila performed left sharp excisional debridement lateral leg ulcer and ankle with incision bone cortex, bone biopsy of fibula on 07/28 Wound culture from 06/11/17 with Proteus, Enterococcus, and MRSA, repeat cultures from 07/28 and 08/14 with no growth LLE MRI strongly positive for osteomyelitis throughout fibula, however pathology has been negative Patient has refused recommendations from orthopedics to amputate leg ID recommends doxycycline 100mg po bid x6 weeks (stop date 10/02) Cleared for discharge from infectious disease standpoint Appreciate infectious disease Tinea versicolor Ketoconazole 2% cream applied twice daily ESBL UTI h/o chronic indwelling catheter due to paraplegia Continuing with doxycycline Diarrhea Present in colostomy bag Likely secondary to IV antibiotics C.diff negative x2 on 07/24 and 08/19 Continue lactinex bid, lomotil q6h, and imodium prn Sacral decubitus ulcers: chronic Appreciate wound care consult Anemia: chronic. Hgb stable, no active signs of bleeding GERD: chronic Continue pantoprazole DVT prophylaxis Lovenox Discharge Planning ID has cleared the patient for discharge on doxycycline 100mg po bid x6 weeks ( stop date 10/02). Awaiting placement Problem Qualifiers (1) Osteomyelitis: Tony Paulino MD Sep 07, 2017 13:39
[2017-09-07 16:00] VITALS: BP 132/59; PULSE 101; RESP 18; TEMP 99.2; O2SAT 96
[2017-09-07] MEDS: ENOXAPARIN SODIUM 40 MG/0.4 ML SYRINGE SQ SCH (17:27)
[2017-09-07 20:00] VITALS: BP 119/69; PULSE 92; RESP 18; TEMP 98.6; O2SAT 97
[2017-09-08] VITALS: BP 125/59; PULSE 98; RESP 16; TEMP 98.5; O2SAT 98
[2017-09-08] MEDS: DIPHENOXYLATE/ATROPINE 2.5 MG/0.025 MG TAB PO SCH ×4 (02:38→21:24)
[2017-09-08] MEDS: ACETAMINOPHEN/HYDROcodone 325 MG/10 MG TAB PO PRN ×5 (02:38→21:25)
[2017-09-08 04:00] VITALS: BP 127/61; PULSE 85; RESP 18; TEMP 97.2; O2SAT 98
[2017-09-08 06:00] LABS: HEMATOCRIT 37.3 % (39.0-51.0); HEMOGLOBIN 12.2 GM/DL (13.0-17.0); MEAN CELL VOLUME 78.4 FL (80.0-100.0); MEAN CORPUSCULAR HEMOGLOBIN 25.7 PG (27.0-34.0); MEAN CORPUSCULAR HGB CONC 32.7 % (32.0-36.0); MEAN PLATELET VOLUME 7.2 FL (7.0-11.0); PLATELET COUNT 204 TH/MM3 (150-450); RED BLOOD COUNT 4.75 MIL/MM3 (4.50-5.90); RED CELL DISTRIBUTION WIDTH 19.4 % (11.6-17.2); WHITE BLOOD COUNT 4.5 TH/MM3 (4.0-11.0)
[2017-09-08 06:21] LABS: BICARBONATE 24.4 MEQ/L (21.0-32.0); CALCIUM 9.6 MG/DL (8.5-10.1); CREATININE 0.71 MG/DL (0.60-1.30)
[2017-09-08 08:00] VITALS: BP 111/56; PULSE 89; RESP 20; TEMP 98.4; O2SAT 98
[2017-09-08] MEDS: COLLAGENASE OINT 30 GM TUBE TOPICAL SCH (09:00)
[2017-09-08 09:01] LABS: BANDS 4 % (0-6); LYMPHOCYTES 24 % (9-44); MONOCYTES 9 % (0-8); NEUTROPHIL # MANUAL DIFF 2.9 TH/MM3 (1.8-7.7); OVALOCYTES 1+ (NORMAL); POLYS (SEG NEUTROPHILS) 60 % (16-70)
[2017-09-08 09:02] LABS: BURR CELLS 1+ (NORMAL)
[2017-09-08] MEDS: PANTOPRAZOLE SOD 20 MG DELAYED RELEASE TAB PO SCH (10:16)
[2017-09-08] MEDS: DOXYCYCLINE HYCLATE 100 MG TAB PO SCH ×2 (10:16→21:24)
[2017-09-08] MEDS: MEGESTROL ACETATE SUSP 400 MG/10 ML CUP PO SCH (10:16)
[2017-09-08] MEDS: LACTOBACILLUS ACIDOPHILUS TAB PO SCH ×2 (10:17→21:24)
[2017-09-08] MEDS: SODIUM CHLORIDE 0.9% FLUSH 10 ML FLUSH IV FLUSH SCH ×3 (10:17→21:25)
[2017-09-08] MEDS: KETOCONAZOLE 2% CREAM 15 GM TOPICAL SCH ×2 (10:19→21:26)
[2017-09-08 12:00] VITALS: BP 126/53; PULSE 99; RESP 20; TEMP 98; O2SAT 97
--- NOTE | 2017-09-08 14:45 | HHI.PR ---
Subjective Remarks Stool is slightly more solid today. Patient has no complaints. Objective Vitals Vital Signs Date Time Temp Pulse Resp B/P (MAP) Pulse Ox O2 Delivery O2 Flow Rate FiO2 09/08/17 12:00 98.0 99 20 126/53 (77) 97 09/08/17 08:00 Room Air 21 09/08/17 08:00 98.4 89 20 111/56 (74) 98 09/08/17 04:00 97.2 85 18 127/61 (83) 98 09/08/17 00:00 98.5 98 16 125/59 (81) 98 09/07/17 22:15 Room Air 09/07/17 20:00 98.6 92 18 119/69 (86) 97 09/07/17 17:32 99 Room Air 09/07/17 16:00 99.2 101 18 132/59 (83) 96 I/O 09/07/17 09/07/17 09/07/17 09/08/17 09/08/17 09/08/17 07:00 15:00 23:00 07:00 15:00 23:00 Intake Total 2000 ml 720 ml 1200 ml Output Total 2100 ml 800 ml 1400 ml Balance -100 ml -80 ml -200 ml Intake Oral 2000 ml 720 ml 1200 ml Output Urine Total 1300 ml 800 ml 1000 ml Stool Total 800 ml 400 ml Result Diagram: 09/08/17 0540 09/08/17 0540 Objective Remarks GENERAL: Well-nourished, well-developed patient. SKIN: Warm and dry. Lacy mottled rash over posterior aspect of bilateral arms HEAD: Normocephalic. EYES: No scleral icterus. No injection or drainage. NECK: Supple, trachea midline. No JVD or lymphadenopathy. CARDIOVASCULAR: Regular rate and rhythm without murmurs, gallops, or rubs. RESPIRATORY: Breath sounds equal bilaterally. No accessory muscle use. GASTROINTESTINAL: Abdomen soft, non-tender, nondistended. Colostomy bag centrally with loose light brown stools EXTREMITIES: No cyanosis, or edema. Right lower limb amputation, left lower limb under Dylan wrap NEUROLOGICAL: Awake, alert, and oriented x 3. Non-focal. Procedures 07/28/17 -Dr. Brambila performed left sharp excisional debridement lateral leg ulcer and ankle with incision bone cortex, bone biopsy of fibula A/P Problem List: (1) UTI (urinary tract infection) ICD Code: N39.0 - Urinary tract infection, site not specified Status: Acute (2) Osteomyelitis ICD Code: M86.9 - Osteomyelitis, unspecified Assessment and Plan 52-year-old with Paraplegia presents with osteomyelitis and urinary tract infection. No change to current plan, awaiting placement. Acute on chronic osteomyelitis w/ abscess/sinus tract at the LLE Fibula and Chronic Wound LLE Dr. Brambila performed left sharp excisional debridement lateral leg ulcer and ankle with incision bone cortex, bone biopsy of fibula on 07/28 Wound culture from 06/11/17 with Proteus, Enterococcus, and MRSA, repeat cultures from 07/28 and 08/14 with no growth LLE MRI strongly positive for osteomyelitis throughout fibula, however pathology has been negative Patient has refused recommendations from orthopedics to amputate leg ID recommends doxycycline 100mg po bid x6 weeks (stop date 10/02) Cleared for discharge from infectious disease standpoint Appreciate infectious disease Tinea versicolor Ketoconazole 2% cream applied twice daily for at least 2 weeks ESBL UTI h/o chronic indwelling catheter due to paraplegia Continuing with doxycycline Diarrhea Present in colostomy bag Likely secondary to IV antibiotics C.diff negative x2 on 07/24 and 08/19 Continue lactinex bid, lomotil q6h, and imodium prn Sacral decubitus ulcers: chronic Appreciate wound care consult Anemia: chronic. Hgb stable, no active signs of bleeding GERD: chronic Continue pantoprazole DVT prophylaxis Lovenox Discharge Planning ID has cleared the patient for discharge on doxycycline 100mg po bid x6 weeks ( stop date 10/02). Awaiting placement Problem Qualifiers (1) Osteomyelitis: Tony Paulino MD Sep 08, 2017 14:45
[2017-09-08 16:00] VITALS: BP 124/74; PULSE 101; RESP 20; TEMP 98; O2SAT 98
[2017-09-08] MEDS: ENOXAPARIN SODIUM 40 MG/0.4 ML SYRINGE SQ SCH (18:19)
[2017-09-08 20:00] VITALS: BP 151/78; PULSE 102; RESP 20; TEMP 98.5; O2SAT 98
[2017-09-09] VITALS: BP 119/84; PULSE 75; RESP 20; TEMP 98.4; O2SAT 98
[2017-09-09] MEDS: ACETAMINOPHEN/HYDROcodone 325 MG/10 MG TAB PO PRN ×6 (01:31→22:26)
[2017-09-09] MEDS: DIPHENOXYLATE/ATROPINE 2.5 MG/0.025 MG TAB PO SCH ×4 (03:15→21:09)
[2017-09-09 04:00] VITALS: BP 130/75; PULSE 81; RESP 20; TEMP 98.3; O2SAT 98
[2017-09-09 08:00] VITALS: BP 118/72; PULSE 82; RESP 20; TEMP 98.3; O2SAT 97
[2017-09-09] MEDS: SODIUM CHLORIDE 0.9% FLUSH 10 ML FLUSH IV FLUSH SCH ×3 (09:00→21:09)
[2017-09-09] MEDS: COLLAGENASE OINT 30 GM TUBE TOPICAL SCH (09:00)
[2017-09-09] MEDS: PANTOPRAZOLE SOD 20 MG DELAYED RELEASE TAB PO SCH (09:49)
[2017-09-09] MEDS: DOXYCYCLINE HYCLATE 100 MG TAB PO SCH ×2 (09:49→21:09)
[2017-09-09] MEDS: MEGESTROL ACETATE SUSP 400 MG/10 ML CUP PO SCH (09:49)
[2017-09-09] MEDS: LACTOBACILLUS ACIDOPHILUS TAB PO SCH ×2 (09:49→21:09)
[2017-09-09] MEDS: KETOCONAZOLE 2% CREAM 15 GM TOPICAL SCH ×2 (09:51→21:11)
[2017-09-09 12:00] VITALS: BP 117/66; PULSE 98; RESP 20; TEMP 98.2; O2SAT 97
--- NOTE | 2017-09-09 15:45 | HHI.PR ---
Subjective Remarks Patient remains in positive spirits. He has a single complaint which is occasional pain from the wound on his buttocks Objective Vitals Vital Signs Date Time Temp Pulse Resp B/P (MAP) Pulse Ox O2 Delivery O2 Flow Rate FiO2 09/09/17 12:00 98.2 98 20 117/66 (83) 97 09/09/17 08:00 98.3 82 20 118/72 (87) 97 09/09/17 08:00 Room Air 21 09/09/17 04:00 98.3 81 20 130/75 (93) 98 09/09/17 00:00 Room Air 09/09/17 00:00 98.4 75 20 119/84 (96) 98 09/08/17 21:20 Room Air 09/08/17 20:00 98.5 102 20 151/78 (102) 98 09/08/17 16:00 98.0 101 20 124/74 (91) 98 I/O 09/08/17 09/08/17 09/08/17 09/09/17 09/09/17 09/09/17 07:00 15:00 23:00 07:00 15:00 23:00 Intake Total 1200 ml 560 ml Output Total 1400 ml 850 ml 1000 ml Balance -200 ml -290 ml -1000 ml Intake Oral 1200 ml 560 ml Output Urine Total 1000 ml 850 ml 1000 ml Stool Total 400 ml Result Diagram: 09/08/17 0540 09/08/17 0540 Objective Remarks GENERAL: Well-nourished, well-developed patient. SKIN: Warm and dry. Lacy mottled rash over posterior aspect of bilateral arms HEAD: Normocephalic. EYES: No scleral icterus. No injection or drainage. NECK: Supple, trachea midline. No JVD or lymphadenopathy. CARDIOVASCULAR: Regular rate and rhythm without murmurs, gallops, or rubs. RESPIRATORY: Breath sounds equal bilaterally. No accessory muscle use. GASTROINTESTINAL: Abdomen soft, non-tender, nondistended. Colostomy bag centrally with loose light brown stools EXTREMITIES: No cyanosis, or edema. Right lower limb amputation, left lower limb under Dylan wrap NEUROLOGICAL: Awake, alert, and oriented x 3. Non-focal. Procedures 07/28/17 -Dr. Brambila performed left sharp excisional debridement lateral leg ulcer and ankle with incision bone cortex, bone biopsy of fibula A/P Problem List: (1) UTI (urinary tract infection) ICD Code: N39.0 - Urinary tract infection, site not specified Status: Acute (2) Osteomyelitis ICD Code: M86.9 - Osteomyelitis, unspecified Assessment and Plan 52-year-old with Paraplegia presents with osteomyelitis and urinary tract infection. No change to current plan, awaiting placement. Acute on chronic osteomyelitis w/ abscess/sinus tract at the LLE Fibula and Chronic Wound LLE Dr. Brambila performed left sharp excisional debridement lateral leg ulcer and ankle with incision bone cortex, bone biopsy of fibula on 07/28 Wound culture from 06/11/17 with Proteus, Enterococcus, and MRSA, repeat cultures from 07/28 and 08/14 with no growth LLE MRI strongly positive for osteomyelitis throughout fibula, however pathology has been negative Patient has refused recommendations from orthopedics to amputate leg ID recommends doxycycline 100mg po bid x6 weeks (stop date 10/02) Cleared for discharge from infectious disease standpoint Appreciate infectious disease Tinea versicolor Ketoconazole 2% cream applied twice daily for at least 2 weeks ESBL UTI h/o chronic indwelling catheter due to paraplegia Continuing with doxycycline Diarrhea Present in colostomy bag Likely secondary to IV antibiotics C.diff negative x2 on 07/24 and 08/19 Continue lactinex bid, lomotil q6h, and imodium prn Sacral decubitus ulcers: chronic Will reconsult Dr. Melendrez tomorrow for comparison of previous evaluation Anemia: chronic. Hgb stable, no active signs of bleeding GERD: chronic Continue pantoprazole DVT prophylaxis Lovenox Discharge Planning ID has cleared the patient for discharge on doxycycline 100mg po bid x6 weeks ( stop date 10/02). Awaiting placement Problem Qualifiers (1) Osteomyelitis: Tony Paulino MD Sep 09, 2017 15:45
[2017-09-09 16:00] VITALS: BP 114/69; PULSE 105; RESP 20; TEMP 98.8; O2SAT 97
[2017-09-09] MEDS: ENOXAPARIN SODIUM 40 MG/0.4 ML SYRINGE SQ SCH (18:31)
[2017-09-09 20:00] VITALS: BP 145/73; PULSE 95; RESP 20; TEMP 98.4; O2SAT 96
[2017-09-10] VITALS: BP 130/68; PULSE 85; RESP 17; TEMP 97.3; O2SAT 98
[2017-09-10] MEDS: DIPHENOXYLATE/ATROPINE 2.5 MG/0.025 MG TAB PO SCH ×4 (03:00→20:30)
[2017-09-10] MEDS: ACETAMINOPHEN/HYDROcodone 325 MG/10 MG TAB PO PRN ×6 (03:00→23:01)
[2017-09-10 04:00] VITALS: BP 141/70; PULSE 76; RESP 16; TEMP 97.2; O2SAT 97
[2017-09-10 08:00] VITALS: BP_SYST 158; BP_SYST 98; BP_DIAS 83; BP_DIAS 94; PULSE 77; PULSE 83; RESP 20; TEMP 98.4; O2SAT 97; O2SAT 98
[2017-09-10] MEDS: DOXYCYCLINE HYCLATE 100 MG TAB PO SCH ×2 (08:43→20:30)
[2017-09-10] MEDS: PANTOPRAZOLE SOD 20 MG DELAYED RELEASE TAB PO SCH (08:43)
[2017-09-10] MEDS: LACTOBACILLUS ACIDOPHILUS TAB PO SCH ×2 (08:43→20:31)
[2017-09-10] MEDS: MEGESTROL ACETATE SUSP 400 MG/10 ML CUP PO SCH (08:44)
[2017-09-10] MEDS: SODIUM CHLORIDE 0.9% FLUSH 10 ML FLUSH IV FLUSH SCH ×3 (08:45→20:31)
[2017-09-10] MEDS: COLLAGENASE OINT 30 GM TUBE TOPICAL SCH (08:45)
[2017-09-10] MEDS: KETOCONAZOLE 2% CREAM 15 GM TOPICAL SCH ×2 (08:46→20:31)
[2017-09-10 12:00] VITALS: BP 142/74; PULSE 98; RESP 20; TEMP 97.8; O2SAT 98
--- NOTE | 2017-09-10 14:24 | HHI.PR ---
Subjective Remarks Pt says that his chronic sacral wound has a new odd oder to it. He was previously seen by Dr. Melendrez regarding this wound a few weeks ago. Objective Vitals Vital Signs Date Time Temp Pulse Resp B/P (MAP) Pulse Ox O2 Delivery O2 Flow Rate FiO2 09/10/17 08:59 Room Air 09/10/17 08:00 98.4 83 20 158/94 (115) 97 09/10/17 04:00 Room Air 09/10/17 04:00 97.2 76 16 141/70 (93) 97 09/10/17 00:00 97.3 85 17 130/68 (88) 98 09/10/17 00:00 Room Air 09/09/17 21:00 Room Air 09/09/17 20:00 98.4 95 20 145/73 (97) 96 09/09/17 16:00 98.8 105 20 114/69 (84) 97 I/O 09/09/17 09/09/17 09/09/17 09/10/17 09/10/17 09/10/17 06:59 14:59 22:59 06:59 14:59 22:59 Intake Total 560 ml 720 ml Output Total 1000 ml 850 ml 1550 ml Balance -1000 ml -290 ml -830 ml Intake Oral 560 ml 720 ml Output Urine Total 1000 ml 850 ml 1050 ml Stool Total 500 ml Result Diagram: 09/08/17 0540 09/08/17 0540 Objective Remarks GENERAL: Well-nourished, well-developed patient. SKIN: Warm and dry. Lacy mottled rash over posterior aspect of bilateral arms HEAD: Normocephalic. EYES: No scleral icterus. No injection or drainage. NECK: Supple, trachea midline. No JVD or lymphadenopathy. CARDIOVASCULAR: Regular rate and rhythm without murmurs, gallops, or rubs. RESPIRATORY: Breath sounds equal bilaterally. No accessory muscle use. GASTROINTESTINAL: Abdomen soft, non-tender, nondistended. Colostomy bag centrally with loose light brown stools EXTREMITIES: No cyanosis, or edema. Right lower limb amputation, left lower limb under Dylan wrap NEUROLOGICAL: Awake, alert, and oriented x 3. Non-focal. Procedures 07/28/17 -Dr. Brambila performed left sharp excisional debridement lateral leg ulcer and ankle with incision bone cortex, bone biopsy of fibula A/P Problem List: (1) UTI (urinary tract infection) ICD Code: N39.0 - Urinary tract infection, site not specified Status: Acute (2) Osteomyelitis ICD Code: M86.9 - Osteomyelitis, unspecified Assessment and Plan 52-year-old with Paraplegia presents with osteomyelitis and urinary tract infection. No change to current plan, awaiting placement. Acute on chronic osteomyelitis w/ abscess/sinus tract at the LLE Fibula and Chronic Wound LLE Dr. Brambila performed left sharp excisional debridement lateral leg ulcer and ankle with incision bone cortex, bone biopsy of fibula on 07/28 Wound culture from 06/11/17 with Proteus, Enterococcus, and MRSA, repeat cultures from 07/28 and 08/14 with no growth LLE MRI strongly positive for osteomyelitis throughout fibula, however pathology has been negative Patient has refused recommendations from orthopedics to amputate leg ID recommends doxycycline 100mg po bid x6 weeks (stop date 10/02) Cleared for discharge from infectious disease standpoint Appreciate infectious disease Tinea versicolor Ketoconazole 2% cream applied twice daily for at least 2 weeks ESBL UTI h/o chronic indwelling catheter due to paraplegia Continuing with doxycycline Diarrhea Present in colostomy bag Likely secondary to IV antibiotics C.diff negative x2 on 07/24 and 08/19 Continue lactinex bid, lomotil q6h, and imodium prn Sacral decubitus ulcers: chronic Wound care consulted for reevaluation (Dr. Melendrez) Anemia: chronic. Hgb stable, no active signs of bleeding GERD: chronic Continue pantoprazole DVT prophylaxis Lovenox Discharge Planning ID has cleared the patient for discharge on doxycycline 100mg po bid x6 weeks ( stop date 10/02). Awaiting placement Problem Qualifiers (1) Osteomyelitis: Tony Paulino MD Sep 10, 2017 14:24
[2017-09-10 16:00] VITALS: BP 143/73; PULSE 88; RESP 20; TEMP 98.4; O2SAT 97
[2017-09-10] MEDS: ENOXAPARIN SODIUM 40 MG/0.4 ML SYRINGE SQ SCH (17:39)
[2017-09-10 20:00] VITALS: BP 130/80; PULSE 83; RESP 20; TEMP 98.1; O2SAT 97
[2017-09-11] VITALS: BP 141/65; PULSE 78; RESP 20; TEMP 97.9; O2SAT 98
[2017-09-11] MEDS: DIPHENOXYLATE/ATROPINE 2.5 MG/0.025 MG TAB PO SCH ×4 (03:15→20:42)
[2017-09-11 04:00] VITALS: BP 133/75; PULSE 71; RESP 20; TEMP 98.1; O2SAT 99
[2017-09-11] MEDS: ACETAMINOPHEN/HYDROcodone 325 MG/10 MG TAB PO PRN ×5 (05:52→22:12)
[2017-09-11 08:00] VITALS: BP 148/66; PULSE 91; RESP 20; TEMP 97.1; O2SAT 99
[2017-09-11] MEDS: SODIUM CHLORIDE 0.9% FLUSH 10 ML FLUSH IV FLUSH SCH ×3 (08:42→20:41)
[2017-09-11] MEDS: LACTOBACILLUS ACIDOPHILUS TAB PO SCH ×2 (08:43→20:41)
[2017-09-11] MEDS: MEGESTROL ACETATE SUSP 400 MG/10 ML CUP PO SCH (08:43)
[2017-09-11] MEDS: DOXYCYCLINE HYCLATE 100 MG TAB PO SCH ×2 (08:43→20:42)
[2017-09-11] MEDS: COLLAGENASE OINT 30 GM TUBE TOPICAL SCH (08:43)
[2017-09-11] MEDS: KETOCONAZOLE 2% CREAM 15 GM TOPICAL SCH ×2 (08:43→20:42)
[2017-09-11] MEDS: PANTOPRAZOLE SOD 20 MG DELAYED RELEASE TAB PO SCH (08:43)
--- NOTE | 2017-09-11 10:14 | PD.WOU.CON ---
Patient Intake Consult Requested by Primary Care Physician Abran De Oliveira, DO Coded Allergies: clindamycin (Verified Allergy, Severe, HIVES, 07/22/17) sulfamethoxazole (Verified Allergy, Severe, RASH, 07/22/17) trimethoprim (Verified Allergy, Severe, RASH, 07/22/17) vancomycin (Verified Allergy, Severe, hives, 07/22/17) morphine (Verified Adverse Reaction, Severe, Tachycardia, 07/22/17) Vital Signs Date Time Temp Pulse Resp B/P (MAP) Pulse Ox O2 Delivery O2 Flow Rate FiO2 09/11/17 07:04 Room Air 09/11/17 04:00 98.1 71 20 133/75 (94) 99 09/11/17 04:00 Room Air 21 09/11/17 00:00 Room Air 21 09/11/17 00:00 97.9 78 20 141/65 (90) 98 09/10/17 20:00 Room Air 21 09/10/17 20:00 98.1 83 20 130/80 (97) 97 09/10/17 16:00 98.4 88 20 143/73 (96) 97 09/10/17 12:00 97.8 98 20 142/74 (96) 98 Wound Assessment Wound Information - Wound One 08/16/17:Wound dimensions this week are: 10.6x15.5cm Wound Location: bilateral ischial ulcer Wound Length: 6cm Wound Width: 14cm Wound Depth: 2.5cm Undermining @ O'clock: 1-2 oclock with deepest depth at 12 oclock of 2.2cm Wound Two Wound Location: left leg ulcer Wound Length: 31.3cm Wound Width: 4cm Wound Depth: <0.1cm Lab and Radiology Results Radiology Last Impressions Needle Biopsy X-Ray 08/14/17 0000 Signed Impressions: Service Date/Time: Monday, August 14, 2017 16:02 - CONCLUSION: Uncomplicated needle biopsy of the left fibula as above. Ry Uribe MD Tumor Localization 08/06/17 0000 Signed Impressions: Service Date/Time: Sunday, August 06, 2017 16:24 - CONCLUSION: Diffuse abnormal accumulation of white cells throughout the entire fibula suggestive of osteomyelitis. This appears to correlate with the prior MRI of the lower left leg. Janes Landon MD Abdomen X-Ray 08/03/17 0000 Signed Impressions: Service Date/Time: Thursday, August 03, 2017 14:52 - CONCLUSION: 1. No acute abdominal abnormality is identified. 2. 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 Yonathan Callahan MD Lower Extremity MRI 07/23/17 0000 Signed Impressions: Service Date/Time: Sunday, July 23, 2017 20:15 - CONCLUSION: 1. The soft tissue ulceration laterally of the left leg appears slightly improved. No drainable soft tissue abscess. 2. However, there is increased conspicuity and extent of cortical thickening and signal changes of the fibula compatible with acute on chronic osteomyelitis. There is elongated and nearly diffuse intramedullary fluid typical of abscess as well as an apparent developing sinus tract approximately 6.1 cm proximal to the lateral malleolus. Yonathan Hess MD Chest X-Ray 07/22/17 0000 Signed Impressions: Service Date/Time: Saturday, July 22, 2017 13:06 - CONCLUSION: No acute disease. Cuba Bone MD Abdomen/Pelvis CT 07/22/17 0000 Signed Impressions: Service Date/Time: Saturday, July 22, 2017 14:36 - CONCLUSION: 1. Chronic bony changes about the pelvic girdle and proximal femurs or bony destruction and extensive heterotopic bone formation. 2. Probable associated decubitus type ulcers bilaterally with the right ischium/inferior pubic ramus partially exposed suggesting osteomyelitis in this region. 3. Cholelithiasis. 4. Ostomy in the upper midabdomen. MD Parvin Maldonado Karla A. MD Sep 11, 2017 10:14
[2017-09-11 12:00] VITALS: BP 154/67; PULSE 94; RESP 20; TEMP 98.5; O2SAT 98
--- NOTE | 2017-09-11 12:22 | PD.WCN.NOT ---
Wound Consult Description: Patient seen for follow up of bilateral ischial wound, and LLE wound with Doctor Melendrez Communicated with: Doctor Melendrez Recommendation: Please defer to written orders from Doctor Melendrez Additional Information: Patient seen earlier with Doctor Melendrez for follow up of wound to bilateral ischial area. Patient is able to turn and reposition himself with minimal assist to L side for wound assessment. Removed dressing in place to reveal open to wound to bilateral ischial area. Wound presents with 100% red granulation tissue with some islands of epithelialization. Periwound is noted with scar tissue. Wound measures 6cm x 14cm x 2.5cm with undermining from 1 to 2 o'clock deepest at 1 o'clock measuring 2.2cm.Doctor Melendrez mechanically debrided wound with normal saline soaked gauze pad. Wound was patted dry. Applied puracol AG to wound bed and covered with Maxorb extra AG. Wound was then covered with ABD pad, secured with medfix tape. Cavilon skin barrier film was applied to intact skin before medifx tape was applied. Sonam Flannery [facility] Sep 11, 2017 12:22
--- NOTE | 2017-09-11 15:05 | HHI.PR ---
Subjective Remarks Patient is feeling well today, sacral wound was examined by data warehousing specialist today. Wound is healing. Objective Vitals Vital Signs Date Time Temp Pulse Resp B/P (MAP) Pulse Ox O2 Delivery O2 Flow Rate FiO2 09/11/17 07:04 Room Air 09/11/17 04:00 98.1 71 20 133/75 (94) 99 09/11/17 04:00 Room Air 21 09/11/17 00:00 Room Air 21 09/11/17 00:00 97.9 78 20 141/65 (90) 98 09/10/17 20:00 Room Air 21 09/10/17 20:00 98.1 83 20 130/80 (97) 97 09/10/17 16:00 98.4 88 20 143/73 (96) 97 I/O 09/10/17 09/10/17 09/10/17 09/11/17 09/11/17 09/11/17 07:00 15:00 23:00 07:00 15:00 23:00 Intake Total 720 ml 960 ml 240 ml Output Total 1550 ml 1175 ml 1200 ml Balance -830 ml -215 ml -960 ml Intake Oral 720 ml 960 ml 240 ml Output Urine Total 1050 ml 1175 ml 1200 ml Stool Total 500 ml # Bowel Movements 1 0 Result Diagram: 09/08/17 0540 09/08/17 0540 Objective Remarks GENERAL: Well-nourished, well-developed patient. SKIN: Warm and dry. Lacy mottled rash over posterior aspect of bilateral arms HEAD: Normocephalic. EYES: No scleral icterus. No injection or drainage. NECK: Supple, trachea midline. No JVD or lymphadenopathy. CARDIOVASCULAR: Regular rate and rhythm without murmurs, gallops, or rubs. RESPIRATORY: Breath sounds equal bilaterally. No accessory muscle use. GASTROINTESTINAL: Abdomen soft, non-tender, nondistended. Colostomy bag centrally with loose light brown stools EXTREMITIES: No cyanosis, or edema. Right lower limb amputation, left lower limb under Dylan wrap NEUROLOGICAL: Awake, alert, and oriented x 3. Non-focal. Procedures 07/28/17 -Dr. Brambila performed left sharp excisional debridement lateral leg ulcer and ankle with incision bone cortex, bone biopsy of fibula A/P Problem List: (1) UTI (urinary tract infection) ICD Code: N39.0 - Urinary tract infection, site not specified Status: Acute (2) Osteomyelitis ICD Code: M86.9 - Osteomyelitis, unspecified Assessment and Plan 52-year-old with Paraplegia presents with osteomyelitis and urinary tract infection. No change to current plan, awaiting placement. Acute on chronic osteomyelitis w/ abscess/sinus tract at the LLE Fibula and Chronic Wound LLE Dr. Brambila performed left sharp excisional debridement lateral leg ulcer and ankle with incision bone cortex, bone biopsy of fibula on 07/28 Wound culture from 06/11/17 with Proteus, Enterococcus, and MRSA, repeat cultures from 07/28 and 08/14 with no growth LLE MRI strongly positive for osteomyelitis throughout fibula, however pathology has been negative Patient has refused recommendations from orthopedics to amputate leg ID recommends doxycycline 100mg po bid x6 weeks (stop date 10/02) Cleared for discharge from infectious disease standpoint Appreciate infectious disease Sacral decubitus ulcers: chronic Wound was reevaluated by Dr. Melendrez today Maxorb AG and Purcol AG were added as wound treatment/dressings Tinea versicolor Ketoconazole 2% cream applied twice daily for at least 2 weeks ESBL UTI h/o chronic indwelling catheter due to paraplegia Continuing with doxycycline Diarrhea Present in colostomy bag Likely secondary to IV antibiotics C.diff negative x2 on 07/24 and 08/19 Continue lactinex bid, lomotil q6h, and imodium prn Anemia: chronic. Hgb stable, no active signs of bleeding GERD: chronic Continue pantoprazole DVT prophylaxis Lovenox Discharge Planning ID has cleared the patient for discharge on doxycycline 100mg po bid x6 weeks ( stop date 10/02). Awaiting placement Problem Qualifiers (1) Osteomyelitis: Tony Paulino MD Sep 11, 2017 15:05
[2017-09-11 16:00] VITALS: BP 152/68; PULSE 88; RESP 20; TEMP 98.4; O2SAT 96
[2017-09-11] MEDS: ENOXAPARIN SODIUM 40 MG/0.4 ML SYRINGE SQ SCH (17:20)
[2017-09-11 20:00] VITALS: BP 123/57; PULSE 87; RESP 20; TEMP 98.6; O2SAT 97
[2017-09-12] VITALS: BP 151/69; PULSE 69; RESP 20; TEMP 98.1; O2SAT 98
[2017-09-12] MEDS: ACETAMINOPHEN/HYDROcodone 325 MG/10 MG TAB PO PRN ×5 (02:08→17:43)
[2017-09-12] MEDS: DIPHENOXYLATE/ATROPINE 2.5 MG/0.025 MG TAB PO SCH ×2 (03:15→09:26)
[2017-09-12 04:00] VITALS: BP 134/63; PULSE 84; RESP 20; TEMP 98.4; O2SAT 99
[2017-09-12 08:00] VITALS: BP 150/74; PULSE 70; RESP 16; TEMP 98.3; O2SAT 99
[2017-09-12] MEDS: COLLAGENASE OINT 30 GM TUBE TOPICAL SCH (09:00)
[2017-09-12] MEDS: KETOCONAZOLE 2% CREAM 15 GM TOPICAL SCH (09:00)
[2017-09-12] MEDS: SODIUM CHLORIDE 0.9% FLUSH 10 ML FLUSH IV FLUSH SCH ×2 (09:00)
[2017-09-12] MEDS: PANTOPRAZOLE SOD 20 MG DELAYED RELEASE TAB PO SCH (09:26)
[2017-09-12] MEDS: LACTOBACILLUS ACIDOPHILUS TAB PO SCH (09:26)
[2017-09-12] MEDS: MEGESTROL ACETATE SUSP 400 MG/10 ML CUP PO SCH (09:26)
[2017-09-12] MEDS: DOXYCYCLINE HYCLATE 100 MG TAB PO SCH (09:26)
[2017-09-12 12:00] VITALS: BP 140/63; PULSE 85; RESP 20; TEMP 98.4; O2SAT 99
[2017-09-12] MEDS ORDERED: Ketoconazole 2% Cream TOPICAL (14:00)
[2017-09-12] MEDS ORDERED: DOXY100T PO (14:00)
[2017-09-12] MEDS ORDERED: HYDR-3583 PO (14:00)
[2017-09-12] MEDS ORDERED: LOPE2CAP2 PO (14:00)
[2017-09-12 16:00] VITALS: BP 160/65; PULSE 100; RESP 18; TEMP 98.3; O2SAT 98
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
== END 2017-09-12 17:45 | DRG 463 ==
LOC: NEPE 12:31 → NEDA 16:25 → NEPFCDU 17:19 → OBSVTOIN 07-23 13:56 → N04A 07-26 19:35 → N04B 08-20 08:29 → N04A 08-20 08:31
PROVIDERS: ADMIT Internal Medicine; ATTEND Internal Medicine
PROC: 0QBK0ZX Excision of Left Fibula, Open Approach, Diagnostic (ICD-10-PCS; 2017-07-28)
PROC: 0JBP0ZZ Excision of Left Lower Leg Subcutaneous Tissue and Fascia, Open Approach (ICD-10-PCS; principal; 2017-07-28 08:02)
PROC: 0QB Lower Bones, Excision (ICD-10-PCS; 2017-08-14)
DX: M86.162 Other acute osteomyelitis, left tibia and fibula (principal); L89.154 Pressure ulcer of sacral region, stage 4; G82.20 Paraplegia, unspecified; K52.1 Toxic gastroenteritis and colitis; L89.893 Pressure ulcer of other site, stage 3; D64.9 Anemia, unspecified; B36.0 Pityriasis versicolor; I10 Essential (primary) hypertension; N39.0 Urinary tract infection, site not specified; L89.892 Pressure ulcer of other site, stage 2; Z93.6 Other artificial openings of urinary tract status; Z89.611 Acquired absence of right leg above knee; M86.662 Other chronic osteomyelitis, left tibia and fibula; B96.20 Unspecified Escherichia coli [E. coli] as the cause of diseases classified elsewhere; Z16.12 Extended spectrum beta lactamase (ESBL) resistance; T36.95XA Adverse effect of unspecified systemic antibiotic, initial encounter; G89.29 Other chronic pain; G47.30 Sleep apnea, unspecified; K21.9 Gastro-esophageal reflux disease without esophagitis; M19.90 Unspecified osteoarthritis, unspecified site; R53.81 Other malaise; Z88.1 Allergy status to other antibiotic agents; Z93.3 Colostomy status; Z87.891 Personal history of nicotine dependence; Z99.3 Dependence on wheelchair; Z87.440 Personal history of urinary (tract) infections; I25.2 Old myocardial infarction
CPT/HCPCS: 20225; 36569; 71045; 73720; 74018; 74177; 76937; 77002; 78807; 78999; 80048; 80053; 80069; 80076; 81001; 82550; 82552; 83036; 83605; 83735; 84100; 84439; 84443; 84484; 85007; 85025; 85027; 85610; 85652; 85730; 87015; 87040; 87070; 87077; 87086; 87102; 87116; 87176; 87186; 87205; 87206; 87493; 88305; 88307; 88311; 93005; 99152; 99153; A9569; A9579; J0131; J0696; J0878; J1100; J1170; J1335; J1642; J1650; J1885; J2250; J2370; J2405; J2543; J3010; J7120; Q9967